=== PATIENT | male | born 1930 | race Caucasian/White ===

== ENCOUNTER 2017-09-25 20:52 | Inpatient (IN) ==
--- OUTSIDE RECORDS SUMMARY | 2017-09-25 22:04 | External Medical Summary | CCD ---
:1930 Author Name DAX EID Address [address], [place] [id number] Care Team Providers Name Role Phone SMITA MILAN Attending Physician Unavailable Vital Signs Unknown or Not Available. Allergies Allergy Code Allergy Type Reaction Status SULFA 0 Drug allergy Active (sulfonamide) MORPHINE 7052 Drug allergy Active NORCO [id number] Drug allergy Active Procedures Unknown or Not Available. History of Immunizations Immunization Code Date pneumococcal polysaccharide PPV23 33 08/12/2007 Influenza, seasonal, injectable 141 05/22/2015 Problems Unknown or Not Available. Results COMP METABOLIC - Collect Date/Time: 07/05/2016 07:45 Test Name Code Test Result Test Units Test Ref Range GLUCOSE 115 mg/dL L=70 H=110 BUN 26 mg/dL L=7 H=18 CREATININE 1.55 mg/dL L=0.60 H=1.30 AGE 86 YEARS GFR 42.7 SODIUM 141 mmol/L L=136 H=145 POTASSIUM 4.3 mmol/L L=3.5 H=5.1 CHLORIDE 103 mmol/L L=98 H=107 CO2 26 mmol/L L=21 H=32 CALCIUM 8.9 mg/dL L=8.5 H=10.1 AST 16 U/L L=15 H=37 ALT 28 U/L L=12 H=78 ALKALINE PHOS 76 U/L L=46 H=116 TOTAL PROTEIN 7.3 g/dL L=6.4 H=8.2 ALBUMIN 3.8 g/dL L=3.4 H=5.0 TOTAL BILI 0.30 mg/dL L=0.00 H=1.00 HGB A1C - Collect Date/Time: 07/05/2016 07:45 Test Name Code Test Result Test Units Test Ref Range HGB A1C 6.9 % L=4.5 H=6.2 eAG 151 mg/dL MICROALBUMIN/CREATININE RATIO - Collect Date/Time: 07/05/2016 07:50 Test Name Code Test Result Test Units Test Ref Range MICROALBUMIN 3.2 mg/dL L=0.1 H=2.0 CREAT, URINE 107.3 mg/dL MICROALB/CREAT 29.8 ug/mg L=0.0 H=29.9 CBC W/ DIFF - Collect Date/Time: 07/05/2016 07:45 Test Name Code Test Result Test Units Test Ref Range WBC 7.2 x10^3 L=4.8 H=10.8 RBC 3.43 x10^6 L=4.70 H=6.10 HEMOGLOBIN 11.4 g/dL L=14.0 H=18.0 HEMATOCRIT 32.1 % L=42.0 H=52.0 MCV 94 fL L=80 H=100 MCH 33.2 pg L=27.0 H=33.0 MCHC 35.5 g/dL L=33.0 H=37.0 RDW 12.5 % L=11.5 H=14.5 PLATELETS 521 x10^3 L=150 H=450 MPV 6.9 fL L=7.8 H=11.0 NEUTROPHILS 64.4 % L=40.0 H=80.0 LYMPHOCYTES 22.9 % L=20.0 H=45.0 MONOCYTES 9.0 % L=0.0 H=10.0 EOSINOPHILS 3.1 % L=0.0 H=5.0 BASOPHILS 0.6 % L=0.0 H=2.0 REFLEX MAN DIFF NO N/A Active Medications Medication Code Dose Units Frequency Route Modification Start Date/Time Fosinopril [id number] 40 MILLIGRAMS DAILY ORAL 07/31/2015 40MG Oral 11:25 Tablet Prescription Detail 40 MILLIGRAMS ORAL DAILY Hydrochlorothiazide [id number] 25 MILLIGRAMS DAILY ORAL 07/31/2015 25MG Oral Tablet 11:25 Prescription Detail 25 MILLIGRAMS ORAL DAILY Lovastatin 20MG [id number] 20 MILLIGRAMS DAILY ORAL 07/31/2015 Oral Tablet 11:25 Prescription Detail 20 MILLIGRAMS ORAL DAILY Mapap 325MG [id number] 650 MILLIGRAMS PRN Q4H BY MOUTH 07/31/2015 Oral Tablet 11:25 Prescription Detail TAKE 650 MILLIGRAMS BY MOUTH PRN Q4H Plavix 75MG [id number] 75 MILLIGRAMS DAILY ORAL 07/31/2015 Oral Tablet 11:25 Prescription Detail 75 MILLIGRAMS ORAL DAILY Flomax 0.4MG [id number] 0.4 MILLIGRAMS AT BEDTIME ORAL 07/31/2015 Oral Capsule 11:24 Prescription Detail 0.4 MILLIGRAMS ORAL AT BEDTIME Medications Administered During Visit Unknown or Not Available. Encounters Encounter Diagnosis Diagnosis Code Start Date Anemia, unspecified D649 07/05/2016 Social History Smoking Status Code Start Date End Date Never smoker [id number] Patient Decision Aids Unknown or Not Available. Discharge Instructions You were admitted to [facility] on 07/05/2016 07:37 with a principal diagnosis of Anemia, unspecified You had the following tests done: CBC W/ DIFF COMP METABOLIC HGB A1C MICROALBUMIN/CREATININE RATIO You were discharged from [facility] on 07/05/2016 07:38 Should you have any questions prior to discharge, please contact a member of your healthcare team. If you have left the hospital and have any questions, please contact your primary care physician. Chief Complaint and Reason For Visit Chief Complaint Date of Onset LAB Function Status Unknown or Not Available. Plan of Care Unknown or Not Available. Referral/Transition of Care Unknown or Not Available.
--- OUTSIDE RECORDS SUMMARY | 2017-09-25 22:04 | External Medical Summary | CCD ---
:1930 Author Name DAX EID Address [address] [employer] [address] [employer], [place] [id number] Care Team Providers Name Role Phone ROSEMARIE BERMEO Attending Physician Unavailable ROSEMARIE BERMEO Er Physician 1 Unavailable CHELSEY Meek Registered Nurse Unavailable Vital Signs Unknown or Not Available. Allergies Allergy Code Allergy Type Reaction Status SULFA 0 Drug allergy Active (sulfonamide) MORPHINE 7052 Drug allergy Active NORCO [id number] Drug allergy Active Procedures Unknown or Not Available. History of Immunizations Immunization Code Date pneumococcal polysaccharide PPV23 33 08/12/2007 Influenza, seasonal, injectable 141 05/22/2015 Problems Unknown or Not Available. Results CARDIAC PANEL - Collect Date/Time: 06/21/2016 12:30 Test Name Code Test Result Test Units Test Ref Range CKMB 1.1 ng/mL L=0.0 H=3.6 CPK 54 U/L L=26 H=308 CKMB% 2.0 % L=0.0 H=4.0 TROPONIN I <0.02 ng/mL L=0.00 H=0.05 COMP METABOLIC - Collect Date/Time: 06/21/2016 12:30 Test Name Code Test Result Test Units Test Ref Range GLUCOSE 138 mg/dL L=70 H=110 BUN 31 mg/dL L=7 H=18 CREATININE 1.68 mg/dL L=0.60 H=1.30 AGE 86 YEARS GFR 38.9 SODIUM 138 mmol/L L=136 H=145 POTASSIUM 4.5 mmol/L L=3.5 H=5.1 CHLORIDE 101 mmol/L L=98 H=107 CO2 27 mmol/L L=21 H=32 CALCIUM 9.3 mg/dL L=8.5 H=10.1 AST 17 U/L L=15 H=37 ALT 33 U/L L=12 H=78 ALKALINE PHOS 56 U/L L=46 H=116 TOTAL PROTEIN 7.5 g/dL L=6.4 H=8.2 ALBUMIN 4.3 g/dL L=3.4 H=5.0 TOTAL BILI 0.40 mg/dL L=0.00 H=1.00 PRO B-TYPE NATRIURETIC PEPTIDE - Collect Date/Time: 06/21/2016 12:30 Test Name Code Test Result Test Units Test Ref Range PBNP 364 pg/mL L=0 H=450 CBC W/ DIFF - Collect Date/Time: 06/21/2016 12:30 Test Name Code Test Result Test Units Test Ref Range WBC 9.7 x10^3 L=4.8 H=10.8 RBC 3.72 x10^6 L=4.70 H=6.10 HEMOGLOBIN 12.1 g/dL L=14.0 H=18.0 HEMATOCRIT 35.5 % L=42.0 H=52.0 MCV 95 fL L=80 H=100 MCH 32.5 pg L=27.0 H=33.0 MCHC 34.1 g/dL L=33.0 H=37.0 RDW 12.6 % L=11.5 H=14.5 PLATELETS 371 x10^3 L=150 H=450 MPV 6.8 fL L=7.8 H=11.0 NEUTROPHILS 65.7 % L=40.0 H=80.0 LYMPHOCYTES 21.4 % L=20.0 H=45.0 MONOCYTES 11.2 % L=0.0 H=10.0 EOSINOPHILS 1.5 % L=0.0 H=5.0 BASOPHILS 0.2 % L=0.0 H=2.0 REFLEX MAN DIFF NO N/A PT/INR - Collect Date/Time: 06/21/2016 12:30 Test Name Code Test Result Test Units Test Ref Range PT 10.2 Secs L=9.4 H=11.0 INR 1.00 L=0.00 H=4.00 Active Medications No Active Medications Medications Administered During Visit Unknown or Not Available. Encounters Encounter Diagnosis Diagnosis Code Start Date Concussion without loss of [id number] 06/21/2016 consciousness, initial encounter Social History Smoking Status Code Start Date End Date Never smoker [id number] Patient Decision Aids Unknown or Not Available. Discharge Instructions You were admitted to [facility] on 06/21/2016 12:08 with a principal diagnosis of Concussion without loss of consciousness, initial encou You had the following tests done: CARDIAC PANEL CBC W/ DIFF COMP METABOLIC PRO B-TYPE NATRIURETIC PEPTIDE PT/INR You were discharged from [facility] on 06/21/2016 14:53 Should you have any questions prior to discharge, please contact a member of your healthcare team. If you have left the hospital and have any questions, please contact your primary care physician. Chief Complaint and Reason For Visit Chief Complaint Date of Onset FALL, HIT HEAD ON BLOOD THINNERS Function Status Unknown or Not Available. Plan of Care Unknown or Not Available. Referral/Transition of Care Unknown or Not Available.
--- OUTSIDE RECORDS SUMMARY | 2017-09-25 22:04 | External Medical Summary | Referral Summary ---
:1930 Author Organization [facility] Address [address] [place] [address] Care Team Providers Name Role Phone TrivediYvonne castanedajose Recinos Primary Care Physician Encounter VC Date(s): 07/10/15 - 07/17/15 [facility] [address] [place] [address] [place] [phone] Discharge Disposition: [address] [place] [address] Attending Physician: Jason Ram MD Admitting Physician: Jason Ram MD Vital Signs Most recent to oldest [Reference Range]: 1 Temperature Oral [35.8-37.3 degC] 36.7 degC (07/17/15 12:00 PM) Temperature Skin [36-37 degC] 36.7 degC (07/11/15 4:30 PM) Temperature Temporal Artery [36.3-37.8 degC] 37.5 degC (07/11/15 11:25 AM) Peripheral Pulse Rate [60-100 bpm] 68 bpm (07/17/15 12:00 PM) Heart Rate Monitored [60-100 bpm] 81 bpm (07/15/15 4:00 PM) Respiratory Rate [14-20 br/min] 16 br/min (07/17/15 12:00 PM) Blood Pressure [90-140/60-90 mmHg] 147/69 mmHg *HI* (07/17/15 12:00 PM) Mean Arterial Pressure, Cuff 104 mmHg (07/13/15 7:30 PM) SpO2 99 % (07/17/15 12:00 PM) Problem List Condition Effective Dates Status Health Status Informant Acute pain(Confirmed) Active At risk of pressure sore(Confirmed) Active Tissue perfusion Active alteration(Confirmed)1 1Problem added automatically by system based on initiation of Tissue Perfusion Cerebral Plan of Care Allergies, Adverse Reactions, Alerts Substance Reaction Severity Status morphine Agitation Active [place] Agitation Active sulfa drugs Rash Active Medications amiodarone 200 mg oral tablet 200 mg 1 tabs, Oral, Daily, 0 Refill(s) Start Date: 07/10/15 Status: OrderedamLODIPine 5 mg oral tablet 5 mg 1 tabs, Oral, Daily, 0 Refill(s) Start Date: 07/10/15 Status: Orderedclopidogrel 75 mg oral tablet 75 mg 1 tabs, Oral, Daily, 0 Refill(s) Start Date: 07/10/15 Status: Orderedfosinopril 40 mg oral tablet 40 mg 1 tabs, Oral, Daily, 0 Refill(s) Start Date: 07/10/15 Status: Orderedglimepiride 1 mg oral tablet 1 mg 1 tabs, Oral, Daily, 0 Refill(s) Start Date: 07/10/15 Status: Orderedhydrochlorothiazide 25 mg oral tablet 25 mg 1 tabs, Oral, Daily, 0 Refill(s) Start Date: 07/10/15 Status: Orderedlovastatin 20 mg oral tablet 20 mg 1 tabs, Oral, Bedtime (once a day), 0 Refill(s) Start Date: 07/10/15 Status: OrderedmetFORMIN 850 mg oral tablet 850 mg 1 tabs, Oral, BID, 0 Refill(s) Start Date: 07/10/15 Status: OrderedoxyCODONE-acetaminophen 5 mg-325 mg oral tablet 1-2 tabs, Oral, q4hr, Pain Moderate (4-6), 0 Refill(s) Start Date: 07/17/15 Status: Orderedtamsulosin 0.4 mg oral capsule 0.4 mg 1 caps, Oral, Daily, 0 Refill(s) Start Date: 07/10/15 Status: OrderedXarelto 10 mg oral tablet 10 mg 1 tabs, Oral, Daily, 0 Refill(s) Start Date: 07/17/15 Status: Ordered Results Hematology Most recent to oldest [Reference Range]: 1 WBC [4.8-10.8 10*3/uL] 10.7 10*3/uL (07/17/15 6:08 AM) RBC [4.60-6.20] 2.27 *LOW* (07/17/15 6:08 AM) Hgb [14.0-18.0 gm/dL] 7.1 gm/dL *LOW* (07/17/15 6:08 AM) Hct [42.0-52.0 %] 21.7 % *LOW* (07/17/15 6:08 AM) MCV [82.0-99.0 fL] 95.6 fL (07/17/15 6:08 AM) MCH [27.0-32.0 pg] 31.3 pg (07/17/15 6:08 AM) MCHC [32.0-36.0 gm/dL] 32.7 gm/dL (07/17/15 6:08 AM) RDW [11.5-14.5 %] 13.1 % (07/17/15 6:08 AM) Platelet [150-400 10*3/uL] 424 10*3/uL *HI* (07/17/15 6:08 AM) MPV [9.4-12.3 fL] 8.9 fL *LOW* (07/17/15 6:08 AM) Coagulation Most recent to oldest [Reference Range]: 1 P2Y12 Reaction Units 161.0 1 (07/10/15 6:23 PM) 1Result Comment: Pre-Drug PRU reference is 194-418. PRU levels lower than 194 are associated with expected antiplatelet effect. The performance characteristics of the P2Y12 inhibition test has been established for Clopidogrel, Prasugrel, and Ticagrelor. Expected values may be used for these drugs.Chemistry Most recent to oldest [Reference Range]: 1 Sodium Lvl [136-144 mEq/L] 132 mEq/L *LOW* (07/17/15 6:08 AM) Potassium Lvl [3.6-5.1 mEq/L] 4.3 mEq/L (07/17/15 6:08 AM) Chloride [99-109 mEq/L] 101 mEq/L (07/17/15 6:08 AM) CO2 [22-32 mEq/L] 25 mEq/L (07/17/15 6:08 AM) AGAP [3-20] 6 (07/17/15 6:08 AM) BUN [4-20 mg/dL] 23 mg/dL *HI* (07/17/15 6:08 AM) Glucose Lvl [70-100 mg/dL] 123 mg/dL *HI* (07/17/15 6:08 AM) Creatinine Lvl [0.64-1.27 mg/dL] 1.19 mg/dL (07/17/15 6:08 AM) eGFR [>60] 58 1 *ABN* (07/17/15 6:08 AM) Calcium Lvl [8.6-10.0 mg/dL] 8.2 mg/dL *LOW* (07/17/15 6:08 AM) Albumin Lvl [3.5-4.8 gm/dL] 2.4 gm/dL *LOW* (07/13/15 5:02 PM) Magnesium Lvl [1.8-2.5 mg/dL] 2.0 mg/dL (07/17/15 6:08 AM) Phosphorus [2.4-4.7 mg/dL] 3.4 mg/dL 2 (07/13/15 5:02 PM) Troponin [<0.06 ng/mL] <0.05 ng/mL (07/15/15 10:00 PM) Lactic Acid Lvl [0.5-2.2 mEq/L] 1.5 mEq/L (07/10/15 6:23 PM) Blood Glucose, Capillary [70-100 mg/dL] 130 mg/dL *HI* (07/17/15 5:59 AM) TSH [0.35-5.50] 2.27 (07/16/15 6:01 AM) 1Result Comment: Multiply eGFR results by 1.21 for race.2Result Comment: High dosages of liposomal Amphotericin B (AmBisome) therapy or other drug preparations that use a liposomal envelope to facilitate drug delivery may cause falsely elevated results for phosphorus.Toxicology Most recent to oldest [Reference Range]: 1 Ethanol Lvl Not Detected (07/10/15 6:23 PM) Urinalysis Most recent to oldest [Reference Range]: 1 UA Color Lt Yellow (07/11/15 6:53 AM) UA Appear Clear (07/11/15 6:53 AM) UA pH [5.0-8.0] 7.0 (07/11/15 6:53 AM) UA Leuk Est [Negative] Negative (07/11/15 6:53 AM) UA Nitrite [Negative] Negative (07/11/15 6:53 AM) UA Protein [Negative] Negative (07/11/15 6:53 AM) UA Glucose [Negative] Pos 1+ *ABN* (07/11/15 6:53 AM) UA Ketones [Negative] Trace *ABN* (07/11/15 6:53 AM) UA Urobilinogen [<1.0] Negative (07/11/15 6:53 AM) UA Bili [Negative] Negative (07/11/15 6:53 AM) UA Blood [Negative] Negative (07/11/15 6:53 AM) UA Spec Grav [1.003-1.030] 1.012 (07/11/15 6:53 AM) Type Catheter (07/11/15 6:53 AM) Immunizations No data available for this section Procedures Procedure Date Related Diagnosis Body Site Open Reduction Internal Fixation Hip with Endo 07/11/15 Prothesis (Right)1 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
--- OUTSIDE RECORDS SUMMARY | 2017-09-25 22:04 | External Medical Summary | Continuity of Care Document ---
:1930 Author Organization [facility] [place] Allergies Active Description Code Type Severity Reaction Onset Reported/ Identified Relationship Clinical to Patient Status Yes morphine NKMA N/A [id number] 07/10/2015 [id number] Yes [place] NKMA N/A [id number] 07/10/2015 Yes sulfa drugs NKMA N/A ACSYtQDsd 07/10/2015 [id number] 79/w Yes acetaminophe aceta Drug Severe AGGRESSIV 06/21/2016 n minop Aller E, OUT OF hen gy CONTROL Yes Sulfa Sulfa Drug Severe HIVES 06/21/2016 (Sulfonamide (Sulf Aller SWELLING Antibiotics) onami gy de Antib iotic s) Yes fentanyl fenta Drug Severe DELIRIUM 02/09/2017 nyl Aller gy Yes hydrocodone hydro Drug Severe AGGRESSIV 02/09/2017 codon Aller E, OUT OF e gy CONTROL Yes morphine morph Drug Severe GREAT 02/09/2017 ine Aller CONFUSION gy Yes ibuprofen ibupr Drug Moderate KIDNEY 02/09/2017 ofen Aller PROBLEMS gy Yes oxycodone oxyco Drug Moderate CONFUSION 02/09/2017 done Aller gy Yes tramadol trama Drug Moderate DELIRIUM 02/09/2017 dol Aller gy Medications There is no data. 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 08/02/2015 Yo AVILEZ, Final I48.0 Paroxysmal atrial Jason L fibrillation 08/02/2015 Yo AVILEZ, Final N17.9 Acute kidney failure, Jason L unspecified 08/02/2015 Yo AVILEZ, Final N18.9 Chronic kidney Jason L disease, unspecified 08/02/2015 Yo AVILEZ, Final R07.89 Other chest pain Jason L 08/02/2015 Yo AVILEZ, Admitting S72.141A Displaced Jason L intertrochanteric fracture of right femur, initial encounter for 08/02/2015 Yo AVILEZ, Final W01.0XXA Fall on same level Jason Ramirez from slipping, tripping and stumbling without subsequent 08/02/2015 Yo AVILEZ, Final Y92.002 Bathroom of Jason L unspecified non-institutional (private) residence single-family 08/02/2015 Yo AVILEZ, Final Z79.4 buttermaker (current) Jason L use of insulin 08/02/2015 Yo AVILEZ, Final Z79.82 buttermaker (current) Jason L use of aspirin 08/02/2015 Yo AVILEZ, Final Z95.5 Presence of coronary Jason L angioplasty implant and graft 08/02/2015 Yo AVILEZ, Final S72.141A Displaced Jason L intertrochanteric fracture of right femur, initial encounter for 06/21/2016 Vallapu Torres F E11.9 TYPE 2 DIABETES Mario AVILEZ MELLITUS WITHOUT COMPLICATIONS 06/21/2016 Vallapu Torres F E78.5 HYPERLIPIDEMIA, Mario AVILEZ UNSPECIFIED 06/21/2016 Vallapu Torres F 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, UNSPECIFIED EAR 06/21/2016 Vallapu Torres F I12.9 HYPERTENSIVE CHRONIC Mario AVILEZ KIDNEY DISEASE W STG 1-4/UNSP 06/21/2016 Vallapu Torres F I25.10 ATHSCL HEART DISEASE Mario AVILEZ OF [place] CORONARY ARTERY W/O 06/21/2016 Vallapu Torres F I48.91 UNSPECIFIED ATRIAL Mario AVILEZ FIBRILLATION 06/21/2016 Vallapu Torres F I49.9 CARDIAC ARRHYTHMIA, Mario AVILEZ UNSPECIFIED 06/21/2016 Vallapu Torres F I65.29 OCCLUSION AND STENOSIS Mario AVILEZ OF UNSPECIFIED CAROTID KAIA 06/21/2016 Vallapu Torres F N17.9 ACUTE KIDNEY FAILURE, Mario AVILEZ UNSPECIFIED 06/21/2016 Vallapu Torres F N18.9 CHRONIC KIDNEY Mario AVILEZ DISEASE, UNSPECIFIED 06/21/2016 Vallapu Torres F N40.0 BENIGN PROSTATIC Mario AVILEZ HYPERPLASIA WITHOUT LOWER URINRY 06/21/2016 Vallapu Torres F R42 DIZZINESS AND Mario AVILEZ GIDDINESS 06/21/2016 Vallapu Brian A R55 SYNCOPE AND COLLAPSE Mario AVILEZ 06/21/2016 Valnataliyapu Torres F S00.03XA CONTUSION OF SCALP, Mario AVILEZ INITIAL ENCOUNTER 06/21/2016 Vallapu Torres F S60.049A CONTUSION OF UNSP RING Mario AVILEZ FINGER W/O DAMAGE TO NAIL, 06/21/2016 Valnataliyaprenzo Torres F Z88.2 ALLERGY STATUS TO Mario AVILEZ SULFONAMIDES STATUS 06/21/2016 Valnataliyapu Torres F Z88.8 ALLERGY STATUS TO OTH Mario AVILEZ DRUG/MEDS/BIOL SUBST STATUS 06/21/2016 Valnataliyapu Torres F Z90.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 06/21/2016 Valnataliyaisela Torres F 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 02/04/2017 Freddy FERRARA, F D64.9 ANEMIA, UNSPECIFIED Enio G 02/04/2017 Freddy FERRARA, F E11.9 TYPE 2 DIABETES Enio G MELLITUS WITHOUT COMPLICATIONS 02/04/2017 Freddy FERRARA, F E78.5 HYPERLIPIDEMIA, Enio G UNSPECIFIED 02/04/2017 Freddy FERRARA, F F19.921 OTH PSYCHOACTIVE Enio G SUBSTANCE USE, UNSP W INTOX W DEL 02/04/2017 Freddy FERRARA, F I12.9 HYPERTENSIVE CHRONIC Neio Aury KIDNEY DISEASE W STG 1-4/UNSP 02/04/2017 Freddy FERRARA, F I25.10 ATHSCL HEART DISEASE Enio Aury OF [place] CORONARY ARTERY W/O 02/04/2017 Hayes , F I48.91 UNSPECIFIED ATRIAL Enio G FIBRILLATION 02/04/2017 Freddy FERRARA, F I95.1 ORTHOSTATIC Enio G HYPOTENSION 02/04/2017 Freddy FERRARA, F J96.01 ACUTE RESPIRATORY Enio G FAILURE WITH HYPOXIA 02/04/2017 Hayes , F K59.00 CONSTIPATION, Enio G UNSPECIFIED 02/04/2017 Hayes , F M19.90 UNSPECIFIED Enio G OSTEOARTHRITIS, UNSPECIFIED SITE 02/04/2017 Freddy FERRARA, F N17.9 ACUTE KIDNEY FAILURE, Enio G UNSPECIFIED 02/04/2017 Hayes , F N18.3 CHRONIC KIDNEY Enio Jeffers DISEASE, STAGE 3 (MODERATE) 02/04/2017 Freddy FERRARA, F N40.0 BENIGN PROSTATIC Enio G HYPERPLASIA WITHOUT LOWER URINRY 02/04/2017 Hayes , F R41.0 DISORIENTATION, Enio G UNSPECIFIED 02/04/2017 Freddy FERRARA, F S22.41XA MULTIPLE FRACTURES OF Enio Jeffers RIBS, RIGHT SIDE, INIT FOR C 02/04/2017 Freddy FERRARA, F S22.49XA MULTIPLE FRACTURES OF Enio Jeffers RIBS, UNSP SIDE, INIT FOR CL 02/04/2017 Freddy FERRARA, F 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, INITIAL ENCOUNTER 02/04/2017 Freddy FERRARA, F W18.30XA FALL ON SAME LEVEL, Enio Jeffers UNSPECIFIED, INITIAL ENCOUNTER 02/04/2017 Freddy FERRARA, F Z66 DO NOT RESUSCITATE Enio G 02/04/2017 Freddy FERRARA, F Z88.2 ALLERGY STATUS TO Enio G SULFONAMIDES STATUS 02/04/2017 Freddy FERRARA, F Z88.5 ALLERGY STATUS TO Enio G NARCOTIC AGENT STATUS 02/04/2017 Freddy FERRARA, F Z95.1 PRESENCE OF Enio Jeffers AORTOCORONARY BYPASS GRAFT Procedures Code Description Performed By Performed On Replacement 07/11/2015 [id number] of Right Hip Joint, Femoral Surface with Synthetic Substitute, MONITOR OF Izzy Torres MD, 06/21/2016 [id number] CENTRAL NERVOUS ELECTR Mario K ACTIVITY, CURB MACHINE OPERATOR DRAINAGE OF 02/04/2017 [id number] R PLEURAL CAV WITH DRAIN DEV, PERC RAUL DRAINAGE OF Garrett Yevgeniy FERRARA R1 02/04/2017 [id number] L PLEURAL CAV WITH DRAIN DEV, PERC RAUL <section xmlns="urn:hl7-org:v3" xmlns:xsi="http://www.w3.org/ 2000/XMLSchema-instance"> <templateId root=" [id number]" /> <templateId root=" [id number]" /> <code codeSystemName=" LOINC" codeSystem="[id number]" code="34998-8&quot ; displayName="Results" /> <title>Results</title> &lt ;text> <table> <thead> <tr> <th& gt;Test</th> <th>Result</th> <th>Range </th> </tr> </thead> <tbody> &lt ;tr> <th colspan="10">GLUCOSE (POC) - 06/21/16 18:07 </th> </tr> <tr> <td>GLUCOSE (POC )</td> <td>136 mg/dL</td> <td>70-99&lt ;/td> </tr> <tr> <th colspan="10& quot;>MRSA SURVEILLANCE SCREEN - 06/21/16 18:11</th> </tr&gt ; <tr> <td>Microbiology</td> <td> </ td> <td /> </tr> <tr> < th colspan="10">CBC W/DIFF - 06/21/16 18:18</th> </ tr> <tr> <td>GRANULOCYTE #</td> & lt;td>13.4 k/cumm</td> <td>2.0-9.0</td> &lt ;/tr> <tr> <td>GRANULOCYTE %</td> <td>84 %</td> <td>50-75</td> </tr> <tr> <td>LYMPHOCYTE #</td> <td>1.4 k/cumm</td> <td>1.0-4.0</td> </tr> <tr> <td>LYMPHOCYTE %</td& gt; <td>9 %</td> <td>20-30</td&gt ; </tr> <tr> <td>MEAN CELL HGB</td& gt; <td>33.3 pg</td> <td>27.0-33.0</td&gt ; </tr> <tr> <td>MEAN CELL HGB CONCENTRATION</td> <td>35.4 g/dL</td> <td >32.0-37.0</td> </tr> <tr> <td&gt ;MEAN CELL VOLUME</td> <td>94.1 fl</td> < td>80.0-100.0</td> </tr> <tr> <td >MONOCYTE #</td> <td>1.1 k/cumm</td> < td>0.1-1.0</td> </tr> <tr> <td&gt ;MONOCYTE %</td> <td>7 %</td> <td>4-6</td> </tr> <tr> <td&gt ;RED BLOOD CELL</td> <td>4.05 m/cumm</td> & lt;td>4.00-6.00</td> </tr> <tr> < td>RED CELL DISTRIBUTION WIDTH</td> <td>12.8 %& lt;/td> <td>11.0-15.6</td> </tr> &lt ;tr> <td>WHITE BLOOD CELL</td> <td>16.0 k /cumm</td> <td>5.0-10.0</td> </tr> <tr> <td>HEMOGLOBIN</td> <td>13.5 gm/dL</td> <td>14.0-18.0</td> </tr> <tr> <td>HEMATOCRIT</td> <td>38.1 & amp;#37;</td> <td>40.0-54.0</td> </tr> <tr> <td>PLATELET COUNT</td> <td& gt;311 k/cumm</td> <td>150-400</td> </tr&gt ; <tr> <th colspan="10">HEMOGLOBIN A1C - 06/21/16 18:18</th> </tr> <tr> <td& gt;HEMOGLOBIN A1C</td> <td>6.7 %</td> <td>< 5.7</td> </tr> <tr> <th colspan="10">METABOLIC PANEL, COMPREHN - 06/21/16 18:18& lt;/th> </tr> <tr> <td>POTASSIUM</ td> <td>4.5 mmol/L</td> <td>3.5-5.3</ td> </tr> <tr> <td>EST GFR (MDRD)&lt ;/td> <td>41 mL/min</td> <td>> 59&lt ;/td> </tr> <tr> <td>ANION GAP</td& gt; <td>5 mmol/L</td> <td>5-15</td> & lt;/tr> <tr> <td>GLUCOSE</td> < td>132 mg/dL</td> <td>70-99</td> </tr&gt ; <tr> <td>CALCIUM</td> <td>9.0 mg /dL</td> <td>8.5-10.1</td> </tr> <tr& gt; <td>BLOOD UREA NITROGEN</td> <td>28 mg/ dL</td> <td>7-20</td> </tr> < tr> <td>CREATININE</td> <td>1.6 mg/dL< /td> <td>0.7-1.3</td> </tr> <tr& gt; <td>SODIUM</td> <td>134 mmol/L</td&gt ; <td>135-148</td> </tr> <tr> <td>CHLORIDE</td> <td>103 mmol/L</td> <td>98-110</td> </tr> <tr> & lt;td>AST/SGOT</td> <td>19 Units/L</td> & lt;td>10-37</td> </tr> <tr> <td& gt;ALT/SGPT</td> <td>30 Units/L</td> <td& gt;< 66</td> </tr> <tr> <td> CARBON DIOXIDE</td> <td>26 mmol/L</td> < td>21-32</td> </tr> <tr> <td> TOTAL PROTEIN</td> <td>7.8 gm/dL</td> <td> 6.4-8.2</td> </tr> <tr> <td> ALBUMIN</td> <td>4.3 gm/dL</td> <td> 3.4-5.0</td> </tr> <tr> <td>BILI TOTAL</td> <td>0.4 mg/dL</td> <td>0.0- 1.0</td> </tr> <tr> <td>ALKALINE PHOSPHATASE TOTAL</td> <td>58 IU/L</td> < td>45-117</td> </tr> <tr> <th colspan="10">PHOSPHORUS - 06/21/16 18:18</th> </tr& gt; <tr> <td>PHOSPHORUS</td> <td> 3.1 mg/dL</td> <td>2.5-4.9</td> </tr> <tr> <th colspan="10">MAGNESIUM - 06/21/16 18:18</th> </tr> <tr> <td> MAGNESIUM</td> <td>1.8 mg/dL</td> <td> 1.8-2.4</td> </tr> <tr> <th colspan= "10">T4 FREE - 06/21/16 18:18</th> </tr> & lt;tr> <td>T4 FREE</td> <td>1.6 ng/dL< /td> <td>0.8-1.8</td> </tr> <tr& gt; <th colspan="10">THYROID STIM HORMONE (TSH) - 06/21 18:18</th> </tr> <tr> <td> THYROID STIM HORMONE (TSH)</td> <td>1.00 uIU/mL</td> <td>0.34-4.82</td> </tr> <tr> <th colspan="10">TROPONIN I - 06/21/16 18:18</th> </tr> <tr> <td>TROPONIN I</td> < td>< 0.02 ng/mL</td> <td>< 0.07</td&gt ; </tr> <tr> <th colspan="10"&gt ;GLUCOSE (POC) - 06/21/16 22:49</th> </tr> <tr> <td>GLUCOSE (POC)</td> <td>163 mg/dL</td > <td>70-99</td> </tr> <tr> <th colspan="10">TROPONIN I - 06/22/16 01:29</th> </tr> <tr> <td>TROPONIN I</td> <td>< 0.02 ng/mL</td> <td>< 0.07</td> </tr> <tr> <th colspan=& quot;10">CBC W/DIFF - 06/22/16 01:31</th> </tr> <tr> <td>EOSINOPHIL #</td> <td>0.1 k/cumm</td> <td>0.1-0.5</td> </tr> <tr> <td>EOSINOPHIL %</td> <td >1 %</td> <td>2-4</td> </tr> <tr> <td>GRANULOCYTE #</td> <td& gt;6.3 k/cumm</td> <td>2.0-9.0</td> </tr&gt ; <tr> <td>GRANULOCYTE %</td><td&gt ;70 %</td> <td>50-75</td> </tr> <tr> <td>LYMPHOCYTE #</td> <td&gt ;1.5 k/cumm</td> <td>1.0-4.0</td> </tr> <tr> <td>LYMPHOCYTE %</td> & lt;td>16 %</td> <td>20-30</td> < /tr> <tr> <td>MEAN CELL HGB</td> & lt;td>32.6 pg</td> <td>27.0-33.0</td> </ tr> <tr> <td>MEAN CELL HGB CONCENTRATION</td& gt; <td>34.3 g/dL</td> <td>32.0-37.0</td& gt; </tr> <tr> <td>MEAN CELL VOLUME< /td> <td>95.0 fl</td> <td>80.0-100.0</ td> </tr> <tr> <td>MONOCYTE #</td > <td>1.2 k/cumm</td> <td>0.1-1.0</td& gt; </tr> <tr> <td>MONOCYTE %& lt;/td> <td>13 %</td> <td>4-6< /td> </tr> <tr> <td>RED BLOOD CELL& lt;/td> <td>3.59 m/cumm</td> <td>4.00- 6.00</td> </tr> <tr> <td>RED CELL DISTRIBUTION WIDTH</td> <td>12.8 %</td> <td>11.0-15.6</td> </tr> <tr> <td>WHITE BLOOD CELL</td> <td>9.1 k/cumm</td&gt ; <td>5.0-10.0</td> </tr> <tr> <td>HEMOGLOBIN</td> <td>11.7 gm/dL</td&gt ; <td>14.0-18.0</td> </tr> <tr> <td>HEMATOCRIT</td> <td>34.1 %</td& gt; <td>40.0-54.0</td> </tr> <tr&gt ; <td>PLATELET COUNT</td> <td>305 k/cumm< /td> <td>150-400</td> </tr> <tr& gt; <th colspan="10">RENAL FUNCTION PANEL - 06/22/16 01 :31</th> </tr> <tr> <td>POTASSIUM </td> <td>4.3 mmol/L</td> <td>3.5-5.3& lt;/td> </tr> <tr> <td>EST GFR (MDRD) </td> <td>44 mL/min</td> <td>> 59</td> </tr> <tr> <td>ANION GAP& lt;/td> <td>8 mmol/L</td> <td>5-15</td > </tr> <tr> <td>GLUCOSE</td> <td>128 mg/dL</td> <td>70-99</td> &lt ;/tr> <tr> <td>CALCIUM</td> <td& gt;8.8 mg/dL</td> <td>8.5-10.1</td> </tr&gt ; <tr> <td>BLOOD UREA NITROGEN</td> <td >26 mg/dL</td> <td>7-20</td> </tr> <tr> <td>CREATININE</td> <td> 1.5 mg/dL</td> <td>0.7-1.3</td> </tr> <tr> <td>SODIUM</td> <td>135 mmol/L</td> <td>135-148</td> </tr> <tr> <td>CHLORIDE</td> <td>100 mmol /L</td> <td>98-110</td> </tr> <tr&gt ; <td>CARBON DIOXIDE</td> <td>27 mmol/L</ td> <td>21-32</td> </tr> <tr> <td>ALBUMIN</td> <td>3.7 gm/dL</td> <td>3.4-5.0</td> </tr> <tr> <td>PHOSPHORUS</td> <td>3.4 mg/dL</td> <td>2.5-4.9</td> </tr> <tr> < th colspan="10">LIPID PANEL - 06/22/16 01:31</th> < /tr> <tr> <td>CHOLESTEROL/HDL RATIO</td> <td>2.1 </td> <td> < 5.0</td> </ tr> <tr> <td>LDL CHOLESTEROL</td> <td>47 mg/dL</td> <td>< 100</td> </tr> <tr> <td>VLDL CHOLESTEROL</td> <td>23 mg/dL</td> <td>< 30</td> </tr> <tr> <td>TRIGLYCERIDES</td&gt ; <td>116 mg/dL</td> <td>< 150</td > </tr> <tr> <td>CHOLESTEROL</td& gt; <td>133 mg/dL</td> <td>< 200</ td> </tr> <tr> <td>HDL CHOLESTEROL& lt;/td> <td>63 mg/dL</td> <td>> 39 </td> </tr> <tr> <th colspan=" 10">MAGNESIUM - 06/22/16 01:31</th> </tr> < tr> <td>MAGNESIUM</td> <td>1.7 mg/dL</ td> <td>1.8-2.4</td> </tr> <tr&gt ; <th colspan="10">URINALYSIS, ROUTINE - 06/22/16 05:30 </th> </tr> <tr> <td>UA LEUKOCYTE ESTERASE DIPSTICK</td> <td>NEGATIVE </td> <td>NEGATIVE</td> </tr> <tr> <td>UA NITRITE DIPSTICK</td> <td>NEGATIVE </ td> <td>NEGATIVE</td> </tr> <tr& gt; <td>UA PROTEIN DIPSTICK</td> <td> NEGATIVE </td> <td>NEGATIVE</td> </tr> <tr> <td>UA GLUCOSE DIPSTICK</td> &lt ;td>NEGATIVE </td> <td>NEGATIVE</td> </ tr> <tr> <td>UA KETONE DIPSTICK</td> <td>NEGATIVE </td> <td>NEGATIVE</td> </tr> <tr> <td>UA UROBILINOGEN DIPSTICK</td > <td>NORMAL </td> <td>NORMAL</td> </tr> <tr> <td>UA BILIRUBIN DIPSTICK& lt;/td> <td>NEGATIVE </td> <td>NEGATIVE& lt;/td> </tr> <tr> <td>UA BLOOD DIPSTICK</td> <td>NEGATIVE </td> <td> NEGATIVE</td> </tr><tr> <td>UA SPECIFIC GRAVITY</td> <td>1.012 </td> <td>1.015- 1.025</td> </tr> <tr> <td>UR PH& lt;/td> <td>5.0 </td> <td>5.0-7.0</td& gt; </tr> <tr> <th colspan="10"& gt;GLUCOSE (POC) - 06/22/16 05:38</th> </tr> <tr&gt ; <td>GLUCOSE (POC)</td> <td>134 mg/dL</ td> <td>70-99</td> </tr> <tr> <th colspan="10">GLUCOSE (POC) - 06/22/16 11:01</th> </tr> <tr> <td>GLUCOSE (POC)</td> <td>128 mg/dL</td> <td>70-99</td> & lt;/tr> <tr> <th colspan="10">GLUCOSE ( POC) - 06/22/16 16:17</th> </tr> <tr> & lt;td>GLUCOSE (POC)</td> <td>148 mg/dL</td> <td>70-99</td> </tr> <tr> &lt ;th colspan="10">GLUCOSE (POC) - 06/22/16 20:15</th> & lt;/tr> <tr> <td>GLUCOSE (POC)</td> <td>158 mg/dL</td> <td>70-99</td> &lt ;/tr> <tr> <th colspan="10">GLUCOSE ( POC) - 06/23/16 05:50</th> </tr> <tr> & lt;td>GLUCOSE (POC)</td> <td>119 mg/dL</td> <td>70-99</td> </tr> <tr> <th colspan="10">CBC W/DIFF - 06/23/16 06:19</th> </tr& gt; <tr> <td>EOSINOPHIL #</td> <td> 0.2 k/cumm</td> <td>0.1-0.5</td> </tr> <tr> <td>EOSINOPHIL%</td> <td& gt;3 %</td> <td>2-4</td> </tr> <tr> <td>GRANULOCYTE #</td> <td>5.2 k/cumm</td> <td>2.0-9.0</td> </tr> <tr><td>GRANULOCYTE %</td> <td>66 & amp;#37;</td> <td>50-75</td> </tr> <tr> <td>LYMPHOCYTE #</td> <td>1.5 k /cumm</td> <td>1.0-4.0</td> </tr> &lt ;tr> <td>LYMPHOCYTE %</td> <td> 18 %</td> <td>20-30</td> </tr> <tr> <td>MEAN CELL HGB</td> <td&gt ;32.5 pg</td> <td>27.0-33.0</td> </tr> <tr> <td>MEAN CELL HGB CONCENTRATION</td> & lt;td>33.9 g/dL</td> <td>32.0-37.0</td> &lt ;/tr><tr> <td>MEAN CELL VOLUME</td> < td>95.7 fl</td> <td>80.0-100.0</td> </tr> <tr> <td>MONOCYTE#</td> <td> 1.0 k/cumm</td> <td>0.1-1.0</td> </tr> <tr> <td>MONOCYTE %</td> < td>13 %</td> <td>4-6</td> </tr& gt; <tr> <td>RED BLOOD CELL</td> < td>3.51 m/cumm</td> <td>4.00-6.00</td> < /tr> <tr> <td>RED CELL DISTRIBUTION WIDTH</td& gt; <td>12.8 %</td> <td>11.0-15.6&lt ;/td></tr> <tr> <td>WHITE BLOOD CELL</td > <td>7.9 k/cumm</td> <td>5.0-10.0</td > </tr> <tr> <td>HEMOGLOBIN</td> <td>11.4 gm/dL</td> <td>14.0-18.0</td> </tr> <tr> <td>HEMATOCRIT</td> <td>33.6 %</td> <td>40.0-54.0</td&gt ; </tr><tr> <td>PLATELET COUNT</td> <td>281 k/cumm</td> <td>150-400</td> & lt;/tr> <tr> <th colspan="10">RENAL FUNCTION PANEL - 06/23/16 06:19</th> </tr> <tr> <td>POTASSIUM</td> <td>3.9 mmol/L</td> <td>3.5-5.3</td> </tr> <tr> <td>EST GFR (MDRD)</td> <td>48 mL/min</td> <td>> 59</td> </tr> <tr> & lt;td>ANION GAP</td> <td>6 mmol/L</td> <td>5 -15</td> </tr> <tr> <td>EST CrCl (CG)</td> <td>47 mL/min</td> <td>& gt; 59</td> </tr> <tr> <td> GLUCOSE</td> <td>115 mg/dL</td> <td>70 -99</td> </tr> <tr> <td>CALCIUM& lt;/td> <td>8.6 mg/dL</td> <td>8.5-10.1& lt;/td> </tr> <tr> <td>BLOOD UREA NITROGEN</td> <td>18 mg/dL</td> <td>7- 20</td> </tr> <tr> <td>CREATININE </td> <td>1.4 mg/dL</td> <td>0.7-1.3& lt;/td> </tr> <tr> <td>SODIUM</td > <td>137mmol/L</td> <td>135-148</td& gt; </tr> <tr> <td>CHLORIDE</td> <td>103 mmol/L</td> <td>98-110</td> < /tr> <tr> <td>CARBON DIOXIDE</td> <td>28 mmol/L</td> <td>21-32</td> </ tr> <tr> <td>ALBUMIN</td> <td& gt;3.4 gm/dL</td> <td>3.4-5.0</td> </tr&gt ; <tr> <td>PHOSPHORUS</td> <td>3.5 mg/ dL</td> <td>2.5-4.9</td> </tr> & lt;tr> <th colspan="10">MAGNESIUM - 06/23/16 06:19& lt;/th> </tr> <tr> <td>MAGNESIUM< /td> <td>2.0 mg/dL</td> <td>1.8-2.4</ td> </tr> <tr> <th colspan="10& quot;>GLUCOSE (POC) - 06/23/16 11:14</th> </tr> &lt ;tr> <td>GLUCOSE (POC)</td> <td>197 mg/dL</ td> <td>70-99</td> </tr> <tr> <th colspan="10">GLUCOSE (POC) - 06/23/16 16:07</th > </tr> <tr> <td>GLUCOSE (POC)</ td> <td>165 mg/dL</td> <td>70-99</td& gt; </tr> <tr> <th colspan="10"& gt;GLUCOSE (POC) - 06/23/16 20:27</th> </tr> <tr&gt ; <td>GLUCOSE (POC)</td> <td>216 mg/dL</ td> <td>70-99</td> </tr> <tr> <th colspan="10">CBC W/DIFF - 06/24/16 04:23</th&gt ; </tr> <tr> <td>EOSINOPHIL #</td&gt ; <td>0.2 k/cumm</td> <td>0.1-0.5</td&gt ; </tr> <tr> <td>EOSINOPHIL %& lt;/td> <td>2 %</td> <td>2-4</ td> </tr> <tr> <td>GRANULOCYTE #< /td> <td>5.9 k/cumm</td> <td>2.0-9.0</ td> </tr> <tr> <td>GRANULOCYTE % </td> <td>67 %</td><td>50-75</td&gt ; </tr> <tr> <td>LYMPHOCYTE #</td&gt ; <td>1.4 k/cumm</td> <td>1.0-4.0</td&gt ; </tr> <tr> <td>LYMPHOCYTE %& lt;/td> <td>16 %</td> <td>20-30& lt;/td> </tr> <tr> <td>MEAN CELL HGB </td> <td>32.5 pg</td> <td>27.0-33.0& lt;/td> </tr> <tr> <td>MEAN CELL HGB CONCENTRATION</td> <td>33.7 g/dL</td> & lt;td>32.0-37.0</td> </tr> <tr> <td >MEAN CELL VOLUME</td> <td>96.3 fl</td> & lt;td>80.0-100.0</td> </tr> <tr> &lt ;td>MONOCYTE #</td> <td>1.3 k/cumm</td> & lt;td>0.1-1.0</td> </tr> <tr> <td> MONOCYTE %</td> <td>14 %</td> <td>4-6</td> </tr> <tr> <td> RED BLOOD CELL</td> <td>3.54 m/cumm</td> &lt ;td>4.00-6.00</td> </tr> <tr> <td >RED CELL DISTRIBUTION WIDTH</td> <td>12.7 %< /td> <td>11.0-15.6</td> </tr> <tr& gt; <td>WHITE BLOOD CELL</td> <td>8.8 k/cumm </td> <td>5.0-10.0</td> </tr> &lt ;tr> <td>HEMOGLOBIN</td> <td>11.5 gm/dL</ td> <td>14.0-18.0</td> </tr> <tr& gt; <td>HEMATOCRIT</td> <td>34.1 %</td > <td>40.0-54.0</td> </tr> <tr> <td>PLATELET COUNT</td> <td>273 k/cumm</ td> <td>150-400</td> </tr> <tr&gt ; <th colspan="10">RENAL FUNCTION PANEL - 06/24/16 04: 23</th> </tr> <tr> <td>POTASSIUM& lt;/td> <td>4.0 mmol/L</td> <td>3.5-5.3& lt;/td> </tr> <tr> <td>EST GFR (MDRD )</td> <td>44 mL/min</td> <td>&gt ; 59</td> </tr> <tr> <td>ANION GAP</td> <td>6 mmol/L</td> <td>5-15</ td> </tr> <tr> <td>EST CrCl (CG)< /td> <td>44 mL/min</td> <td>> 59& lt;/td> </tr> <tr> <td>GLUCOSE</td> <td>154 mg/dL</td> <td>70-99</td> </tr> <tr> <td>CALCIUM</td> <td>8.5 mg/dL</td> <td>8.5-10.1</td> </ tr> <tr> <td>BLOOD UREA NITROGEN</td> <td>22 mg/dL</td> <td>7-20</td> &lt ;/tr> <tr> <td>CREATININE</td> <td> 1.5 mg/dL</td> <td>0.7-1.3</td> </tr> <tr> <td>SODIUM</td> <td>137 mmol/L</td> <td>135-148</td> </tr> <tr> <td>CHLORIDE</td> <td>103 mmol/L& lt;/td> <td>98-110</td> </tr> <tr > <td>CARBON DIOXIDE</td> <td>28 mmol/L</td& gt; <td>21-32</td> </tr> <tr> <td>ALBUMIN</td> <td>3.5 gm/dL</td> <td>3.4-5.0</td> </tr> <tr> <td>PHOSPHORUS</td> <td>3.1 mg/dL</td> <td>2.5-4.9</td> </tr> <tr> <th colspan="10">MAGNESIUM - 06/24/16 04:23</th> </tr& gt; <tr> <td>MAGNESIUM</td> <td&gt ;2.1 mg/dL</td> <td>1.8-2.4</td> </tr> <tr> <th colspan="10">GLUCOSE (POC) - 03/02 11:20</th> </tr> <tr> <td> GLUCOSE (POC)</td> <td>198 mg/dL</td> <td >70-99</td> </tr> <tr> <th colspan="10">GLUCOSE (POC) - 06/24/16 16:11</th> </ tr> <tr> <td>GLUCOSE (POC)</td> & lt;td>189 mg/dL</td> <td>70-99</td> </tr> <tr> <th colspan="10">GLUCOSE (POC) - 03/02 21:18</th> </tr> <tr> <td> GLUCOSE (POC)</td> <td>183 mg/dL</td> <td> 70-99</td> </tr> <tr> <th colspan=& quot;10">GLUCOSE (POC) - 06/25/16 06:29</th> </tr> <tr> <td>GLUCOSE (POC)</td> <td> 164 mg/dL</td> <td>70-99</td> </tr> <tr> <th colspan="10">LACTIC ACID - 02/04/17 19:55</th> </tr> <tr> <td>LACTIC ACID</td> <td>1.9 mmol/L</td> <td>0.5- 2.0</td> </tr> <tr> <th colspan=& quot;10">PLT FUNCTION, P2Y12 (PLAVIX) - 02/04/17 19:55</th> </tr> <tr> <td>PLATELET COUNT</td> &lt ;td>242 k/cumm</td> <td>150-450</td> </ tr> <tr> <td>PLT FUNCTION P2Y12</td> <td>270 PRU</td> <td>194-418</td> &lt ;/tr> <tr> <th colspan="10">PLATELET FUNCTION ASPIRIN - 02/04/17 19:55</th> </tr> <tr> <td>PLATELET COUNT</td> <td>242 k/cumm</td> <td>150-450</td> </tr> <tr> <td>PLATELET FUNCTION ASPIRIN</td> <td>585 ARU& lt;/td> <td>620-672</td> </tr> <tr&gt ; <th colspan="10">CBC W/MANUAL DIFF - 02/04/17 20:30& lt;/th> </tr> <tr> <td>MEAN CELL HGB</td > <td>32.6 pg</td> <td>27.0-33.0</td& gt; </tr> <tr> <td>MEAN CELL HGB CONCENTRATION</td> <td>33.7 g/dL</td> <td >32.0-37.0</td> </tr> <tr> <td&gt ;MEAN CELL VOLUME</td> <td>96.7 fl</td> < td>80.0-100.0</td> </tr> <tr> <td >RED BLOOD CELL</td> <td>2.76 m/cumm</td> <td>4.00-6.00</td> </tr> <tr> & lt;td>RED CELL DISTRIBUTION WIDTH</td> <td>14.3 &#37 ;</td> <td>11.0-15.6</td> </tr> & lt;tr> <td>WHITE BLOOD CELL</td> <td> 15.1 k/cumm</td> <td>5.0-10.0</td> </tr&gt ; <tr> <td>HEMOGLOBIN</td> <td> 9.0 gm/dL</td> <td>14.0-18.0</td> </tr> <tr> <td>HEMATOCRIT</td> <td> 26.7 %</td> <td>40.0-54.0</td> </tr > <tr> <td>PLATELET COUNT</td> &lt ;td>267 k/cumm</td> <td>150-400</td> </tr> <tr> <th colspan="10">MANUAL DIFF(O) - 20:30</th> </tr> <tr> <td> GRANULOCYTE #</td> <td>12.2 k/cumm</td> < td>2.0-9.0</td> </tr> <tr> <td&gt ;LYMPHOCYTE #</td> <td>1.5 k/cumm</td> < td>1.0-4.0</td> </tr> <tr> <td&gt ;LYMPHOCYTE %</td> <td>10 %</td> <td>20-30</td> </tr> <tr> < td>DIFFERENTIAL</td> <td>MANUAL </td> &lt ;td /> </tr> <tr> <td>MONOCYTE #< /td> <td>1.4 k/cumm</td> <td>0.1-1.0</ td> </tr> <tr> <td>MONOCYTE &#37 ;</td> <td>9 %</td> <td>4-6&lt ;/td> </tr> <tr> <td>RBC MORPH</ td> <td>NOTED </td> <td /> </tr > <tr> <td>SEGMENTED NEUTROPHIL %</td& gt; <td>81 %</td> <td>50-70</td& gt; </tr> <tr> <td>TOXIC GRANULATION</ td> <td>NOTED </td> <td /> </tr > <tr> <th colspan="10">METABOLIC PANEL , COMPREHN - 02/04/17 20:30</th> </tr> <tr> <td>POTASSIUM</td> <td>5.1 mmol/L</td> <td>3.5-5.3</td> </tr> <tr> <td>EST GFR (MDRD)</td> <td>19 mL/min</td> <td>> 59</td> </tr> <tr> <td>ANION GAP</td> <td>10 mmol/L</td&gt ; <td>5-15</td> </tr> <tr> <td>EST CrCl (CG)</td> <td>21 mL/min</td> <td>> 59</td> </tr> <tr> <td>GLUCOSE</td> <td>157 mg/dL</td> <td>70-99</td> </tr> <tr> <td>CALCIUM</td> <td>8.2 mg/dL</td> <td>8.5-10.1</td> </tr> <tr> < td>BLOOD UREA NITROGEN</td> <td>49 mg/dL</td> <td>7-20</td> </tr> <tr> < td>CREATININE</td> <td>3.2 mg/dL</td> &lt ;td>0.7-1.3</td> </tr> <tr> <td& gt;SODIUM</td> <td>137 mmol/L</td> <td&gt ;135-148</td> </tr> <tr> <td> CHLORIDE</td> <td>104 mmol/L</td> <td> 98-110</td> </tr> <tr> <td>AST/ SGOT</td> <td>93 Units/L</td> <td>10-37< /td> </tr> <tr> <td>ALT/SGPT</td& gt; <td>120 Units/L</td> <td>< 66< /td> </tr> <tr> <td>CARBON DIOXIDE& lt;/td> <td>23 mmol/L</td> <td>21-32</ td> </tr> <tr> <td>TOTAL PROTEIN< /td> <td>6.8 gm/dL</td> <td>6.4-8.2</ td> </tr> <tr> <td>ALBUMIN</td&gt ; <td>3.1 gm/dL</td> <td>3.4-5.0</td> </tr> <tr> <td>BILI TOTAL</td> <td>0.5 mg/dL</td> <td>0.0-1.0</td> </tr> <tr> <td>ALKALINE PHOSPHATASE TOTAL</ td> <td>61 IU/L</td> <td>45-117</td&gt ; </tr> <tr> <th colspan="10"&gt ;PROCALCITONIN - 02/04/ 20:30</th> </tr> <tr> <td>PROCALCITONIN</td> <td>3.09 ng/mL</ td> <td>< 0.25</td> </tr> &lt ;tr> <th colspan="10">BLOOD CULTURE - 02/05/17 00:04 </th> </tr> <tr> <td>Microbiology </td> <td> </td> <td /> </tr > <tr><th colspan="10">URINALYSIS, ROUTINE - 01:41</th> </tr> <tr> <td>UA LEUKOCYTE ESTERASE DIPSTICK</td> <td>NEGATIVE </td> <td>NEGATIVE</td> </tr> <tr> < td>UA NITRITE DIPSTICK</td> <td>NEGATIVE </td> <td>NEGATIVE</td> </tr> <tr> <td>UA PROTEIN DIPSTICK</td> <td>NEGATIVE </td > <td>NEGATIVE</td> </tr> <tr&gt ; <td>UA GLUCOSE DIPSTICK</td> <td>NEGATIVE </td> <td>NEGATIVE</td> </tr> &lt ;tr> <td>UA KETONE DIPSTICK</td> <td> NEGATIVE </td> <td>NEGATIVE</td> </tr> <tr> <td>UA UROBILINOGEN DIPSTICK</td> <td>NORMAL </td> <td>NORMAL</td> < /tr> <tr> <td>UA BILIRUBIN DIPSTICK</td> <td>NEGATIVE </td> <td>NEGATIVE</td> </tr> <tr> <td>UA BLOOD DIPSTICK</td> <td>2+ </td> <td>NEGATIVE</td> & lt;/tr> <tr> <td>UA SPECIFIC GRAVITY</td> <td>1.016 </td> <td>1.015-1.025</td> </tr> <tr> <td>UR PH</td> <td>5.0 </td> <td>5.0-7.0</td> </ tr> <tr> <th colspan="10">UA MICROSCOPIC - 02/05/17 01:41</th> </tr> <tr> <td>UA AMORPHOUS SEDIMENT</td> <td>2+ </td& gt; <td /> </tr> <tr> <td& gt;UA BACTERIA</td> <td>2+ </td> <td> NEGATIVE</td> </tr> <tr> <td>UA EPITHELIAL CELLS</td> <td>1+ epi/hpf</td> & lt;td>0 - 1+</td> </tr> <tr> <td& gt;UA MUCUS</td> <td>1+ </td> <td>NEG TO 1+ </td> </tr> <tr> <td>UA RBC</ td> <td>3-5 rbc/hpf</td> <td>0 - 3</td > </tr> <tr> <td>UA VOLUME FOR EXAM& lt;/td> <td>12.0 mL</td> <td>(12mL STD)& lt;/td> </tr> <tr> <td>UA WBC</td > <td>0 wbc/hpf</td> <td>0 - 5</td&gt ; </tr> <tr> <th colspan="10"> UR SODIUM - 02/05/17 01:41</th> </tr> <tr> <td>UR SODIUM COMMENT</td> <td>RANDOM </td> <td /> </tr> <tr> <td>UR SODIUM LEVEL</td> <td>75 mmol/L</td> <td& gt;20-40</td> </tr> <tr> <th colspan ="10">UR CREATININE - 02/05/17 01:41</th> </tr> <tr> <td>UR CREATININE COMMENT</td> <td>RANDOM </td> <td /> </tr> &lt ;tr> <td>UR CREATININE LEVEL</td> <td> 151.0 mg/dL</td> <td>44-467</td> </tr> <tr> <th colspan="10">LACTIC ACID - 04:55</th> </tr> <tr> <td> LACTIC ACID</td> <td>1.3 mmol/L</td> <td& gt;0.5-2.0</td> </tr> <tr> <th colspan="10">CBC W/DIFF - 02/05/17 04:55</th> </tr& gt; <tr> <td>EOSINOPHIL #</td> <td >0.2 k/cumm</td> <td>0.1-0.5</td> </tr> <tr> <td>EOSINOPHIL %</td> < td>2 %</td> <td>2-4</td> </tr&gt ; <tr> <td>GRANULOCYTE #</td> <td>8.2 k/cumm</td> <td>2.0-9.0</td> </tr> <tr> <td>GRANULOCYTE %</td> < td>77 %</td> <td>50-75</td> </tr > <tr> <td>LYMPHOCYTE #</td> < td>1.0 k/cumm</td> <td>1.0-4.0</td> </tr > <tr> <td>LYMPHOCYTE %</td> <td>10 %</td> <td>20-30</td> </tr> <tr> <td>MEAN CELL HGB</td> <td>32.6 pg</td> <td>27.0-33.0</td> </tr> <tr> <td>MEAN CELL HGB CONCENTRATION&lt ;/td> <td>32.9 g/dL</td> <td>32.0-37.0</td& gt; </tr> <tr> <td>MEAN CELL VOLUME< /td> <td>99.2 fl</td> <td>80.0-100.0</ td> </tr> <tr> <td>MONOCYTE #</td&gt ; <td>1.2 k/cumm</td> <td>0.1-1.0</td&gt ; </tr> <tr> <td>MONOCYTE %< /td> <td>11 %</td> <td>4-6</td > </tr> <tr> <td>RED BLOOD CELL</ td> <td>2.39 m/cumm</td> <td>4.00-6.00</td& gt; </tr> <tr> <td>RED CELL DISTRIBUTION WIDTH</td> <td>13.8 %</td> <td&gt ;11.0-15.6</td> </tr> <tr><td>WHITE BLOOD CELL</td> <td>10.7 k/cumm</td> <td>5.0 -10.0</td> </tr> <tr> <td> HEMOGLOBIN</td> <td>7.8 gm/dL</td> <td>14.0- 18.0</td> </tr><tr> <td>HEMATOCRIT</ td> <td>23.7 %</td> <td>40.0-54.0</ td> </tr> <tr> <td>PLATELETCOUNT< /td> <td>211 k/cumm</td> <td>150-400</ td> </tr> <tr> <th colspan="10"> HEMOGLOBIN A1C - 02/05/17 04:55</th> </tr> <tr> <td>HEMOGLOBIN A1C</td> <td>6.4 %</ td> <td>< 5.7</td> </tr> < tr> <th colspan="10">METABOLIC PANEL, COMPREHN - 04:55</th> </tr> <tr> <td> POTASSIUM</td><td>4.7 mmol/L</td> <td>3.5-5.3& lt;/td> </tr> <tr> <td>EST GFR (MDRD )</td> <td>21 mL/min</td> <td>&gt ; 59</td> </tr> <tr> <td>ANION GAP</td> <td>9 mmol/L</td> <td>5-15&lt ;/td> </tr> <tr> <td>EST CrCl (CG)&lt ;/td> <td>23 mL/min</td> <td>> 59& lt;/td> </tr> <tr> <td>GLUCOSE</ td> <td>112 mg/dL</td> <td>70-99</td& gt; </tr> <tr> <td>CALCIUM</td> <td>7.6 mg/dL</td> <td>8.5-10.1</td> </tr> <tr> <td>BLOOD UREA NITROGEN</ td> <td>51 mg/dL</td> <td>7-20</td&gt ; </tr> <tr> <td>CREATININE</td> <td>2.9 mg/dL</td> <td>0.7-1.3</td> </tr> <tr> <td>SODIUM</td> &lt ;td>139 mmol/L</td> <td>135-148</td> </ tr> <tr> <td>CHLORIDE</td> <td& gt;106 mmol/L</td> <td>98-110</td> </tr&gt ; <tr> <td>AST/SGOT</td> <td>55 Units/L</td> <td>10-37</td> </tr> <tr> <td>ALT/SGPT</td> <td>96 Units/ L</td> <td>< 66</td> </tr> <tr> <td>CARBON DIOXIDE</td> <td>24 mmol/L</td> <td>21-32</td> </tr> <tr&gt ; <td>TOTAL PROTEIN</td> <td>5.7 gm/dL</ td> <td>6.4-8.2</td> </tr> <tr&gt ; <td>ALBUMIN</td> <td>2.4 gm/dL</td> <td>3.4-5.0</td> </tr> <tr> <td>BILI TOTAL</td> <td>0.5 mg/dL</td> <td>0.0-1.0</td> </tr> <tr> <td>ALKALINE PHOSPHATASE TOTAL</td> <td>48 IU/L< /td> <td>45-117</td> </tr> <tr&gt ; <th colspan="10">PHOSPHORUS - 02/05/17 04:55</th> </tr> <tr> <td>PHOSPHORUS</td> & lt;td>4.2 mg/dL</td> <td>2.5-4.9</td> </tr> <tr> <th colspan="10">MAGNESIUM - 02/05/17 04:55</th> </tr> <tr> <td> MAGNESIUM</td> <td>1.7 mg/dL</td> <td> 1.8-2.4</td> </tr> <tr> <th colspan=& quot;10">B-TYPE NATRIURETIC PEPTIDE - 02/05/17 09:01</th> & lt;/tr> <tr> <td>B-TYPE NATRIURETIC PEPTIDE</ td> <td>255 pg/mL</td> <td>< 100& lt;/td> </tr> <tr> <th colspan="10 ">GLUCOSE (POC) - 02/05/17 11:47</th> </tr> & lt;tr> <td>GLUCOSE (POC)</td> <td>156 mg/ dL</td> <td>70-99</td> </tr> < tr> <th colspan="10">METABOLIC PANEL, BASIC - 14:02</th> </tr> <tr> <td> POTASSIUM</td> <td>5.0 mmol/L</td> <td&gt ;3.5-5.3</td> </tr> <tr> <td>EST GFR (MDRD)</td> <td>25 mL/min</td> <td&gt ;> 59</td> </tr> <tr> <td> ANION GAP</td> <td>8 mmol/L</td> <td>5 -15</td> </tr> <tr> <td>EST CrCl (CG)& lt;/td> <td>27 mL/min</td> <td>> 59&lt ;/td> </tr> <tr> <td>GLUCOSE</td& gt; <td>136 mg/dL</td> <td>70-99</td> </tr> <tr> <td>CALCIUM</td> <td>8.2 mg/dL</td> <td>8.5-10.1</td> </tr> <tr> <td>BLOOD UREA NITROGEN</td& gt; <td>45 mg/dL</td> <td>7-20</td> </tr> <tr> <td>CREATININE</td> <td>2.5mg/dL</td> <td>0.7-1.3</td> </tr> <tr><td>SODIUM</td> <td> 139 mmol/L</td> <td>135-148</td> </tr> <tr> <td>CHLORIDE</td> <td>106 mmol/L</td> <td>98-110</td> </tr> <tr> <td>CARBON DIOXIDE</td> <td>25 mmol/L </td> <td>21-32</td> </tr> <tr > <th colspan="10">GLUCOSE (POC) - 02/05/17 21:46&lt ;/th> </tr> <tr> <td>GLUCOSE (POC)& lt;/td> <td>198 mg/dL</td> <td>70-99</ td> </tr> <tr> <th colspan="10& quot;>CBC W/DIFF - 02/06/17 03:49</th> </tr> <tr > <td>EOSINOPHIL #</td> <td>0.1 k/cumm&lt ;/td> <td>0.1-0.5</td> </tr> <tr& gt; <td>EOSINOPHIL %</td> <td>1 &amp ;#37;</td> <td>2-4</td> </tr> <tr> <td>GRANULOCYTE #</td> <td>7.5 k/cumm</ td> <td>2.0-9.0</td> </tr> <tr&gt ; <td>GRANULOCYTE %</td> <td>77 &amp ;#37;</td> <td>50-75</td> </tr> & lt;tr> <td>LYMPHOCYTE #</td> <td>1.0 k/ cumm</td> <td>1.0-4.0</td> </tr> <tr> <td>LYMPHOCYTE %</td> <td>10 & amp;#37;</td> <td>20-30</td> </tr><tr > <td>MEAN CELL HGB</td> <td>32.1 pg</ td> <td>27.0-33.0</td> </tr> <tr> <td>MEAN CELL HGB CONCENTRATION</td> <td>32.6 g/ dL</td> <td>32.0-37.0</td> </tr> <tr> <td>MEAN CELL VOLUME</td> <td> 98.4 fl</td> <td>80.0-100.0</td> </tr> <tr> <td>MONOCYTE #</td> <td> 1.1 k/cumm</td> <td>0.1-1.0</td> </tr> <tr> <td>MONOCYTE %</td> < td>11 %</td> <td>4-6</td> </tr& gt; <tr> <td>RED BLOOD CELL</td> < td>2.43 m/cumm</td> <td>4.00-6.00</td> < /tr> <tr> <td>RED CELL DISTRIBUTION WIDTH</td& gt; <td>14.1 %</td> <td>11.0-15.6&lt ;/td> </tr> <tr> <td>WHITE BLOOD CELL</td> <td>9.8 k/cumm</td> <td>5.0- 10.0</td> </tr> <tr> <td> HEMOGLOBIN</td> <td>7.8 gm/dL</td> <td&gt ;14.0-18.0</td> </tr> <tr> <td> HEMATOCRIT</td> <td>23.9 %</td> < td>40.0-54.0</td> </tr> <tr> <td& gt;PLATELET COUNT</td> <td>241 k/cumm</td> & lt;td>150-400</td> </tr> <tr> <th colspan="10">RENAL FUNCTION PANEL - 02/06/17 03:49</th> </tr> <tr> <td>POTASSIUM</td> <td>5.1 mmol/L</td> <td>3.5-5.3</td> </tr> <tr> <td>EST GFR (MDRD)</td> <td>30 mL/min</td> <td>> 59</td> </tr> <tr> <td>ANION GAP</td> <td>7 mmol/L</td> <td>5-15</td> & lt;/tr> <tr> <td>EST CrCl (CG)</td> <td >32 mL/min</td> <td>> 59</td> </ tr> <tr> <td>GLUCOSE</td> <td>130 mg/ dL</td> <td>70-99</td> </tr> < tr> <td>CALCIUM</td> <td>8.2 mg/dL</td > <td>8.5-10.1</td> </tr> <tr&gt ; <td>BLOOD UREA NITROGEN</td> <td>38 mg/dL& lt;/td> <td>7-20</td> </tr> <tr> <td>CREATININE</td> <td>2.1 mg/dL</td&gt ; <td>0.7-1.3</td> </tr> <tr> <td>SODIUM</td> <td>139 mmol/L</td> <td>135-148</td> </tr> <tr> < td>CHLORIDE</td> <td>107 mmol/L</td> < td>98-110</td> </tr> <tr> <td> CARBONDIOXIDE</td> <td>25 mmol/L</td> <td >21-32</td> </tr> <tr> <td>ALBUMIN&lt ;/td> <td>2.3 gm/dL</td> <td>3.4-5.0</ td> </tr> <tr> <td>PHOSPHORUS</td > <td>3.4 mg/dL</td> <td>2.5-4.9</td& gt; </tr> <tr> <th colspan="10"& gt;MAGNESIUM - 06/22/17 03:49</th> </tr> <tr> <td>MAGNESIUM</td> <td>1.9 mg/dL</td> & lt;td>1.8-2.4</td> </tr> <tr> < th colspan="10">GLUCOSE (POC) - 02/06/17 11:28</th> & lt;/tr> <tr> <td>GLUCOSE (POC)</td> <td>212 mg/dL</td> <td>70-99</td> &lt ;/tr> <tr> <th colspan="10">GLUCOSE ( POC) - 02/06/17 16:49</th> </tr> <tr> & lt;td>GLUCOSE (POC)</td> <td>193 mg/dL</td> <td>70-99</td> </tr> <tr> &lt ;th colspan="10">GLUCOSE (POC) - 02/06/17 20:38</th> & lt;/tr> <tr> <td>GLUCOSE (POC)</td> <td>239 mg/dL</td> <td>70-99</td> </tr& gt; <tr> <th colspan="10">CBC - 02/07/17 04:34</th> </tr> <tr> <td>WHITE BLOOD CELL</td> <td>TEST NOT PERFORMED k/cumm</td> <td>5.0-10.0</td> </tr> <tr> <th colspan="10">RENAL FUNCTION PANEL - 02/07/17 04:34</ th> </tr> <tr> <td>EST GFR (MDRD)&lt ;/td> <td>TEST NOT PERFORMED mL/min</td> <td >> 59</td> </tr> <tr> <td& gt;EST CrCl (CG)</td> <td>TEST NOT PERFORMED mL/min</td& gt; <td>> 59</td> </tr> <tr& gt; <td>SODIUM</td> <td>TEST NOT PERFORMED mmol/L</td> <td>135-148</td> </tr> <tr > <th colspan="10">CBC - 02/07/17 06:00</th> </tr> <tr> <td>MEAN CELL HGB</td&gt ; <td>32.7 pg</td> <td>27.0-33.0</td> </tr> <tr> <td>MEAN CELL HGB CONCENTRATION</td> <td>33.5 g/dL</td> <td>32.0- 37.0</td> </tr> <tr> <td>MEAN CELL VOLUME</td> <td>97.7 fl</td> <td>80.0- 100.0</td> </tr> <tr> <td>RED BLOOD CELL</td> <td>2.57 m/cumm</td> <td& gt;4.00-6.00</td> </tr> <tr> <td>RED CELL DISTRIBUTION WIDTH</td> <td>13.8 %</td> <td>11.0-15.6</td> </tr> <tr> <td>WHITE BLOOD CELL</td> <td>10.3 k/cumm< /td> <td>5.0-10.0</td> </tr> <tr&gt ; <td>HEMOGLOBIN</td> <td>8.4 gm/dL</td& gt; <td>14.0-18.0</td></tr> <tr> <td>HEMATOCRIT</td> <td>25.1 %</td> <td>40.0-54.0</td> </tr> <tr>&lt ;td>PLATELET COUNT</td> <td>291 k/cumm</td> <td>150-400</td> </tr> <tr> & lt;th colspan="10">RENAL FUNCTION PANEL - 02/07/17 06:00</th&gt ; </tr> <tr> <td>POTASSIUM</td> <td>4.2 mmol/L</td> <td>3.5-5.3</td> </tr> <tr> <td>EST GFR (MDRD)</td> <td>36 mL/min</td> <td>> 59</td> </tr> <tr> <td>ANION GAP</td> & lt;td>10 mmol/L</td> <td>5-15</td> </tr& gt; <tr> <td>EST CrCl (CG)</td> < td>37 mL/min</td> <td>> 59</td> < /tr> <tr> <td>GLUCOSE</td> <td& gt;105 mg/dL</td> <td>70-99</td> </tr> <tr> <td>CALCIUM</td> <td>8.4 mg/dL< /td> <td>8.5-10.1</td> </tr> <tr& gt; <td>BLOOD UREA NITROGEN</td> <td>32 mg/ dL</td> <td>7-20</td> </tr> <tr&gt ; <td>CREATININE</td> <td>1.8 mg/dL</td& gt; <td>0.7-1.3</td> </tr> <tr> <td>SODIUM</td> <td>140 mmol/L</td> <td>135-148</td> </tr> <tr> <td>CHLORIDE</td> <td>103 mmol/L</td> <td>98-110</td> </tr> <tr> &lt ;td>CARBON DIOXIDE</td> <td>27 mmol/L</td> <td>21-32</td> </tr> <tr> < td>ALBUMIN</td> <td>2.4 gm/dL</td> <td >3.4-5.0</td> </tr> <tr> <td> PHOSPHORUS</td> <td>3.4 mg/dL</td> <td&gt ;2.5-4.9</td> </tr> <tr> <th colspan ="10">MAGNESIUM - 02/07/17 06:00</th> </tr> <tr> <td>MAGNESIUM</td> <td>1.6 mg /dL</td> <td>1.8-2.4</td> </tr> & lt;tr> <th colspan="10">GLUCOSE (POC) - 02/07/17 11: 40</th> </tr> <tr> <td>GLUCOSE ( POC)</td> <td>173 mg/dL</td> <td>70-99 </td> </tr> <tr> <th colspan="10& quot;>PLATELET COUNT - 02/08/1716:01</th> </tr> &lt ;tr> <td>PLATELET COUNT</td> <td>311 k/cumm& lt;/td> <td>150-400</td> </tr> <tr> <th colspan="10">PROTHROMBIN TIME WITH INR - 02/07/17 16:01</th> </tr> <tr> <td> INTERNATIONAL NORMAL RATIO</td> <td>1.2 </td> <td>0.9-1.1</td> </tr> <tr> & lt;td>PROTHROMBIN TIME</td> <td>14.1 sec</td> & lt;td>10.0-12.8</td> </tr> <tr> < th colspan="10">PARTIAL THROMBOPLASTIN TIME - 02/07/17 16:01</th > </tr> <tr> <td>PARTIAL THROMBOPLASTIN TIME</td> <td>27 sec</td> < td>25-37</td> </tr> <tr> <th colspan="10">GLUCOSE (POC) - 02/07/17 18:28</th> </ tr> <tr><td>GLUCOSE (POC)</td> <td> 169 mg/dL</td> <td>70-99</td> </tr> <tr> <th colspan="10">GLUCOSE (POC) - 20:51</th> </tr> <tr> <td> GLUCOSE (POC)</td> <td>225 mg/dL</td> <td >70-99</td> </tr> <tr> <th colspan="10">CBC - 02/08/17 05:36</th> </tr> & lt;tr> <td>MEAN CELL HGB</td> <td>32.5 pg </td> <td>27.0-33.0</td> </tr> & lt;tr> <td>MEAN CELL HGB CONCENTRATION</td> &lt ;td>33.1 g/dL</td> <td>32.0-37.0</td> </ tr> <tr> <td>MEAN CELL VOLUME</td> <td>98.2 fl</td> <td>80.0-100.0</td> & lt;/tr> <tr> <td>RED BLOOD CELL</td> <td>2.83 m/cumm</td> <td>4.00-6.00</td> </tr> <tr> <td>RED CELL DISTRIBUTION WIDTH</td> <td>13.4 %</td> <td&gt ;11.0-15.6</td> </tr> <tr> <td> WHITE BLOOD CELL</td> <td>9.5 k/cumm</td> & lt;td>5.0-10.0</td> </tr> <tr> < td>HEMOGLOBIN</td> <td>9.2 gm/dL</td> &lt ;td>14.0-18.0</td> </tr> <tr> <td >HEMATOCRIT</td> <td>27.8 %</td> <td>40.0-54.0</td> </tr> <tr> &lt ;td>PLATELET COUNT</td> <td>317 k/cumm</td> <td>150-400</td> </tr> <tr> & lt;th colspan="10">RENAL FUNCTION PANEL - 02/08/17 05:36</th&gt ; </tr> <tr> <td>POTASSIUM</td> <td>4.6 mmol/L</td> <td>3.5-5.3</td> & lt;/tr> <tr> <td>EST GFR (MDRD)</td> <td>41 mL/min</td> <td>> 59</td> </tr> <tr> <td>ANION GAP</td> <td>8 mmol/L</td> <td>5-15</td> &lt ;/tr> <tr> <td>EST CrCl (CG)</td> < td>40 mL/min</td> <td>> 59</td> < /tr> <tr> <td>GLUCOSE</td> <td> 159 mg/dL</td> <td>70-99</td> </tr> <tr> <td>CALCIUM</td> <td>8.6 mg/ dL</td> <td>8.5-10.1</td> </tr> & lt;tr> <td>BLOOD UREA NITROGEN</td> <td> 27 mg/dL</td> <td>7-20</td> </tr> <tr> <td>CREATININE</td> <td>1.6 mg/ dL</td> <td>0.7-1.3</td> </tr> &lt ;tr> <td>SODIUM</td> <td>136 mmol/L</ td> <td>135-148</td> </tr> <tr&gt ; <td>CHLORIDE</td> <td>100 mmol/L</td&gt ; <td>98-110</td> </tr> <tr> <td>CARBON DIOXIDE</td> <td>28 mmol/L</td&gt ; <td>21-32</td> </tr> <tr> <td>ALBUMIN</td> <td>2.4 gm/dL</td> <td>3.4-5.0</td> </tr> <tr> < td>PHOSPHORUS</td> <td>3.7 mg/dL</td> &lt ;td>2.5-4.9</td> </tr> <tr> <th colspan="10">MAGNESIUM - 02/08/17 05:36</th> </tr& gt; <tr> <td>MAGNESIUM</td> <td>1.7 mg/dL</td> <td>1.8-2.4</td> </tr> <tr> <th colspan="10">GLUCOSE (POC) - 02/08/17 11:56</th></tr> <tr> <td>GLUCOSE (POC)& lt;/td> <td>252 mg/dL</td> <td>70-99</ td> </tr> <tr> <th colspan="10& quot;>GLUCOSE (POC) - 02/08/17 17:18</th> </tr> &lt ;tr> <td>GLUCOSE (POC)</td> <td>214 mg/dL </td> <td>70-99</td> </tr> <tr > <th colspan="10">GLUCOSE (POC) - 02/08/17 21:05&lt ;/th> </tr> <tr> <td>GLUCOSE (POC)& lt;/td> <td>271 mg/dL</td> <td>70-99</ td> </tr> <tr> <th colspan="10" >CBC - 02/09/17 04:27</th> </tr> <tr> <td>MEAN CELL HGB</td> <td>32.5 pg</td> <td>27.0-33.0</td> </tr> <tr> <td>MEAN CELL HGB CONCENTRATION</td> <td>33.2 g/ dL</td> <td>32.0-37.0</td> </tr> & lt;tr> <td>MEANCELL VOLUME</td> <td>98.0 fl</td> <td>80.0-100.0</td> </tr> <tr> <td>RED BLOOD CELL</td> <td> 2.46 m/cumm</td> <td>4.00-6.00</td> </tr&gt ; <tr> <td>RED CELL DISTRIBUTION WIDTH</td> <td>13.3 %</td> <td>11.0-15.6</td& gt; </tr> <tr> <td>WHITE BLOOD CELL< /td> <td>9.4 k/cumm</td> <td>5.0-10.0< /td> </tr> <tr> <td>HEMOGLOBIN</ td> <td>8.0 gm/dL</td> <td>14.0-18.0</ td> </tr> <tr> <td>HEMATOCRIT</td&gt ; <td>24.1 %</td> <td>40.0-54.0</ td> </tr> <tr> <td>PLATELET COUNT&lt ;/td> <td>311 k/cumm</td> <td>150-400< /td> </tr> <tr> <th colspan="10& quot;>METABOLIC PANEL, COMPREHN - 02/09/17 04:27</th> </tr&gt ; <tr> <td>POTASSIUM</td> <td> 4.5 mmol/L</td> <td>3.5-5.3</td> </tr> <tr> <td>EST GFR (MDRD)</td> <td& gt;44 mL/min</td> <td>> 59</td> </tr > <tr> <td>ANION GAP</td> <td& gt;6 mmol/L</td> <td>5-15</td> </tr> <tr> <td>EST CrCl (CG)</td> <td>43 mL/min</td> <td>> 59</td> </tr> <tr> <td>GLUCOSE</td> <td>115 mg/ dL</td> <td>70-99</td> </tr> < tr> <td>CALCIUM</td> <td>8.3 mg/dL</td > <td>8.5-10.1</td> </tr> <tr&gt ; <td>BLOOD UREA NITROGEN</td> <td>28 mg/dL& lt;/td> <td>7-20</td> </tr> <tr& gt; <td>CREATININE</td> <td>1.5 mg/dL</td > <td>0.7-1.3</td> </tr> <tr> <td>SODIUM</td> <td>136 mmol/L</td> <td>135-148</td> </tr> <tr> < td>CHLORIDE</td> <td>101 mmol/L</td> < td>98-110</td> </tr> <tr> <td>AST/ SGOT</td> <td>26 Units/L</td> <td>10- 37</td> </tr> <tr> <td>ALT/SGPT& lt;/td> <td>55 Units/L</td> <td>< 66</td> </tr> <tr> <td>CARBON DIOXIDE</td> <td>29 mmol/L</td> <td>21 -32</td> </tr> <tr> <td>TOTAL PROTEIN</td> <td>6.0 gm/dL</td> <td> 6.4-8.2</td> </tr> <tr> <td> ALBUMIN</td> <td>2.1 gm/dL</td> <td>3.4- 5.0</td> </tr> <tr> <td>BILI TOTAL</td> <td>0.4 mg/dL</td> <td>0.0- 1.0</td> </tr> <tr> <td>ALKALINE PHOSPHATASE TOTAL</td> <td>78 IU/L</td> < td>45-117</td> </tr> <tr> <th colspan=& quot;10">PHOSPHORUS - 02/09/17 04:27</th> </tr> <tr> <td>PHOSPHORUS</td> <td>3.1 mg /dL</td> <td>2.5-4.9</td> </tr> & lt;tr> <th colspan="10">MAGNESIUM - 02/09/17 04:27& lt;/th> </tr> <tr> <td>MAGNESIUM< /td> <td>1.9 mg/dL</td> <td>1.8-2.4</ td> </tr> <tr> <th colspan="10"& gt;GLUCOSE (POC) - 02/09/1706:10</th> </tr> <tr&gt ; <td>GLUCOSE (POC)</td> <td>115 mg/dL</td&gt ; <td>70-99</td> </tr> <tr> <th colspan="10">GLUCOSE (POC) - 02/09/17 11:19</th> </tr> <tr> <td>GLUCOSE (POC)</td&gt ; <td>265 mg/dL</td> <td>70-99</td> </tr> <tr> <thcolspan="10"> GLUCOSE (POC) - 02/09/17 16:55</th> </tr> <tr> <td>GLUCOSE (POC)</td> <td>96 mg/dL</td& gt; <td>70-99</td> </tr> <tr> <th colspan="10">GLUCOSE (POC) - 02/09/17 20:56</th&gt ; </tr> <tr> <td>GLUCOSE (POC)</td& gt; <td>129 mg/dL</td> <td>70-99</td> </tr> <tr> <th colspan="10">CBC W/DIFF - 02/10/17 05:22</th> </tr> <tr> <td>EOSINOPHIL #</td> <td>0.5 k/cumm</td> & lt;td>0.1-0.5</td> </tr> <tr> <td >EOSINOPHIL %</td> <td>6 %</td> <td>2-4</td> </tr> <tr> & lt;td>GRANULOCYTE #</td> <td>4.9 k/cumm</td> <td>2.0-9.0</td> </tr> <tr> <td>GRANULOCYTE %</td> <td>63 %</ td> <td>50-75</td> </tr> <tr> <td>LYMPHOCYTE #</td> <td>1.5 k/cumm</td> <td>1.0-4.0</td> </tr> <tr> <td>LYMPHOCYTE %</td> <td>19 %& lt;/td> <td>20-30</td> </tr> <tr& gt; <td>MEAN CELL HGB</td> <td>32.0 pg</ td> <td>27.0-33.0</td> </tr> <tr&gt ; <td>MEAN CELL HGB CONCENTRATION</td> <td> 32.8 g/dL</td> <td>32.0-37.0</td> </tr> <tr> <td>MEAN CELL VOLUME</td> <td> 97.6 fl</td> <td>80.0-100.0</td> </tr> <tr> <td>MONOCYTE #</td> <td> 0.9 k/cumm</td><td>0.1-1.0</td> </tr> < tr> <td>MONOCYTE %</td> <td>11 & amp;#37;</td> <td>4-6</td> </tr> <tr> <td>RED BLOOD CELL</td> <td>2.50 m/cumm</td> <td>4.00-6.00</td> </tr> <tr> <td>RED CELL DISTRIBUTION WIDTH</td> <td>13.8 %</td><td>11.0-15.6</td> &lt ;/tr> <tr> <td>WHITE BLOOD CELL</td> <td>7.8 k/cumm</td> <td>5.0-10.0</td></ tr> <tr> <td>HEMOGLOBIN</td> < td>8.0 gm/dL</td> <td>14.0-18.0</td> </ tr> <tr> <td>HEMATOCRIT</td> < td>24.4 %</td> <td>40.0-54.0</td> & lt;/tr> <tr> <td>PLATELET COUNT</td> <td >395 k/cumm</td> <td>150-400</td> </tr& gt; <tr> <th colspan="10">RENAL FUNCTION PANEL - 02/10/17 05:22</th> </tr> <tr> < td>POTASSIUM</td> <td>4.4 mmol/L</td> &lt ;td>3.5-5.3</td> </tr> <tr> <td& gt;EST GFR (MDRD)</td> <td>48 mL/min</td> & lt;td>>59</td> </tr> <tr> &lt ;td>ANION GAP</td> <td>7 mmol/L</td> < td>5-15</td> </tr> <tr> <td> EST CrCl (CG)</td> <td>48 mL/min</td> <td >> 59</td> </tr> <tr> <td& gt;GLUCOSE</td> <td>88 mg/dL</td> <td>70 -99</td> </tr> <tr> <td>CALCIUM& lt;/td> <td>8.4 mg/dL</td> <td>8.5-10.1& lt;/td> </tr> <tr> <td>BLOOD UREA NITROGEN</td> <td>26 mg/dL</td> <td>7- 20</td> </tr> <tr> <td>CREATININE </td> <td>1.4 mg/dL</td> <td>0.7-1.3& lt;/td> </tr> <tr> <td>SODIUM</td > <td>137 mmol/L</td> <td>135-148</td& gt; </tr> <tr> <td>CHLORIDE</td> <td>101 mmol/L</td> <td>98-110</td> </tr> <tr> <td>CARBON DIOXIDE</td&gt ; <td>29 mmol/L</td> <td>21-32</td> </tr> <tr> <td>ALBUMIN</td> <td>2.1 gm/dL</td> <td>3.4-5.0</td> & lt;/tr> <tr> <td>PHOSPHORUS</td> & lt;td>2.8 mg/dL</td> <td>2.5-4.9</td> </ tr> <tr> <th colspan="10">MAGNESIUM - 02/10/17 05:22</th> </tr> <tr> <td& gt;MAGNESIUM</td> <td>2.0 mg/dL</td> <td> 1.8-2.4</td> </tr> <tr> <th colspan=" 10">GLUCOSE (POC) - 02/10/17 06:33</th> </tr> <tr > <td>GLUCOSE (POC)</td> <td>102 mg/dL&lt ;/td> <td>70-99</td> </tr> <tr&gt ; <th colspan="10">GLUCOSE (POC) - 02/10/17 11:53</ th> </tr> <tr> <td>GLUCOSE (POC)< /td> <td>171 mg/dL</td> <td>70-99</td& gt; </tr> <tr> <th colspan="10"& gt;GLUCOSE (POC) - 02/10/17 16:45</th> </tr> <tr&gt ; <td>GLUCOSE (POC)</td> <td>275 mg/dL</ td> <td>70-99</td> </tr> <tr> <th colspan="10">GLUCOSE (POC) - 02/10/17 20:27</th > </tr> <tr> <td>GLUCOSE (POC)</ td> <td>186 mg/dL</td> <td>70-99</td& gt; </tr> <tr> <th colspan="10"> GLUCOSE (POC) - 02/11/17 05:34</th> </tr> <tr> <td>GLUCOSE (POC)</td> <td>95 mg/dL</td> <td>70-99</td> </tr> <tr> <th colspan="10">CBC W/DIFF - 02/11/17 07:00</th> </tr> <tr> <td>EOSINOPHIL #</td> <td>0.4 k/cumm</td> <td>0.1-0.5</td> </tr> <tr> <td>EOSINOPHIL %</td& gt; <td>5 %</td> <td>2-4</td> </tr> <tr> <td>GRANULOCYTE #</td&gt ; <td>5.9 k/cumm</td> <td>2.0-9.0</td&gt ; </tr> <tr> <td>GRANULOCYTE %& lt;/td> <td>66 %</td> <td>50-75& lt;/td> </tr> <tr> <td>LYMPHOCYTE #& lt;/td><td>1.6 k/cumm</td> <td>1.0-4.0</td> </tr> <tr> <td>LYMPHOCYTE %&lt ;/td> <td>18 %</td> <td>20-30</ td> </tr> <tr> <td>MEAN CELLHGB</ td> <td>31.6 pg</td> <td>27.0-33.0</td > </tr> <tr> <td>MEAN CELL HGB CONCENTRATION</td> <td>32.5 g/dL</td> <td >32.0-37.0</td> </tr> <tr> <td&gt ;MEAN CELL VOLUME</td> <td>97.3 fl</td> < td>80.0-100.0</td> </tr> <tr> <td >MONOCYTE #</td> <td>0.9 k/cumm</td> < td>0.1-1.0</td> </tr> <tr> <td&gt ;MONOCYTE %</td> <td>11 %</td> <td>4-6</td> </tr> <tr> < td>RED BLOOD CELL</td> <td>2.56 m/cumm</td> <td>4.00-6.00</td> </tr> <tr> <td>RED CELL DISTRIBUTION WIDTH</td> <td>13.9 &# 37;</td> <td>11.0-15.6</td> </tr> <tr> <td>WHITE BLOOD CELL</td> <td> 8.9 k/cumm</td> <td>5.0-10.0</td> </tr> <tr> <td>HEMOGLOBIN</td> <td> 8.1 gm/dL</td> <td>14.0-18.0</td> </tr> <tr> <td>HEMATOCRIT</td> <td> 24.9 %</td> <td>40.0-54.0</td> </tr > <tr> <td>PLATELET COUNT</td> &lt ;td>445 k/cumm</td> <td>150-400</td> </ tr> <tr> <th colspan="10">RENAL FUNCTION PANEL - 02/11/17 07:00</th> </tr> <tr> <td>POTASSIUM</td> <td>4.6 mmol/L</td&gt ; <td>3.5-5.3</td> </tr> <tr> <td>EST GFR (MDRD)</td> <td>48 mL/min</td& gt; <td>> 59</td> </tr> <tr& gt; <td>ANION GAP</td> <td>6 mmol/L</td& gt; <td>5-15</td> </tr> <tr> <td>EST CrCl (CG)</td> <td>47 mL/min</td> <td>> 59</td> </tr> <tr> <td>GLUCOSE</td> <td>90 mg/dL</td><td> 70-99</td> </tr> <tr> <td>CALCIUM </td> <td>8.4 mg/dL</td> <td>8.5-10.1& lt;/td> </tr> <tr> <td>BLOOD UREA NITROGEN</td> <td>24 mg/dL</td> <td>7- 20</td> </tr> <tr> <td>CREATININE </td> <td>1.4 mg/dL</td> <td>0.7-1.3& lt;/td></tr> <tr> <td>SODIUM</td> <td>137 mmol/L</td> <td>135-148</td> </tr> <tr> <td>CHLORIDE</td> <td>101 mmol/L</td> <td>98-110</td> < /tr> <tr> <td>CARBON DIOXIDE</td> <td>30mmol/L</td> <td>21-32</td> </tr > <tr> <td>ALBUMIN</td> <td> 2.3 gm/dL</td> <td>3.4-5.0</td> </tr> <tr> <td>PHOSPHORUS</td> <td> 2.7 mg/dL</td> <td>2.5-4.9</td> </tr> <tr> <th colspan="10">MAGNESIUM - 02/11/17 07:00 </th> </tr> <tr> <td>MAGNESIUM</td&gt ; <td>2.0 mg/dL</td><td>1.8-2.4</td> &lt ;/tr> <tr> <th colspan="10">GLUCOSE ( POC) - 02/11/17 11:29</th> </tr> <tr> & lt;td>GLUCOSE (POC)</td> <td>228 mg/dL</td> <td>70-99</td> </tr> </tbody> </ table> </text> <entry> <organizer moodCode="EVN&quot ; classCode="BATTERY"> <templateId root=" 2.16.840.1.406736.10.20.22.4.1" /> <id nullFlavor="NA&quot ; /> <code codeSystem="local" code="GLUMON" displayName="GLUCOSE (POC)" /> <statusCode code=" completed" /> <component> <observation moodCode=& quot;EVN" classCode="OBS"> <templateId root=" 2.16.840.1.649961.10.20.22.4.2" /> <id nullFlavor="NA& quot; /> <code codeSystem="local" code="GLUMON& quot; displayName="GLUCOSE (POC)" /> <statusCode code=& quot;completed" /> <effectiveTime value="211215763328& quot; /> <value unit="mg/dL" xsi:type="PQ" value="136" /> <interpretationCode codeSystem="local& quot; code="*" /> <referenceRange> < observationRange> <text>70-99</text> </ observationRange> </referenceRange> </observation&gt ; </component> </organizer> </entry> <entry> <organizer moodCode="EVN" classCode="BATTERY"> <templateId root="2.16.840.1.334205.10.20.22.4.1" /> < id nullFlavor="NA" /> <code codeSystem="local" code="MRSAS" displayName="MRSA SURVEILLANCE SCREEN" /> <statusCode code="completed" /> <component> <observation moodCode="EVN"classCode="OBS"> <templateId root="2.16.840.1.906134.10.20.22.4.2" /> <id nullFlavor="NA" /> <code codeSystem=" local" code="MB" displayName="Microbiology" /> <statusCode code="completed" /> <effectiveTime value="874815530069" /> <value xsi:type="ST" value="<pre><b>MRSA SURVEILLANCE SCREEN</b> See BelowMRSA SURVEILLANCE SCREEN(F) Dagoberto Date/Time: 06/21/2016 18:11 Tree Date/Time: 06/23/2016 06:53SOURCE: ANTERIOR NARESSPEC DESC: NNO METHICILLIN RESISTANT ST[facility] [place] [address]</pre>" /> < referenceRange> <observationRange> <text /& gt; </observationRange> </referenceRange> </observation> </component> </organizer> </entry& gt; <entry> <organizer moodCode="EVN" classCode=" BATTERY"> <templateId root="2.16.840.1.399745.10.20.22.4.1& quot; /> <id nullFlavor="NA" /> <code codeSystem ="local" code="CBCD" displayName="CBC W/DIFF" /&gt ; <statusCode code="completed" /> <component> <observation moodCode="EVN" classCode="OBS"> <templateId root="2.16.840.1.551341.10.20.22.4.2" /> <id nullFlavor="NA" /> <code codeSystem=" local" code="GR#" displayName="GRANULOCYTE #" /> <statusCode code="completed" /> <effectiveTime value ="042923650597" /> <value unit="k/cumm"xsi: type="PQ" value="13.4" /> < interpretationCode codeSystem="local" code="*" /> <referenceRange> <observationRange> < text>2.0-9.0</text> </observationRange> </ referenceRange> </observation> </component> < component> <observation moodCode="EVN" classCode="OBS" > <templateId root="2.16.840.1.751730.10.20.22.4.2" /& gt; <id nullFlavor="NA" /> <code codeSystem=& quot;local" code="GR%" displayName="GRANULOCYTE &amp ;#37;" /> <statusCode code="completed" /> <effectiveTime value="972193030618" /> <value unit="%" xsi:type="PQ" value="84" /> <interpretationCode codeSystem="local" code="*" / > <referenceRange> <observationRange> < text>50-75</text> </observationRange> </ referenceRange> </observation> </component> < component> <observation moodCode="EVN" classCode=" OBS"> <templateId root="2.16.840.1.846882.10.20.22.4.2& quot; /> <id nullFlavor="NA" /> <code codeSystem="local" code="LY#" displayName="LYMPHOCYTE # " /> <statusCode code="completed" /> & lt;effectiveTime value="959671805527" /> <value unit=& quot;k/cumm" xsi:type="PQ" value="1.4" /> & lt;referenceRange> <observationRange> <text& gt;1.0-4.0</text> </observationRange> </ referenceRange> </observation> </component> < component> <observation moodCode="EVN" classCode=" OBS"> <templateId root="2.16.840.1.117945.10.20.22.4.2& quot; /> <id nullFlavor="NA" /> <code codeSystem="local" code="LY%" displayName=" LYMPHOCYTE %" /> <statusCode code="completed& quot; /> <effectiveTime value="455675548623" /> <value unit="%" xsi:type="PQ" value="9 " /> <interpretationCode codeSystem="local" code=& quot;*" /> <referenceRange> < observationRange> <text>20-30</text> </ observationRange> </referenceRange> </observation&gt ; </component> <component> <observation moodCode=& quot;EVN" classCode="OBS"> <templateId root=" 2.16.840.1.616318.10.20.22.4.2" /> <id nullFlavor="NA&quot ; /> <code codeSystem="local" code="MCH" displayName="MEAN CELL HGB" /> <statusCode code=" completed" /> <effectiveTime value="474738739742" /> <value unit="pg" xsi:type="PQ" value=&quot ;33.3" /> <interpretationCode codeSystem="local" code="*" /> <referenceRange> < observationRange> <text>27.0-33.0</text> </observationRange> </referenceRange> </ observation> </component> <component> < observation moodCode="EVN" classCode="OBS"> < templateId root="2.16.840.1.384762.10.20.22.4.2" /> < id nullFlavor="NA" /> <code codeSystem="local&quot ; code="MCHC" displayName="MEAN CELL HGB CONCENTRATION" /&gt ; <statusCode code="completed" /> <effectiveTime value="623200601992" /> <value unit="g/dL" xsi:type="PQ" value="35.4" /> <referenceRange > <observationRange> <text>32.0-37.0</ text> </observationRange> </referenceRange> </observation> </component> <component> <observation moodCode="EVN" classCode="OBS"> <templateId root="2.16.840.1.084380.10.20.22.4.2" /> <id nullFlavor="NA" /> <code codeSystem=" local" code="MCV" displayName="MEAN CELL VOLUME" /> <statusCode code="completed" /> < effectiveTime value="822743474188" /> <value unit=&quot ;fl" xsi:type="PQ" value="94.1" /> < referenceRange> <observationRange> <text> 80.0-100.0</text> </observationRange> </ referenceRange> </observation> </component> < component> <observation moodCode="EVN" classCode="OBS&quot ;> <templateId root="2.16.840.1.069006.10.20.22.4.2" /& gt; <id nullFlavor="NA" /> <code codeSystem=& quot;local" code="MO#" displayName="MONOCYTE #" /> <statusCode code="completed" /> < effectiveTime value="070631636043" /> <value unit=&quot ;k/cumm" xsi:type="PQ" value="1.1" /> < interpretationCode codeSystem="local" code="*" /> <referenceRange> <observationRange> < text>0.1-1.0</text> </observationRange> </ referenceRange> </observation> </component> < component> <observation moodCode="EVN" classCode=" OBS"> <templateId root="2.16.840.1.818488.10.20.22.4.2& quot; /> <id nullFlavor="NA" /> <code codeSystem="local" code="MO%" displayName=" MONOCYTE %" /> <statusCode code="completed&quot ; /> <effectiveTime value="493460433061"/> <value unit="%" xsi:type="PQ" value="7&quot ; /> <interpretationCode codeSystem="local" code=" *" /> <referenceRange> <observationRange&gt ; <text>4-6</text> </observationRange> </referenceRange> </observation> </component&gt ; <component> <observation moodCode="EVN" classCode="OBS"> <templateId root=" 2.16.840.1.191215.10.20.22.4.2" /> <id nullFlavor="NA" /& gt; <code codeSystem="local" code="RBC" displayName="RED BLOOD CELL" /> <statusCode code=" completed" /> <effectiveTime value="252507618485" /> <value unit="m/cumm" xsi:type="PQ" value=& quot;4.05" /> <referenceRange> < observationRange> <text>4.00-6.00</text> </observationRange> </referenceRange> </ observation> </component> <component> < observation moodCode="EVN" classCode="OBS"> < templateId root="2.16.840.1.265990.10.20.22.4.2" /> < id nullFlavor="NA" /> <code codeSystem="local&quot ; code="RDW" displayName="RED CELL DISTRIBUTION WIDTH" /&gt ; <statusCode code="completed" /> < effectiveTime value="182141538663" /> <value unit=&quot ;%" xsi:type="PQ" value="12.8" /> & lt;referenceRange> <observationRange> <text& gt;11.0-15.6</text> </observationRange> </ referenceRange> </observation> </component> < component> <observation moodCode="EVN" classCode=" OBS"> <templateId root="2.16.840.1.949762.10.20.22.4.2& quot; /> <id nullFlavor="NA" /> <code codeSystem="local" code="WBC" displayName="WHITE BLOOD CELL" /> <statusCode code="completed" /> <effectiveTime value="339301051335" /> <value unit="k/cumm" xsi:type="PQ" value="16.0" /> <interpretationCode codeSystem="local" code="*" /& gt; <referenceRange> <observationRange> <text>5.0-10.0</text> </observationRange> </referenceRange> </observation> </component> <component> <observation moodCode="EVN" classCode=& quot;OBS"> <templateId root=" 2.16.840.1.082618.10.20.22.4.2" /> <id nullFlavor="NA& quot; /> <code codeSystem="local" code="HGBT&quot ; displayName="HEMOGLOBIN" /> <statusCode code=" completed" /> <effectiveTime value="253932849731" /> <value unit="gm/dL" xsi:type="PQ" value=& quot;13.5" /> <interpretationCode codeSystem="local& quot; code="*" /> <referenceRange> < observationRange> <text>14.0-18.0</text> </observationRange> </referenceRange> </observation&gt ; </component> <component> <observation moodCode ="EVN" classCode="OBS"> <templateId root=& quot;2.16.840.1.777811.10.20.22.4.2" /> <id nullFlavor=&quot ;NA" /> <code codeSystem="local" code="HCTT& quot; displayName="HEMATOCRIT" /> <statusCode code=& quot;completed" /> <effectiveTime value="354745650134& quot; /> <value unit="%" xsi:type="PQ&quot ; value="38.1" /> <interpretationCode codeSystem=" local" code="*" /> <referenceRange> <observationRange> <text>40.0-54.0</text> </observationRange> </referenceRange> </ observation> </component> <component> < observation moodCode="EVN" classCode="OBS"> < templateId root="2.16.840.1.415734.10.20.22.4.2" /> <id nullFlavor="NA" /> <code codeSystem="local" code="PLT" displayName="PLATELET COUNT" /> < statusCode code="completed" /> <effectiveTime value=& quot;841451207162" /> <value unit="k/cumm" xsi: type="PQ" value="311" /> <referenceRange> <observationRange> <text>150-400</text& gt; </observationRange> </referenceRange> </observation> </component> </organizer> </entry > <entry> <organizer moodCode="EVN" classCode=" BATTERY"> <templateId root="2.16.840.1.009125.10.20.22.4.1& quot; /> <id nullFlavor="NA" /> <code codeSystem ="local" code="HBA1C" displayName="HEMOGLOBIN A1C&quot ; /> <statusCode code="completed" /> <component& gt; <observation moodCode="EVN" classCode="OBS"&gt ; <templateId root="2.16.840.1.629123.10.20.22.4.2" /> <id nullFlavor="NA" /> <code codeSystem=& quot;local" code="HBA1C" displayName="HEMOGLOBIN A1C" / > <statusCode code="completed"/> < effectiveTime value="418657889818" /> <value unit=&quot ;%" xsi:type="PQ" value="6.7" /> & lt;interpretationCode codeSystem="local" code="*" /> <referenceRange> <observationRange> & lt;text>< 5.7</text> </observationRange> </referenceRange> </observation> </component> </organizer> </entry> <entry> <organizer moodCode= "EVN" classCode="BATTERY"> <templateId root=&quot ;2.16.840.1.589639.10.20.22.4.1" /> <id nullFlavor="NA&quot ; /> <code codeSystem="local" code="METABC" displayName="METABOLIC PANEL, COMPREHN" /> <statusCode code ="completed" /> <component> <observation moodCode="EVN" classCode="OBS"> <templateId root="2.16.840.1.204576.10.20.22.4.2" /> <id nullFlavor ="NA" /> <code codeSystem="local" code=" K" displayName="POTASSIUM" /> <statusCode code=& quot;completed" /> <effectiveTime value="418582602405" / > <value unit="mmol/L" xsi:type="PQ" value=& quot;4.5" /> <referenceRange> < observationRange> <text>3.5-5.3</text> & lt;/observationRange> </referenceRange> </ observation> </component> <component> < observation moodCode="EVN" classCode="OBS"> < templateId root="2.16.840.1.543669.10.20.22.4.2" /> < id nullFlavor="NA" /> <code codeSystem="local&quot ; code="eGFR" displayName="EST GFR (MDRD)" /> & lt;statusCode code="completed" /> <effectiveTime value= "439071068123" /> <value unit="mL/min" xsi: type="PQ" value="41" /> <interpretationCode codeSystem="local" code="*" /> < referenceRange> <observationRange> <text>> 59& lt;/text> </observationRange> </referenceRange& gt; </observation> </component> <component> <observation moodCode="EVN" classCode="OBS"> <templateId root="2.16.840.1.810155.10.20.22.4.2" /> <id nullFlavor="NA" /> <code codeSystem=&quot ;local" code="GAP" displayName="ANION GAP" />< statusCode code="completed" /> <effectiveTime value=& quot;571717967742" /> <value unit="mmol/L" xsi: type="PQ" value="5" /> <referenceRange> <observationRange> <text>5-15</text> </observationRange> </referenceRange> < /observation> </component> <component> < observation moodCode="EVN" classCode="OBS"> < templateId root="2.16.840.1.445309.10.20.22.4.2" /> < id nullFlavor="NA" /> <code codeSystem="local&quot ; code="GLU" displayName="GLUCOSE" /> < statusCode code="completed" /> <effectiveTime value=& quot;400927423352" /> <value unit="mg/dL" xsi:type ="PQ" value="132" /> <interpretationCode codeSystem="local" code="*" /> < referenceRange> <observationRange> <text>70-99&lt ;/text> </observationRange> </referenceRange&gt ; </observation> </component> <component> <observation moodCode="EVN" classCode="OBS"> &lt ;templateId root="2.16.840.1.408815.10.20.22.4.2" /> < id nullFlavor="NA" /> <code codeSystem="local&quot ; code="CA" displayName="CALCIUM" /> < statusCode code="completed" /> <effectiveTime value=& quot;399406233904" /> <value unit="mg/dL" xsi:type ="PQ" value="9.0" /> <referenceRange> <observationRange> <text>8.5-10.1</text> </observationRange> </referenceRange> & lt;/observation> </component> <component> < observation moodCode="EVN" classCode="OBS"> < templateId root="2.16.840.1.968998.10.20.22.4.2" /> < id nullFlavor="NA" /> <code codeSystem="local" code= "BUN" displayName="BLOOD UREA NITROGEN" /> < statusCode code="completed" /> <effectiveTime value=& quot;727019442702" /> <value unit="mg/dL" xsi:type ="PQ" value="28" /> <interpretationCode codeSystem="local" code="*" /> < referenceRange> <observationRange> <text> 7-20</text> </observationRange> </ referenceRange> </observation> </component> < component> <observation moodCode="EVN" classCode=" OBS"> <templateId root="2.16.840.1.169973.10.20.22.4.2& quot; /> <id nullFlavor="NA" /> <code codeSystem="local" code="CREAT" displayName="CREATININE " /> <statusCode code="completed" /> & lt;effectiveTime value="085499143122" /> <value unit="mg/ dL" xsi:type="PQ" value="1.6" /> < interpretationCode codeSystem="local" code="*" /> <referenceRange> <observationRange> < text>0.7-1.3</text> </observationRange> </ referenceRange> </observation> </component> < component> <observation moodCode="EVN" classCode=" OBS"> <templateId root="2.16.840.1.485465.10.20.22.4.2& quot; /> <id nullFlavor="NA" /> <code codeSystem="local" code="NA" displayName="SODIUM" /> <statusCode code="completed" /> < effectiveTime value="091144135146" /> <value unit=&quot ;mmol/L" xsi:type="PQ" value="134" /> < interpretationCode codeSystem="local" code="*" /> <referenceRange> <observationRange> < text>135-148</text> </observationRange> </ referenceRange> </observation> </component> < component> <observation moodCode="EVN" classCode=" OBS"> <templateId root="2.16.840.1.802251.10.20.22.4.2& quot; /> <id nullFlavor="NA" /> <code codeSystem="local" code="CL" displayName="CHLORIDE&quot ; /> <statusCode code="completed" /> < effectiveTime value="022882086086" /> <value unit=&quot ;mmol/L" xsi:type="PQ" value="103" /> < referenceRange> <observationRange> <text> 98-110</text> </observationRange> </ referenceRange> </observation> </component> < component> <observation moodCode="EVN" classCode=" OBS"> <templateId root="2.16.840.1.107025.10.20.22.4.2& quot; /> <id nullFlavor="NA" /> <code codeSystem="local" code="AST" displayName="AST/SGOT& quot; /> <statusCode code="completed" /> & lt;effectiveTime value="907184926267" /> <value unit="Units /L" xsi:type="PQ" value="19" /> < referenceRange> <observationRange> <text> 10-37</text> </observationRange> </referenceRange > </observation> </component> <component> <observation moodCode="EVN" classCode="OBS"> <templateId root="2.16.840.1.032983.10.20.22.4.2" /> <id nullFlavor="NA" /> <code codeSystem=" local" code="ALT" displayName="ALT/SGPT" /> <statusCode code="completed" /> <effectiveTime value="086970171098" /> <value unit="Units/L&quot ; xsi:type="PQ" value="30" /> <referenceRange > <observationRange> <text>< 66</text& gt; </observationRange> </referenceRange> </observation> </component> <component> < observation moodCode="EVN" classCode="OBS"> < templateId root="2.16.840.1.913916.10.20.22.4.2" /> < id nullFlavor="NA" /> <code codeSystem="local&quot ; code="CO2" displayName="CARBON DIOXIDE" /> &lt ;statusCode code="completed" /> <effectiveTime value=" 583806403910" /> <value unit="mmol/L" xsi:type=& quot;PQ" value="26" /> <referenceRange> <observationRange> <text>21-32</text> </observationRange> </referenceRange> </ observation> </component> <component> < observation moodCode="EVN" classCode="OBS"> < templateId root="2.16.840.1.046024.10.20.22.4.2" /> < id nullFlavor="NA"/> <code codeSystem="local&quot ; code="TP" displayName="TOTAL PROTEIN" /> < statusCode code="completed" /> <effectiveTime value=& quot;067091898049" /> <value unit="gm/dL" xsi:type ="PQ" value="7.8" /> <referenceRange> <observationRange> <text>6.4-8.2</text> </observationRange> </referenceRange> </ observation> </component> <component> < observation moodCode="EVN" classCode="OBS"> < templateId root="2.16.840.1.103962.10.20.22.4.2" /> < id nullFlavor="NA" /> <code codeSystem="local&quot ; code="ALB" displayName="ALBUMIN" /> <statusCode code ="completed" /> <effectiveTime value="995532967777 " /> <value unit="gm/dL" xsi:type="PQ" value="4.3" /> <referenceRange> < observationRange> <text>3.4-5.0</text> & lt;/observationRange> </referenceRange> </ observation> </component> <component> < observation moodCode="EVN" classCode="OBS"> < templateId root="2.16.840.1.793376.10.20.22.4.2" /> < id nullFlavor="NA" /> <code codeSystem="local&quot ; code="BILTOT" displayName="BILI TOTAL" /> < statusCode code="completed" /> <effectiveTime value=& quot;547010766863" /> <value unit="mg/dL" xsi:type=" PQ" value="0.4" /> <referenceRange> <observationRange> <text>0.0-1.0</text> </observationRange> </referenceRange> </ observation> </component> <component> < observation moodCode="EVN" classCode="OBS"> < templateId root="2.16.840.1.175188.10.20.22.4.2" /> <id nullFlavor="NA" /> <code codeSystem="local" code="ALKP" displayName="ALKALINE PHOSPHATASE TOTAL" /> <statusCode code="completed" /> < effectiveTime value="738041065531" /> <value unit=&quot ;IU/L" xsi:type="PQ" value="58" /> < referenceRange> <observationRange> <text> 45-117</text> </observationRange> </referenceRange&gt ; </observation> </component> </organizer> &lt ;/entry> <entry> <organizer moodCode="EVN" classCode=& quot;BATTERY"> <templateId root=" 2.16.840.1.788343.10.20.22.4.1" /> <id nullFlavor="NA&quot ; /> <code codeSystem="local" code="PHOS" displayName="PHOSPHORUS" /> <statusCode code=" completed" /> <component> <observation moodCode=& quot;EVN" classCode="OBS"> <templateId root=" 2.16.840.1.802722.10.20.22.4.2" /> <id nullFlavor="NA" /& gt; <code codeSystem="local" code="PHOS" displayName="PHOSPHORUS" /> <statusCode code=" completed"/> <effectiveTime value="818243606275" / > <value unit="mg/dL" xsi:type="PQ" value=& quot;3.1" /> <referenceRange> <observationRange&gt ; <text>2.5-4.9</text> </observationRange > </referenceRange> </observation> </ component> </organizer> </entry> <entry> < organizer moodCode="EVN" classCode="BATTERY"> < templateId root="2.16.840.1.263624.10.20.22.4.1" /> <id nullFlavor="NA" /> <code codeSystem="local" code= "MAG" displayName="MAGNESIUM" /> <statusCode code ="completed" /> <component> <observation moodCode=& quot;EVN" classCode="OBS"> <templateId root=" 2.16.840.1.721206.10.20.22.4.2" /> <id nullFlavor="NA& quot; /> <code codeSystem="local" code="MAG" displayName="MAGNESIUM" /> <statusCode code=" completed" /> <effectiveTime value="556388435377" /> <value unit="mg/dL" xsi:type="PQ" value=& quot;1.8" /> <referenceRange> < observationRange> <text>1.8-2.4</text> & lt;/observationRange> </referenceRange> </ observation> </component> </organizer> </entry> & lt;entry> <organizer moodCode="EVN" classCode="BATTERY& quot;> <templateId root="2.16.840.1.039215.10.20.22.4.1" /& gt; <id nullFlavor="NA" /> <code codeSystem=" local" code="T4F" displayName="T4 FREE" /> < statusCode code="completed" /> <component> < observation moodCode="EVN" classCode="OBS"> < templateId root="2.16.840.1.053036.10.20.22.4.2" /> < id nullFlavor="NA" /> <code codeSystem="local" code="T4F" displayName="T4 FREE" /> < statusCode code="completed" /> <effectiveTime value=& quot;772861659353" /> <value unit="ng/dL" xsi:type ="PQ" value="1.6" /> <referenceRange> <observationRange> <text>0.8-1.8</text> </observationRange> </referenceRange> </ observation> </component> </organizer> </entry> & lt;entry> <organizer moodCode="EVN" classCode="BATTERY& quot;> <templateId root="2.16.840.1.909139.10.20.22.4.1" /& gt; <id nullFlavor="NA" /> <code codeSystem=" local" code="TSH" displayName="THYROID STIM HORMONE (TSH)& quot; /> <statusCode code="completed" /> < component> <observation moodCode="EVN" classCode=" OBS"> <templateId root="2.16.840.1.667438.10.20.22.4.2& quot; /> <id nullFlavor="NA" /> <code codeSystem="local" code="TSH" displayName="THYROID STIM HORMONE (TSH)" /> <statusCode code="completed&quot ; /> <effectiveTime value="071157696957" /> <value unit="uIU/mL" xsi:type="PQ"value="1.00&quot ; /> <referenceRange> <observationRange> <text>0.34-4.82</text> </observationRange> </referenceRange> </observation> </component& gt; </organizer> </entry> <entry> <organizer moodCode="EVN" classCode="BATTERY"> <templateId root="2.16.840.1.769866.10.20.22.4.1" /> <id nullFlavor=& quot;NA" /> <code codeSystem="local" code="TROPI& quot; displayName="TROPONIN I" /> <statusCode code=" completed" /> <component> <observation moodCode=& quot;EVN" classCode="OBS"> <templateId root=" 2.16.840.1.623255.10.20.22.4.2" /> <id nullFlavor="NA& quot; /> <code codeSystem="local" code="TROPI" displayName="TROPONIN I" /> <statusCode code=" completed" /> <effectiveTime value="655103673032" /> <value unit="ng/mL" xsi:type="PQ" value=& quot;< 0.02" /> <referenceRange> < observationRange> <text>< 0.07</text> </ observationRange> </referenceRange> </observation&gt ; </component> </organizer> </entry> <entry> <organizer moodCode="EVN" classCode="BATTERY"> <templateId root="2.16.840.1.569020.10.20.22.4.1" /> < id nullFlavor="NA" /> <code codeSystem="local" code="GLUMON" displayName="GLUCOSE (POC)" /> < statusCode code="completed" /> <component> < observation moodCode="EVN" classCode="OBS"> < templateId root="2.16.840.1.093435.10.20.22.4.2" /> < id nullFlavor="NA" /> <code codeSystem="local" code="GLUMON" displayName="GLUCOSE (POC)" /> &lt ;statusCode code="completed" /> <effectiveTime value=& quot;960959362734" /> <value unit="mg/dL" xsi:type ="PQ" value="163" /> <interpretationCode codeSystem="local" code="*" /> < referenceRange> <observationRange> <text> 70-99</text> </observationRange> </ referenceRange> </observation> </component> </ organizer> </entry> <entry> <organizer moodCode="EVN " classCode="BATTERY"> <templateId root=" 2.16.840.1.595544.10.20.22.4.1" /> <id nullFlavor="NA&quot ; /> <code codeSystem="local" code="TROPI" displayName="TROPONIN I" /> <statusCode code=" completed" /> <component> <observation moodCode=& quot;EVN" classCode="OBS"> <templateId root=" 2.16.840.1.653906.10.20.22.4.2" /> <id nullFlavor="NA& quot; /> <code codeSystem="local" code="TROPI&quot ; displayName="TROPONIN I" /> <statusCode code=" completed" /> <effectiveTime value="100779457586" /> <value unit="ng/mL" xsi:type="PQ" value=" < 0.02" /> <referenceRange> < observationRange> <text>< 0.07</text> </observationRange> </referenceRange> </ observation> </component> </organizer> </entry> & lt;entry> <organizer moodCode="EVN" classCode="BATTERY& quot;> <templateId root="[id number]" /& gt; <id nullFlavor="NA" /> <code codeSystem=" local" code="CBCD" displayName="CBC W/DIFF" /> <statusCode code="completed" /> <component> & lt;observation moodCode="EVN" classCode="OBS"> & lt;templateId root="[id number]" /> &lt ;id nullFlavor="NA" /> <code codeSystem="local& quot; code="EO#" displayName="EOSINOPHIL #" /> & lt;statusCodecode="completed" /> <effectiveTime value=& quot;[id number]" /> <value unit="k/cumm" xsi:type=& quot;PQ" value="0.1" /> <referenceRange> <observationRange> <text>0.1-0.5</text> </observationRange> </referenceRange> </ observation> </component> <component> < observation moodCode="EVN" classCode="OBS"> < templateId root="2.16.840.1.644935.10.20.22.4.2" /> < id nullFlavor="NA" /> <code codeSystem="local&quot ; code="EO%" displayName="EOSINOPHIL %" /&gt ; <statusCode code="completed" /> < effectiveTime value="403211769083" /> <value unit="&# 37;" xsi:type="PQ" value="1" /> < interpretationCode codeSystem="local" code="*" /> <referenceRange> <observationRange> < text>2-4</text> </observationRange> </ referenceRange> </observation> </component> < component> <observation moodCode="EVN" classCode=" OBS"> <templateId root="2.16.840.1.378230.10..22.4.2& quot; /> <id nullFlavor="NA" /> <code codeSystem="local" code="GR#" displayName="GRANULOCYTE #" /> <statusCode code="completed" /> < effectiveTime value="382382195471" /> <value unit=&quot ;k/cumm" xsi:type="PQ" value="6.3" /> < referenceRange> <observationRange> <text> 2.0-9.0</text> </observationRange> </ referenceRange> </observation> </component> < component> <observation moodCode="EVN" classCode=" OBS"> <templateId root="2.16.840.1.493068.10.20.22.4.2& quot; /> <id nullFlavor="NA" /> <code codeSystem="local" code="GR%" displayName=" GRANULOCYTE %" /> <statusCode code="completed& quot; /> <effectiveTime value="957411740601" /> & lt;value unit="%" xsi:type="PQ" value="70&quot ; /> <referenceRange> <observationRange> <text>50-75</text> </observationRange> </referenceRange> </observation> </component& gt; <component> <observation moodCode="EVN" classCode="OBS"> <templateId root=" 2.16.840.1.631514.10.20.22.4.2" /> <id nullFlavor="NA& quot; /> <code codeSystem="local" code="LY#" displayName="LYMPHOCYTE #" /> <statusCode code=" completed" /> <effectiveTime value="147001284402" /> <value unit="k/cumm" xsi:type="PQ" value=& quot;1.5" /> <referenceRange> < observationRange> <text>1.0-4.0</text> & lt;/observationRange> </referenceRange> </ observation> </component> <component> < observation moodCode="EVN" classCode="OBS"> < templateId root="2.16.840.1.427771.10..22.4.2" /> < id nullFlavor="NA" /> <code codeSystem="local" code=& quot;LY%" displayName="LYMPHOCYTE %" /> <statusCode code="completed" /> <effectiveTime value="392151627131" /> <value unit="%& quot; xsi:type="PQ" value="16" /> < interpretationCode codeSystem="local" code="*" /> <referenceRange> <observationRange><text>20-30& lt;/text> </observationRange> </referenceRange& gt; </observation> </component> <component> <observation moodCode="EVN" classCode="OBS"> <templateId root="2.16.840.1.994412.10..22.4.2" /> <id nullFlavor="NA" /> <code codeSystem=" local" code="MCH" displayName="MEAN CELL HGB" /> <statusCode code="completed" /> < effectiveTime value="982930079906" /> <value unit=&quot ;pg" xsi:type="PQ" value="32.6" /> < referenceRange> <observationRange> <text> 27.0-33.0</text> </observationRange> </ referenceRange> </observation> </component> < component> <observation moodCode="EVN" classCode=" OBS"> <templateId root="2.16.840.1.382014.10.20.22.4.2& quot; /> <id nullFlavor="NA" /> <code codeSystem="local" code="MCHC" displayName="MEAN CELL HGB CONCENTRATION" /> <statusCode code="completed&quot ; /> <effectiveTime value="979034926224" /> <value unit="g/dL" xsi:type="PQ" value="34.3&quot ; /> <referenceRange> <observationRange> <text>32.0-37.0</text> </observationRange> </referenceRange> </observation> </component& gt; <component> <observation moodCode="EVN" classCode="OBS"> <templateId root=" 2.16.840.1.032856.10..22.4.2" /> <id nullFlavor="NA& quot; /> <code codeSystem="local" code="MCV" displayName="MEAN CELL VOLUME" /> <statusCode code=& quot;completed" /> <effectiveTime value="357458105285& quot; /><value unit="fl" xsi:type="PQ" value=" 95.0" /> <referenceRange> <observationRange > <text>80.0-100.0</text> </ observationRange> </referenceRange> </observation&gt ;</component> <component> <observation moodCode=&quot ;EVN" classCode="OBS"> <templateId root=" 2.16.840.1.301581.10..22.4.2" /> <id nullFlavor="NA" /> <code codeSystem="local" code="MO#" displayName="MONOCYTE #" /> <statusCode code=" completed" /> <effectiveTime value="252940112559" /> <value unit="k/cumm" xsi:type="PQ" value=& quot;1.2" /> <interpretationCode codeSystem="local&quot ; code="*" /> <referenceRange> < observationRange> <text>0.1-1.0</text> & lt;/observationRange> </referenceRange> </observation > </component> <component> <observation moodCode="EVN" classCode="OBS"> <templateId root="2.16.840.1.695521.10.20.22.4.2" /> <id nullFlavor ="NA" /> <code codeSystem="local" code=" MO%" displayName="MONOCYTE %" /> < statusCode code="completed" /> <effectiveTime value=& quot;128026988052" /> <value unit="%" xsi: type="PQ" value="13" /> <interpretationCode codeSystem="local" code="*" /> < referenceRange> <observationRange> <text> 4-6</text> </observationRange> </ referenceRange> </observation> </component> < component> <observation moodCode="EVN" classCode=" OBS"> <templateId root="2.16.840.1.853706.10.20.22.4.2& quot; /> <id nullFlavor="NA" /> <code codeSystem="local" code="RBC" displayName="RED BLOOD CELL" /> <statusCode code="completed" /> <effectiveTime value="473678066480" /> <value unit="m/cumm" xsi:type="PQ" value="3.59" /> <interpretationCode codeSystem="local" code="*" /& gt; <referenceRange> <observationRange> <text>4.00-6.00</text> </observationRange> </referenceRange> </observation> </component& gt; <component> <observation moodCode="EVN" classCode="OBS"> <templateId root=" 2.16.840.1.138893.10.20.22.4.2" /> <id nullFlavor="NA& quot; /> <code codeSystem="local" code="RDW" displayName="RED CELL DISTRIBUTION WIDTH" /> < statusCode code="completed" /> <effectiveTime value=& quot;876329513058" /> <value unit="%" xsi: type="PQ" value="12.8" /> <referenceRange&gt ; <observationRange> <text>11.0-15.6</ text> </observationRange> </referenceRange> </observation> </component> <component> <observation moodCode="EVN" classCode="OBS"> <templateId root="2.16.840.1.853936.10.20.22.4.2" /> <id nullFlavor="NA" /> <code codeSystem=" local" code="WBC" displayName="WHITE BLOOD CELL" /> <statusCode code="completed" /> < effectiveTime value="291887884035" /> <value unit="k/ cumm" xsi:type="PQ" value="9.1" /><referenceRange > <observationRange> <text>5.0-10.0</ text> </observationRange> </referenceRange> </observation> </component> <component> <observation moodCode="EVN" classCode="OBS"> <templateId root="2.16.840.1.556712.10.20.22.4.2" /> <id nullFlavor="NA" /> <code codeSystem=" local" code="HGBT" displayName="HEMOGLOBIN" /> <statusCode code="completed" /> <effectiveTime value="860005260163" /> <value unit="gm/dL" xsi:type="PQ" value="11.7" /> < interpretationCode codeSystem="local" code="*" /> <referenceRange> <observationRange> <text>14.0 -18.0</text> </observationRange> </ referenceRange> </observation> </component> < component> <observation moodCode="EVN" classCode=" OBS"> <templateId root="2.16.840.1.419941.10.20.22.4.2" / > <id nullFlavor="NA" /> <code codeSystem="local" code="HCTT" displayName="HEMATOCRIT& quot; /> <statusCode code="completed" /> & lt;effectiveTime value="880152168418" /> <value unit=& quot;%" xsi:type="PQ" value="34.1" /> <interpretationCode codeSystem="local" code="*" /&gt ; <referenceRange> <observationRange> <text>40.0-54.0</text> </observationRange> </referenceRange> </observation> </component> <component> <observation moodCode="EVN" classCode= "OBS"> <templateId root=" 2.16.840.1.748751.10.20.22.4.2" /> <id nullFlavor="NA& quot; /><code codeSystem="local" code="PLT" displayName="PLATELET COUNT" /> <statusCode code=" completed" /> <effectiveTime value="910642997223" /> <value unit="k/cumm" xsi:type="PQ" value=& quot;305" /> <referenceRange> < observationRange> <text>150-400</text> & lt;/observationRange> </referenceRange> </observation& gt; </component> </organizer> </entry> <entry&gt ; <organizer moodCode="EVN" classCode="BATTERY"> <templateId root="2.16.840.1.966068.10.20.22.4.1" /> & lt;id nullFlavor="NA" /><code codeSystem="local" code= "RENAL" displayName="RENAL FUNCTION PANEL" /> < statusCode code="completed" /> <component> < observation moodCode="EVN" classCode="OBS"> < templateId root="2.16.840.1.055302.10.20.22.4.2" /> < id nullFlavor="NA" /> <code codeSystem="local&quot ; code="K" displayName="POTASSIUM" /> <statusCode code="completed" /> <effectiveTime value=" 750704729479" /> <value unit="mmol/L" xsi:type=& quot;PQ" value="4.3" /> <referenceRange> <observationRange> <text>3.5-5.3</text> </observationRange> </referenceRange> </ observation> </component> <component> < observation moodCode="EVN" classCode="OBS"> < templateId root="2.16.840.1.956160.10..22.4.2" /> < id nullFlavor="NA" /> <code codeSystem="local&quot ; code="eGFR" displayName="EST GFR (MDRD)" /> & lt;statusCode code="completed" /> <effectiveTime value= "722837166889" /> <value unit="mL/min" xsi:type= "PQ" value="44" /><interpretationCode codeSystem=&quot ;local" code="*" /> <referenceRange> <observationRange> <text>> 59</text> </observationRange> </referenceRange> </ observation> </component> <component> < observation moodCode="EVN" classCode="OBS"> < templateId root="2.16.840.1.907489.10.20.22.4.2" /><id nullFlavor="NA" /> <code codeSystem="local" code="GAP" displayName="ANION GAP" /> < statusCode code="completed" /> <effectiveTime value=& quot;674445058584" /> <value unit="mmol/L" xsi: type="PQ" value="8" /> <referenceRange>&lt ;observationRange> <text>5-15</text> < /observationRange> </referenceRange> </observation& gt; </component> <component> <observation moodCode="EVN" classCode="OBS"> <templateId root="2.16.840.1.814394.10.20.22.4.2" /> <id nullFlavor ="NA" /> <code codeSystem="local" code=" GLU" displayName="GLUCOSE" /> <statusCode code=& quot;completed" /> <effectiveTime value="293156667723& quot; /> <value unit="mg/dL" xsi:type="PQ" value="128" /> <interpretationCode codeSystem=" local" code="*" /> <referenceRange> <observationRange> <text>70-99</text> </observationRange> </referenceRange> </observation&gt ; </component> <component> <observation moodCode ="EVN" classCode="OBS"> <templateId root=& quot;2.16.840.1.013044.10.20.22.4.2" /> <id nullFlavor=&quot ;NA" /> <code codeSystem="local" code="CA& quot; displayName="CALCIUM" /> <statusCodecode=" completed" /> <effectiveTime value="455831737327" /> <value unit="mg/dL" xsi:type="PQ" value=" 8.8" /> <referenceRange> <observationRange& gt; <text>8.5-10.1</text> </ observationRange> </referenceRange> </observation&gt ; </component> <component> <observation moodCode= "EVN" classCode="OBS"> <templateId root=&quot ;2.16.840.1.484752.10.20.22.4.2" /> <id nullFlavor="NA& quot; /> <code codeSystem="local" code="BUN" displayName="BLOOD UREA NITROGEN" /> <statusCode code=& quot;completed" /> <effectiveTime value="829296498733& quot; /> <value unit="mg/dL" xsi:type="PQ" value="26" /> <interpretationCode codeSystem=" local" code="*" /> <referenceRange> < observationRange> <text>7-20</text> </ observationRange> </referenceRange> </observation&gt ; </component> <component> <observation moodCode ="EVN" classCode="OBS"> <templateId root=" 2.16.840.1.481008.10.20.22.4.2" /> <id nullFlavor="NA& quot; /> <code codeSystem="local" code="CREAT&quot ; displayName="CREATININE" /> <statusCode code=" completed" /> <effectiveTime value="039375363189" /> <value unit="mg/dL" xsi:type="PQ" value=& quot;1.5" /> <interpretationCode codeSystem="local&quot ; code="*" /> <referenceRange> < observationRange> <text>0.7-1.3</text> </ observationRange> </referenceRange> </observation&gt ; </component> <component> <observation moodCode ="EVN" classCode="OBS"> <templateId root=& quot;2.16.840.1.579363.10..22.4.2" /> <id nullFlavor=&quot ;NA" /> <code codeSystem="local" code="NA& quot; displayName="SODIUM" /> <statusCode code=" completed" /> <effectiveTime value="136322712793" /> <value unit="mmol/L" xsi:type="PQ" value=& quot;135" /> <referenceRange> < observationRange> <text>135-148</text> & lt;/observationRange> </referenceRange> </ observation> </component> <component> < observation moodCode="EVN" classCode="OBS"> < templateId root="2.16.840.1.360102.10.20.22.4.2" /> < id nullFlavor="NA" /> <code codeSystem="local&quot ; code="CL" displayName="CHLORIDE" /> < statusCode code="completed" /> <effectiveTime value=& quot;752986701393" /> <value unit="mmol/L" xsi: type="PQ" value="100" /> <referenceRange> <observationRange> <text>98-110</text&gt ; </observationRange> </referenceRange> </ observation> </component> <component> < observation moodCode="EVN" classCode="OBS"> < templateId root="2.16.840.1.921227.10.20.22.4.2" /> < id nullFlavor="NA" /> <code codeSystem="local&quot ; code="CO2" displayName="CARBON DIOXIDE" /> &lt ;statusCode code="completed" /> <effectiveTime value=& quot;884747745635" /> <value unit="mmol/L" xsi: type="PQ" value="27" /> <referenceRange> <observationRange> <text>21-32</text> </observationRange> </referenceRange> </ observation> </component> <component> < observation moodCode="EVN" classCode="OBS"> < templateId root="2.16.840.1.657858.10.20.22.4.2" /> < id nullFlavor="NA" /> <code codeSystem="local&quot ; code="ALB" displayName="ALBUMIN" /> < statusCode code="completed" /> <effectiveTime value=& quot;827656673388" /> <value unit="gm/dL" xsi:type ="PQ" value="3.7" /> <referenceRange> <observationRange> <text>3.4-5.0</text> </observationRange> </referenceRange> &lt ;/observation> </component> <component> < observation moodCode="EVN" classCode="OBS"> < templateId root="2.16.840.1.535411.10.20.22.4.2" /> < id nullFlavor="NA" /> <code codeSystem="local" code=& quot;PHOS" displayName="PHOSPHORUS" /> < statusCode code="completed" /> <effectiveTime value=& quot;172234262784" /> <value unit="mg/dL" xsi:type ="PQ" value="3.4" /> <referenceRange> <observationRange> <text>2.5-4.9</text> </observationRange> </referenceRange> </ observation> </component> </organizer> </entry> & lt;entry> <organizer moodCode="EVN" classCode="BATTERY& quot;> <templateId root="2.16.840.1.062534.10.20.22.4.1" /& gt; <id nullFlavor="NA" /> <code codeSystem=" local" code="HDLPRO" displayName="LIPID PANEL" /> <statusCode code="completed" /> <component> <observation moodCode="EVN" classCode="OBS"> <templateId root="2.16.840.1.117086.10.20.22.4.2" /> <id nullFlavor="NA" /> <code codeSystem=" local" code="CHOL/HDL" displayName="CHOLESTEROL/HDL RATIO& quot; /> <statusCode code="completed" /> & lt;effectiveTime value="961951335422" /> <value unit=& quot;" xsi:type="PQ" value="2.1" /> < referenceRange> <observationRange> <text&gt ; < 5.0</text> </observationRange> </ referenceRange> </observation> </component> < component> <observation moodCode="EVN" classCode=" OBS"> <templateId root="2.16.840.1.866353.10.20.22.4.2& quot; /> <id nullFlavor="NA" /> <code codeSystem="local" code="LDLX" displayName="LDL CHOLESTEROL" /> <statusCode code="completed" /&gt ; <effectiveTime value="484276634491" /> < value unit="mg/dL" xsi:type="PQ" value="47" /> <referenceRange> <observationRange> <text>< 100</text> </observationRange> </referenceRange> </observation> </component& gt; <component> <observation moodCode="EVN" classCode="OBS"> <templateId root=" 2.16.840.1.020238.10..22.4.2" /> <id nullFlavor="NA& quot; /> <code codeSystem="local" code="VLDL&quot ; displayName="VLDL CHOLESTEROL" /> <statusCode code=& quot;completed" /> <effectiveTime value="021415630975& quot; /> <value unit="mg/dL" xsi:type="PQ" value ="23" /> <referenceRange> < observationRange> <text>< 30</text> </observationRange> </referenceRange> </ observation> </component> <component> < observation moodCode="EVN" classCode="OBS"> < templateId root="2.16.840.1.536340.10.20.22.4.2" /> < id nullFlavor="NA" /> <code codeSystem="local&quot ; code="TRIG" displayName="TRIGLYCERIDES" /> &lt ;statusCode code="completed" /> <effectiveTime value=& quot;179667547264" /> <value unit="mg/dL" xsi:type ="PQ" value="116" /> <referenceRange> <observationRange> <text>< 150</text& gt; </observationRange> </referenceRange> </ observation> </component> <component> < observation moodCode="EVN" classCode="OBS"> < templateId root="2.16.840.1.233658.10..22.4.2" /> <id nullFlavor="NA" /> <code codeSystem="local" code="CHOL" displayName="CHOLESTEROL" /> < statusCode code="completed" /> <effectiveTime value=& quot;425674215343" /> <value unit="mg/dL" xsi:type ="PQ" value="133" /> <referenceRange> <observationRange> <text>< 200</text> </observationRange> </referenceRange> < /observation> </component> <component> < observation moodCode="EVN" classCode="OBS"> < templateId root="2.16.840.1.416882.10.20.22.4.2" /> < id nullFlavor="NA" /> <code codeSystem="local&quot ; code="HDL" displayName="HDL CHOLESTEROL" /> & lt;statusCode code="completed" /> <effectiveTime value=&quot ;896991410757" /> <value unit="mg/dL" xsi:type=& quot;PQ" value="63" /> <referenceRange> <observationRange> <text>> 39</text> </observationRange> </referenceRange> & lt;/observation> </component> </organizer> </entry&gt ; <entry> <organizer moodCode="EVN" classCode=" BATTERY"> <templateId root="2.16.840.1.053295.10.20.22.4.1& quot; /> <id nullFlavor="NA" /> <code codeSystem ="local" code="MAG" displayName="MAGNESIUM" /> <statusCode code="completed" /> <component> <observation moodCode="EVN" classCode="OBS"> <templateId root="2.16.840.1.969840.10.20.22.4.2" /> <id nullFlavor="NA" /> <code codeSystem=" local" code="MAG" displayName="MAGNESIUM" /> <statusCode code="completed" /> <effectiveTime value="906936408220" /> <value unit="mg/dL" xsi:type="PQ" value="1.7" /> < interpretationCode codeSystem="local" code="*" /> <referenceRange> <observationRange> < text>1.8-2.4</text> </observationRange> </ referenceRange> </observation> </component> </ organizer> </entry> <entry> <organizer moodCode="EVN " classCode="BATTERY"> <templateIdroot=" 2.16.840.1.309085.10.20.22.4.1" /> <id nullFlavor="NA&quot ; /> <code codeSystem="local" code="UA" displayName=& quot;URINALYSIS, ROUTINE" /> <statusCode code="completed& quot; /> <component> <observation moodCode="EVN& quot; classCode="OBS"> <templateId root=" 2.16.840.1.609380.10.20.22.4.2" /> <id nullFlavor="NA& quot; /> <code codeSystem="local" code="LEUESU& quot; displayName="UA LEUKOCYTE ESTERASE DIPSTICK" /> < statusCode code="completed" /> <effectiveTimevalue=& quot;113895708338" /> <value unit="" xsi:type=& quot;PQ" value="NEGATIVE" /> <referenceRange> <observationRange> <text>NEGATIVE</text> </observationRange> </referenceRange> &lt ;/observation> </component> <component> < observation moodCode="EVN" classCode="OBS"> < templateId root="2.16.840.1.946270.10.20.22.4.2" /> < id nullFlavor="NA" /> <code codeSystem="local&quot ; code="NITRIU" displayName="UA NITRITE DIPSTICK" /> <statusCode code="completed" /> < effectiveTime value="230650526525" /> <value unit=&quot ;" xsi:type="PQ" value="NEGATIVE" /> < referenceRange> <observationRange> <text>NEGATIVE< /text> </observationRange> </referenceRange> </observation> </component> <component> <observation moodCode="EVN" classCode="OBS"> <templateId root="2.16.840.1.697738.10.20.22.4.2" /> <id nullFlavor="NA" /> <code codeSystem=" local" code="PROTEIU" displayName="UA PROTEIN DIPSTICK&quot ; /> <statusCode code="completed" /> < effectiveTime value="940455021539" /> <value unit=&quot ;" xsi:type="PQ" value="NEGATIVE" /> < referenceRange> <observationRange> <text> NEGATIVE</text> </observationRange> </ referenceRange> </observation> </component> < component> <observation moodCode="EVN" classCode=" OBS"> <templateId root="2.16.840.1.185548.10.20.22.4.2& quot; /> <id nullFlavor="NA" /> <code codeSystem="local" code="DGLUU" displayName="UA GLUCOSE DIPSTICK" /> <statusCode code="completed" /> <effectiveTime value="711659231266" /> < value unit="" xsi:type="PQ" value="NEGATIVE"/> <referenceRange> <observationRange> <text>NEGATIVE</text> </observationRange> </referenceRange> </observation> </component> <component> <observation moodCode="EVN" classCode="OBS"> <templateId root=" 2.16.840.1.746211.10.20.22.4.2" /> <id nullFlavor="NA& quot; /> <code codeSystem="local" code="KETONU& quot; displayName="UA KETONE DIPSTICK" /> <statusCode code="completed" /> <effectiveTime value=" 538281866486" /> <value unit="" xsi:type="PQ& quot; value="NEGATIVE" /> <referenceRange> & lt;observationRange> <text>NEGATIVE</text> </observationRange> </referenceRange> </ observation> </component> <component> < observation moodCode="EVN" classCode="OBS"> < templateId root="2.16.840.1.626197.10.20.22.4.2" /> < id nullFlavor="NA" /> <code codeSystem="local&quot ; code="UROBILU" displayName="UA UROBILINOGEN DIPSTICK" /&gt ; <statusCode code="completed" /> < effectiveTime value="143820864324" /> <value unit=&quot ;" xsi:type="PQ" value="NORMAL" /> < referenceRange> <observationRange> <text> NORMAL</text> </observationRange> </ referenceRange> </observation> </component> < component> <observation moodCode="EVN" classCode=" OBS"> <templateId root="2.16.840.1.863809.10.20.22.4.2& quot; /> <id nullFlavor="NA" /> <code codeSystem="local" code="BILU" displayName="UA BILIRUBIN DIPSTICK" /> <statusCode code="completed&quot ; /> <effectiveTime value="511514293780" /> <value unit="" xsi:type="PQ" value="NEGATIVE&quot ; /> <referenceRange> <observationRange> <text>NEGATIVE</text> </observationRange> </referenceRange> </observation> </component& gt; <component> <observation moodCode="EVN" classCode="OBS"> <templateId root=" 2.16.840.1.997235.10.20.22.4.2" /> <id nullFlavor="NA" / > <code codeSystem="local" code="THOMAS" displayName="UA BLOOD DIPSTICK" /> <statusCode code=& quot;completed" /> <effectiveTime value="516841996419& quot; /> <value unit="" xsi:type="PQ" value=& quot;NEGATIVE" /> <referenceRange> < observationRange> <text>NEGATIVE</text> & lt;/observationRange> </referenceRange> </ observation> </component> <component> < observation moodCode="EVN" classCode="OBS"> < templateId root="2.16.840.1.564491.10.20.22.4.2" /> < id nullFlavor="NA" /> <code codeSystem="local&quot ; code="SPGRU" displayName="UA SPECIFIC GRAVITY" /> <statusCode code="completed" /> <effectiveTime value="662848266248" /> <value unit="" xsi: type="PQ" value="1.012" /> < interpretationCode codeSystem="local" code="*" /> <referenceRange> <observationRange> < text>1.015-1.025</text> </observationRange> </ referenceRange> </observation> </component> < component> <observation moodCode="EVN" classCode=" OBS"> <templateId root="2.16.840.1.002302.10.20.22.4.2& quot; /> <id nullFlavor="NA"/> <code codeSystem="local" code="JAYJAY" displayName="UR PH" /> <statusCode code="completed" /> < effectiveTime value="134102844570" /> <value unit=&quot ;" xsi:type="PQ" value="5.0" /> < referenceRange> <observationRange> <text> 5.0-7.0</text> </observationRange> </ referenceRange> </observation> </component> </ organizer> </entry> <entry> <organizer moodCode="EVN " classCode="BATTERY"> <templateId root=" 2.16.840.1.069984.10.20.22.4.1" /> <id nullFlavor="NA&quot ; /><code codeSystem="local" code="GLUMON" displayName ="GLUCOSE (POC)" /> <statusCode code="completed" /> <component> <observation moodCode="EVN" classCode="OBS"> <templateId root=" 2.16.840.1.367687.10.20.22.4.2" /> <id nullFlavor="NA& quot; /> <codecodeSystem="local" code="GLUMON&quot ; displayName="GLUCOSE (POC)" /> <statusCode code=" completed" /> <effectiveTime value="586099419985" /> <value unit="mg/dL" xsi:type="PQ" value=& quot;134" /> <interpretationCode codeSystem="local&quot ; code="*" /> <referenceRange> < observationRange> <text>70-99</text> < /observationRange> </referenceRange> </observation& gt; </component> </organizer> </entry> <entry&gt ; <organizer moodCode="EVN" classCode="BATTERY"> <templateId root="2.16.840.1.626119.10.20.22.4.1" /> & lt;id nullFlavor="NA" /> <code codeSystem="local&quot ; code="GLUMON" displayName="GLUCOSE (POC)" /> < statusCodecode="completed" /> <component> < observation moodCode="EVN" classCode="OBS"> < templateId root="[id number]" /> < id nullFlavor="NA" /> <code codeSystem="local&quot ; code="GLUMON" displayName="GLUCOSE (POC)" /> & lt;statusCode code="completed" /> <effectiveTime value= "[id number]" /><value unit="mg/dL" xsi:type="PQ " value="128" /> <interpretationCode codeSystem=& quot;local" code="*" /> <referenceRange> <observationRange> <text>70-99</text> </observationRange> </referenceRange> </ observation> </component> </organizer> </entry> & lt;entry> <organizer moodCode="EVN" classCode="BATTERY& quot;> <templateId root="2.16.840.1.269846.10.20.22.4.1" /& gt; <id nullFlavor="NA" /> <code codeSystem=" local" code="GLUMON" displayName="GLUCOSE (POC)" /> <statusCode code="completed" /> <component> <observation moodCode="EVN" classCode="OBS"> <templateId root="2.16.840.1.220255.10.20.22.4.2" /> <id nullFlavor="NA" /> <code codeSystem=" local" code="GLUMON" displayName="GLUCOSE (POC)" /> <statusCode code="completed" /> < effectiveTime value="628558782324" /> <value unit=&quot ;mg/dL" xsi:type="PQ" value="148" /> < interpretationCode codeSystem="local" code="*" /> <referenceRange> <observationRange> < text>70-99</text> </observationRange> </ referenceRange> </observation> </component> </ organizer> </entry> <entry> <organizer moodCode="EVN " classCode="BATTERY"> <templateId root=" 2.16.840.1.718505.10.20.22.4.1" /> <id nullFlavor="NA&quot ; /> <code codeSystem="local" code="GLUMON" displayName="GLUCOSE (POC)" /> <statusCode code=" completed" /> <component> <observation moodCode=& quot;EVN" classCode="OBS"> <templateId root=" 2.16.840.1.367305.10.20.22.4.2" /> <id nullFlavor="NA& quot; /> <code codeSystem="local" code="GLUMON& quot; displayName="GLUCOSE (POC)" /> <statusCode code=& quot;completed" /> <effectiveTime value="679976533909& quot; /> <value unit="mg/dL" xsi:type="PQ" value="158" /> <interpretationCode codeSystem=" local" code="*" /> <referenceRange> <observationRange><text>70-99</text> </ observationRange> </referenceRange> </observation&gt ; </component> </organizer> </entry> <entry> <organizer moodCode="EVN" classCode="BATTERY"> <templateId root="2.16.840.1.933494.10.20.22.4.1" /> < id nullFlavor="NA" /> <code codeSystem="local" code=& quot;GLUMON" displayName="GLUCOSE (POC)"/> < statusCode code="completed" /> <component> < observation moodCode="EVN" classCode="OBS"> < templateId root="2.16.840.1.959862.10.20.22.4.2" /> < id nullFlavor="NA" /> <code codeSystem="local&quot ; code="GLUMON" displayName="GLUCOSE (POC)" /> < statusCode code="completed" /> <effectiveTime value=& quot;758586869528" /> <value unit="mg/dL" xsi:type ="PQ" value="119" /> <interpretationCode codeSystem="local" code="*" /> <referenceRange> <observationRange> <text>70-99</text&gt ; </observationRange> </referenceRange> & lt;/observation> </component> </organizer> </entry&gt ; <entry> <organizer moodCode="EVN" classCode=" BATTERY"> <templateId root="2.16.840.1.971892.10.20.22.4.1& quot; /> <id nullFlavor="NA" /> <code codeSystem ="local" code="CBCD" displayName="CBC W/DIFF" /&gt ; <statusCode code="completed" /> <component> <observation moodCode="EVN" classCode="OBS"> <templateId root="2.16.840.1.778036...22.4.2"/> <id nullFlavor="NA" /> <code codeSystem=" local"code="EO#" displayName="EOSINOPHIL #" /> <statusCode code="completed" /> <effectiveTime value="677546723487" /> <value unit="k/cumm" xsi:type="PQ" value="0.2" /> <referenceRange& gt; <observationRange> <text>0.1-0.5</ text> </observationRange> </referenceRange> </ observation> </component> <component> < observation moodCode="EVN" classCode="OBS"> < templateId root="2.16.840.1.008007.10.20.22.4.2" /> < id nullFlavor="NA" /> <code codeSystem="local&quot ; code="EO%" displayName="EOSINOPHIL %" /&gt ; <statusCode code="completed" /> < effectiveTime value="534617779822" /> <valueunit=" %" xsi:type="PQ" value="3" /> < referenceRange> <observationRange> <text> 2-4</text> </observationRange> </ referenceRange> </observation> </component> < component> <observation moodCode="EVN" classCode=" OBS"> <templateId root="2.16.840.1.974541.10.20.22.4.2& quot; /> <id nullFlavor="NA" /> <code codeSystem="local" code="GR#" displayName="GRANULOCYTE #" /> <statusCode code="completed" /> &lt ;effectiveTime value="668675651199" /> <value unit=& quot;k/cumm" xsi:type="PQ" value="5.2" /> & lt;referenceRange> <observationRange> <text& gt;2.0-9.0</text> </observationRange> </ referenceRange> </observation> </component> < component> <observation moodCode="EVN" classCode=" OBS"> <templateId root="2.16.840.1.755848.10.20.22.4.2& quot; /> <id nullFlavor="NA" /> <code codeSystem="local" code="GR%" displayName=" GRANULOCYTE %" /> <statusCode code="completed& quot; /> <effectiveTime value="671456348493" /> <value unit="%" xsi:type="PQ" value="66& quot; /> <referenceRange> <observationRange> <text>50-75</text> </observationRange&gt ; </referenceRange> </observation> </ component> <component> <observation moodCode="EVN& quot; classCode="OBS"> <templateId root=" 2.16.840.1.577111.10.20.22.4.2" /> <id nullFlavor="NA& quot; /> <code codeSystem="local" code="LY#" displayName="LYMPHOCYTE #" /> <statusCode code=" completed" /> <effectiveTime value="475493646840" /> <value unit="k/cumm" xsi:type="PQ" value=& quot;1.5" /> <referenceRange> < observationRange> <text>1.0-4.0</text> & lt;/observationRange> </referenceRange> </ observation> </component> <component><observation moodCode="EVN" classCode="OBS"> <templateId root="2.16.840.1.014980.10.20.22.4.2" /> <id nullFlavor ="NA" /> <code codeSystem="local" code="LY&amp ;#37;" displayName="LYMPHOCYTE %" /> < statusCode code="completed" /> <effectiveTime value=& quot;607552508513" /> <value unit="%" xsi: type="PQ" value="18" /> <interpretationCode codeSystem="local" code="*" /> < referenceRange> <observationRange> <text>20-30</ text> </observationRange> </referenceRange> </observation> </component> <component> <observation moodCode="EVN" classCode="OBS"> <templateId root="2.16.840.1.680036.10.20.22.4.2" /> <id nullFlavor="NA" /> <code codeSystem=" local" code="MCH" displayName="MEAN CELL HGB" /> <statusCode code="completed" /> < effectiveTime value="047660351910" /> <value unit=&quot ;pg" xsi:type="PQ" value="32.5" /> < referenceRange> <observationRange> <text> 27.0-33.0</text> </observationRange> </ referenceRange> </observation> </component> < component> <observation moodCode="EVN" classCode=" OBS"> <templateId root="2.16.840.1.265991.10.20.22.4.2& quot; /> <id nullFlavor="NA" /> <code codeSystem="local" code="MCHC" displayName="MEAN CELL HGB CONCENTRATION" /> <statusCode code="completed&quot ; /> <effectiveTime value="229614675285"/> <value unit="g/dL" xsi:type="PQ" value="33.9" / > <referenceRange> <observationRange> <text>32.0-37.0</text> </observationRange> </referenceRange> </observation> </component& gt; <component> <observation moodCode="EVN" classCode="OBS"> <templateId root=" 2.16.840.1.063871.10.20.22.4.2" /> <id nullFlavor="NA& quot; /> <code codeSystem="local" code="MCV" displayName="MEAN CELL VOLUME" /> <statusCode code=& quot;completed" /> <effectiveTime value="305552207307& quot; /> <value unit="fl" xsi:type="PQ" value=" 95.7" /> <referenceRange> <observationRange > <text>80.0-100.0</text> </ observationRange> </referenceRange> </observation&gt ; </component> <component> <observation moodCode=& quot;EVN" classCode="OBS"> <templateId root=" 2.16.840.1.818481.10.20.22.4.2" /> <id nullFlavor="NA&quot ; /> <code codeSystem="local" code="MO#" displayName="MONOCYTE #" /> <statusCode code=" completed" /> <effectiveTime value="481109738849" /> <value unit="k/cumm" xsi:type="PQ" value=& quot;1.0" /> <referenceRange> < observationRange> <text>0.1-1.0</text> & lt;/observationRange> </referenceRange> </ observation> </component> <component> < observation moodCode="EVN" classCode="OBS"> < templateId root="2.16.840.1.463484.10.20.22.4.2" /> < id nullFlavor="NA" /> <code codeSystem="local&quot ; code="MO%" displayName="MONOCYTE %" /> <statusCode code="completed"/> < effectiveTime value="011542042019" /> <value unit=&quot ;%" xsi:type="PQ" value="13" /> &lt ;interpretationCode codeSystem="local" code="*" /> <referenceRange> <observationRange> < text>4-6</text> </observationRange> </ referenceRange> </observation> </component> < component> <observation moodCode="EVN" classCode=" OBS"> <templateId root="2.16.840.1.822950.10..22.4.2& quot; /> <id nullFlavor="NA" /> <code codeSystem="local" code="RBC" displayName="RED BLOODCELL" /> <statusCode code="completed" /> <effectiveTimevalue="548427847806" /> < value unit="m/cumm" xsi:type="PQ" value="3.51" /& gt; <interpretationCode codeSystem="local" code="*& quot; /> <referenceRange> <observationRange> <text>4.00-6.00</text> </ observationRange> </referenceRange> </observation&gt ; </component> <component> <observation moodCode ="EVN" classCode="OBS"> <templateId root=& quot;2.16.840.1.208618.10.20.22.4.2" /> <id nullFlavor=&quot ;NA" /> <code codeSystem="local" code="RDW& quot; displayName="RED CELL DISTRIBUTION WIDTH" /> < statusCode code="completed" /> <effectiveTime value=& quot;356505139415" /> <value unit="%" xsi: type="PQ" value="12.8" /> <referenceRange&gt ; <observationRange><text>11.0-15.6</text> </observationRange> </referenceRange> </ observation> </component> <component> < observation moodCode="EVN" classCode="OBS"> < templateId root="2.16.840.1.979672.10.20.22.4.2" /> < id nullFlavor="NA" /> <code codeSystem="local&quot ; code="WBC" displayName="WHITE BLOOD CELL" /> < statusCode code="completed" /> <effectiveTime value=& quot;022196791110" /> <value unit="k/cumm" xsi: type="PQ" value="7.9" /> <referenceRange> <observationRange> <text>5.0-10.0</text& gt; </observationRange> </referenceRange> </observation> </component> <component> &lt ;observation moodCode="EVN" classCode="OBS"> &lt ;templateId root="2.16.840.1.685676.10.20.22.4.2" /> < id nullFlavor="NA" /> <code codeSystem="local&quot ; code="HGBT" displayName="HEMOGLOBIN" /> < statusCodecode="completed" /> <effectiveTime value=& quot;370302072985" /> <value unit="gm/dL" xsi:type=& quot;PQ" value="11.4" /> <interpretationCode codeSystem="local" code="*" /> < referenceRange> <observationRange> <text> 14.0-18.0</text> </observationRange> </referenceRange&gt ; </observation> </component> <component> <observation moodCode="EVN" classCode="OBS"> <templateId root="2.16.840.1.507579.10.20.22.4.2" /> <id nullFlavor="NA" /> <code codeSystem=" local" code="HCTT" displayName="HEMATOCRIT" /> <statusCode code="completed" /> <effectiveTime value="659930879105" /> <value unit="%& quot; xsi:type="PQ" value="33.6" /> < interpretationCode codeSystem="local" code="*" /> <referenceRange> <observationRange> < text>40.0-54.0</text> </observationRange> </ referenceRange> </observation> </component> < component> <observation moodCode="EVN" classCode=" OBS"> <templateId root="2.16.840.1.429154.10.20.22.4.2& quot; /> <id nullFlavor="NA" /> <code codeSystem="local" code="PLT" displayName="PLATELET COUNT" /> <statusCode code="completed" /> <effectiveTime value="230897748212" /> <value unit="k/cumm" xsi:type="PQ" value="281" /> <referenceRange> <observationRange> & lt;text>150-400</text> </observationRange> & lt;/referenceRange> </observation> </component> & lt;/organizer> </entry> <entry> <organizer moodCode=&quot ;EVN" classCode="BATTERY"><templateId root=" 2.16.840.1.919429.10.20.22.4.1" /> <id nullFlavor="NA&quot ; /> <code codeSystem="local" code="RENAL" displayName="RENAL FUNCTION PANEL" /> <statusCode code=& quot;completed" /> <component> <observation moodCode="EVN" classCode="OBS"> <templateId root="2.16.840.1.686863.10.20.22.4.2" /> <id nullFlavor ="NA" /> <code codeSystem="local" code=" K" displayName="POTASSIUM" /> <statusCode code=& quot;completed" /> <effectiveTime value="139363760942& quot; /> <value unit="mmol/L" xsi:type="PQ" value="3.9" /> <referenceRange> < observationRange> <text>3.5-5.3</text> </ observationRange> </referenceRange> </observation&gt ; </component> <component> <observation moodCode ="EVN" classCode="OBS"> <templateId root=& quot;2.16.840.1.815615.10..22.4.2" /> <id nullFlavor=&quot ;NA" /> <codecodeSystem="local" code="eGFR& quot; displayName="EST GFR (MDRD)" /> <statusCode code=" completed" /> <effectiveTime value="491376013132" /> <value unit="mL/min" xsi:type="PQ" value=& quot;48" /> <interpretationCode codeSystem="local&quot ; code="*" /> <referenceRange> < observationRange> <text>> 59</text> </observationRange> </referenceRange> </ observation> </component> <component> < observation moodCode="EVN" classCode="OBS"> < templateId root="2.16.840.1.098442.10.20.22.4.2" /> < id nullFlavor="NA" /> <code codeSystem="local&quot ; code="GAP" displayName="ANION GAP" /> < statusCode code="completed" /> <effectiveTime value=& quot;462021940241" /> <value unit="mmol/L" xsi: type="PQ" value="6" /> <referenceRange> <observationRange> <text>5-15</text> </observationRange> </referenceRange> < /observation> </component> <component> < observation moodCode="EVN" classCode="OBS"> < templateId root="2.16.840.1.734239.10.20.22.4.2" /> < id nullFlavor="NA" /> <code codeSystem="local&quot ; code="eCrCl" displayName="EST CrCl (CG)" /> & lt;statusCode code="completed" /> <effectiveTime value=& quot;333269398885" /> <value unit="mL/min" xsi: type="PQ" value="47" /> <interpretationCode codeSystem="local" code="*" /> < referenceRange> <observationRange> <text> > 59</text> </observationRange> </ referenceRange> </observation> </component> < component> <observation moodCode="EVN" classCode=" OBS"> <templateId root="2.16.840.1.504915.10..22.4.2& quot; /> <id nullFlavor="NA" /> <code codeSystem="local" code="GLU" displayName="GLUCOSE&quot ; /> <statusCode code="completed" /> < effectiveTime value="300503188768" /> <value unit=&quot ;mg/dL" xsi:type="PQ" value="115" /> < interpretationCode codeSystem="local" code="*"/> <referenceRange> <observationRange> < text>70-99</text> </observationRange> </ referenceRange> </observation> </component> < component> <observation moodCode="EVN" classCode=" OBS"> <templateId root="2.16.840.1.248132.10.20.22.4.2& quot; /> <id nullFlavor="NA" /> <code codeSystem="local" code="CA" displayName="CALCIUM&quot ; /> <statusCode code="completed" /> < effectiveTime value="205633996002" /> <value unit=&quot ;mg/dL" xsi:type="PQ" value="8.6" /> < referenceRange> <observationRange> <text> 8.5-10.1</text> </observationRange> </referenceRange& gt; </observation> </component> <component> <observation moodCode="EVN" classCode="OBS"> <templateId root="2.16.840.1.023309.10.20.22.4.2" />< id nullFlavor="NA" /> <code codeSystem="local&quot ; code="BUN" displayName="BLOOD UREA NITROGEN" /> <statusCode code="completed" /> <effectiveTime value="301284573057" /> <value unit="mg/dL" xsi:type="PQ" value="18" /> <referenceRange& gt; <observationRange> <text>7-20</text&gt ; </observationRange> </referenceRange> & lt;/observation> </component> <component> < observation moodCode="EVN" classCode="OBS"> < templateId root="2.16.840.1.331391.10.20.22.4.2" /> < id nullFlavor="NA" /> <code codeSystem="local&quot ; code="CREAT" displayName="CREATININE" /> < statusCode code="completed" /> <effectiveTime value=& quot;436204260347" /> <value unit="mg/dL" xsi:type ="PQ" value="1.4" /> <interpretationCode codeSystem="local" code="*" /> < referenceRange> <observationRange> <text>0.7 -1.3</text> </observationRange> </ referenceRange> </observation> </component> < component> <observation moodCode="EVN" classCode=" OBS"> <templateId root="2.16.840.1.097540.10.20.22.4.2& quot; /> <id nullFlavor="NA" /> <code codeSystem="local" code="NA" displayName="SODIUM" /> <statusCode code="completed" /> < effectiveTime value="214136527432" /> <value unit=&quot ;mmol/L" xsi:type="PQ" value="137"/> < referenceRange> <observationRange> <text> 135-148</text> </observationRange> </ referenceRange> </observation> </component> < component> <observation moodCode="EVN" classCode=" OBS"> <templateId root="2.16.840.1.935322.10.20.22.4.2& quot; /> <id nullFlavor="NA" /> <code codeSystem="local" code="CL" displayName="CHLORIDE&quot ; /> <statusCode code="completed" /> < effectiveTime value="349298132687" /> <value unit=&quot ;mmol/L" xsi:type="PQ" value="103" /> < referenceRange> <observationRange> <text> 98-110</text> </observationRange> </referenceRange& gt; </observation> </component> <component> <observation moodCode="EVN" classCode="OBS"> <templateId root="2.16.840.1.533361.10..22.4.2" /> & lt;id nullFlavor="NA" /> <code codeSystem="local& quot; code="CO2" displayName="CARBON DIOXIDE" /> <statusCode code="completed" /> <effectiveTime value="769954593809" /> <value unit="mmol/L" xsi:type="PQ" value="28" /> <referenceRange& gt; <observationRange> <text>21-32</text> </observationRange> </referenceRange> & lt;/observation> </component> <component> < observation moodCode="EVN" classCode="OBS"> < templateId root="2.16.840.1.843995.10..22.4.2" /> < id nullFlavor="NA" /> <code codeSystem="local&quot ; code="ALB" displayName="ALBUMIN" /> < statusCode code="completed" /> <effectiveTime value=& quot;766947611933" /> <value unit="gm/dL" xsi:type ="PQ" value="3.4" /> <referenceRange> <observationRange> <text>3.4-5.0</text> </observationRange> </referenceRange> &lt ;/observation> </component> <component> < observation moodCode="EVN" classCode="OBS"> < templateId root="2.16.840.1.099697.10.20.22.4.2" /> < id nullFlavor="NA" /> <code codeSystem="local" code="PHOS" displayName="PHOSPHORUS" /> < statusCode code="completed" /> <effectiveTime value=& quot;940990875941" /> <value unit="mg/dL" xsi:type ="PQ" value="3.5" /> <referenceRange> <observationRange><text>2.5-4.9</text> < /observationRange> </referenceRange> </observation& gt; </component> </organizer> </entry> <entry&gt ; <organizer moodCode="EVN" classCode="BATTERY"> <templateId root="2.16.840.1.978234.10.20.22.4.1" /> & lt;id nullFlavor="NA" /> <code codeSystem="local" code="MAG" displayName="MAGNESIUM" /> < statusCode code="completed" /> <component> < observation moodCode="EVN" classCode="OBS"> < templateId root="2.16.840.1.012384.10.20.22.4.2" /> < id nullFlavor="NA" /> <code codeSystem="local&quot ; code="MAG" displayName="MAGNESIUM" /> < statusCode code="completed" /> <effectiveTime value=& quot;224566717881" /> <value unit="mg/dL" xsi:type ="PQ" value="2.0" /> <referenceRange> <observationRange> <text>1.8-2.4</text> </observationRange> </referenceRange> </ observation> </component> </organizer> </entry> & lt;entry> <organizer moodCode="EVN" classCode="BATTERY& quot;> <templateId root="2.16.840.1.425449.10.20.22.4.1" /& gt; <id nullFlavor="NA" /> <code codeSystem=" local" code="GLUMON" displayName="GLUCOSE (POC)" /> <statusCode code="completed" /> <component> <observation moodCode="EVN" classCode="OBS"> <templateId root="2.16.840.1.067832.10.20.22.4.2" /> <id nullFlavor="NA" /> <code codeSystem=" local" code="GLUMON" displayName="GLUCOSE (POC)" /> <statusCode code="completed" /> < effectiveTime value="976381929389" /> <value unit="mg/ dL" xsi:type="PQ" value="197" /> < interpretationCode codeSystem="local" code="*" /> <referenceRange> <observationRange> < text>70-99</text> </observationRange> </ referenceRange> </observation> </component> </ organizer> </entry> <entry> <organizer moodCode="EVN " classCode="BATTERY"> <templateId root=" 2.16.840.1.764981.10.20.22.4.1" /> <id nullFlavor="NA&quot ; /> <code codeSystem="local" code="GLUMON" displayName="GLUCOSE (POC)" /> <statusCode code=" completed" /> <component> <observation moodCode=& quot;EVN" classCode="OBS"> <templateId root=" 2.16.840.1.660931.10.20.22.4.2" /><id nullFlavor="NA" /&gt ; <code codeSystem="local" code="GLUMON" displayName="GLUCOSE (POC)" /> <statusCode code=" completed" /> <effectiveTime value="144434595929" /> <value unit="mg/dL" xsi:type="PQ" value=& quot;165" /> <interpretationCode codeSystem="local&quot ; code="*" /> <referenceRange> < observationRange> <text>70-99</text> < /observationRange> </referenceRange> </observation> </component> </organizer> </entry> <entry> <organizer moodCode="EVN" classCode="BATTERY"> <templateId root="2.16.840.1.302752.10.20.22.4.1" /> < id nullFlavor="NA" /> <code codeSystem="local" code="GLUMON" displayName="GLUCOSE (POC)" /> < statusCode code="completed" /> <component> < observation moodCode="EVN" classCode="OBS"> < templateId root="2.16.840.1.415576.10.20.22.4.2" /> < id nullFlavor="NA" /> <code codeSystem="local&quot ; code="GLUMON" displayName="GLUCOSE (POC)" /> & lt;statusCode code="completed" /> <effectiveTime value= "605249736943" /> <value unit="mg/dL" xsi: type="PQ" value="216" /> <interpretationCode codeSystem="local" code="*" /> < referenceRange> <observationRange> <text>70-99&lt ;/text> </observationRange> </referenceRange&gt ; </observation> </component> </organizer> &lt ;/entry> <entry> <organizer moodCode="EVN" classCode=& quot;BATTERY"> <templateId root=" 2.16.840.1.079554.10.20.22.4.1" /> <id nullFlavor="NA&quot ; /> <code codeSystem="local" code="CBCD" displayName="CBC W/DIFF" /> <statusCode code=" completed" /> <component> <observation moodCode=& quot;EVN" classCode="OBS"> <templateId root=" 2.16.840.1.256086.10.20.22.4.2" /> <id nullFlavor="NA& quot; /> <code codeSystem="local" code="EO#" displayName="EOSINOPHIL #" /> <statusCode code="completed " /> <effectiveTime value="023919526352" /> <value unit="k/cumm" xsi:type="PQ" value="0.2 " /> <referenceRange> <observationRange&gt ; <text>0.1-0.5</text> </observationRange > </referenceRange> </observation> </ component> <component> <observation moodCode="EVN& quot; classCode="OBS"> <templateId root=" 2.16.840.1.433432.10..22.4.2" /> <id nullFlavor="NA& quot; /> <code codeSystem="local" code="EO&#37 ;" displayName="EOSINOPHIL %" /> <statusCode code=& quot;completed" /> <effectiveTime value="415151862114& quot; /> <value unit="%" xsi:type="PQ&quot ; value="2" /> <referenceRange> < observationRange> <text>2-4</text> </ observationRange> </referenceRange> </observation&gt ; </component> <component> <observation moodCode ="EVN" classCode="OBS"> <templateId root=& quot;2.16.840.1.765766.10.20.22.4.2" /> <id nullFlavor=&quot ;NA" /> <code codeSystem="local" code="GR#& quot; displayName="GRANULOCYTE #" /> <statusCode code=& quot;completed" /> <effectiveTime value="553779361105& quot; /> <value unit="k/cumm" xsi:type="PQ" value=& quot;5.9" /> <referenceRange> < observationRange> <text>2.0-9.0</text> < /observationRange> </referenceRange> </observation& gt; </component> <component> <observation moodCode=& quot;EVN" classCode="OBS"> <templateId root=" 2.16.840.1.942018.10.20.22.4.2" /> <id nullFlavor="NA&quot ; /> <code codeSystem="local" code="GR%& quot; displayName="GRANULOCYTE %" /> < statusCode code="completed" /> <effectiveTime value=& quot;171461309303" /><value unit="%" xsi:type=&quot ;PQ" value="67" /> <referenceRange> <observationRange> <text>50-75</text> &lt ;/observationRange> </referenceRange> </observation& gt;</component> <component> <observation moodCode=& quot;EVN" classCode="OBS"> <templateId root=" 2.16.840.1.110446.10.20.22.4.2" /> <id nullFlavor="NA" /> <code codeSystem="local" code="LY#" displayName="LYMPHOCYTE #" /> <statusCode code=" completed" /> <effectiveTime value="563596027614" /> <value unit="k/cumm" xsi:type="PQ" value=& quot;1.4" /> <referenceRange> < observationRange> <text>1.0-4.0</text> & lt;/observationRange> </referenceRange> </ observation> </component> <component> < observation moodCode="EVN" classCode="OBS"> < templateId root="2.16.840.1.639203.10.20.22.4.2" /> < id nullFlavor="NA" /> <code codeSystem="local&quot ; code="LY%" displayName="LYMPHOCYTE %" /&gt ; <statusCode code="completed" /> < effectiveTime value="[id number]" /> <value unit=&quot ;%" xsi:type="PQ" value="16" /> &lt ;interpretationCode codeSystem="local" code="*" /> <referenceRange> <observationRange> < text>20-30</text> </observationRange> </ referenceRange> </observation> </component> < component> <observation moodCode="EVN" classCode=" OBS"> <templateId root="[id number]& quot; /> <id nullFlavor="NA" /> <code codeSystem="local" code="MCH" displayName="MEAN CELL HGB" /> <statusCode code="completed" /> <effectiveTime value="[id number]" /> <value unit="pg" xsi:type="PQ" value="32.5" /> <referenceRange> <observationRange> <text >27.0-33.0</text> </observationRange> </ referenceRange> </observation> </component> < component> <observation moodCode="EVN" classCode=" OBS"> <templateId root="2.16.840.1.809277.10.20.22.4.2& quot; /> <id nullFlavor="NA" /><code codeSystem=& quot;local" code="[facility]" displayName="MEAN CELL HGB CONCENTRATION" /> <statusCode code="completed" /& gt; <effectiveTimevalue="368917246508" /> < value unit="g/dL" xsi:type="PQ" value="33.7" /&gt ; <referenceRange> <observationRange> & lt;text>32.0-37.0</text> </observationRange> </referenceRange> </observation> </component> <component> <observation moodCode="EVN" classCode=& quot;OBS"> <templateId root=" 2.16.840.1.254602.10.20.22.4.2" /> <id nullFlavor="NA& quot; /> <code codeSystem="local" code="MCV" displayName="MEAN CELL VOLUME" /> <statusCode code=& quot;completed" /> <effectiveTime value="761763112540& quot; /> <value unit="fl" xsi:type="PQ" value ="96.3" /> <referenceRange> < observationRange> <text>80.0-100.0</text> </observationRange> </referenceRange> </ observation> </component> <component> < observation moodCode="EVN" classCode="OBS"> < templateId root="2.16.840.1.271583.10.20.22.4.2" /> < id nullFlavor="NA" /> <code codeSystem="local&quot ; code="MO#" displayName="MONOCYTE #" /> < statusCode code="completed" /> <effectiveTime value=& quot;631139867778" /> <value unit="k/cumm" xsi: type="PQ" value="1.3" /> <interpretationCode codeSystem="local" code="*" /> < referenceRange> <observationRange> <text> 0.1-1.0</text> </observationRange> </ referenceRange> </observation> </component> < component> <observation moodCode="EVN" classCode=" OBS"> <templateId root="2.16.840.1.652814.10.20.22.4.2& quot; /> <id nullFlavor="NA" /> <code codeSystem="local" code="MO%" displayName=" MONOCYTE %" /> <statusCode code="completed&quot ; /> <effectiveTime value="514462941463" /> <value unit="%" xsi:type="PQ" value="14& quot; /> <interpretationCode codeSystem="local" code=& quot;*" /> <referenceRange> <observationRange& gt; <text>4-6</text> </observationRange& gt; </referenceRange> </observation> </ component> <component> <observation moodCode="EVN" classCode="OBS"> <templateId root=" 2.16.840.1.573068.10.20.22.4.2" /> <id nullFlavor="NA& quot; /> <code codeSystem="local" code="RBC" displayName="RED BLOOD CELL" /> <statusCode code=" completed" /> <effectiveTime value="410976244561" /> <value unit="m/cumm" xsi:type="PQ" value=& quot;3.54" /> <interpretationCode codeSystem="local& quot; code="*" /> <referenceRange> < observationRange> <text>4.00-6.00</text> & lt;/observationRange> </referenceRange> </ observation> </component> <component> < observation moodCode="EVN" classCode="OBS"> < templateId root="2.16.840.1.757937.10.20.22.4.2" /> < id nullFlavor="NA" /> <code codeSystem="local" code=& quot;RDW" displayName="RED CELL DISTRIBUTIONWIDTH" /> <statusCode code="completed" /> <effectiveTime value="481026371271" /> <value unit="%& quot; xsi:type="PQ" value="12.7" /> < referenceRange> <observationRange> <text> 11.0-15.6</text> </observationRange> </ referenceRange> </observation> </component> < component> <observation moodCode="EVN" classCode="OBS" > <templateId root="2.16.840.1.059299.10.20.22.4.2" /& gt; <id nullFlavor="NA" /> <code codeSystem=& quot;local" code="WBC" displayName="WHITE BLOOD CELL" / > <statusCode code="completed" /> < effectiveTime value="206789914089" /> <value unit=&quot ;k/cumm" xsi:type="PQ" value="8.8" /> < referenceRange> <observationRange> <text>5.0-10.0& lt;/text> </observationRange> </referenceRange& gt; </observation> </component> <component> <observation moodCode="EVN" classCode="OBS"> <templateId root="2.16.840.1.585568.10.20.22.4.2" /> <id nullFlavor="NA" /> <code codeSystem=&quot ;local" code="HGBT" displayName="HEMOGLOBIN" /> < statusCode code="completed" /> <effectiveTime value=& quot;734798201614" /> <value unit="gm/dL" xsi:type ="PQ" value="11.5"/> <interpretationCode codeSystem="local" code="*" /><referenceRange> <observationRange> <text>14.0-18.0</text&gt ; </observationRange> </referenceRange> & lt;/observation> </component> <component> < observation moodCode="EVN" classCode="OBS"> < templateId root="2.16.840.1.583668.10.20.22.4.2" /> < id nullFlavor="NA" /> <code codeSystem="local&quot ; code="HCTT" displayName="HEMATOCRIT" /> < statusCode code="completed" /> <effectiveTime value=& quot;091315193746" /> <value unit="%" xsi: type="PQ" value="34.1" /> < interpretationCode codeSystem="local" code="*" /> <referenceRange> <observationRange> <text&gt ;40.0-54.0</text> </observationRange> </ referenceRange> </observation> </component> < component> <observation moodCode="EVN" classCode=" OBS"> <templateId root="2.16.840.1.897710.10..22.4.2& quot; /> <id nullFlavor="NA" /> <code codeSystem="local" code="PLT" displayName="PLATELET COUNT" /> <statusCode code="completed" /> < effectiveTime value="565096709636" /> <value unit=&quot ;k/cumm" xsi:type="PQ" value="273" /> < referenceRange> <observationRange> <text> 150-400</text> </observationRange> </ referenceRange> </observation> </component> </ organizer> </entry> <entry> <organizer moodCode="EVN " classCode="BATTERY"> <templateId root=" 2.16.840.1.843151.10.20.22.4.1" /> <id nullFlavor="NA&quot ; /> <code codeSystem="local" code="RENAL" displayName="RENAL FUNCTION PANEL" /> <statusCode code=& quot;completed" /> <component> <observation moodCode=& quot;EVN" classCode="OBS"> <templateId root=" 2.16.840.1.418296.10..22.4.2" /> <id nullFlavor="NA& quot; /> <code codeSystem="local" code="K" displayName="POTASSIUM" /> <statusCode code=" completed" /> <effectiveTime value="540655904210" /> <value unit="mmol/L" xsi:type="PQ" value=& quot;4.0" /> <referenceRange> < observationRange> <text>3.5-5.3</text> & lt;/observationRange> </referenceRange> </ observation> </component> <component> < observation moodCode="EVN" classCode="OBS"> < templateId root="2.16.840.1.856959.10.20.22.4.2" /> < id nullFlavor="NA" /> <code codeSystem="local" code="eGFR" displayName="EST GFR (MDRD)" /> < statusCode code="completed" /> <effectiveTime value=& quot;647634108765" /> <value unit="mL/min" xsi: type="PQ" value="44" /> <interpretationCode codeSystem="local" code="*" /> < referenceRange> <observationRange> <text> > 59</text> </observationRange> </ referenceRange> </observation> </component> < component> <observation moodCode="EVN" classCode=" OBS"> <templateId root="2.16.840.1.442617.10.20.22.4.2& quot; /> <id nullFlavor="NA" /> <code codeSystem="local" code="GAP" displayName="ANION GAP& quot; /> <statusCode code="completed" /> & lt;effectiveTime value="977762658496" /> <value unit=&quot ;mmol/L" xsi:type="PQ" value="6" /> < referenceRange> <observationRange> <text> 5-15</text> </observationRange> </ referenceRange> </observation> </component> < component> <observation moodCode="EVN" classCode=" OBS"> <templateId root="2.16.840.1.384221.10..22.4.2& quot; /> <id nullFlavor="NA" /> <code codeSystem="local" code="eCrCl" displayName="EST CrCl ( CG)" /> <statusCode code="completed" /> <effectiveTime value="072571499970" /> <value unit="mL/min" xsi:type="PQ" value="44" /> <interpretationCode codeSystem="local" code="*" /&gt ; <referenceRange> <observationRange> <text>> 59</text> </observationRange> </referenceRange> </observation> </component& gt; <component> <observation moodCode="EVN" classCode="OBS"> <templateId root=" 2.16.840.1.345266.10.20.22.4.2" /> <id nullFlavor="NA& quot; /> <code codeSystem="local" code="GLU" displayName="GLUCOSE" /> <statusCode code=" completed" /> <effectiveTime value="630539503886" /> <value unit="mg/dL" xsi:type="PQ" value=& quot;154" /> <interpretationCode codeSystem="local&quot ; code="*" /> <referenceRange> < observationRange> <text>70-99</text> </ observationRange> </referenceRange> </observation&gt ; </component> <component> <observation moodCode ="EVN" classCode="OBS"> <templateId root=& quot;2.16.840.1.230426.10.20.22.4.2" /> <id nullFlavor=&quot ;NA" /> <code codeSystem="local" code="CA& quot; displayName="CALCIUM" /> <statusCode code=" completed" /> <effectiveTime value="899839454248" /> <value unit="mg/dL" xsi:type="PQ" value=& quot;8.5" /> <referenceRange> <observationRange& gt; <text>8.5-10.1</text> </ observationRange> </referenceRange> </observation&gt ; </component> <component> <observation moodCode ="EVN"classCode="OBS"> <templateId root=&quot ;2.16.840.1.245431.10.20.22.4.2" /> <id nullFlavor="NA& quot; /> <code codeSystem="local" code="BUN" displayName="BLOOD UREA NITROGEN" /> <statusCode code=& quot;completed" /> <effectiveTime value="299718203923& quot; /><value unit="mg/dL" xsi:type="PQ" value=" 22" /> <interpretationCode codeSystem="local" code ="*" /> <referenceRange> < observationRange> <text>7-20</text> </ observationRange> </referenceRange> </observation&gt ; </component> <component> <observation moodCode=& quot;EVN" classCode="OBS"> <templateId root=" 2.16.840.1.188721.10.20.22.4.2" /> <id nullFlavor="NA& quot; /> <code codeSystem="local" code="CREAT&quot ; displayName="CREATININE" /> <statusCode code=" completed" /> <effectiveTime value="951160482201" /> <value unit="mg/dL" xsi:type="PQ" value=& quot;1.5" /> <interpretationCode codeSystem="local&quot ; code="*" /> <referenceRange> < observationRange> <text>0.7-1.3</text> < /observationRange> </referenceRange> </observation& gt; </component> <component> <observation moodCode="EVN" classCode="OBS"> <templateId root="2.16.840.1.980380.10.20.22.4.2" /> <id nullFlavor ="NA" /> <code codeSystem="local" code=" NA" displayName="SODIUM" /> <statusCode code=" completed" /> <effectiveTime value="803069580528" /> <value unit="mmol/L" xsi:type="PQ" value=& quot;137" /> <referenceRange> < observationRange> <text>135-148</text> & lt;/observationRange> </referenceRange> </ observation> </component> <component> < observation moodCode="EVN" classCode="OBS"> < templateId root="2.16.840.1.181147.10.20.22.4.2" /> < id nullFlavor="NA" /> <code codeSystem="local&quot ; code="CL" displayName="CHLORIDE" /> < statusCode code="completed" /> <effectiveTime value=& quot;001687145424" /> <value unit="mmol/L" xsi: type="PQ" value="103" /> <referenceRange> <observationRange> <text>98-110</text&gt ; </observationRange> </referenceRange> </ observation> </component> <component> < observation moodCode="EVN" classCode="OBS"> < templateId root="2.16.840.1.040241.10.20.22.4.2" /> <id nullFlavor="NA" /> <code codeSystem="local" code="CO2" displayName="CARBON DIOXIDE" /> < statusCode code="completed" /> <effectiveTime value=& quot;669245115932" /> <value unit="mmol/L" xsi: type="PQ" value="28" /> <referenceRange> <observationRange> <text>21-32</text> </observationRange> </referenceRange> </ observation> </component> <component> < observation moodCode="EVN" classCode="OBS"> < templateId root="2.16.840.1.658455.10.20.22.4.2" /> < id nullFlavor="NA" /> <code codeSystem="local&quot ; code="ALB" displayName="ALBUMIN" /> < statusCode code="completed" /> <effectiveTime value=& quot;279598708077" /> <value unit="gm/dL" xsi:type ="PQ" value="3.5" /> <referenceRange> <observationRange> <text>3.4-5.0</text> </observationRange> </referenceRange> &lt ;/observation> </component> <component> < observation moodCode="EVN" classCode="OBS"> < templateId root="2.16.840.1.284035.10.20.22.4.2" /> < id nullFlavor="NA" /> <code codeSystem="local" code="PHOS" displayName="PHOSPHORUS" /> < statusCode code="completed" /> <effectiveTime value=& quot;992654272843" /> <value unit="mg/dL" xsi:type ="PQ" value="3.1" /> <referenceRange> <observationRange> <text>2.5-4.9</text> &lt ;/observationRange> </referenceRange> </observation& gt; </component> </organizer> </entry> <entry&gt ; <organizer moodCode="EVN" classCode="BATTERY"> <templateId root="2.16.840.1.138798.10.20.22.4.1" /> & lt;id nullFlavor="NA" /> <code codeSystem="local" code="MAG" displayName="MAGNESIUM" /> < statusCode code="completed" /> <component> < observationmoodCode="EVN" classCode="OBS"> < templateId root="2.16.840.1.386220.10.20.22.4.2" /> < id nullFlavor="NA" /> <code codeSystem="local&quot ; code="MAG" displayName="MAGNESIUM" /> < statusCode code="completed" /> <effectiveTime value=& quot;117006525514"/> <value unit="mg/dL" xsi:type= "PQ" value="2.1" /> <referenceRange> <observationRange> <text>1.8-2.4</text> </observationRange> </referenceRange> </ observation> </component> </organizer> </entry> & lt;entry> <organizer moodCode="EVN" classCode="BATTERY& quot;> <templateId root="2.16.840.1.391971.10.20.22.4.1" /& gt; <id nullFlavor="NA" /> <code codeSystem=" local" code="GLUMON" displayName="GLUCOSE (POC)" /> <statusCode code="completed" /> <component> <observation moodCode="EVN" classCode="OBS"> <templateId root="2.16.840.1.737625.10.20.22.4.2" /> <id nullFlavor="NA" /> <code codeSystem=" local" code="GLUMON" displayName="GLUCOSE (POC)" /> <statusCode code="completed" /> < effectiveTime value="473926092221" /> <value unit="mg /dL" xsi:type="PQ" value="198" />< interpretationCode codeSystem="local" code="*" /> <referenceRange> <observationRange> < text>70-99</text> </observationRange> </ referenceRange> </observation> </component> </ organizer> </entry> <entry> <organizer moodCode="EVN " classCode="BATTERY"> <templateId root=" 2.16.840.1.967886.10.20.22.4.1" /> <id nullFlavor="NA&quot ; /> <code codeSystem="local" code="GLUMON" displayName="GLUCOSE (POC)" /> <statusCode code=" completed" /> <component> <observation moodCode=& quot;EVN" classCode="OBS"> <templateId root=" 2.16.840.1.038095.10.20.22.4.2" /> <id nullFlavor="NA" /&gt ; <code codeSystem="local" code="GLUMON" displayName="GLUCOSE (POC)" /> <statusCode code=" completed" /> <effectiveTime value="853401097617" /> <value unit="mg/dL" xsi:type="PQ" value=& quot;189" /> <interpretationCode codeSystem="local&quot ; code="*" /> <referenceRange> < observationRange> <text>70-99</text> < /observationRange> </referenceRange> </observation&gt ; </component> </organizer> </entry> <entry> <organizer moodCode="EVN" classCode="BATTERY"> <templateId root="2.16.840.1.722491.10.20.22.4.1" /> < id nullFlavor="NA" /> <code codeSystem="local" code="GLUMON" displayName="GLUCOSE (POC)" /> < statusCode code="completed" /> <component> < observation moodCode="EVN" classCode="OBS"> < templateId root="2.16.840.1.556091.10.20.22.4.2" /> < id nullFlavor="NA" /> <code codeSystem="local&quot ; code="GLUMON" displayName="GLUCOSE (POC)" /> & lt;statusCode code="completed" /> <effectiveTime value= "733029566085" /> <value unit="mg/dL" xsi: type="PQ" value="183" /> <interpretationCode codeSystem="local" code="*" /> < referenceRange> <observationRange> <text>70-99& lt;/text> </observationRange> </referenceRange& gt; </observation> </component> </organizer> & lt;/entry> <entry> <organizer moodCode="EVN" classCode ="BATTERY"> <templateId root=" 2.16.840.1.487907.10.20.22.4.1" /> <id nullFlavor="NA&quot ; /> <code codeSystem="local" code="GLUMON" displayName="GLUCOSE (POC)" /> <statusCode code=" completed" /> <component> <observation moodCode=& quot;EVN" classCode="OBS"> <templateId root=" 2.16.840.1.342956.10.20.22.4.2" /> <id nullFlavor="NA& quot; /> <code codeSystem="local" code="GLUMON& quot; displayName="GLUCOSE (POC)" /> <statusCode code=& quot;completed" /> <effectiveTime value="283059780087& quot; /> <value unit="mg/dL" xsi:type="PQ" value="164" /> <interpretationCode codeSystem=" local" code="*" /> <referenceRange> <observationRange> <text>70-99</text> </observationRange> </referenceRange> </ observation> </component> </organizer> </entry> & lt;entry> <organizer moodCode="EVN" classCode="BATTERY& quot;> <templateId root="2.16.840.1.208523.10.20.22.4.1" /& gt; <id nullFlavor="NA" /> <code codeSystem=" local" code="LACT" displayName="LACTIC ACID" /> <statusCode code="completed" /> <component> <observation moodCode="EVN" classCode="OBS"> <templateId root="2.16.840.1.131381.10.20.22.4.2" /> & lt;id nullFlavor="NA" /> <code codeSystem="local& quot; code="LACT" displayName="LACTIC ACID" /> & lt;statusCode code="completed" /> <effectiveTime value= "025924241399" /><value unit="mmol/L" xsi:type=" PQ" value="1.9" /> <referenceRange> <observationRange> <text>0.5-2.0</text> & lt;/observationRange> </referenceRange> </ observation></component> </organizer> </entry> < entry> <organizer moodCode="EVN" classCode="BATTERY&quot ;> <templateId root="2.16.840.1.995330.10..22.4.1" /> <id nullFlavor="NA" /> <code codeSystem=" local" code="PLAVIX" displayName="PLT FUNCTION, P2Y12 ( PLAVIX)" /> <statusCode code="completed" /> & lt;component> <observation moodCode="EVN" classCode=&quot ;OBS"> <templateId root="2.16.840.1.803647.10..22.4.2 " /> <id nullFlavor="NA" /> <code codeSystem="local" code="PLAVPLT" displayName=" PLATELET COUNT" /> <statusCode code="completed" /& gt; <effectiveTime value="668775693406" /> &lt ;value unit="k/cumm" xsi:type="PQ" value="242" /& gt; <referenceRange> <observationRange> & lt;text>150-450</text> </observationRange> & lt;/referenceRange> </observation> </component> <component> <observation moodCode="EVN" classCode=& quot;OBS"> <templateId root=" 2.16.840.1.002119...22.4.2"/> <id nullFlavor="NA& quot; /> <code codeSystem="local"code="PLTFUN&quot ; displayName="PLT FUNCTION P2Y12" /> <statusCode code= "completed" /> <effectiveTime value="898969611913& quot; /> <value unit="PRU" xsi:type="PQ" value=" 270" /> <referenceRange> <observationRange& gt; <text>194-418</text> </observationRange&gt ; </referenceRange> </observation> </ component> </organizer> </entry> <entry> < organizer moodCode="EVN" classCode="BATTERY"> < templateId root="2.16.840.1.593856.10.20.22.4.1" /> <id nullFlavor="NA" /> <code codeSystem="local" code= "PLTASA" displayName="PLATELET FUNCTION ASPIRIN" /> <statusCode code="completed" /> <component> & lt;observation moodCode="EVN" classCode="OBS"> & lt;templateId root="2.16.840.1.547467.10.20.22.4.2" /> &lt ;id nullFlavor="NA" /> <code codeSystem="local& quot; code="PLTASACNT" displayName="PLATELET COUNT" /> <statusCode code="completed" /> < effectiveTime value="854226151720" /> <value unit="k/ cumm" xsi:type="PQ" value="242" /> < referenceRange> <observationRange> <text> 150-450</text> </observationRange> </ referenceRange> </observation> </component> < component> <observation moodCode="EVN" classCode=" OBS"> <templateId root="2.16.840.1.378033.10.20.22.4.2& quot; /> <id nullFlavor="NA" /> <code codeSystem="local" code="PLTASAT" displayName=" PLATELET FUNCTION ASPIRIN" /> <statusCode code=" completed" /> <effectiveTime value="445057645417" /> <value unit="ARU" xsi:type="PQ" value=" 585" /> <interpretationCode codeSystem="local" code="*" /> <referenceRange> < observationRange> <text>620-992</text> & lt;/observationRange> </referenceRange> </ observation> </component> </organizer> </entry> & lt;entry> <organizer moodCode="EVN" classCode="BATTERY& quot;> <templateId root="2.16.840.1.005083.10.20.22.4.1" /& gt; <id nullFlavor="NA" /> <code codeSystem=" local" code="CBCM" displayName="CBC W/MANUAL DIFF" /&gt ; <statusCode code="completed" /> <component> <observation moodCode="EVN" classCode="OBS"> <templateId root="2.16.840.1.873277.10.20.22.4.2" /> &lt ;id nullFlavor="NA" /> <code codeSystem="local& quot; code="MCH" displayName="MEAN CELL HGB" /> <statusCode code="completed" /> <effectiveTime value ="811169930613" /> <value unit="pg" xsi:type= "PQ" value="32.6" /> <referenceRange> <observationRange> <text>27.0-33.0</text> </observationRange> </referenceRange> </ observation> </component> <component> < observation moodCode="EVN" classCode="OBS"> < templateId root="2.16.840.1.640938.10.20.22.4.2" /> < id nullFlavor="NA" /> <code codeSystem="local&quot ; code="MCHC" displayName="MEAN CELL HGB CONCENTRATION" /&gt ; <statusCode code="completed" /> < effectiveTime value="034154497259" /> <value unit=&quot ;g/dL" xsi:type="PQ" value="33.7" /> < referenceRange> <observationRange> <text>32.0- 37.0</text> </observationRange> </ referenceRange> </observation> </component> < component> <observation moodCode="EVN" classCode=" OBS"> <templateId root="2.16.840.1.855667...22.4.2&quot ; /> <id nullFlavor="NA" /> <code codeSystem="local" code="MCV" displayName="MEAN CELL VOLUME" /> <statusCode code="completed" /> < effectiveTime value="979406269930" /> <value unit=&quot ;fl" xsi:type="PQ" value="96.7" /> < referenceRange> <observationRange> <text> 80.0-100.0</text> </observationRange> </ referenceRange> </observation> </component> < component> <observation moodCode="EVN" classCode=" OBS"> <templateId root="2.16.840.1.259519.10.20.22.4.2& quot; /> <id nullFlavor="NA" /> <code codeSystem="local" code="RBC" displayName="RED BLOOD CELL" /> <statusCode code="completed" /> <effectiveTime value="032800068577" /> <value unit="m/cumm" xsi:type="PQ" value="2.76" /> <interpretationCode codeSystem="local" code="*" /& gt; <referenceRange> <observationRange><text& gt;4.00-6.00</text> </observationRange> </ referenceRange> </observation> </component> < component> <observation moodCode="EVN" classCode=" OBS"> <templateId root="2.16.840.1.253061.10.20.22.4.2& quot; /> <id nullFlavor="NA" /> <code codeSystem="local" code="RDW" displayName="RED CELL DISTRIBUTION WIDTH" /> <statusCode code="completed&quot ; /> <effectiveTime value="663222846701" /> <value unit="%" xsi:type="PQ" value="14.3& quot; /> <referenceRange> <observationRange> <text>11.0-15.6</text> </observationRange> </referenceRange> </observation> </component&gt ; <component> <observation moodCode="EVN" classCode="OBS"> <templateId root=" 2.16.840.1.167440.10.20.22.4.2" /> <id nullFlavor="NA& quot; /> <code codeSystem="local" code="WBC" displayName="WHITE BLOOD CELL" /> <statusCode code=" completed" /> <effectiveTime value="917594668475" /> <value unit="k/cumm" xsi:type="PQ" value=& quot;15.1" /> <interpretationCode codeSystem="local& quot; code="*" /> <referenceRange> < observationRange> <text>5.0-10.0</text> & lt;/observationRange> </referenceRange> </ observation> </component> <component> < observation moodCode="EVN" classCode="OBS"> < templateId root="2.16.840.1.913930.10.20.22.4.2" /> < id nullFlavor="NA" /> <code codeSystem="local&quot ; code="HGBT" displayName="HEMOGLOBIN" /> < statusCode code="completed" /> <effectiveTime value=& quot;609360879577" /> <value unit="gm/dL" xsi:type ="PQ" value="9.0" /> <interpretationCode codeSystem="local" code="*" /> < referenceRange> <observationRange> <text>14.0- 18.0</text> </observationRange> </ referenceRange> </observation> </component> < component> <observation moodCode="EVN" classCode=" OBS"> <templateId root="2.16.840.1.024968.10.20.22.4.2& quot; /> <id nullFlavor="NA" /> <code codeSystem="local" code="HCTT" displayName="HEMATOCRIT& quot; /> <statusCode code="completed" /> & lt;effectiveTime value="147251543416" /> <value unit=& quot;%" xsi:type="PQ" value="26.7" /> <interpretationCode codeSystem="local" code="*" /&gt ; <referenceRange> <observationRange> <text>40.0-54.0</text> </observationRange> </referenceRange> </observation> </component&gt ; <component> <observation moodCode="EVN" classCode=& quot;OBS"> <templateId root=" 2.16.840.1.975055.10..22.4.2" /> <id nullFlavor="NA& quot; /> <code codeSystem="local" code="PLT" displayName="PLATELET COUNT" /> <statusCode code=" completed" /> <effectiveTime value="659342894224" /> <value unit="k/cumm" xsi:type="PQ" value=& quot;267" /> <referenceRange> < observationRange> <text>150-400</text> </ observationRange> </referenceRange> </observation&gt ; </component> </organizer> </entry> <entry> <organizer moodCode="EVN" classCode="BATTERY"> <templateId root="[id number]" /> < id nullFlavor="NA" /> <code codeSystem="local" code="DIFFMORD" displayName="MANUAL DIFF(O)" /> < statusCode code="completed" /> <component> < observation moodCode="EVN" classCode="OBS"> < templateId root="[id number]" /> < id nullFlavor="NA" /> <code codeSystem="local&quot ; code="GR#" displayName="GRANULOCYTE #" /> < statusCode code="completed" /> <effectiveTime value=& quot;[id number]" /> <value unit="k/cumm" xsi: type="PQ" value="12.2" /> < interpretationCode codeSystem="local" code="*" /> <referenceRange> <observationRange> < text>2.0-9.0</text> </observationRange> </ referenceRange> </observation> </component> < component> <observation moodCode="EVN" classCode=" OBS"> <templateId root="2.16.840.1.131367.10.20.22.4.2& quot; /> <id nullFlavor="NA" /> <code codeSystem="local" code="LY#" displayName="LYMPHOCYTE # " /> <statusCode code="completed" /> & lt;effectiveTime value="182259035582" /> <value unit=& quot;k/cumm" xsi:type="PQ" value="1.5" /> & lt;referenceRange> <observationRange> <text& gt;1.0-4.0</text> </observationRange> </ referenceRange> </observation> </component> < component> <observation moodCode="EVN" classCode=" OBS"> <templateId root="2.16.840.1.564528.10.20.22.4.2& quot; /> <id nullFlavor="NA" /> <code codeSystem="local" code="LY%" displayName=" LYMPHOCYTE %" /> <statusCode code="completed& quot; /> <effectiveTime value="991734904426" /> <value unit="%" xsi:type="PQ" value=" 10" /> <interpretationCode codeSystem="local" code ="*" /> <referenceRange> < observationRange> <text>20-30</text> < /observationRange> </referenceRange> </observation& gt; </component> <component> <observation moodCode="EVN" classCode="OBS"> <templateId root="2.16.840.1.080356.10..22.4.2" /> <id nullFlavor ="NA" /> <code codeSystem="local" code=" MANDIFF" displayName="DIFFERENTIAL" /> < statusCode code="completed" /> <effectiveTime value=" 141900793026" /> <value unit="" xsi:type="PQ& quot; value="MANUAL" /> <referenceRange> <observationRange> <text /> </ observationRange> </referenceRange> </observation&gt ; </component> <component> <observation moodCode ="EVN" classCode="OBS"> <templateId root=& quot;2.16.840.1.230850.10..22.4.2" /> <id nullFlavor=&quot ;NA" /> <code codeSystem="local" code="MO#& quot; displayName="MONOCYTE #" /> <statusCode code=" completed" /> <effectiveTime value="146306837741" /> <value unit="k/cumm" xsi:type="PQ" value=& quot;1.4" /> <interpretationCode codeSystem="local&quot ; code="*" /> <referenceRange> < observationRange> <text>0.1-1.0</text> & lt;/observationRange> </referenceRange> </ observation> </component> <component> < observation moodCode="EVN" classCode="OBS"> < templateId root="2.16.840.1.387078.10.20.22.4.2" /> < id nullFlavor="NA" /> <code codeSystem="local&quot ; code="MO%" displayName="MONOCYTE %" /> <statusCode code="completed" /> < effectiveTime value="258565311200" /> <value unit="& amp;#37;" xsi:type="PQ" value="9" /> < interpretationCode codeSystem="local" code="*" /> <referenceRange> <observationRange> < text>4-6</text> </observationRange> </ referenceRange> </observation> </component> < component> <observation moodCode="EVN" classCode=" OBS"> <templateId root="2.16.840.1.595756.10..22.4.2& quot; /> <id nullFlavor="NA" /> <code codeSystem="local" code="RMORPH" displayName="RBC MORPH " /> <statusCode code="completed" /> & lt;effectiveTime value="734172198752" /> <value unit=& quot;"xsi:type="PQ" value="NOTED" /> < referenceRange> <observationRange> <text /& gt; </observationRange> </referenceRange> </observation> </component> <component> &lt ;observation moodCode="EVN" classCode="OBS"> &lt ;templateId root="2.16.840.1.245294.10.20.22.4.2" /> < id nullFlavor="NA" /> <code codeSystem="local" code= "SEG%" displayName="SEGMENTED NEUTROPHIL %" /> <statusCode code="completed" /> < effectiveTime value="099215896384" /> <value unit=&quot ;%" xsi:type="PQ" value="81" /> &lt ;interpretationCode codeSystem="local" code="*" /> <referenceRange> <observationRange> < text>50-70</text> </observationRange> </ referenceRange> </observation> </component> < component> <observation moodCode="EVN" classCode=" OBS"> <templateId root="2.16.840.1.363818.10.20.22.4.2& quot; /> <id nullFlavor="NA" /> <code codeSystem="local" code="TOX" displayName="TOXIC GRANULATION" /> <statusCode code="completed" /&gt ; <effectiveTime value="301310416843" /> < value unit="" xsi:type="PQ" value="NOTED" /> <referenceRange> <observationRange> <text /> </observationRange> </referenceRange > </observation> </component> </organizer> </entry> <entry> <organizer moodCode="EVN" classCode="BATTERY"> <templateId root=" 2.16.840.1.172016.10.20.22.4.1" /> <id nullFlavor="NA&quot ; /> <code codeSystem="local" code="METABC" displayName="METABOLIC PANEL, COMPREHN" /><statusCode code=&quot ;completed" /> <component> <observation moodCode=& quot;EVN" classCode="OBS"> <templateId root=" 2.16.840.1.844828.10.20.22.4.2" /> <id nullFlavor="NA& quot; /> <code codeSystem="local" code="K" displayName="POTASSIUM" /> <statusCode code=" completed" /> <effectiveTime value="085292841394" /> <value unit="mmol/L" xsi:type="PQ" value=&quot ;5.1" /><referenceRange> <observationRange> <text>3.5-5.3</text> </observationRange> </referenceRange> </observation> </component > <component> <observation moodCode="EVN" classCode="OBS"> <templateId root=" 2.16.840.1.850052.10.20.22.4.2" /> <id nullFlavor="NA& quot; /> <code codeSystem="local" code="eGFR&quot ; displayName="EST GFR (MDRD)" /> <statusCode code=& quot;completed" /> <effectiveTime value="436616875489& quot; /> <value unit="mL/min" xsi:type="PQ" value="19" /> <interpretationCode codeSystem=" local" code="*" /> <referenceRange> < observationRange> <text>> 59</text> </observationRange> </referenceRange> </ observation> </component> <component> < observation moodCode="EVN" classCode="OBS"> < templateId root="2.16.840.1.006193.10.20.22.4.2" /> < id nullFlavor="NA" /> <code codeSystem="local&quot ; code="GAP" displayName="ANION GAP" /> < statusCode code="completed" /> <effectiveTime value=& quot;036581188306" /> <value unit="mmol/L" xsi: type="PQ" value="10" /> <referenceRange> <observationRange> <text>5-15</text> </observationRange> </referenceRange> &lt ;/observation> </component> <component> < observation moodCode="EVN" classCode="OBS"> < templateId root="2.16.840.1.678185.10.20.22.4.2" /> < id nullFlavor="NA" /> <code codeSystem="local" code="eCrCl" displayName="EST CrCl (CG)" /> < statusCode code="completed" /> <effectiveTime value=& quot;013177533805" /> <value unit="mL/min" xsi: type="PQ" value="21" /> <interpretationCode codeSystem="local" code="*" /> < referenceRange> <observationRange> <text> > 59</text> </observationRange> </ referenceRange> </observation> </component> < component> <observation moodCode="EVN" classCode=" OBS"> <templateId root="2.16.840.1.089176.10.20.22.4.2& quot; /> <id nullFlavor="NA" /> <code codeSystem="local" code="GLU" displayName="GLUCOSE&quot ; /> <statusCodecode="completed" /> < effectiveTime value="663867412680" /> <value unit="mg/ dL" xsi:type="PQ" value="157" /> < interpretationCode codeSystem="local" code="*" /> <referenceRange> <observationRange> < text>70-99</text> </observationRange> </ referenceRange> </observation> </component> < component> <observation moodCode="EVN" classCode=" OBS"> <templateId root="2.16.840.1.355649.10.20.22.4.2& quot; /> <id nullFlavor="NA" /> <code codeSystem="local" code="CA" displayName="CALCIUM&quot ; /> <statusCode code="completed" />< effectiveTime value="283861896333" /> <value unit=&quot ;mg/dL" xsi:type="PQ" value="8.2" /> < interpretationCode codeSystem="local" code="*" /> <referenceRange> <observationRange> < text>8.5-10.1</text> </observationRange> < /referenceRange> </observation> </component> &lt ;component> <observation moodCode="EVN" classCode=" OBS"> <templateId root="2.16.840.1.214285.10.20.22.4.2& quot; /> <id nullFlavor="NA" /> <code codeSystem= "local" code="BUN" displayName="BLOOD UREA NITROGEN& quot; /> <statusCode code="completed" /> & lt;effectiveTime value="721378269626" /> <value unit=& quot;mg/dL" xsi:type="PQ" value="49" /> &lt ;interpretationCode codeSystem="local" code="*"/> <referenceRange> <observationRange> < text>7-20</text> </observationRange> </ referenceRange> </observation> </component> < component> <observation moodCode="EVN" classCode=" OBS"> <templateId root="2.16.840.1.834959.10.20.22.4.2& quot; /> <id nullFlavor="NA" /> <code codeSystem="local" code="CREAT" displayName="CREATININE " /> <statusCode code="completed" /> & lt;effectiveTime value="517502452186" /><value unit="mg/dL& quot; xsi:type="PQ" value="3.2" /> < interpretationCode codeSystem="local" code="*" /> <referenceRange> <observationRange> < text>0.7-1.3</text> </observationRange> </ referenceRange> </observation> </component> < component> <observation moodCode="EVN" classCode=" OBS"> <templateId root="2.16.840.1.198173.10.20.22.4.2& quot; /> <id nullFlavor="NA" /> <code codeSystem="local" code="NA" displayName="SODIUM" /> <statusCode code="completed" /> < effectiveTime value="304731152715" /> <value unit=&quot ;mmol/L" xsi:type="PQ" value="137" /> < referenceRange> <observationRange> <text> 135-148</text> </observationRange> </referenceRange& gt; </observation> </component> <component> <observation moodCode="EVN" classCode="OBS"> <templateId root="2.16.840.1.814741.10.20.22.4.2" /> <id nullFlavor="NA" /> <code codeSystem=&quot ;local" code="CL" displayName="CHLORIDE" /> <statusCode code="completed" /> <effectiveTime value="740170254114" /> <value unit="mmol/L" xsi:type="PQ" value="104" /> <referenceRange& gt; <observationRange> <text>98-110</text> </observationRange> </referenceRange> </ observation> </component> <component> < observationmoodCode="EVN" classCode="OBS"> < templateId root="2.16.840.1.089959.10.20.22.4.2" /> < id nullFlavor="NA" /> <code codeSystem="local&quot ; code="AST" displayName="AST/SGOT" /> < statusCode code="completed" /> <effectiveTime value=& quot;521186093720" /> <value unit="Units/L" xsi: type="PQ" value="93" /> <interpretationCode codeSystem="local" code="*" /> < referenceRange> <observationRange> <text> 10-37</text> </observationRange> </referenceRange& gt; </observation> </component> <component> <observation moodCode="EVN" classCode="OBS"> <templateId root="2.16.840.1.608427.10.20.22.4.2" /> & lt;id nullFlavor="NA" /> <code codeSystem="local& quot; code="ALT" displayName="ALT/SGPT" /> < statusCode code="completed" /> <effectiveTime value=& quot;169674921352" /> <value unit="Units/L" xsi: type="PQ" value="120" /> <interpretationCode codeSystem="local" code="*" /> < referenceRange> <observationRange> <text> < 66</text> </observationRange> </ referenceRange> </observation> </component> < component> <observation moodCode="EVN" classCode=" OBS"> <templateId root="2.16.840.1.702244.10.20.22.4.2& quot; /> <id nullFlavor="NA" /> <code codeSystem="local" code="CO2" displayName="CARBON DIOXIDE" /> <statusCode code="completed" /> <effectiveTime value="432367836120" /> < value unit="mmol/L" xsi:type="PQ" value="23" /&gt ; <referenceRange> <observationRange> <text>21-32</text> </observationRange> </referenceRange> </observation> </component> <component> <observation moodCode="EVN" classCode= "OBS"> <templateId root=" 2.16.840.1.579670.10.20.22.4.2" /> <id nullFlavor="NA& quot; /> <code codeSystem="local" code="TP" displayName="TOTAL PROTEIN" /> <statusCode code=" completed" /> <effectiveTime value="485651660161" /> <value unit="gm/dL" xsi:type="PQ" value=& quot;6.8" /> <referenceRange> < observationRange> <text>6.4-8.2</text> & lt;/observationRange> </referenceRange> </observation> </component> <component> <observation moodCode= "EVN" classCode="OBS"> <templateId root=&quot ;2.16.840.1.169112.10.20.22.4.2" /> <id nullFlavor="NA& quot; /> <code codeSystem="local" code="ALB" displayName="ALBUMIN" /> <statusCodecode=" completed" /> <effectiveTime value="975538023542" /> <value unit="gm/dL" xsi:type="PQ" value=" 3.1" /> <interpretationCode codeSystem="local" code="*" /> <referenceRange> < observationRange> <text>3.4-5.0</text> & lt;/observationRange> </referenceRange> </ observation> </component> <component> < observation moodCode="EVN" classCode="OBS"> < templateId root="2.16.840.1.145789.10.20.22.4.2" /> < id nullFlavor="NA" /> <code codeSystem="local&quot ; code="BILTOT" displayName="BILI TOTAL" /> < statusCode code="completed" /> <effectiveTime value=& quot;682824239805" /> <value unit="mg/dL" xsi:type ="PQ" value="0.5" /> <referenceRange> <observationRange> <text>0.0-1.0</text> </observationRange> </referenceRange> &lt ;/observation> </component> <component> < observation moodCode="EVN" classCode="OBS"> < templateId root="2.16.840.1.534820.10..22.4.2" /> < id nullFlavor="NA" /> <code codeSystem="local&quot ; code="ALKP" displayName="ALKALINE PHOSPHATASE TOTAL" /&gt ; <statusCode code="completed" /> < effectiveTime value="285332109430" /> <value unit=&quot ;IU/L"xsi:type="PQ" value="61" /> < referenceRange> <observationRange> <text> 45-117</text> </observationRange> </ referenceRange> </observation> </component> </ organizer> </entry> <entry> <organizer moodCode="EVN " classCode="BATTERY"> <templateId root=" 2.16.840.1.587158.10.20.22.4.1" /> <id nullFlavor="NA&quot ; /> <code codeSystem="local" code="PROCAL" displayName="PROCALCITONIN" /> <statusCode code=" completed" /> <component> <observation moodCode=& quot;EVN" classCode="OBS"> <templateId root=" 2.16.840.1.382430.10.20.22.4.2" /> <id nullFlavor="NA& quot; /> <code codeSystem="local" code="PROCAL& quot; displayName="PROCALCITONIN" /> <statusCode code=& quot;completed" /> <effectiveTime value="350943879712& quot; /> <value unit="ng/mL" xsi:type="PQ" value="3.09" /> <interpretationCode codeSystem=" local" code="*" /> <referenceRange> <observationRange> <text>< 0.25</text> </observationRange> </referenceRange> </ observation> </component> </organizer> </entry> & lt;entry> <organizer moodCode="EVN" classCode="BATTERY& quot;><templateId root="2.16.840.1.766172.10.20.22.4.1" /> <id nullFlavor="NA" /> <code codeSystem="local& quot; code="BC" displayName="BLOOD CULTURE" /> < statusCode code="completed" /> <component>< observation moodCode="EVN" classCode="OBS"> < templateId root="2.16.840.1.905755.10.20.22.4.2" /> < id nullFlavor="NA" /> <code codeSystem="local" code ="MB" displayName="Microbiology" /> < statusCode code="completed" /> <effectiveTime value=& quot;648653125343" /> <value xsi:type="ST" value=& quot;<pre><b>BLOOD CULTURE</b> See BelowIs this a Possible Sepsis/Sepsis patient? YesBLOOD CULTURE(F) Dagoberto Date/Time: 02/05/2017 00: 04 Tree Date/Time: 02/10/2017 10:19SOURCE: BLOODSPEC DESC: [id number] [facility] [place] [address]</pre>" /> <referenceRange&gt ; <observationRange> <text /> &lt ;/observationRange> </referenceRange> </observation& gt; </component> </organizer> </entry> <entry&gt ; <organizer moodCode="EVN" classCode="BATTERY"> <templateId root="2.16.840.1.849089.10.20.22.4.1" /> & lt;id nullFlavor="NA" /> <code codeSystem="local" code="UA" displayName="URINALYSIS, ROUTINE" /> < statusCode code="completed" /> <component> < observation moodCode="EVN" classCode="OBS"> < templateId root="2.16.840.1.960972.10..22.4.2" /> < id nullFlavor="NA" /> <code codeSystem="local&quot ; code="LEUESU" displayName="UA LEUKOCYTE ESTERASE DIPSTICK&quot ; /> <statusCode code="completed" /> < effectiveTime value="732281648860" /> <value unit=&quot ;" xsi:type="PQ" value="NEGATIVE" /> < referenceRange> <observationRange> <text> NEGATIVE</text> </observationRange> </ referenceRange> </observation> </component> < component> <observation moodCode="EVN" classCode=" OBS"> <templateId root="2.16.840.1.598952.10.20.22.4.2& quot; /> <id nullFlavor="NA" /> <code codeSystem="local" code="NITRIU" displayName="UA NITRITE DIPSTICK" /> <statusCode code="completed" /> <effectiveTime value="901947946776" /> & lt;value unit="" xsi:type="PQ" value="NEGATIVE" /& gt; <referenceRange> <observationRange> < text>NEGATIVE</text> </observationRange> < /referenceRange> </observation> </component> &lt ;component> <observation moodCode="EVN" classCode=" OBS"> <templateId root="2.16.840.1.096853.10.20.22.4.2& quot; /> <id nullFlavor="NA" /> < codecodeSystem="local" code="PROTEIU" displayName="UA PROTEIN DIPSTICK" /> <statusCode code="completed" /> <effectiveTime value="790376528086" /> & lt;value unit="" xsi:type="PQ" value="NEGATIVE" /& gt; <referenceRange> <observationRange> <text>NEGATIVE</text> </observationRange> </referenceRange> </observation> </component&gt ; <component> <observation moodCode="EVN" classCode="OBS"> <templateId root=" 2.16.840.1.178846.10..22.4.2" /> <id nullFlavor="NA& quot; /> <code codeSystem="local" code="DGLUU&quot ; displayName="UA GLUCOSE DIPSTICK" /> <statusCode code=" completed" /> <effectiveTime value="875754671656" /> <value unit="" xsi:type="PQ" value=" NEGATIVE" /> <referenceRange> < observationRange> <text>NEGATIVE</text> & lt;/observationRange> </referenceRange> </ observation> </component> <component> < observation moodCode="EVN" classCode="OBS"> < templateId root="2.16.840.1.877949.10.20.22.4.2" /> < id nullFlavor="NA" /> <code codeSystem="local&quot ; code="KETONU" displayName="UA KETONE DIPSTICK" /> <statusCode code="completed" /> <effectiveTime value="780483275576" /> <value unit="" xsi: type="PQ" value="NEGATIVE" /> <referenceRange&gt ; <observationRange> <text>NEGATIVE</text > </observationRange> </referenceRange> </observation> </component> <component> & lt;observation moodCode="EVN" classCode="OBS"> & lt;templateId root="2.16.840.1.583864.10.20.22.4.2" /> &lt ;id nullFlavor="NA" /> <code codeSystem="local& quot; code="UROBILU" displayName="UA UROBILINOGEN DIPSTICK" /> <statusCode code="completed" /> < effectiveTime value="816333140882" /> <value unit=&quot ;" xsi:type="PQ" value="NORMAL" /> < referenceRange> <observationRange> <text> NORMAL</text> </observationRange> </ referenceRange> </observation> </component> < component> <observation moodCode="EVN" classCode=" OBS"> <templateId root="2.16.840.1.574753.10..22.4.2& quot; /> <id nullFlavor="NA" /> <code codeSystem="local" code="BILU" displayName="UA BILIRUBIN DIPSTICK" /> <statusCode code="completed&quot ; /> <effectiveTime value="014603323668" />< value unit="" xsi:type="PQ" value="NEGATIVE" /&gt ; <referenceRange> <observationRange> <text>NEGATIVE</text> </observationRange> </referenceRange> </observation></component> &lt ;component> <observation moodCode="EVN" classCode=" OBS"> <templateId root="2.16.840.1.071347.10..22.4.2& quot; /> <id nullFlavor="NA" /> <code codeSystem="local" code="THOMAS" displayName="UA BLOOD DIPSTICK" /> <statusCode code="completed" /> <effectiveTime value="588318596905" /> < value unit="" xsi:type="PQ" value="2+" /> <referenceRange> <observationRange> < text>NEGATIVE</text> </observationRange> < /referenceRange> </observation> </component> < component> <observation moodCode="EVN" classCode=" OBS"> <templateId root="2.16.840.1.270242.10..22.4.2& quot; /> <id nullFlavor="NA" /> <code codeSystem="local" code="SPGRU" displayName="UA SPECIFIC GRAVITY" /> <statusCode code="completed" /> <effectiveTime value="796724083666" /> & lt;value unit=""xsi:type="PQ" value="1.016" /> <referenceRange> <observationRange> <text>1.015-1.025</text> </observationRange> </referenceRange> </observation> </component& gt; <component> <observation moodCode="EVN" classCode="OBS"><templateId root=" 2.16.840.1.164765.10..22.4.2" /> <id nullFlavor="NA& quot; /> <code codeSystem="local" code="JAYJAY" displayName="UR PH" /> <statusCode code="completed " /> <effectiveTime value="741923146265" /> <value unit="" xsi:type="PQ" value="5.0&quot ; /> <referenceRange> <observationRange> <text>5.0-7.0</text> </observationRange> </referenceRange> </observation> </component> </organizer> </entry> <entry> <organizer moodCode=& quot;EVN" classCode="BATTERY"> <templateId root=" 2.16.840.1.069201.10.20.22.4.1" /> <id nullFlavor="NA&quot ; /> <code codeSystem="local" code="UAMICRO" displayName="UA MICROSCOPIC" /> <statusCode code=" completed" /> <component> <observation moodCode=& quot;EVN" classCode="OBS"> <templateId root=" 2.16.840.1.608114.10.20.22.4.2" /> <id nullFlavor="NA& quot; /> <code codeSystem="local" code="AMORPU" displayName="UA AMORPHOUS SEDIMENT" /> <statusCode code ="completed" /> <effectiveTime value="980272472641 " /> <value unit="" xsi:type="PQ" value= "2+" /> <referenceRange> < observationRange> <text /> </observationRange> </referenceRange> </observation> </component&gt ; <component> <observation moodCode="EVN" classCode="OBS"> <templateId root=" 2.16.840.1.779355.10.20.22.4.2" /> <id nullFlavor="NA& quot; /> <code codeSystem="local" code="BACU&quot ; displayName="UA BACTERIA" /> <statusCode code=" completed" /> <effectiveTime value="162277195320" /> <value unit="" xsi:type="PQ" value="2+" /> <referenceRange> <observationRange> <text>NEGATIVE</text> </observationRange> </referenceRange> </observation> </component> <component> <observation moodCode="EVN" classCode= "OBS"> <templateId root=" 2.16.840.1.915347.10..22.4.2" /> <id nullFlavor="NA" /&gt ; <code codeSystem="local" code="EPIU" displayName="UA EPITHELIAL CELLS" /> <statusCode code=& quot;completed" /> <effectiveTime value="791266225317& quot; /> <value unit="epi/hpf" xsi:type="PQ" value="1+" /> <referenceRange> < observationRange> <text>0 - 1+</text> &lt ;/observationRange> </referenceRange> </observation& gt; </component> <component> <observation moodCode="EVN" classCode="OBS"> <templateId root="2.16.840.1.114218.10.20.22.4.2" /> <id nullFlavor ="NA" /> <code codeSystem="local" code=" MUCUSU" displayName="UA MUCUS" /> <statusCode code ="completed" /> <effectiveTime value="327733807855" /> <value unit="" xsi:type="PQ" value="1 +" /> <referenceRange> <observationRange&gt ; <text>NEG TO 1+</text> </ observationRange> </referenceRange> </observation> </component> <component> <observation moodCode=& quot;EVN" classCode="OBS"> <templateId root=" 2.16.840.1.890220.10.20.22.4.2" /> <id nullFlavor="NA& quot; /> <code codeSystem="local" code="RBCU&quot ; displayName="UA RBC" /> <statusCode code=" completed" /> <effectiveTime value="535732689921" /> <value unit="rbc/hpf" xsi:type="PQ" value= "3-5" /> <referenceRange> < observationRange> <text>0 - 3</text> </ observationRange> </referenceRange> </observation&gt ; </component> <component> <observation moodCode ="EVN" classCode="OBS"> <templateId root=& quot;2.16.840.1.336824.10..22.4.2" /> <id nullFlavor=&quot ;NA" /> <code codeSystem="local" code="UAVOL& quot; displayName="UA VOLUME FOR EXAM" /> <statusCode code="completed" /> <effectiveTime value=" 821361035871" /> <value unit="mL" xsi:type=" PQ" value="12.0" /> <referenceRange> <observationRange> <text>(12mL STD)</text> </observationRange> </referenceRange> </ observation> </component> <component> < observation moodCode="EVN" classCode="OBS"> < templateId root="2.16.840.1.185323.10..22.4.2" /> < id nullFlavor="NA" /> <code codeSystem="local&quot ; code="WBCU" displayName="UA WBC" /> < statusCodecode="completed" /> <effectiveTime value=& quot;995806711497" /> <value unit="wbc/hpf" xsi:type=& quot;PQ" value="0" /> <referenceRange> <observationRange> <text>0 - 5</text> </observationRange> </referenceRange> </ observation> </component> </organizer> </entry> < entry> <organizer moodCode="EVN" classCode="BATTERY&quot ;> <templateId root="2.16.840.1.867953.10.20.22.4.1" /> <id nullFlavor="NA" /> <code codeSystem=" local" code="JUD" displayName="UR SODIUM" /> & lt;statusCode code="completed" /> <component> &lt ;observation moodCode="EVN" classCode="OBS"> &lt ;templateId root="2.16.840.1.086112.10.20.22.4.2" /> <id nullFlavor="NA" /> <code codeSystem="local" code="NAUCOM" displayName="UR SODIUM COMMENT" /> <statusCode code="completed" /> <effectiveTime value="493078251529" /> <value unit="" xsi: type="PQ" value="RANDOM" /> <referenceRange& gt; <observationRange> <text /> & lt;/observationRange> </referenceRange> </ observation> </component> <component> < observation moodCode="EVN" classCode="OBS"> < templateId root="2.16.840.1.044015.10.20.22.4.2" /> < id nullFlavor="NA" /> <code codeSystem="local&quot ; code="NAULEV" displayName="UR SODIUM LEVEL" /> <statusCode code="completed" /> <effectiveTime value="774228923127" /> <value unit="mmol/L" xsi:type="PQ" value="75" /> < interpretationCode codeSystem="local" code="*" /> <referenceRange> <observationRange> <text& gt;20-40</text> </observationRange> </ referenceRange> </observation> </component> </ organizer> </entry> <entry> <organizer moodCode="EVN " classCode="BATTERY"> <templateId root=" 10.03.840.1.928792.10.20.22.4.1" /> <id nullFlavor="NA&quot ; /> <code codeSystem="local" code="CREATU" displayName="UR CREATININE" /> <statusCode code=" completed" /> <component> <observation moodCode=& quot;EVN" classCode="OBS"> <templateId root=" 2.840.1.298920.10.20.22.4.2" /> <id nullFlavor="NA& quot; /> <code codeSystem="local" code="CREATUCOM" displayName="UR CREATININE COMMENT" /> <statusCode code ="completed" /> <effectiveTimevalue="807855341200& quot; /> <value unit="" xsi:type="PQ" value=& quot;RANDOM" /> <referenceRange> < observationRange> <text /> </observationRange> </referenceRange> </observation> </ component> <component> <observation moodCode="EVN& quot; classCode="OBS"> <templateId root=" 2.840.1.485618.10.20.22.4.2" /> <id nullFlavor="NA& quot; /> <code codeSystem="local" code="CREATULEV& quot; displayName="UR CREATININE LEVEL" /><statusCode code=&quot ;completed" /> <effectiveTime value="692671425583&quot ; /> <value unit="mg/dL" xsi:type="PQ" value= "151.0"/> <referenceRange> < observationRange> <text>44-467</text> &lt ;/observationRange> </referenceRange> </observation& gt; </component> </organizer> </entry> <entry&gt ; <organizer moodCode="EVN" classCode="BATTERY"> <templateId root="2.16.840.1.598889.10.20.22.4.1" /> & lt;id nullFlavor="NA" /> <code codeSystem="local&quot ; code="LACT" displayName="LACTIC ACID" /> < statusCode code="completed" /> <component> < observation moodCode="EVN" classCode="OBS"> < templateId root="2.16.840.1.544817.10.20.22.4.2" /> < id nullFlavor="NA" /> <code codeSystem="local&quot ; code="LACT" displayName="LACTIC ACID" /> < statusCodecode="completed" /> <effectiveTime value=& quot;276997898683" /> <value unit="mmol/L" xsi:type=& quot;PQ" value="1.3" /> <referenceRange> <observationRange> <text>0.5-2.0</text> </observationRange> </referenceRange> </ observation> </component> </organizer> </entry> & lt;entry> <organizer moodCode="EVN" classCode="BATTERY& quot;> <templateId root="2.16.840.1.827962.10.20.22.4.1" /& gt; <id nullFlavor="NA" /> <code codeSystem=" local" code="CBCD" displayName="CBC W/DIFF" /> <statusCode code="completed" /> <component> & lt;observation moodCode="EVN" classCode="OBS"> & lt;templateId root="2.16.840.1.341460.10.20.22.4.2" /> &lt ;id nullFlavor="NA" /> <code codeSystem="local& quot; code="EO#" displayName="EOSINOPHIL #" /> & lt;statusCode code="completed" /> <effectiveTime value= "941974596694" /> <value unit="k/cumm" xsi: type="PQ" value="0.2" /> <referenceRange> <observationRange> <text>0.1-0.5</text& gt; </observationRange> </referenceRange> </observation> </component> <component> &lt ;observation moodCode="EVN" classCode="OBS"> &lt ;templateId root="2.16.840.1.191299.10.20.22.4.2" /> < id nullFlavor="NA" /> <code codeSystem="local&quot ; code="EO%" displayName="EOSINOPHIL %" /&gt ; <statusCode code="completed" /> < effectiveTime value="232837928027" /> <value unit=&quot ;%" xsi:type="PQ" value="2" /> < referenceRange> <observationRange> <text> 2-4</text> </observationRange> </ referenceRange> </observation> </component> < component> <observation moodCode="EVN" classCode=" OBS"> <templateId root="2.16.840.1.400767.10.20.22.4.2& quot; /> <id nullFlavor="NA" /> <code codeSystem="local" code="GR#" displayName="GRANULOCYTE #" /> <statusCode code="completed" /> < effectiveTime value="142438868445" /> <value unit=&quot ;k/cumm" xsi:type="PQ" value="8.2" /> < referenceRange> <observationRange> <text> 2.0-9.0</text> </observationRange> </ referenceRange> </observation> </component> < component> <observation moodCode="EVN" classCode=" OBS"> <templateId root="2.16.840.1.631482.10.20.22.4.2& quot; /> <id nullFlavor="NA" /> <code codeSystem="local" code="GR%" displayName=" GRANULOCYTE %" /> <statusCode code="completed& quot; /> <effectiveTime value="018325525763" /> & lt;value unit="%" xsi:type="PQ" value="77&quot ; /> <interpretationCode codeSystem="local" code=" *" /> <referenceRange> <observationRange&gt ; <text>50-75</text> </observationRange& gt; </referenceRange> </observation> </ component> <component><observation moodCode="EVN" classCode="OBS"> <templateId root=" 2.16.840.1.168218.10.20.22.4.2" /> <id nullFlavor="NA& quot; /> <code codeSystem="local" code="LY#" displayName="LYMPHOCYTE #" /> <statusCode code=" completed" /> <effectiveTime value="475005912847" /> <value unit="k/cumm" xsi:type="PQ" value=& quot;1.0" /> <referenceRange> < observationRange> <text>1.0-4.0</text> & lt;/observationRange> </referenceRange> </ observation> </component> <component> < observation moodCode="EVN" classCode="OBS"> < templateId root="2.16.840.1.637487.10.20.22.4.2" /> < id nullFlavor="NA" /> <code codeSystem="local&quot ; code="LY%" displayName="LYMPHOCYTE %" /&gt ; <statusCode code="completed" /> < effectiveTime value="674541354217" /> <value unit=&quot ;%" xsi:type="PQ" value="10" /> &lt ;interpretationCode codeSystem="local" code="*" /> <referenceRange> <observationRange> < text>20-30</text> </observationRange> </ referenceRange> </observation> </component> < component> <observation moodCode="EVN" classCode=" OBS"> <templateId root="2.16.840.1.108060.10.20.22.4.2& quot; /> <id nullFlavor="NA" /> <code codeSystem="local" code="MCH" displayName="MEAN CELL HGB" /> <statusCode code="completed" /> <effectiveTime value="555931504753" /><value unit="pg " xsi:type="PQ" value="32.6" /> < referenceRange> <observationRange> <text> 27.0-33.0</text> </observationRange> </ referenceRange> </observation> </component> < component> <observation moodCode="EVN" classCode=" OBS"> <templateId root="2.16.840.1.299225.10.20.22.4.2& quot; /> <id nullFlavor="NA" /> <code codeSystem="local" code="MCHC" displayName="MEAN CELL HGB CONCENTRATION" /> <statusCode code="completed&quot ; /> <effectiveTime value="807014421514" /> <value unit="g/dL" xsi:type="PQ" value="32.9&quot ; /> <referenceRange> <observationRange> <text>32.0-37.0</text> </observationRange> </referenceRange> </observation> </component& gt; <component> <observation moodCode="EVN" classCode="OBS"> <templateId root=" 2.16.840.1.410708.10.20.22.4.2" /> <id nullFlavor="NA" /& gt; <code codeSystem="local" code="MCV" displayName="MEAN CELL VOLUME" /> <statusCode code=& quot;completed" /> <effectiveTime value="799008872156& quot; /> <value unit="fl" xsi:type="PQ" value ="99.2" /> <referenceRange> < observationRange> <text>80.0-100.0</text> </observationRange> </referenceRange> </ observation> </component> <component> < observation moodCode="EVN" classCode="OBS"> < templateId root="2.16.840.1.398830.10.20.22.4.2" /> < id nullFlavor="NA" /> <code codeSystem="local&quot ; code="MO#" displayName="MONOCYTE #" /> < statusCode code="completed" /> <effectiveTime value=" 626532241750" /> <value unit="k/cumm" xsi:type=& quot;PQ" value="1.2" /> <interpretationCode codeSystem="local" code="*" /> < referenceRange> <observationRange> <text> 0.1-1.0</text> </observationRange> </ referenceRange> </observation> </component> < component> <observation moodCode="EVN" classCode=" OBS"> <templateId root="2.16.840.1.357846.10.20.22.4.2& quot; /> <id nullFlavor="NA" /> <code codeSystem ="local" code="MO%" displayName="MONOCYTE & #37;" /> <statusCode code="completed" /> <effectiveTimevalue="261236363045" /> <value unit="%" xsi:type="PQ" value="11" /> <interpretationCode codeSystem="local" code="*" / > <referenceRange> <observationRange> <text>4-6</text> </observationRange> </referenceRange> </observation> </component> & lt;component> <observation moodCode="EVN" classCode=&quot ;OBS"> <templateId root="2.16.840.1.032432.10.20.22.4.2 " /> <id nullFlavor="NA" /> <code codeSystem="local" code="RBC" displayName="RED BLOOD CELL" /> <statusCode code="completed" /> <effectiveTime value="002286958595" /> <value unit="m/cumm" xsi:type="PQ" value="2.39" /> <interpretationCode codeSystem="local" code="*" /&gt ; <referenceRange> <observationRange> <text>4.00-6.00</text> </observationRange> </referenceRange> </observation> </component> <component> <observation moodCode="EVN" classCode=& quot;OBS"> <templateId root=" 2.16.840.1.460593.10..22.4.2" /> <id nullFlavor="NA&quot ; /> <code codeSystem="local" code="RDW" displayName="RED CELL DISTRIBUTION WIDTH" /> < statusCode code="completed" /> <effectiveTime value=& quot;537212480893" /> <value unit="%" xsi: type="PQ" value="13.8" /> <referenceRange&gt ; <observationRange> <text>11.0-15.6</ text> </observationRange> </referenceRange> </observation> </component> <component> <observation moodCode="EVN" classCode="OBS"> <templateId root="2.16.840.1.062306.10.20.22.4.2" /> &lt ;id nullFlavor="NA" /> <code codeSystem="local& quot; code="WBC" displayName="WHITE BLOOD CELL" /> <statusCode code="completed" /> <effectiveTime value="529277968603" /> <valueunit="k/cumm" xsi:type="PQ" value="10.7" /> < interpretationCode codeSystem="local" code="*" /> <referenceRange> <observationRange> <text> 5.0-10.0</text> </observationRange> </ referenceRange> </observation> </component> < component> <observation moodCode="EVN" classCode=" OBS"> <templateId root="2.16.840.1.558671.10.20.22.4.2&quot ; /> <id nullFlavor="NA" /> <code codeSystem="local" code="HGBT" displayName="HEMOGLOBIN& quot; /> <statusCode code="completed" /> & lt;effectiveTime value="131029373149" /> <value unit=& quot;gm/dL" xsi:type="PQ" value="7.8" /> & lt;interpretationCode codeSystem="local" code="*" /> <referenceRange> <observationRange> <text >14.0-18.0</text> </observationRange> </ referenceRange> </observation> </component> < component> <observation moodCode="EVN" classCode=" OBS"> <templateId root="2.16.840.1.015122.10.20.22.4.2& quot; /> <id nullFlavor="NA" /> <code codeSystem="local" code="HCTT" displayName="HEMATOCRIT& quot; /> <statusCode code="completed" /> < effectiveTime value="856318803700" /> <value unit=&quot ;%" xsi:type="PQ" value="23.7" /> & lt;interpretationCode codeSystem="local" code="*" /> <referenceRange> <observationRange> &lt ;text>40.0-54.0</text> </observationRange> & lt;/referenceRange> </observation> </component> <component> <observation moodCode="EVN" classCode=& quot;OBS"> <templateId root=" 2.16.840.1.574733.10.20.22.4.2" /> <id nullFlavor="NA& quot; /> <code codeSystem="local" code="PLT" displayName="PLATELET COUNT" /> <statusCode code=" completed" /> <effectiveTime value="302467692823" /> <value unit="k/cumm" xsi:type="PQ" value="211& quot; /> <referenceRange> <observationRange> <text>150-400</text> </observationRange&gt ; </referenceRange> </observation> </component&gt ; </organizer> </entry> <entry> <organizer moodCode ="EVN" classCode="BATTERY"> <templateId root=& quot;2.16.840.1.687242.10.20.22.4.1" /> <id nullFlavor="NA& quot; /> <code codeSystem="local" code="HBA1C" displayName="HEMOGLOBIN A1C" /> <statusCode code=" completed" /> <component> <observation moodCode=& quot;EVN" classCode="OBS"> <templateId root=" 2.16.840.1.901697.10.20.22.4.2" /> <id nullFlavor="NA& quot; /> <code codeSystem="local" code="HBA1C&quot ; displayName="HEMOGLOBIN A1C" /> <statusCode code=& quot;completed" /> <effectiveTime value="919450360763& quot; /> <value unit="%" xsi:type="PQ&quot ; value="6.4" /> <interpretationCode codeSystem=" local" code="*" /> <referenceRange> & lt;observationRange> <text>< 5.7</text> </observationRange> </referenceRange> </ observation> </component> </organizer> </entry> & lt;entry> <organizer moodCode="EVN"classCode="BATTERY& quot;> <templateId root="2.16.840.1.970432.10.20.22.4.1" /& gt; <id nullFlavor="NA" /> <code codeSystem=" local" code="METABC" displayName="METABOLIC PANEL, COMPREHN& quot; /> <statusCode code="completed" /> < component> <observation moodCode="EVN" classCode=" OBS"> <templateId root="2.16.840.1.802253.10.20.22.4.2& quot; /> <id nullFlavor="NA" /> <code codeSystem="local" code="K" displayName="POTASSIUM&quot ; /> <statusCode code="completed" /> < effectiveTime value="301523771909" /> <value unit=&quot ;mmol/L" xsi:type="PQ" value="4.7" /> < referenceRange> <observationRange> <text> 3.5-5.3</text> </observationRange> </ referenceRange> </observation> </component> < component> <observation moodCode="EVN" classCode=" OBS"> <templateId root="2.16.840.1.983659.10.20.22.4.2& quot; /> <id nullFlavor="NA" /> <code codeSystem="local" code="eGFR" displayName="EST GFR ( MDRD)" /> <statusCode code="completed" /> & lt;effectiveTime value="964884234344" /> <value unit=& quot;mL/min" xsi:type="PQ" value="21" /> & lt;interpretationCode codeSystem="local" code="*" /> <referenceRange> <observationRange> & lt;text>> 59</text> </observationRange></ referenceRange> </observation> </component> < component> <observation moodCode="EVN" classCode="OBS& quot;> <templateId root="2.16.840.1.645451.10..22.4.2&quot ; /> <id nullFlavor="NA" /> <code codeSystem="local" code="GAP" displayName="ANION GAP& quot; /> <statusCode code="completed" /> & lt;effectiveTime value="697826666679" /> <value unit=& quot;mmol/L" xsi:type="PQ" value="9" /> &lt ;referenceRange> <observationRange> <text&gt ;5-15</text> </observationRange> </ referenceRange> </observation> </component> < component> <observation moodCode="EVN" classCode=" OBS"> <templateId root="2.16.840.1.210085.10.20.22.4.2& quot; /> <id nullFlavor="NA" /> <code codeSystem="local" code="eCrCl" displayName="EST CrCl ( CG)" /> <statusCode code="completed" /> <effectiveTime value="544263821296" /> <value unit="mL/min" xsi:type="PQ" value="23" /> <interpretationCode codeSystem="local" code="*" /&gt ; <referenceRange> <observationRange> <text>> 59</text> </observationRange> </referenceRange> </observation> </component&gt ; <component> <observation moodCode="EVN" classCode="OBS"> <templateId root=" 2.16.840.1.699228.10.20.22.4.2" /> <id nullFlavor="NA& quot; /> <code codeSystem="local" code="GLU" displayName="GLUCOSE" /> <statusCode code=" completed" /> <effectiveTime value="366595384622" /> <value unit="mg/dL" xsi:type="PQ" value=& quot;112" /> <interpretationCode codeSystem="local&quot ; code="*" /> <referenceRange> < observationRange> <text>70-99</text> < /observationRange> </referenceRange> </observation> </component> <component> <observation moodCode= "EVN" classCode="OBS"> <templateId root=&quot ;2.16.840.1.602018.10.20.22.4.2" /> <id nullFlavor="NA& quot; /> <code codeSystem="local" code="CA" displayName="CALCIUM" /> <statusCode code=" completed" /> <effectiveTime value="169240784512" /> <value unit="mg/dL" xsi:type="PQ" value=& quot;7.6" /> <interpretationCode codeSystem="local&quot ; code="*" /> <referenceRange> < observationRange> <text>8.5-10.1</text> & lt;/observationRange> </referenceRange> </ observation> </component> <component> < observation moodCode="EVN" classCode="OBS"> < templateId root="2.16.840.1.014464.10.20.22.4.2" /> < id nullFlavor="NA" /> <code codeSystem="local&quot ; code="BUN" displayName="BLOOD UREA NITROGEN" /> <statusCode code="completed" /> <effectiveTime value="803074434397" /> <value unit="mg/dL" xsi:type="PQ" value="51" /> <interpretationCode codeSystem="local" code="*" /> < referenceRange> <observationRange> <text> 7-20</text> </observationRange> </referenceRange> </observation> </component> <component> <observation moodCode="EVN" classCode="OBS"> <templateId root="2.16.840.1.793560.10.20.22.4.2" /> <id nullFlavor="NA" /> <code codeSystem=" local" code="CREAT" displayName="CREATININE" /> <statusCode code="completed" /> < effectiveTime value="664594139208" /> <value unit=&quot ;mg/dL" xsi:type="PQ" value="2.9" /> < interpretationCode codeSystem="local" code="*" /> <referenceRange> <observationRange> < text>0.7-1.3</text> </observationRange> </ referenceRange> </observation> </component> < component> <observation moodCode="EVN" classCode=" OBS"> <templateId root="2.16.840.1.773817.10.20.22.4.2& quot; /> <id nullFlavor="NA" /> <code codeSystem="local" code="NA" displayName="SODIUM" /> <statusCode code="completed" /> < effectiveTime value="256015849265" /> <value unit=&quot ;mmol/L" xsi:type="PQ" value="139" /> < referenceRange> <observationRange> <text>135-148</ text> </observationRange> </referenceRange> </observation> </component> <component> <observationmoodCode="EVN" classCode="OBS"> <templateId root="2.16.840.1.459181.10.20.22.4.2" /> <id nullFlavor="NA" /> <code codeSystem=" local" code="CL" displayName="CHLORIDE" /> <statusCode code="completed" /> <effectiveTime value ="605872795451" /> <value unit="mmol/L" xsi: type="PQ" value="106" /> <referenceRange> <observationRange> <text>98-110</text> </observationRange> </referenceRange> &lt ;/observation> </component> <component> < observation moodCode="EVN" classCode="OBS"> < templateId root="2.16.840.1.011090.10.20.22.4.2" /> < id nullFlavor="NA" /> <code codeSystem="local&quot ; code="AST" displayName="AST/SGOT" /> < statusCode code="completed" /> <effectiveTime value=& quot;351538987921" /> <valueunit="Units/L" xsi: type="PQ" value="55" /> <interpretationCode codeSystem="local" code="*" /> < referenceRange> <observationRange> <text>10-37< /text> </observationRange> </referenceRange> </observation> </component> <component> <observation moodCode="EVN" classCode="OBS"> < templateId root="2.16.840.1.863038.10.20.22.4.2" /> < id nullFlavor="NA" /> <code codeSystem="local&quot ; code="ALT" displayName="ALT/SGPT" /> < statusCode code="completed" /> <effectiveTime value=& quot;654716600159" /> <value unit="Units/L" xsi: type="PQ" value="96" /> <interpretationCode codeSystem="local" code="*" /> < referenceRange> <observationRange> <text>< 66& lt;/text> </observationRange> </referenceRange& gt; </observation> </component> <component> <observation moodCode="EVN" classCode="OBS"> <templateId root="2.16.840.1.794084...22.4.2" /> <id nullFlavor="NA" /> <code codeSystem=&quot ;local" code="CO2" displayName="CARBON DIOXIDE" /> <statusCode code="completed" /> <effectiveTime value="732458638311" /> <value unit="mmol/L" xsi:type="PQ" value="24" /> <referenceRange& gt; <observationRange> <text>21-32</text& gt; </observationRange> </referenceRange> </observation> </component> <component> &lt ;observation moodCode="EVN" classCode="OBS"> &lt ;templateId root="2.16.840.1.735896.10.20.22.4.2" /> < id nullFlavor="NA" /> <code codeSystem="local&quot ; code="TP" displayName="TOTAL PROTEIN" /> < statusCode code="completed" /> <effectiveTime value=& quot;531957826365" /> <value unit="gm/dL" xsi:type=&quot ;PQ" value="5.7" /> <interpretationCode codeSystem ="local" code="*" /> <referenceRange> <observationRange> <text>6.4-8.2</text> </observationRange> </referenceRange> &lt ;/observation> </component> <component> < observation moodCode="EVN" classCode="OBS"> < templateId root="2.16.840.1.779483.10.20.22.4.2" /> < idnullFlavor="NA" /> <code codeSystem="local&quot ; code="ALB" displayName="ALBUMIN" /> < statusCode code="completed" /> <effectiveTime value=" 959197946599" /> <value unit="gm/dL" xsi:type=& quot;PQ" value="2.4" /> <interpretationCode codeSystem="local" code="*" /> < referenceRange> <observationRange> <text> 3.4-5.0</text> </observationRange> </ referenceRange> </observation> </component> < component> <observation moodCode="EVN" classCode=" OBS"> <templateId root="2.16.840.1.759392.10.20.22.4.2& quot; /> <id nullFlavor="NA" /> <code codeSystem ="local" code="BILTOT" displayName="BILI TOTAL" /& gt; <statusCode code="completed" /> < effectiveTime value="278354901410" /> <value unit=&quot ;mg/dL" xsi:type="PQ" value="0.5" /> < referenceRange> <observationRange> <text> 0.0-1.0</text> </observationRange> </ referenceRange> </observation> </component> < component> <observation moodCode="EVN" classCode=" OBS"> <templateId root="2.16.840.1.950386.10.20.22.4.2& quot; /> <id nullFlavor="NA" /> <code codeSystem="local" code="ALKP" displayName="ALKALINE PHOSPHATASE TOTAL" /> <statusCode code="completed" /> <effectiveTime value="613006935924" /> & lt;value unit="IU/L" xsi:type="PQ" value="48" /&gt ; <referenceRange> <observationRange> <text>45-117</text> </observationRange> </referenceRange> </observation> </component> </organizer> </entry> <entry> <organizer moodCode=& quot;EVN" classCode="BATTERY"> <templateId root=" 2.16.840.1.107734.10.20.22.4.1" /> <id nullFlavor="NA&quot ; /> <code codeSystem="local" code="PHOS" displayName="PHOSPHORUS" /> <statusCode code=" completed" /> <component> <observation moodCode=& quot;EVN" classCode="OBS"> <templateId root=" 2.16.840.1.637547.10.20.22.4.2" /> <id nullFlavor="NA& quot; /> <code codeSystem="local" code="PHOS&quot ; displayName="PHOSPHORUS" /> <statusCode code=" completed" /> <effectiveTime value="730089211839" /> <value unit="mg/dL" xsi:type="PQ" value=& quot;4.2" /> <referenceRange> <observationRange> <text>2.5-4.9</text> </observationRange& gt; </referenceRange> </observation> </ component> </organizer> </entry> <entry> < organizer moodCode="EVN" classCode="BATTERY"> < templateId root="2.16.840.1.280367.10.20.22.4.1" /> <id nullFlavor="NA" /> <code codeSystem="local" code= "MAG" displayName="MAGNESIUM" /> <statusCode code ="completed" /> <component> <observation moodCode="EVN" classCode="OBS"> <templateId root="2.16.840.1.340481.10.20.22.4.2" /> <id nullFlavor ="NA" /> <code codeSystem="local" code=" MAG" displayName="MAGNESIUM" /> <statusCode code=& quot;completed" /> <effectiveTime value="575785873159& quot; /> <value unit="mg/dL" xsi:type="PQ" value="1.7" /> <interpretationCode codeSystem=" local" code="*" /> <referenceRange> <observationRange> <text>1.8-2.4</text> </observationRange> </referenceRange> </ observation> </component> </organizer> </entry> & lt;entry> <organizer moodCode="EVN" classCode="BATTERY& quot;> <templateId root="2.16.840.1.928146.10.20.22.4.1" /& gt; <id nullFlavor="NA" /> <code codeSystem=" local" code="BNP" displayName="B-TYPE NATRIURETIC PEPTIDE& quot; /> <statusCode code="completed"/> < component> <observation moodCode="EVN" classCode=" OBS"> <templateId root="2.16.840.1.715548.10.20.22.4.2& quot; /> <id nullFlavor="NA" /> <code codeSystem="local" code="BNP" displayName="B-TYPE NATRIURETIC PEPTIDE" /> <statusCode code="completed& quot; /> <effectiveTime value="321317228285" /> <value unit="pg/mL" xsi:type="PQ" value="255& quot; /> <interpretationCode codeSystem="local" code=& quot;*" /> <referenceRange> < observationRange> <text>< 100</text> </observationRange> </referenceRange> </ observation> </component> </organizer> </entry> & lt;entry> <organizer moodCode="EVN" classCode="BATTERY& quot;> <templateId root="2.16.840.1.184528.10.20.22.4.1" /& gt; <id nullFlavor="NA" /> <code codeSystem=" local" code="GLUMON" displayName="GLUCOSE (POC)" /> <statusCode code="completed" /> <component> <observation moodCode="EVN" classCode="OBS"> & lt;templateId root="2.16.840.1.996290.10.20.22.4.2" /> &lt ;id nullFlavor="NA" /> <code codeSystem="local& quot; code="GLUMON" displayName="GLUCOSE (POC)" /> <statusCode code="completed" /> <effectiveTime value=& quot;191675017598" /> <value unit="mg/dL" xsi:type ="PQ" value="156" /> <interpretationCode codeSystem="local" code="*" /> < referenceRange> <observationRange> <text> 70-99</text> </observationRange> </ referenceRange> </observation> </component> </ organizer> </entry> <entry> <organizer moodCode="EVN " classCode="BATTERY"> <templateId root=" 2.16.840.1.269233.10.20.22.4.1" /> <id nullFlavor="NA&quot ; /> <code codeSystem="local" code="METAB" displayName="METABOLIC PANEL, BASIC" /> <statusCode code=& quot;completed" /> <component> <observation moodCode="EVN" classCode="OBS"> <templateId root="[id number]" /> <id nullFlavor ="NA"/> <code codeSystem="local" code="K " displayName="POTASSIUM" /> <statusCode code=& quot;completed" /> <effectiveTime value="[id number]& quot; /> <value unit="mmol/L" xsi:type="PQ" value="5.0" /> <referenceRange> < observationRange> <text>3.5-5.3</text> </ observationRange> </referenceRange> </observation&gt ; </component> <component> <observation moodCode ="EVN" classCode="OBS"> <templateId root=& quot;[id number]" /> <id nullFlavor=&quot ;NA" /> <code codeSystem="local" code="eGFR& quot; displayName="EST GFR (MDRD)" /> <statusCode code=&quot ;completed" /> <effectiveTime value="942790196201&quot ; /> <value unit="mL/min" xsi:type="PQ" value ="25" /> <interpretationCode codeSystem="local& quot; code="*" /> <referenceRange> < observationRange> <text>> 59</text> </observationRange> </referenceRange> </ observation> </component> <component> < observation moodCode="EVN" classCode="OBS"> < templateId root="2.16.840.1.191591.10..22.4.2" /> < id nullFlavor="NA" /> <code codeSystem="local&quot ; code="GAP" displayName="ANION GAP" /> < statusCode code="completed" /> <effectiveTime value=& quot;684621803005" /> <value unit="mmol/L" xsi: type="PQ" value="8" /> <referenceRange> <observationRange> <text>5-15</text> </observationRange> </referenceRange> < /observation> </component> <component> < observation moodCode="EVN" classCode="OBS"> < templateId root="2.16.840.1.575112.10.20.22.4.2" /> < id nullFlavor="NA" /> <code codeSystem="local&quot ; code="eCrCl"displayName="EST CrCl (CG)" /> &lt ;statusCode code="completed" /> <effectiveTime value=& quot;886055946015" /> <value unit="mL/min" xsi: type="PQ" value="27" /> <interpretationCode codeSystem="local" code="*" /> < referenceRange> <observationRange> <text> > 59</text> </observationRange> </ referenceRange> </observation> </component> < component> <observation moodCode="EVN" classCode=" OBS"> <templateId root="2.16.840.1.453133.10.20.22.4.2& quot; /> <id nullFlavor="NA" /> <code codeSystem="local" code="GLU" displayName="GLUCOSE&quot ; /> <statusCode code="completed" /> < effectiveTime value="209516468731" /> <value unit=&quot ;mg/dL" xsi:type="PQ" value="136" /> < interpretationCode codeSystem="local" code="*" /> <referenceRange> <observationRange> < text>70-99</text> </observationRange> </ referenceRange> </observation> </component> < component> <observation moodCode="EVN" classCode=" OBS"> <templateId root="2.16.840.1.859804.10.20.22.4.2& quot; /> <id nullFlavor="NA" /> <code codeSystem="local" code="CA" displayName="CALCIUM&quot ; /> <statusCode code="completed" /> < effectiveTime value="652170778194" /> <value unit=&quot ;mg/dL" xsi:type="PQ" value="8.2" /> < interpretationCode codeSystem="local" code="*" /> <referenceRange> <observationRange> <text& gt;8.5-10.1</text> </observationRange> </ referenceRange> </observation> </component> < component> <observation moodCode="EVN" classCode=" OBS"> <templateId root="2.16.840.1.311124.10.20.22.4.2& quot; /> <id nullFlavor="NA" /> <code codeSystem="local" code="BUN" displayName="BLOOD UREA NITROGEN" /> <statusCode code="completed" /> <effectiveTime value="757772824775" /> <value unit="mg/dL" xsi:type="PQ" value="45" /> <interpretationCode codeSystem="local" code="*" /&gt ; <referenceRange> <observationRange> <text>7-20</text> </observationRange> </referenceRange> </observation> </component> <component> <observation moodCode="EVN" classCode=& quot;OBS"> <templateId root=" 2.16.840.1.584394.10.20.22.4.2" /> <id nullFlavor="NA& quot; /> <code codeSystem="local" code="CREAT" displayName="CREATININE" /> <statusCode code=" completed" /> <effectiveTime value="583754688315" /> <value unit="mg/dL" xsi:type="PQ" value=& quot;2.5" /> <interpretationCode codeSystem="local&quot ; code="*" /> <referenceRange> < observationRange> <text>0.7-1.3</text> & lt;/observationRange> </referenceRange> </ observation> </component> <component> < observation moodCode="EVN" classCode="OBS"> < templateId root="2.16.840.1.938974.10.20.22.4.2" /> < id nullFlavor="NA" /> <code codeSystem="local&quot ; code="NA" displayName="SODIUM" /> < statusCode code="completed" /> <effectiveTime value=& quot;952624344575" /> <value unit="mmol/L" xsi: type="PQ" value="139" /> <referenceRange> <observationRange> <text>135-148</text& gt; </observationRange> </referenceRange> </ observation> </component> <component> < observation moodCode="EVN" classCode="OBS"> < templateId root="2.16.840.1.633300.10.20.22.4.2" /> < id nullFlavor="NA" /> <code codeSystem="local&quot ; code="CL" displayName="CHLORIDE" /> < statusCode code="completed" /> <effectiveTime value=" 470671903218" /> <value unit="mmol/L" xsi:type=& quot;PQ" value="106" /> <referenceRange> <observationRange> <text>98-110</text> </observationRange> </referenceRange> </ observation> </component> <component> < observation moodCode="EVN" classCode="OBS"> < templateId root="2.16.840.1.227518.10.20.22.4.2" /> < id nullFlavor="NA" /> <code codeSystem="local&quot ; code="CO2" displayName="CARBON DIOXIDE" /> &lt ;statusCode code="completed" /> <effectiveTime value=& quot;766209889528" /> <value unit="mmol/L" xsi: type="PQ" value="25" /> <referenceRange> <observationRange> <text>21-32</text> </observationRange> </referenceRange> & lt;/observation> </component> </organizer> </entry&gt ; <entry> <organizer moodCode="EVN" classCode=" BATTERY"> <templateId root="2.16.840.1.618832.10.20.22.4.1&quot ; /> <id nullFlavor="NA" /> <code codeSystem=& quot;local" code="GLUMON" displayName="GLUCOSE (POC)" / > <statusCode code="completed" /> <component&gt ; <observation moodCode="EVN" classCode="OBS"> <templateId root="2.16.840.1.027639.10.20.22.4.2" /> <id nullFlavor="NA" /> <code codeSystem=" local" code="GLUMON" displayName="GLUCOSE (POC)" /> <statusCode code="completed" /> < effectiveTime value="404030082599" /> <value unit=&quot ;mg/dL" xsi:type="PQ" value="198" /> < interpretationCode codeSystem="local" code="*" /> <referenceRange> <observationRange> < text>70-99</text> </observationRange> </ referenceRange> </observation> </component> </ organizer> </entry> <entry> <organizer moodCode="EVN " classCode="BATTERY"> <templateId root=" 2.16.840.1.170611.10.20.22.4.1" /> <id nullFlavor="NA&quot ; /> <code codeSystem="local" code="CBCD" displayName="CBC W/DIFF" /> <statusCode code=" completed" /> <component> <observation moodCode=& quot;EVN" classCode="OBS"> <templateId root=" 2.16.840.1.564050.10.20.22.4.2" /> <id nullFlavor="NA& quot; /> <code codeSystem="local" code="EO#" displayName="EOSINOPHIL #" /> <statusCode code=" completed" /> <effectiveTime value="702795716895" /> <value unit="k/cumm" xsi:type="PQ" value=& quot;0.1" /> <referenceRange> <observationRange&gt ; <text>0.1-0.5</text> </observationRange > </referenceRange> </observation> </ component> <component> <observation moodCode="EVN& quot; classCode="OBS"> <templateId root=" 2.16.840.1.346104.10..22.4.2" /> <id nullFlavor="NA& quot; /> <code codeSystem="local" code="EO&#37 ;" displayName="EOSINOPHIL %" /> < statusCode code="completed" /> <effectiveTime value=& quot;482659865745" /> <value unit="%" xsi: type="PQ" value="1" /> <interpretationCode codeSystem ="local" code="*" /> <referenceRange> <observationRange> <text>2-4</text> </observationRange> </referenceRange> </ observation> </component> <component> < observation moodCode="EVN" classCode="OBS"> < templateId root="2.16.840.1.302851.10.20.22.4.2" /> < id nullFlavor="NA" /> <code codeSystem="local&quot ; code="GR#"displayName="GRANULOCYTE #" /> < statusCode code="completed" /> <effectiveTime value=& quot;810010243944" /> <value unit="k/cumm" xsi: type="PQ" value="7.5" /> <referenceRange>& lt;observationRange> <text>2.0-9.0</text> </observationRange> </referenceRange> </ observation> </component> <component> < observation moodCode="EVN" classCode="OBS">< templateId root="2.16.840.1.201888.10.20.22.4.2" /> < id nullFlavor="NA" /> <code codeSystem="local&quot ; code="GR%" displayName="GRANULOCYTE %" /& gt; <statusCode code="completed" /> < effectiveTime value="663939369628" /> <value unit=&quot ;%" xsi:type="PQ" value="77" /> &lt ;interpretationCode codeSystem="local" code="*" /> <referenceRange> <observationRange> < text>50-75</text> </observationRange></ referenceRange> </observation> </component> < component> <observation moodCode="EVN" classCode="OBS& quot;> <templateId root="2.16.840.1.293696.10.20.22.4.2&quot ; /> <id nullFlavor="NA" /> <code codeSystem="local" code="LY#" displayName="LYMPHOCYTE # " /> <statusCode code="completed" /> & lt;effectiveTime value="510404443861" /> <value unit=& quot;k/cumm" xsi:type="PQ" value="1.0" /> & lt;referenceRange> <observationRange> <text>1.0-4.0 </text> </observationRange> </referenceRange& gt; </observation> </component> <component> <observation moodCode="EVN" classCode="OBS"> <templateId root="2.16.840.1.748046.10.20.22.4.2" /> <id nullFlavor="NA" /> <codecodeSystem=" local" code="LY%" displayName="LYMPHOCYTE %& quot; /> <statusCode code="completed" /> & lt;effectiveTime value="665016080906" /> <value unit=& quot;%" xsi:type="PQ" value="10" /> <interpretationCode codeSystem="local" code="*" /> <referenceRange> <observationRange> <text>20-30</text> </observationRange> & lt;/referenceRange> </observation> </component> <component> <observation moodCode="EVN" classCode=& quot;OBS"> <templateId root=" 2.16.840.1.910804.10.20.22.4.2" /> <id nullFlavor="NA& quot; /> <code codeSystem="local" code="MCH" displayName="MEAN CELL HGB" /> <statusCodecode=" completed" /> <effectiveTime value="749041536440" /> <value unit="pg" xsi:type="PQ" value="32.1 " /> <referenceRange> <observationRange&gt ; <text>27.0-33.0</text> </ observationRange> </referenceRange> </observation&gt ; </component> <component> <observation moodCode=& quot;EVN" classCode="OBS"> <templateId root=" 2.16.840.1.964285.10.20.22.4.2" /> <id nullFlavor="NA& quot; /> <code codeSystem="local" code="MCHC&quot ; displayName="MEAN CELL HGB CONCENTRATION" /> < statusCode code="completed" /> <effectiveTime value=& quot;216716125789" /> <value unit="g/dL" xsi:type="PQ " value="32.6" /> <referenceRange> & lt;observationRange> <text>32.0-37.0</text> </observationRange> </referenceRange> </ observation> </component> <component> < observation moodCode="EVN" classCode="OBS"> < templateId root="2.16.840.1.436008.10.20.22.4.2" /> <id nullFlavor="NA" /> <code codeSystem="local" code="MCV" displayName="MEAN CELL VOLUME" /> &lt ;statusCode code="completed" /> <effectiveTime value=& quot;616272885102" /> <value unit="fl" xsi:type=& quot;PQ" value="98.4" /> <referenceRange> <observationRange> <text>80.0-100.0</text&gt ; </observationRange> </referenceRange> & lt;/observation> </component> <component> < observation moodCode="EVN" classCode="OBS"> < templateId root="2.16.840.1.505662.10.20.22.4.2" /> < id nullFlavor="NA" /> <code codeSystem="local&quot ; code="MO#"displayName="MONOCYTE #" /> < statusCode code="completed" /> <effectiveTime value=" 514943132101" /> <value unit="k/cumm" xsi:type=& quot;PQ" value="1.1" /> <interpretationCode codeSystem="local" code="*" /> < referenceRange> <observationRange> <text> 0.1-1.0</text> </observationRange> </ referenceRange> </observation> </component> < component> <observation moodCode="EVN" classCode="OBS& quot;> <templateId root="2.16.840.1.147803.10.20.22.4.2&quot ; /> <id nullFlavor="NA" /> <code codeSystem="local" code="MO%" displayName=" MONOCYTE%" /> <statusCode code="completed&quot ; /> <effectiveTime value="369946048157" /> <value unit="%" xsi:type="PQ" value="11& quot; /> <interpretationCode codeSystem="local" code=& quot;*" /> <referenceRange> < observationRange> <text>4-6</text> </ observationRange> </referenceRange> </observation&gt ; </component> <component> <observation moodCode ="EVN" classCode="OBS"> <templateId root=& quot;2.16.840.1.347923.10.20.22.4.2" /> <id nullFlavor=&quot ;NA" /> <code codeSystem="local" code="RBC& quot; displayName="RED BLOOD CELL" /> <statusCode code= "completed" /> <effectiveTime value="466967824767& quot; /> <value unit="m/cumm" xsi:type="PQ" value="2.43" /> <interpretationCode codeSystem=" local" code="*" /> <referenceRange> <observationRange> <text>4.00-6.00</text> </observationRange> </referenceRange> </ observation> </component> <component> < observation moodCode="EVN" classCode="OBS"> < templateId root="2.16.840.1.828267.10.20.22.4.2" /> < id nullFlavor="NA" /> <code codeSystem="local&quot ; code="RDW" displayName="RED CELL DISTRIBUTION WIDTH" /&gt ; <statusCode code="completed" /> < effectiveTime value="382663147156" /> <value unit="&# 37;" xsi:type="PQ" value="14.1" /> < referenceRange> <observationRange> <text> 11.0-15.6</text> </observationRange> </ referenceRange> </observation> </component> < component> <observation moodCode="EVN" classCode=" OBS"> <templateId root="2.16.840.1.884443.10.20.22.4.2& quot; /> <id nullFlavor="NA" /> <code codeSystem="local" code="WBC" displayName="WHITE BLOOD CELL" /> <statusCode code="completed" /> <effectiveTime value="213915904518" /> <value unit="k/cumm" xsi:type="PQ" value="9.8" /> <referenceRange> <observationRange> & lt;text>5.0-10.0</text> </observationRange> </ referenceRange> </observation> </component> < component> <observation moodCode="EVN" classCode=" OBS"> <templateId root="2.16.840.1.178052.10.20.22.4.2& quot; /> <id nullFlavor="NA" /> <code codeSystem= "local" code="HGBT" displayName="HEMOGLOBIN" /&gt ; <statusCode code="completed" /> < effectiveTime value="680215294500" /> <value unit=&quot ;gm/dL" xsi:type="PQ" value="7.8" /> < interpretationCode codeSystem="local" code="*" /> <referenceRange> <observationRange> < text>14.0-18.0</text> </observationRange> </ referenceRange> </observation> </component> < component> <observation moodCode="EVN" classCode=" OBS"> <templateId root="2.16.840.1.783346.10.20.22.4.2& quot; /> <id nullFlavor="NA" /> <code codeSystem="local" code="HCTT" displayName="HEMATOCRIT& quot; /> <statusCode code="completed" /> & lt;effectiveTime value="565346324690" /> <value unit=& quot;%" xsi:type="PQ" value="23.9" /> <interpretationCode codeSystem="local" code="*" /&gt ; <referenceRange> <observationRange> <text>40.0-54.0</text> </observationRange> </referenceRange> </observation> </component&gt ; <component> <observationmoodCode="EVN" classCode="OBS"> <templateId root=" 2.16.840.1.698228.10.20.22.4.2" /> <id nullFlavor="NA& quot; /> <code codeSystem="local" code="PLT" displayName="PLATELET COUNT" /><statusCode code="completed& quot; /> <effectiveTime value="876802586461" /> <value unit="k/cumm" xsi:type="PQ" value="241& quot; /> <referenceRange> <observationRange> <text>150-400</text> </observationRange& gt; </referenceRange> </observation> </ component> </organizer> </entry> <entry> < organizer moodCode="EVN" classCode="BATTERY"> < templateId root="2.16.840.1.457210.10.20.22.4.1" /> <id nullFlavor="NA" /> <code codeSystem="local" code= "RENAL" displayName="RENAL FUNCTION PANEL" /> < statusCode code="completed" /> <component> < observation moodCode="EVN" classCode="OBS"> < templateId root="2.16.840.1.793454.10.20.22.4.2" /> < id nullFlavor="NA" /> <code codeSystem="local&quot ; code="K" displayName="POTASSIUM" /> < statusCode code="completed" /> <effectiveTime value=& quot;199946295660" /> <value unit="mmol/L" xsi: type="PQ" value="5.1" /> <referenceRange> <observationRange> <text>3.5-5.3</text> </observationRange> </referenceRange> </ observation> </component> <component> < observation moodCode="EVN" classCode="OBS"> < templateId root="2.16.840.1.657916.10.20.22.4.2"/> <id nullFlavor="NA" /> <code codeSystem="local" code="eGFR" displayName="EST GFR (MDRD)" /> < statusCode code="completed" /> <effectiveTime value=& quot;650022779919" /> <value unit="mL/min" xsi: type="PQ" value="30" /> <interpretationCode codeSystem="local" code="*" /> < referenceRange> <observationRange> <text>& gt; 59</text> </observationRange> </ referenceRange> </observation> </component> < component> <observation moodCode="EVN" classCode=" OBS"> <templateId root="2.16.840.1.117170.10.20.22.4.2& quot; /> <id nullFlavor="NA" /> <code codeSystem="local" code="GAP" displayName="ANION GAP& quot; /> <statusCode code="completed" /> & lt;effectiveTime value="130583252923" /> <value unit=& quot;mmol/L" xsi:type="PQ" value="7" /> &lt ;referenceRange> <observationRange> <text&gt ;5-15</text> </observationRange> </referenceRange> </observation> </component> <component> <observation moodCode="EVN" classCode="OBS"> <templateIdroot="2.16.840.1.551134.10.20.22.4.2" /> <id nullFlavor="NA" /> <code codeSystem="local& quot; code="eCrCl" displayName="EST CrCl (CG)" /> <statusCode code="completed" /> <effectiveTime value="181386198963" /> <value unit="mL/min" xsi:type="PQ"value="32" /> < interpretationCode codeSystem="local" code="*" /> <referenceRange> <observationRange> < text>> 59</text> </observationRange> & lt;/referenceRange> </observation> </component> &lt ;component> <observation moodCode="EVN" classCode=" OBS"> <templateId root="2.16.840.1.308865.10.20.22.4.2& quot; /> <id nullFlavor="NA" /> <code codeSystem="local" code="GLU" displayName="GLUCOSE&quot ; /> <statusCode code="completed" /> < effectiveTime value="428091386606" /> <value unit=" mg/dL" xsi:type="PQ" value="130" /> < interpretationCode codeSystem="local" code="*" /> <referenceRange> <observationRange> < text>70-99</text> </observationRange> </ referenceRange> </observation> </component> < component> <observation moodCode="EVN" classCode=" OBS"> <templateId root="2.16.840.1.034376.10.20.22.4.2& quot; /> <id nullFlavor="NA" /> <code codeSystem="local" code="CA"displayName="CALCIUM" /> <statusCode code="completed" /> < effectiveTime value="202703272623" /> <value unit=&quot ;mg/dL" xsi:type="PQ" value="8.2" /> < interpretationCode codeSystem="local" code="*" /> <referenceRange> <observationRange> < text>8.5-10.1</text> </observationRange> < /referenceRange> </observation> </component> &lt ;component><observation moodCode="EVN" classCode="OBS" > <templateId root="2.16.840.1.432071.10.20.22.4.2" /& gt; <id nullFlavor="NA" /> <code codeSystem=&quot ;local" code="BUN" displayName="BLOOD UREA NITROGEN" /& gt; <statusCode code="completed" /> < effectiveTime value="780878596742" /> <value unit=&quot ;mg/dL" xsi:type="PQ" value="38" /> < interpretationCode codeSystem="local" code="*" /> <referenceRange> <observationRange> < text>7-20</text> </observationRange> </ referenceRange> </observation> </component> < component> <observation moodCode="EVN" classCode=" OBS"> <templateId root="2.16.840.1.992041.10.20.22.4.2& quot; /> <id nullFlavor="NA" /> <code codeSystem="local" code="CREAT" displayName="CREATININE " /> <statusCode code="completed" /> & lt;effectiveTime value="399495473033" /> <value unit="mg/ dL" xsi:type="PQ" value="2.1" /> < interpretationCode codeSystem="local" code="*" /> <referenceRange> <observationRange> < text>0.7-1.3</text> </observationRange> </ referenceRange> </observation> </component> < component> <observation moodCode="EVN" classCode=" OBS"> <templateId root="2.16.840.1.111769.10.20.22.4.2& quot; /> <id nullFlavor="NA" /> <code codeSystem="local" code="NA" displayName="SODIUM" /> <statusCode code="completed" /> < effectiveTime value="340660966978" /> <value unit=&quot ;mmol/L" xsi:type="PQ" value="139" /> < referenceRange> <observationRange> <text> 135-148</text> </observationRange> </ referenceRange> </observation> </component> < component> <observation moodCode="EVN" classCode=" OBS"> <templateId root="2.16.840.1.427772.10.20.22.4.2& quot; /> <id nullFlavor="NA"/> <code codeSystem="local" code="CL" displayName="CHLORIDE&quot ; /> <statusCode code="completed" /> < effectiveTime value="153273654396" /> <value unit=&quot ;mmol/L" xsi:type="PQ" value="107" /> < referenceRange> <observationRange> <text>98-110&lt ;/text> </observationRange> </referenceRange&gt ; </observation> </component> <component> <observation moodCode="EVN" classCode="OBS"> <templateId root="2.16.840.1.291018.10..22.4.2" /> <id nullFlavor="NA" /> <codecodeSystem=" local" code="CO2" displayName="CARBON DIOXIDE" /> <statusCode code="completed" /> <effectiveTime value ="276569494257" /> <value unit="mmol/L" xsi: type="PQ" value="25" /> <referenceRange> <observationRange> <text>21-32</text> </observationRange> </referenceRange> & lt;/observation> </component> <component> < observation moodCode="EVN" classCode="OBS"> < templateId root="2.16.840.1.092967.10..22.4.2" /> < id nullFlavor="NA" /> <code codeSystem="local&quot ; code="ALB" displayName="ALBUMIN" /> < statusCode code="completed" /> <effectiveTime value=& quot;853852071471" /> <value unit="gm/dL" xsi:type ="PQ" value="2.3" /> <interpretationCode codeSystem="local" code="*" /> < referenceRange> <observationRange> <text>3.4 -5.0</text> </observationRange> </ referenceRange> </observation> </component> < component> <observation moodCode="EVN" classCode=" OBS"> <templateId root="2.16.840.1.788057.10.20.22.4.2& quot; /> <id nullFlavor="NA" /> <code codeSystem="local" code="PHOS" displayName="PHOSPHORUS& quot; /> <statusCode code="completed" /> & lt;effectiveTime value="725497043535" /> <value unit=& quot;mg/dL" xsi:type="PQ" value="3.4" /> & lt;referenceRange> <observationRange> <text& gt;2.5-4.9</text> </observationRange> </ referenceRange> </observation> </component> </ organizer> </entry> <entry> <organizer moodCode="EVN " classCode="BATTERY"> <templateId root=" 2.16.840.1.461849.10.20.22.4.1" /> <id nullFlavor="NA&quot ; /> <code codeSystem="local" code="MAG" displayName="MAGNESIUM" /> <statusCode code="completed " /> <component> <observation moodCode="EVN& quot; classCode="OBS"> <templateId root=" 2.16.840.1.802265.10.20.22.4.2" /> <id nullFlavor="NA& quot; /> <code codeSystem="local" code="MAG" displayName="MAGNESIUM" /> <statusCode code=" completed" /> <effectiveTime value="131169381776" /> <value unit="mg/dL" xsi:type="PQ" value=& quot;1.9" /> <referenceRange> < observationRange> <text>1.8-2.4</text> </ observationRange> </referenceRange> </observation&gt ; </component> </organizer> </entry> <entry> <organizer moodCode="EVN" classCode="BATTERY"> <templateId root="2.16.840.1.646909.10.20.22.4.1" /> < id nullFlavor="NA" /> <code codeSystem="local" code="GLUMON" displayName="GLUCOSE (POC)" /> < statusCode code="completed" /> <component> < observation moodCode="EVN" classCode="OBS"> < templateId root="2.16.840.1.027216.10.20.22.4.2" /> < id nullFlavor="NA" /> <code codeSystem="local&quot ; code="GLUMON" displayName="GLUCOSE (POC)" /> & lt;statusCode code="completed" /> <effectiveTime value= "787802063226" /> <value unit="mg/dL" xsi: type="PQ" value="212" /> <interpretationCode codeSystem="local" code="*" /> < referenceRange> <observationRange> <text> 70-99</text> </observationRange> </ referenceRange> </observation> </component> </ organizer> </entry> <entry> <organizer moodCode="EVN " classCode="BATTERY"> <templateId root=" 2.16.840.1.731371.10.20.22.4.1" /> <id nullFlavor="NA&quot ; /> <code codeSystem="local" code="GLUMON" displayName="GLUCOSE (POC)" /> <statusCode code=" completed" /> <component> <observation moodCode=& quot;EVN" classCode="OBS"> <templateId root=" 2.16.840.1.337167.10.20.22.4.2" /> <id nullFlavor="NA& quot; /> <code codeSystem="local" code="GLUMON& quot; displayName="GLUCOSE (POC)" /> <statusCode code=& quot;completed" /> <effectiveTime value="713913261348& quot; /> <value unit="mg/dL" xsi:type="PQ" value="193" /> <interpretationCode codeSystem="local" code="*" /> <referenceRange> < observationRange> <text>70-99</text> < /observationRange> </referenceRange> </observation& gt; </component> </organizer> </entry> <entry&gt ; <organizer moodCode="EVN" classCode="BATTERY"> <templateId root="2.16.840.1.221406.10.20.22.4.1" /> & lt;id nullFlavor="NA" /> <code codeSystem="local&quot ; code="GLUMON" displayName="GLUCOSE (POC)" /> < statusCode code="completed" /> <component> < observation moodCode="EVN" classCode="OBS"> < templateId root="2.16.840.1.347839.10.20.22.4.2" /> <id nullFlavor="NA" /> <code codeSystem="local" code="GLUMON" displayName="GLUCOSE (POC)" /> &lt ;statusCode code="completed" /> <effectiveTime value=& quot;[id number]" /> <value unit="mg/dL" xsi:type ="PQ" value="239" /> <interpretationCode codeSystem="local" code="*" /> < referenceRange> <observationRange> <text> 70-99</text> </observationRange> </ referenceRange> </observation> </component> </ organizer> </entry> <entry> <organizer moodCode="EVN " classCode="BATTERY"> <templateId root=" [id number]" /> <id nullFlavor="NA&quot ; /> <code codeSystem="local" code="CBC" displayName="CBC" /> <statusCode code="completed&quot ; /> <component> <observation moodCode="EVN" classCode="OBS"> <templateId root=" 2.16.840.1.676478.10.20.22.4.2" /> <id nullFlavor="NA& quot; /> <code codeSystem="local" code="WBC" displayName="WHITE BLOODCELL" /> <statusCode code=&quot ;completed" /> <effectiveTimevalue="463436981969" /> <value unit="k/cumm" xsi:type="PQ" value=& quot;TEST NOT PERFORMED" /> <referenceRange> & lt;observationRange> <text>5.0-10.0</text> </observationRange> </referenceRange> </observation > </component> </organizer> </entry> <entry&gt ; <organizer moodCode="EVN" classCode="BATTERY"> <templateId root="2.16.840.1.301977.10.20.22.4.1" /> & lt;id nullFlavor="NA" /> <code codeSystem="local&quot ; code="RENAL" displayName="RENAL FUNCTION PANEL" /> <statusCode code="completed" /> <component> <observation moodCode="EVN" classCode="OBS"> < templateId root="2.16.840.1.702447.10.20.22.4.2" /> < id nullFlavor="NA" /> <code codeSystem="local&quot ; code="eGFR" displayName="EST GFR (MDRD)" /> & lt;statusCode code="completed" /> <effectiveTime value= "993360656358" /> <value unit="mL/min" xsi: type="PQ" value="TEST NOT PERFORMED" /> < referenceRange> <observationRange> <text>> 59</text> </observationRange> </ referenceRange> </observation> </component> < component> <observation moodCode="EVN" classCode=" OBS"> <templateId root="2.16.840.1.881641.10.20.22.4.2&quot ; /> <id nullFlavor="NA" /> <code codeSystem="local" code="eCrCl" displayName="EST CrCl ( CG)" /> <statusCode code="completed" />< effectiveTime value="750791450510" /> <value unit=&quot ;mL/min" xsi:type="PQ" value="TEST NOT PERFORMED" /&gt ; <referenceRange> <observationRange> &lt ;text>> 59</text> </observationRange> </referenceRange> </observation> </component> <component> <observation moodCode="EVN" classCode=& quot;OBS"> <templateId root=" 2.16.840.1.456820.10.20.22.4.2" /> <id nullFlavor="NA& quot; /> <code codeSystem="local" code="NA" displayName="SODIUM" /> <statusCode code=" completed" /> <effectiveTime value="837542845542" /> <value unit="mmol/L" xsi:type="PQ" value=& quot;TEST NOT PERFORMED" /> <referenceRange>< observationRange> <text>135-148</text> & lt;/observationRange> </referenceRange> </ observation> </component> </organizer> </entry> & lt;entry> <organizer moodCode="EVN" classCode="BATTERY& quot;> <templateId root="2.16.840.1.896082.10.20.22.4.1" /& gt; <id nullFlavor="NA" /> <code codeSystem=" local" code="CBC" displayName="CBC" /> < statusCode code="completed" /> <component> < observation moodCode="EVN" classCode="OBS"> < templateId root="2.16.840.1.620076.10.20.22.4.2" /> < id nullFlavor="NA" /> <code codeSystem="local&quot ; code="MCH" displayName="MEANCELL HGB" /> < statusCode code="completed" /> <effectiveTime value=& quot;721713131668" /> <value unit="pg" xsi:type=& quot;PQ" value="32.7" /> <referenceRange> <observationRange> <text>27.0-33.0</text> </observationRange> </referenceRange> < /observation> </component> <component> < observation moodCode="EVN" classCode="OBS"> < templateId root="2.16.840.1.388092.10.20.22.4.2" /> < id nullFlavor="NA" /> <code codeSystem="local" code=& quot;MCHC" displayName="MEAN CELL HGB CONCENTRATION" /> <statusCode code="completed" /> <effectiveTime value="447103438893" /> <value unit="g/dL" xsi:type="PQ" value="33.5" /> <referenceRange > <observationRange> <text>32.0-37.0</ text> </observationRange> </referenceRange> </observation> </component> <component> <observation moodCode="EVN" classCode="OBS"> <templateId root="2.16.840.1.692262.10.20.22.4.2" /> <id nullFlavor="NA" /><code codeSystem="local" code="MCV" displayName="MEAN CELL VOLUME" /> &lt ;statusCode code="completed" /> <effectiveTime value=& quot;207851768866" /> <value unit="fl" xsi:type=& quot;PQ" value="97.7" /> <referenceRange> <observationRange> <text>80.0-100.0</text&gt ; </observationRange> </referenceRange> & lt;/observation> </component> <component> < observation moodCode="EVN" classCode="OBS"> < templateId root="2.16.840.1.088530.10.20.22.4.2" /> < id nullFlavor="NA" /> <code codeSystem="local&quot ; code="RBC" displayName="RED BLOOD CELL" /> &lt ;statusCode code="completed" /> <effectiveTime value=& quot;191479511867" /> <value unit="m/cumm" xsi: type="PQ" value="2.57" /> < interpretationCode codeSystem="local" code="*" /> <referenceRange> <observationRange> < text>4.00-6.00</text> </observationRange> &lt ;/referenceRange> </observation> </component> & lt;component> <observation moodCode="EVN" classCode=&quot ;OBS"> <templateId root="2.16.840.1.534995.10.20.22.4.2 " /> <id nullFlavor="NA" /> <code codeSystem="local" code="RDW" displayName="RED CELL DISTRIBUTION WIDTH" /> <statusCode code="completed&quot ; /> <effectiveTime value="097777200391" /> < value unit="%" xsi:type="PQ" value="13.8" /> <referenceRange> <observationRange> & lt;text>11.0-15.6</text> </observationRange> </referenceRange> </observation> </component> <component> <observation moodCode="EVN" classCode=& quot;OBS"> <templateId root=" 2.16.840.1.215935.10.20.22.4.2" /> <id nullFlavor="NA& quot; /> <code codeSystem="local" code="WBC" displayName="WHITE BLOOD CELL" /> <statusCode code=& quot;completed" /> <effectiveTime value="406733307065& quot; /> <value unit="k/cumm" xsi:type="PQ" value="10.3" /> <interpretationCode codeSystem=" local" code="*" /> <referenceRange> &lt ;observationRange> <text>5.0-10.0</text> </observationRange> </referenceRange> </ observation> </component> <component> < observation moodCode="EVN" classCode="OBS"> < templateId root="2.16.840.1.721045.10.20.22.4.2" /> < id nullFlavor="NA" /> <code codeSystem="local&quot ; code="HGBT" displayName="HEMOGLOBIN" /> < statusCode code="completed" /><effectiveTime value=" 486145831696" /> <value unit="gm/dL" xsi:type=& quot;PQ" value="8.4" /> <interpretationCode codeSystem="local" code="*" /> < referenceRange> <observationRange> <text> 14.0-18.0</text> </observationRange> </ referenceRange> </observation> </component> < component> <observation moodCode="EVN" classCode=" OBS"> <templateId root="2.16.840.1.367214.10.20.22.4.2& quot; /> <id nullFlavor="NA" /> <code codeSystem ="local" code="HCTT" displayName="HEMATOCRIT" /&gt ; <statusCode code="completed" /> < effectiveTime value="724376777721" /> <value unit=&quot ;%" xsi:type="PQ" value="25.1" /> & lt;interpretationCode codeSystem="local" code="*" /> <referenceRange> <observationRange> & lt;text>40.0-54.0</text> </observationRange> </referenceRange> </observation> </component> <component> <observation moodCode="EVN" classCode=& quot;OBS"> <templateId root=" 2.16.840.1.904663.10.20.22.4.2" /> <id nullFlavor="NA& quot; /> <code codeSystem="local" code="PLT" displayName="PLATELET COUNT" /> <statusCode code=" completed" /> <effectiveTime value="379401269425" /> <value unit="k/cumm" xsi:type="PQ" value=&quot ;291" /><referenceRange> <observationRange> <text>150-400</text> </observationRange> </referenceRange> </observation> </component > </organizer> </entry> <entry> <organizer moodCode="EVN" classCode="BATTERY"> <templateId root="2.16.840.1.060422.10.20.22.4.1" /> <id nullFlavor=& quot;NA" /> <code codeSystem="local" code="RENAL& quot; displayName="RENAL FUNCTION PANEL" /> <statusCode code="completed" /> <component> <observation moodCode="EVN" classCode="OBS"> <templateId root="2.16.840.1.853569.10.20.22.4.2" /> <id nullFlavor ="NA" /> <code codeSystem="local" code=" K" displayName="POTASSIUM" /> <statusCode code=& quot;completed" /> <effectiveTime value="614068525600& quot; /> <value unit="mmol/L" xsi:type="PQ" value="4.2" /> <referenceRange> < observationRange> <text>3.5-5.3</text> </ observationRange> </referenceRange> </observation&gt ; </component> <component> <observation moodCode ="EVN" classCode="OBS"> <templateId root=& quot;2.16.840.1.576819.10.20.22.4.2" /> <id nullFlavor="NA&quot ; /> <code codeSystem="local" code="eGFR" displayName="EST GFR (MDRD)" /> <statusCode code=" completed" /> <effectiveTime value="630522325967" /> <value unit="mL/min" xsi:type="PQ" value=& quot;36" /> <interpretationCode codeSystem="local&quot ; code="*" /> <referenceRange> < observationRange> <text>> 59</text> </observationRange> </referenceRange> </ observation> </component> <component> < observation moodCode="EVN" classCode="OBS"> < templateId root="2.16.840.1.592033.10.20.22.4.2" /> < id nullFlavor="NA" /> <code codeSystem="local&quot ; code="GAP" displayName="ANION GAP" /> < statusCode code="completed" /> <effectiveTime value=& quot;683187146965" /> <value unit="mmol/L" xsi: type="PQ" value="10" /> <referenceRange> <observationRange> <text>5-15</text> </observationRange> </referenceRange> < /observation> </component> <component> < observation moodCode="EVN" classCode="OBS"> < templateId root="2.16.840.1.552050.10..22.4.2" /> < id nullFlavor="NA" /> <code codeSystem="local&quot ; code="eCrCl" displayName="EST CrCl (CG)" /> & lt;statusCode code="completed" /> <effectiveTime value= "537737797756" /> <value unit="mL/min" xsi: type="PQ" value="37" /> <interpretationCode codeSystem="local" code="*" /> <referenceRange& gt; <observationRange> <text>>59</ text> </observationRange> </referenceRange> </observation> </component> <component> <observation moodCode="EVN" classCode="OBS"> <templateId root="2.16.840.1.134249.10.20.22.4.2" /> <id nullFlavor="NA" /> <code codeSystem=" local" code="GLU" displayName="GLUCOSE" /> <statusCode code="completed" /> <effectiveTime value ="066924932959" /> <value unit="mg/dL" xsi: type="PQ" value="105" /> <interpretationCode codeSystem="local" code="*" /> < referenceRange> <observationRange> <text>70-99 </text> </observationRange> </referenceRange& gt; </observation> </component> <component> <observation moodCode="EVN" classCode="OBS"> &lt ;templateId root="2.16.840.1.330584.10.20.22.4.2" /> < id nullFlavor="NA" /> <code codeSystem="local&quot ; code="CA" displayName="CALCIUM" /> < statusCode code="completed" /> <effectiveTime value=& quot;993519559409" /> <value unit="mg/dL" xsi:type ="PQ" value="8.4" /> <interpretationCode codeSystem="local" code="*" /> < referenceRange> <observationRange> <text>8.5-10.1&lt ;/text> </observationRange> </referenceRange&gt ; </observation> </component> <component> <observation moodCode="EVN" classCode="OBS"> <templateId root="2.16.840.1.443197.10.20.22.4.2" /> <id nullFlavor="NA" /> <codecodeSystem=" local" code="BUN" displayName="BLOOD UREA NITROGEN" /& gt; <statusCode code="completed" /> < effectiveTime value="932269612152" /> <value unit=&quot ;mg/dL" xsi:type="PQ" value="32" /> < interpretationCode codeSystem="local" code="*" /> &lt ;referenceRange> <observationRange> <text&gt ;7-20</text> </observationRange> </ referenceRange> </observation> </component> < component> <observation moodCode="EVN" classCode=" OBS"> <templateId root="216.840.1.773550.10.20.22.4.2& quot; /> <id nullFlavor="NA" /> <code codeSystem="local" code="CREAT" displayName="CREATININE " /> <statusCode code="completed" /> & lt;effectiveTime value="481898929155" /> <valueunit=& quot;mg/dL" xsi:type="PQ" value="1.8" /> & lt;interpretationCode codeSystem="local" code="*" /> <referenceRange> <observationRange> <text> 0.7-1.3</text> </observationRange> </ referenceRange> </observation> </component> < component> <observation moodCode="EVN" classCode=" OBS"> <templateId root="2.16.840.1.848836.10.20.22.4.2" /& gt; <id nullFlavor="NA" /> <code codeSystem ="local" code="NA" displayName="SODIUM" /> <statusCode code="completed" /> < effectiveTime value="440946940440" /> <value unit=&quot ;mmol/L" xsi:type="PQ" value="140" /> < referenceRange> <observationRange> <text> 135-148</text> </observationRange> </ referenceRange> </observation> </component> < component> <observation moodCode="EVN" classCode=" OBS"> <templateId root="2.16.840.1.609489.10.20.22.4.2& quot; /> <id nullFlavor="NA" /> <code codeSystem ="local" code="CL" displayName="CHLORIDE" /> <statusCode code="completed" /> <effectiveTime value="932222043348" /> <value unit="mmol/L" xsi:type="PQ" value="103" /> <referenceRange& gt; <observationRange> <text>98-110</text > </observationRange> </referenceRange></ observation> </component> <component> < observation moodCode="EVN" classCode="OBS"> < templateId root="2.16.840.1.800160.10.20.22.4.2" /> < id nullFlavor="NA" /> <code codeSystem="local&quot ; code="CO2" displayName="CARBON DIOXIDE" /> &lt ;statusCode code="completed" /> <effectiveTime value=& quot;609996152304" /> <value unit="mmol/L" xsi: type="PQ" value="27" /> <referenceRange> <observationRange> <text>21-32</text> </observationRange> </referenceRange> </ observation> </component> <component> < observation moodCode="EVN" classCode="OBS"> < templateId root="2.16.840.1.003247.10.20.22.4.2" /> < id nullFlavor="NA" /> <code codeSystem="local&quot ; code="ALB" displayName="ALBUMIN" /> < statusCode code="completed" /> <effectiveTime value=& quot;345540767893" /> <value unit="gm/dL" xsi:type ="PQ" value="2.4" /> < interpretationCodecodeSystem="local" code="*" /> <referenceRange> <observationRange> < text>3.4-5.0</text> </observationRange> </ referenceRange> </observation> </component> < component> <observation moodCode="EVN" classCode=" OBS"> <templateId root="2.16.840.1.533410.10.20.22.4.2& quot; /> <id nullFlavor="NA" /> <code codeSystem="local" code="PHOS" displayName="PHOSPHORUS& quot; /> <statusCode code="completed" /> & lt;effectiveTime value="340232969112" /> <value unit=& quot;mg/dL" xsi:type="PQ" value="3.4" /> & lt;referenceRange> <observationRange> <text& gt;2.5-4.9</text> </observationRange> </ referenceRange> </observation> </component> </ organizer> </entry> <entry> <organizer moodCode="EVN " classCode="BATTERY"><templateId root=" 2.16.840.1.608193.10.20.22.4.1" /> <id nullFlavor="NA&quot ; /> <code codeSystem="local" code="MAG" displayName="MAGNESIUM" /> <statusCode code="completed " /> <component> <observation moodCode="EVN& quot; classCode="OBS"> <templateId root=" 2.16.840.1.122743.10.20.22.4.2" /> <id nullFlavor="NA& quot; /> <code codeSystem="local" code="MAG" displayName="MAGNESIUM" /> <statusCode code=" completed" /> <effectiveTime value="016301548884" /> <value unit="mg/dL" xsi:type="PQ" value=& quot;1.6" /> <interpretationCode codeSystem="local&quot ; code="*" /> <referenceRange> < observationRange> <text>1.8-2.4</text> & lt;/observationRange> </referenceRange> </ observation> </component> </organizer> </entry> & lt;entry> <organizermoodCode="EVN" classCode="BATTERY& quot;> <templateId root="2.16.840.1.810565.10.20.22.4.1" /& gt; <id nullFlavor="NA" /> <code codeSystem=" local" code="GLUMON" displayName="GLUCOSE (POC)" /> <statusCode code="completed" /> <component> <observation moodCode="EVN" classCode="OBS"> <templateId root="2.16.840.1.926631.10.20.22.4.2" /> <id nullFlavor="NA" /> <code codeSystem=" local" code="GLUMON" displayName="GLUCOSE (POC)" /> <statusCodecode="completed" /> < effectiveTime value="226871585846" /> <value unit="mg/ dL" xsi:type="PQ" value="173" /> < interpretationCode codeSystem="local" code="*" /> <referenceRange> <observationRange> < text>70-99</text> </observationRange> </ referenceRange> </observation> </component> </ organizer> </entry> <entry> <organizer moodCode="EVN "classCode="BATTERY"> <templateId root=" 2.16.840.1.017668.10.20.22.4.1" /> <id nullFlavor="NA&quot ; /> <code codeSystem="local" code="PLT" displayName="PLATELET COUNT" /> <statusCode code=" completed" /> <component> <observation moodCode=& quot;EVN" classCode="OBS"> <templateId root=" 2.16.840.1.910242.10.20.22.4.2" /> <id nullFlavor="NA& quot; /> <code codeSystem="local" code="PLT" displayName="PLATELET COUNT" /> <statusCode code=" completed" /> <effectiveTime value="613044369341" /> <value unit="k/cumm" xsi:type="PQ" value=& quot;311" /> <referenceRange> <observationRange&gt ; <text>150-400</text> </observationRange > </referenceRange> </observation> </ component> </organizer> </entry> <entry> < organizer moodCode="EVN" classCode="BATTERY"> < templateId root="2.16.840.1.571161.10.20.22.4.1" /> <id nullFlavor="NA" /> <code codeSystem="local" code= "PT" displayName="PROTHROMBIN TIME WITH INR" /> < statusCode code="completed" /> <component> < observation moodCode="EVN" classCode="OBS"> < templateId root="2.16.840.1.742422.10.20.22.4.2" /> < id nullFlavor="NA" /> <code codeSystem="local&quot ; code="INRX" displayName="INTERNATIONAL NORMAL RATIO" /&gt ; <statusCode code="completed" /> < effectiveTime value="092963545508" /> <value unit=&quot ;" xsi:type="PQ" value="1.2" /> < interpretationCode codeSystem="local" code="*" /> <referenceRange> <observationRange> < text>0.9-1.1</text> </observationRange> </ referenceRange> </observation> </component> < component> <observation moodCode="EVN" classCode=" OBS"> <templateId root="2.16.840.1.366103.10..22.4.2& quot; /> <id nullFlavor="NA" /> <code codeSystem="local" code="PTPAT" displayName=" PROTHROMBIN TIME" /> <statusCode code="completed" /> <effectiveTime value="167491249495" /> & lt;value unit="sec" xsi:type="PQ" value="14.1" /& gt; <interpretationCode codeSystem="local" code="*& quot; /> <referenceRange> <observationRange> <text>10.0-12.8</text> </observationRange> </referenceRange> </observation> </component&gt ; </organizer> </entry> <entry> <organizer moodCode ="EVN" classCode="BATTERY"> <templateId root=& quot;2.16.840.1.235282.10.20.22.4.1" /> <id nullFlavor="NA& quot; /> <code codeSystem="local" code="PTT" displayName="PARTIAL THROMBOPLASTIN TIME" /> <statusCode code="completed" /> <component> <observation moodCode="EVN" classCode="OBS"> <templateId root="2.16.840.1.516621.10..22.4.2" /> <id nullFlavor ="NA" /> <code codeSystem="local" code=" PTT" displayName="PARTIAL THROMBOPLASTIN TIME" /> &lt ;statusCode code="completed" /> <effectiveTime value=& quot;701363968955" /> <value unit="sec" xsi:type=& quot;PQ" value="27" /> <referenceRange> <observationRange> <text>25-37</text> </observationRange> </referenceRange> </ observation> </component> </organizer> </entry> & lt;entry> <organizer moodCode="EVN" classCode="BATTERY& quot;> <templateId root="2.16.840.1.067199.10.20.22.4.1" /> <id nullFlavor="NA" /> <code codeSystem="local " code="GLUMON" displayName="GLUCOSE (POC)" /> <statusCode code="completed" /> <component> < observation moodCode="EVN" classCode="OBS"> < templateId root="2.16.840.1.170384.10.20.22.4.2" /> < id nullFlavor="NA" /> <code codeSystem="local&quot ; code="GLUMON" displayName="GLUCOSE (POC)" /> & lt;statusCode code="completed" /> <effectiveTime value= "651040801811" /> <value unit="mg/dL" xsi: type="PQ" value="169" /> <interpretationCode codeSystem="local" code="*" /> < referenceRange> <observationRange> <text> 70-99</text> </observationRange> </ referenceRange> </observation> </component> </ organizer> </entry> <entry> <organizer moodCode="EVN " classCode="BATTERY"> <templateId root=" 2.16.840.1.621726.10.20.22.4.1" /> <id nullFlavor="NA&quot ; /> <code codeSystem="local" code="GLUMON" displayName="GLUCOSE (POC)" /> <statusCode code=" completed" /> <component> <observation moodCode=& quot;EVN" classCode="OBS"> <templateId root=" 2.16.840.1.071184.10.20.22.4.2" /> <id nullFlavor="NA& quot; /> <code codeSystem="local" code="GLUMON& quot; displayName="GLUCOSE (POC)" /> <statusCode code=& quot;completed" /> <effectiveTime value="572897682615& quot; /> <value unit="mg/dL" xsi:type="PQ" value="225" /> <interpretationCode codeSystem=" local" code="*" /> <referenceRange> <observationRange> <text>70-99</text> &lt ;/observationRange> </referenceRange> </observation& gt;</component> </organizer> </entry> <entry> & lt;organizer moodCode="EVN" classCode="BATTERY"> &lt ;templateId root="2.16.840.1.362390.10.20.22.4.1" /> <id nullFlavor="NA" /> <code codeSystem="local" code= "CBC" displayName="CBC" /> <statusCode code=&quot ;completed" /> <component> <observation moodCode=& quot;EVN" classCode="OBS"> <templateId root=" 2.16.840.1.991438.10..22.4.2" /> <id nullFlavor="NA& quot; /> <code codeSystem="local" code="MCH" displayName="MEAN CELL HGB" /> <statusCode code=" completed" /> <effectiveTime value="526070067395" /> <value unit="pg" xsi:type="PQ" value=&quot ;32.5" /> <referenceRange> <observationRange> <text>27.0-33.0</text> </observationRange&gt ; </referenceRange> </observation> </ component><component> <observation moodCode="EVN" classCode="OBS"> <templateId root=" 2.16.840.1.027126.10.20.22.4.2" /> <id nullFlavor="NA& quot; /> <code codeSystem="local" code="[facility]C&quot ; displayName="MEAN CELL HGB CONCENTRATION" /> < statusCode code="completed" /> <effectiveTime value=& quot;222715428808" /> <value unit="g/dL" xsi:type= "PQ" value="33.1" /> <referenceRange> < observationRange> <text>32.0-37.0</text> </observationRange> </referenceRange> </ observation> </component> <component> < observation moodCode="EVN" classCode="OBS"> < templateId root="2.16.840.1.641812.10.20.22.4.2" /> < id nullFlavor="NA" /> <code codeSystem="local&quot ; code="MCV" displayName="MEAN CELL VOLUME" /> & lt;statusCode code="completed" /> <effectiveTime value= "252773044098" /> <value unit="fl" xsi:type=& quot;PQ" value="98.2" /> <referenceRange> <observationRange> <text>80.0-100.0</text&gt ; </observationRange> </referenceRange> </ observation> </component> <component> < observation moodCode="EVN" classCode="OBS"> < templateId root="2.16.840.1.726685.10.20.22.4.2" /> < id nullFlavor="NA" /> <code codeSystem="local&quot ; code="RBC" displayName="RED BLOODCELL" /> < statusCode code="completed" /> <effectiveTimevalue=& quot;553498453029" /> <value unit="m/cumm" xsi: type="PQ" value="2.83" /> < interpretationCode codeSystem="local" code="*" /> <referenceRange> <observationRange> < text>4.00-6.00</text> </observationRange> &lt ;/referenceRange> </observation> </component> & lt;component> <observation moodCode="EVN" classCode=&quot ;OBS"> <templateId root="2.16.840.1.737074.10.20.22.4.2 " /> <id nullFlavor="NA" /> <code codeSystem="local" code="RDW" displayName="RED CELL DISTRIBUTION WIDTH" /> <statusCode code="completed&quot ; /> <effectiveTime value="780539117140" /> <value unit="%" xsi:type="PQ" value="13.4& quot; /> <referenceRange> <observationRange>& lt;text>11.0-15.6</text> </observationRange> </referenceRange> </observation> </component> <component> <observation moodCode="EVN" classCode=& quot;OBS"> <templateId root=" 2.16.840.1.136586.10.20.22.4.2" /> <id nullFlavor="NA& quot; /> <code codeSystem="local" code="WBC" displayName="WHITE BLOOD CELL" /> <statusCode code=" completed" /> <effectiveTime value="339881531789" /> <value unit="k/cumm" xsi:type="PQ" value=& quot;9.5" /> <referenceRange> < observationRange> <text>5.0-10.0</text> & lt;/observationRange> </referenceRange> </ observation> </component> <component> < observation moodCode="EVN" classCode="OBS"> < templateId root="2.16.840.1.794180.10.20.22.4.2" /> < id nullFlavor="NA" /> <code codeSystem="local&quot ; code="HGBT" displayName="HEMOGLOBIN" /> < statusCodecode="completed" /> <effectiveTime value=& quot;422638092295" /> <value unit="gm/dL" xsi:type=& quot;PQ" value="9.2" /> <interpretationCode codeSystem="local" code="*" /> < referenceRange> <observationRange> <text> 14.0-18.0</text></observationRange> </referenceRange&gt ; </observation> </component> <component> <observation moodCode="EVN" classCode="OBS"> <templateId root="2.16.840.1.661573.10.20.22.4.2" /> <id nullFlavor="NA" /> <code codeSystem=" local" code="HCTT" displayName="HEMATOCRIT" /> <statusCode code="completed" /> <effectiveTime value="[id number]" /> <value unit="%& quot; xsi:type="PQ" value="27.8" /> < interpretationCode codeSystem="local" code="*" /> <referenceRange> <observationRange> < text>40.0-54.0</text> </observationRange> </ referenceRange> </observation> </component> < component> <observation moodCode="EVN" classCode=" OBS"> <templateId root="[id number]& quot; /> <id nullFlavor="NA" /> <code codeSystem="local" code="PLT" displayName="PLATELET COUNT" /> <statusCode code="completed" /> <effectiveTime value="[id number]" /> <value unit="k/cumm" xsi:type="PQ" value="317" /> <referenceRange> <observationRange> &lt ;text>150-400</text> </observationRange> < /referenceRange> </observation> </component> </ organizer> </entry> <entry> <organizer moodCode="EVN " classCode="BATTERY"> <templateId root=" 2.16.840.1.851191.10.20.22.4.1" /> <id nullFlavor="NA&quot ; /> <code codeSystem="local" code="RENAL" displayName="RENALFUNCTION PANEL" /> <statusCode code=&quot ;completed" /> <component> <observation moodCode=& quot;EVN" classCode="OBS"> <templateId root=" 2.16.840.1.159936.10.20.22.4.2" /> <id nullFlavor="NA& quot; /> <code codeSystem="local" code="K" displayName="POTASSIUM" /> <statusCode code=" completed" /> <effectiveTime value="282195670457" /> <value unit="mmol/L" xsi:type="PQ" value=& quot;4.6" /> <referenceRange> < observationRange> <text>3.5-5.3</text> </ observationRange> </referenceRange> </observation&gt ; </component> <component> <observation moodCode ="EVN" classCode="OBS"> <templateId root=& quot;2..840.1.071503.10.20.22.4.2" /> <id nullFlavor=&quot ;NA" /> <code codeSystem="local" code="eGFR& quot; displayName="EST GFR (MDRD)" /> <statusCode code=" completed" /> <effectiveTime value="748753325274" /> <value unit="mL/min" xsi:type="PQ" value=& quot;41" /> <interpretationCode codeSystem="local&quot ; code="*" /> <referenceRange> < observationRange> <text>> 59</text> </observationRange> </referenceRange> </ observation> </component> <component> < observation moodCode="EVN"classCode="OBS"> < templateId root="2.16.840.1.356231...22.4.2" /> < id nullFlavor="NA" /> <code codeSystem="local&quot ; code="GAP" displayName="ANION GAP" /> < statusCode code="completed" /> <effectiveTime value=& quot;448371895628" /> <valueunit="mmol/L" xsi:type ="PQ" value="8" /> <referenceRange> <observationRange> <text>5-15</text> </observationRange> </referenceRange> </ observation> </component> <component> < observation moodCode="EVN" classCode="OBS"> < templateId root="2.16.840.1.321684.10.20.22.4.2" /> < id nullFlavor="NA" /> <code codeSystem="local&quot ; code="eCrCl" displayName="EST CrCl (CG)" /> & lt;statusCode code="completed" /> <effectiveTime value=& quot;937440652368" /> <value unit="mL/min" xsi: type="PQ" value="40" /> <interpretationCode codeSystem="local" code="*" /> < referenceRange> <observationRange> <text> > 59</text> </observationRange> </ referenceRange> </observation> </component> < component> <observation moodCode="EVN" classCode="OBS "> <templateId root="2.16.840.1.536827.10.20.22.4.2& quot; /> <id nullFlavor="NA" /> <code codeSystem="local" code="GLU" displayName="GLUCOSE&quot ; /> <statusCode code="completed" /> < effectiveTime value="292811832173" /> <value unit=&quot ;mg/dL" xsi:type="PQ" value="159" /> < interpretationCode codeSystem="local" code="*" /> <referenceRange> <observationRange> < text>70-99</text> </observationRange> </ referenceRange> </observation> </component> < component> <observation moodCode="EVN" classCode=" OBS"> <templateId root="2.16.840.1.607212.10.20.22.4.2& quot; /> <id nullFlavor="NA" /> <code codeSystem="local" code="CA" displayName="CALCIUM&quot ; /> <statusCode code="completed" /> < effectiveTime value="566485651136" /> <value unit=&quot ;mg/dL" xsi:type="PQ" value="8.6" /> < referenceRange> <observationRange> <text> 8.5-10.1</text> </observationRange> </referenceRange& gt; </observation> </component> <component> <observation moodCode="EVN" classCode="OBS"> <templateId root="2.16.840.1.955128.10.20.22.4.2" /> <id nullFlavor="NA" /> <code codeSystem=&quot ;local" code="BUN" displayName="BLOOD UREA NITROGEN" /& gt; <statusCode code="completed" /> < effectiveTime value="267766228172" /> <value unit=&quot ;mg/dL" xsi:type="PQ" value="27" /> < interpretationCode codeSystem="local" code="*" /> <referenceRange> <observationRange> < text>7-20</text> </observationRange> </ referenceRange> </observation> </component> < component> <observation moodCode="EVN" classCode=" OBS"> <templateId root="2.16.840.1.871675.10.20.22.4.2& quot; /> <id nullFlavor="NA" /> <code codeSystem="local" code="CREAT" displayName="CREATININE " /> <statusCode code="completed" /> & lt;effectiveTimevalue="866864300384" /> <value unit=& quot;mg/dL" xsi:type="PQ" value="1.6" /> & lt;interpretationCode codeSystem="local" code="*" /> <referenceRange> <observationRange> & lt;text>0.7-1.3</text> </observationRange> & lt;/referenceRange> </observation> </component> < component> <observation moodCode="EVN" classCode=" OBS"> <templateId root="2.16.840.1.417524.10.20.22.4.2& quot; /> <id nullFlavor="NA" /> <code codeSystem="local" code="NA" displayName="SODIUM" /> <statusCodecode="completed" /> < effectiveTime value="785569306229" /> <value unit="mmol /L" xsi:type="PQ" value="136" /> < referenceRange> <observationRange> <text> 135-148</text> </observationRange> </ referenceRange> </observation> </component> < component> <observation moodCode="EVN" classCode=" OBS"> <templateId root="2.16.840.1.271614.10.20.22.4.2& quot; /> <id nullFlavor="NA" /> <code codeSystem="local" code="CL" displayName="CHLORIDE&quot ; /> <statusCode code="completed" /> < effectiveTime value="371212807793" /> <value unit=&quot ;mmol/L" xsi:type="PQ" value="100" /> < referenceRange> <observationRange> <text>98 -110</text> </observationRange> </ referenceRange> </observation> </component> < component> <observation moodCode="EVN" classCode=" OBS"> <templateId root="2.16.840.1.999413.10..22.4.2& quot; /> <id nullFlavor="NA" /> <code codeSystem="local" code="CO2" displayName="CARBON DIOXIDE" /> <statusCode code="completed" /> & lt;effectiveTime value="508779660471" /> <value unit=& quot;mmol/L" xsi:type="PQ" value="28" /> & lt;referenceRange> <observationRange> <text& gt;21-32</text> </observationRange> </ referenceRange> </observation> </component> < component> <observation moodCode="EVN" classCode=" OBS"> <templateId root="2.16.840.1.786300.10.20.22.4.2& quot; /> <id nullFlavor="NA"/> <code codeSystem="local" code="ALB" displayName="ALBUMIN&quot ; /> <statusCode code="completed" /> < effectiveTime value="603228359196" /> <value unit=&quot ;gm/dL" xsi:type="PQ" value="2.4" /> < interpretationCode codeSystem="local" code="*" /> <referenceRange> <observationRange> < text>3.4-5.0</text> </observationRange> </ referenceRange> </observation> </component> < component> <observation moodCode="EVN" classCode=" OBS"> <templateId root="2.16.840.1.355647.10.20.22.4.2& quot; /> <id nullFlavor="NA" /> <code codeSystem="local" code="PHOS" displayName="PHOSPHORUS& quot; /> <statusCodecode="completed" /> &lt ;effectiveTime value="767153887422" /> <value unit="mg/ dL" xsi:type="PQ" value="3.7" /> < referenceRange> <observationRange> <text> 2.5-4.9</text> </observationRange> </ referenceRange> </observation> </component> </ organizer> </entry> <entry> <organizer moodCode="EVN " classCode="BATTERY"> <templateId root=" 2.16.840.1.027728.10.20.22.4.1" /> <id nullFlavor="NA&quot ; /> <code codeSystem="local" code="MAG" displayName="MAGNESIUM" /> <statusCode code="completed " /> <component> <observation moodCode="EVN& quot; classCode="OBS"> <templateId root=" 2.16.840.1.255668.10.20.22.4.2" /> <id nullFlavor="NA& quot; /> <code codeSystem="local" code="MAG" displayName="MAGNESIUM" /> <statusCode code=" completed" /> <effectiveTime value="624769907748" /> <value unit="mg/dL" xsi:type="PQ" value=& quot;1.7" /> <interpretationCode codeSystem="local&quot ; code="*" /> <referenceRange> < observationRange> <text>1.8-2.4</text> & lt;/observationRange> </referenceRange> </ observation> </component> </organizer> </entry> & lt;entry> <organizer moodCode="EVN" classCode="BATTERY& quot;> <templateId root="2.16.840.1.582181.10.20.22.4.1" /& gt; <id nullFlavor="NA" /> <code codeSystem=" local" code="GLUMON" displayName="GLUCOSE (POC)" /> <statusCode code="completed" /> <component> <observation moodCode="EVN" classCode="OBS"> &lt ;templateId root="2.16.840.1.229550.10.20.22.4.2" /> < id nullFlavor="NA" /> <code codeSystem="local&quot ; code="GLUMON" displayName="GLUCOSE (POC)" /> & lt;statusCode code="completed" /> <effectiveTime value= "876626031978" /> <value unit="mg/dL" xsi: type="PQ" value="252" /> <interpretationCode codeSystem="local" code="*" /> < referenceRange> <observationRange> <text>70- 99</text> </observationRange> </ referenceRange> </observation> </component> </ organizer> </entry><entry> <organizer moodCode="EVN& quot; classCode="BATTERY"> <templateId root=" 2.16.840.1.734044.10.20.22.4.1" /> <id nullFlavor="NA" /> <code codeSystem="local" code="GLUMON" displayName="GLUCOSE (POC)" /> <statusCode code=" completed" /> <component> <observation moodCode=& quot;EVN" classCode="OBS"> <templateId root=" 2.16.840.1.983630.10.20.22.4.2" /> <id nullFlavor="NA& quot; /> <code codeSystem="local" code="GLUMON" displayName="GLUCOSE (POC)" /> <statusCode code=" completed" /> <effectiveTime value="954880823554" /> <value unit="mg/dL" xsi:type="PQ" value=& quot;214" /> <interpretationCode codeSystem="local&quot ; code="*" /> <referenceRange> < observationRange> <text>70-99</text> < /observationRange> </referenceRange> </observation& gt; </component> </organizer> </entry> <entry&gt ; <organizer moodCode="EVN" classCode="BATTERY"> <templateId root="2.16.840.1.107510.10.20.22.4.1" /> & lt;id nullFlavor="NA" /> <code codeSystem="local&quot ; code="GLUMON" displayName="GLUCOSE (POC)" /> < statusCode code="completed" /> <component> < observation moodCode="EVN" classCode="OBS"> < templateId root="2.16.840.1.549135.10.20.22.4.2" /> < id nullFlavor="NA" /> <code codeSystem="local&quot ; code="GLUMON" displayName="GLUCOSE (POC)" /> & lt;statusCode code="completed" /> <effectiveTime value= "267000905128" /> <value unit="mg/dL" xsi: type="PQ" value="271" /> <interpretationCode codeSystem="local" code="*" /> < referenceRange> <observationRange> <text> 70-99</text> </observationRange> </referenceRange> </observation> </component> </organizer> </ entry> <entry> <organizer moodCode="EVN" classCode=& quot;BATTERY"> <templateId root=" 2.16.840.1.923306.10.20.22.4.1" /> <id nullFlavor="NA&quot ; /> <code codeSystem="local" code="CBC" displayName="CBC" /> <statusCode code="completed" /> <component> <observation moodCode="EVN" classCode="OBS"> <templateId root=" 2.16.840.1.615369.10.20.22.4.2" /> <id nullFlavor="NA& quot; /> <code codeSystem="local" code="MCH" displayName="MEAN CELL HGB" /> <statusCode code=" completed" /> <effectiveTime value="950350098237" /& gt; <value unit="pg"xsi:type="PQ" value=" 32.5" /> <referenceRange> <observationRange > <text>27.0-33.0</text> </ observationRange> </referenceRange> </observation&gt ; </component> <component> <observation moodCode ="EVN" classCode="OBS"> <templateId root=& quot;2.16.840.1.075538.10.20.22.4.2" /> <id nullFlavor=&quot ;NA" /> <code codeSystem="local" code="MCHC& quot; displayName="MEAN CELL HGB CONCENTRATION" /> < statusCode code="completed" /> <effectiveTime value=" 079684130742" /> <value unit="g/dL" xsi:type=&quot ;PQ" value="33.2" /> <referenceRange> <observationRange> <text>32.0-37.0</text> </observationRange> </referenceRange> </ observation> </component> <component> < observation moodCode="EVN" classCode="OBS"> < templateId root="2.16.840.1.067459.10.20.22.4.2" /> < id nullFlavor="NA" /> <code codeSystem="local&quot ; code="MCV" displayName="MEAN CELL VOLUME" /> & lt;statusCode code="completed" /> <effectiveTime value= "458864180106" /> <value unit="fl" xsi:type=& quot;PQ" value="98.0" /> <referenceRange> <observationRange> <text>80.0-100.0</text&gt ; </observationRange> </referenceRange> & lt;/observation> </component> <component> < observation moodCode="EVN" classCode="OBS"> < templateId root="2.16.840.1.837022.10.20.22.4.2" /> < id nullFlavor="NA" /> <code codeSystem="local" code="RBC" displayName="RED BLOOD CELL" /> < statusCode code="completed" /> <effectiveTime value=& quot;512894648492" /> <value unit="m/cumm" xsi: type="PQ" value="2.46" /> < interpretationCode codeSystem="local" code="*" /> <referenceRange> <observationRange> < text>4.00-6.00</text> </observationRange> &lt ;/referenceRange> </observation> </component> < component> <observation moodCode="EVN" classCode=" OBS"> <templateId root="2.16.840.1.044492.10.20.22.4.2& quot; /> <id nullFlavor="NA" /> <code codeSystem="local" code="RDW" displayName="RED CELL DISTRIBUTION WIDTH" /> <statusCode code="completed" /&gt ; <effectiveTime value="934966961450" /> < value unit="%" xsi:type="PQ" value="13.3" /> <referenceRange> <observationRange> <text>11.0-15.6</text> </observationRange> </referenceRange> </observation> </component&gt ; <component> <observation moodCode="EVN" classCode="OBS"> <templateId root=" 2.16.840.1.371668.10.20.22.4.2" /> <id nullFlavor="NA& quot; /> <code codeSystem="local" code="WBC" displayName="WHITE BLOOD CELL" /> <statusCode code=& quot;completed" /> <effectiveTime value="572299907873& quot; /> <value unit="k/cumm" xsi:type="PQ" value="9.4" /> <referenceRange> < observationRange> <text>5.0-10.0</text> & lt;/observationRange> </referenceRange> </ observation> </component> <component> < observation moodCode="EVN" classCode="OBS"> < templateId root="2.16.840.1.040494.10.20.22.4.2" /> < id nullFlavor="NA" /> <code codeSystem="local&quot ; code="HGBT" displayName="HEMOGLOBIN" /> < statusCode code="completed" /> <effectiveTime value=& quot;845652489094" /> <value unit="gm/dL" xsi:type ="PQ" value="8.0" /> <interpretationCode codeSystem="local" code="*" /> < referenceRange> <observationRange> <text> 14.0-18.0</text> </observationRange> </ referenceRange> </observation> </component> < component> <observation moodCode="EVN" classCode=" OBS"> <templateId root="2.16.840.1.008753.10.20.22.4.2& quot; /> <id nullFlavor="NA" /> <code codeSystem="local" code="HCTT" displayName="HEMATOCRIT& quot; /> <statusCode code="completed" /> < effectiveTime value="002329413145" /> <value unit=&quot ;%" xsi:type="PQ" value="24.1" /> & lt;interpretationCode codeSystem="local" code="*" /> <referenceRange> <observationRange> & lt;text>40.0-54.0</text> </observationRange></ referenceRange> </observation> </component> < component> <observation moodCode="EVN" classCode="OBS& quot;> <templateId root="2.16.840.1.043403.10.20.22.4.2&quot ; /> <id nullFlavor="NA" /> <code codeSystem="local" code="PLT" displayName="PLATELET COUNT" /> <statusCode code="completed" /> <effectiveTime value="451077685949" /> <value unit="k/cumm" xsi:type="PQ" value="311" /> <referenceRange> <observationRange> <text& gt;150-400</text> </observationRange> </ referenceRange> </observation> </component> </ organizer> </entry> <entry> <organizer moodCode="EVN " classCode="BATTERY"> <templateId root=" 2.16.840.1.999788.10.20.22.4.1" /> <id nullFlavor="NA&quot ; /> <code codeSystem="local" code="METABC" displayName="METABOLIC PANEL, COMPREHN" /> <statusCode code ="completed" /> <component> <observation moodCode="EVN" classCode="OBS"> <templateId root="2.16.840.1.952107.10.20.22.4.2" /> <id nullFlavor ="NA" /> <code codeSystem="local" code=" K" displayName="POTASSIUM" /> <statusCode code=& quot;completed" /> <effectiveTime value="156398911493& quot; /> <value unit="mmol/L" xsi:type="PQ" value="4.5" /> <referenceRange> < observationRange> <text>3.5-5.3</text> </ observationRange> </referenceRange> </observation&gt ; </component> <component> <observation moodCode ="EVN" classCode="OBS"> <templateId root=& quot;2.16.840.1.776002.10.20.22.4.2" /> <id nullFlavor=&quot ;NA" /> <code codeSystem="local" code="eGFR& quot; displayName="EST GFR (MDRD)" /> <statusCode code=" completed" /> <effectiveTime value="129194469424" /> <value unit="mL/min" xsi:type="PQ" value=& quot;44"/> <interpretationCode codeSystem="local" code="*" /><referenceRange> <observationRange& gt; <text>> 59</text> </ observationRange> </referenceRange> </observation&gt ; </component> <component> <observation moodCode ="EVN" classCode="OBS"> <templateId root=& quot;2.16.840.1.512721.10.20.22.4.2"/> <id nullFlavor=" NA" /> <code codeSystem="local"code="GAP&quot ; displayName="ANION GAP" /> <statusCode code=" completed" /> <effectiveTime value="226444049975" /> <value unit="mmol/L" xsi:type="PQ" value=& quot;6" /> <referenceRange> < observationRange> <text>5-15</text> </ observationRange> </referenceRange> </observation&gt ; </component> <component> <observation moodCode ="EVN" classCode="OBS"> <templateId root=& quot;2.16.840.1.686098.10..22.4.2" /> <id nullFlavor=&quot ;NA" /> <code codeSystem="local" code="eCrCl& quot; displayName="EST CrCl (CG)" /> <statusCode code=& quot;completed" /> <effectiveTime value="726370937230&quot ; /> <value unit="mL/min" xsi:type="PQ" value ="43" /> <interpretationCode codeSystem="local& quot; code="*" /> <referenceRange> < observationRange> <text>> 59</text> </observationRange> </referenceRange> </observation&gt ; </component> <component> <observation moodCode=& quot;EVN" classCode="OBS"> <templateIdroot=" 2.16.840.1.141218.10.20.22.4.2" /> <id nullFlavor="NA& quot; /> <code codeSystem="local" code="GLU" displayName="GLUCOSE"/> <statusCode code=" completed" /> <effectiveTime value="864030080051" /> <value unit="mg/dL" xsi:type="PQ" value=& quot;115" /> <interpretationCode codeSystem="local&quot ; code="*" /> <referenceRange> < observationRange> <text>70-99</text> < /observationRange> </referenceRange> </observation& gt; </component> <component> <observation moodCode="EVN" classCode="OBS"> <templateId root="2.16.840.1.948730.10.20.22.4.2" /> <id nullFlavor ="NA" /> <code codeSystem="local" code=" CA" displayName="CALCIUM" /> <statusCode code=& quot;completed" /> <effectiveTime value="526173609796& quot; /> <value unit="mg/dL" xsi:type="PQ" value="8.3" /> <interpretationCode codeSystem=" local" code="*" /> <referenceRange> < observationRange> <text>8.5-10.1</text> & lt;/observationRange> </referenceRange> </ observation> </component> <component> < observation moodCode="EVN" classCode="OBS"> < templateId root="2.16.840.1.597689.10.20.22.4.2" /> < id nullFlavor="NA" /> <code codeSystem="local&quot ; code="BUN" displayName="BLOOD UREA NITROGEN" /> <statusCode code="completed" /> <effectiveTime value=& quot;016492323853" /> <value unit="mg/dL"xsi:type= "PQ" value="28" /> <interpretationCode codeSystem="local" code="*" /> < referenceRange> <observationRange> <text> 7-20</text> </observationRange> </ referenceRange> </observation> </component> < component> <observation moodCode="EVN" classCode=" OBS"> <templateId root="2.16.840.1.591108.10.20.22.4.2& quot; /> <id nullFlavor="NA" /><code codeSystem=& quot;local" code="CREAT" displayName="CREATININE" /&gt ; <statusCode code="completed" /> < effectiveTime value="810937286908" /> <value unit=&quot ;mg/dL" xsi:type="PQ" value="1.5" /> < interpretationCode codeSystem="local" code="*" /> <referenceRange> <observationRange> <text >0.7-1.3</text> </observationRange> </ referenceRange> </observation> </component> < component> <observation moodCode="EVN" classCode=" OBS"> <templateId root="2.16.840.1.362264.10.20.22.4.2& quot; /> <id nullFlavor="NA" /> <code codeSystem="local" code="NA" displayName="SODIUM" /> <statusCode code="completed" /> < effectiveTime value="575344598897" /> <value unit=&quot ;mmol/L" xsi:type="PQ" value="136" /> < referenceRange> <observationRange> <text> 135-148</text> </observationRange> </ referenceRange> </observation> </component> < component> <observation moodCode="EVN" classCode=" OBS"> <templateId root="2.16.840.1.906666.10..22.4.2& quot; /> <id nullFlavor="NA" /> <code codeSystem="local" code="CL" displayName="CHLORIDE&quot ; /> <statusCode code="completed" /> < effectiveTime value="264362134677" /> <value unit=&quot ;mmol/L"xsi:type="PQ" value="101" /> < referenceRange> <observationRange> <text> 98-110</text> </observationRange> </ referenceRange> </observation> </component> < component> <observation moodCode="EVN" classCode=" OBS"> <templateId root="2.16.840.1.903102.10.20.22.4.2& quot; /> <id nullFlavor="NA" /> <code codeSystem="local" code="AST" displayName="AST/SGOT& quot; /> <statusCode code="completed" /> & lt;effectiveTime value="457326164592" /> <value unit=& quot;Units/L" xsi:type="PQ" value="26" /> & lt;referenceRange> <observationRange> <text>10 -37</text> </observationRange> </ referenceRange> </observation> </component> < component> <observation moodCode="EVN" classCode=" OBS"> <templateId root="2.16.840.1.623840.10.20.22.4.2& quot; /> <id nullFlavor="NA" /> <code codeSystem="local" code="ALT" displayName="ALT/SGPT& quot; /><statusCode code="completed" /> < effectiveTime value="511082741378" /> <value unit=&quot ;Units/L" xsi:type="PQ" value="55" /> < referenceRange> <observationRange> <text> < 66</text> </observationRange> </ referenceRange> </observation> </component> < component> <observation moodCode="EVN" classCode=" OBS"> <templateId root="2.16.840.1.215060.10...4.2& quot; /> <id nullFlavor="NA" /> <code codeSystem="local" code="CO2" displayName="CARBON DIOXIDE" /> <statusCode code="completed" /> <effectiveTime value="995628772893" /> <value unit="mmol/L" xsi:type="PQ" value="29" /> < referenceRange> <observationRange> <text> 21-32</text> </observationRange> </ referenceRange> </observation> </component> < component> <observation moodCode="EVN" classCode=" OBS"> <templateId root="2.16.840.1.951008.10..22.4.2& quot; /> <id nullFlavor="NA" /> <code codeSystem="local" code="TP" displayName="TOTAL PROTEIN " /> <statusCode code="completed" /> & lt;effectiveTime value="710758081074" /> <value unit=& quot;gm/dL" xsi:type="PQ" value="6.0" /> & lt;interpretationCode codeSystem="local" code="*" /> <referenceRange> <observationRange> & lt;text>6.4-8.2</text> </observationRange> & lt;/referenceRange> </observation> </component> <component> <observation moodCode="EVN" classCode=& quot;OBS"> <templateId root=" 2.16.840.1.004874.10.20.22.4.2" /> <id nullFlavor="NA& quot; /> <code codeSystem="local" code="ALB" displayName="ALBUMIN" /> <statusCode code=" completed" /> <effectiveTime value="054409479397" /> <value unit="gm/dL" xsi:type="PQ" value=& quot;2.1" /> <interpretationCode codeSystem="local&quot ; code="*" /> <referenceRange> < observationRange> <text>3.4-5.0</text> & lt;/observationRange> </referenceRange> </observation > </component> <component> <observation moodCode="EVN" classCode="OBS"> <templateId root="2.16.840.1.461614.10.20.22.4.2" /> <id nullFlavor ="NA" /> <code codeSystem="local" code=" BILTOT" displayName="BILI TOTAL" /> <statusCode code="completed" /> <effectiveTime value=" 859584957498" /> <value unit="mg/dL" xsi:type=& quot;PQ" value="0.4" /> <referenceRange> <observationRange> <text>0.0-1.0</text> </observationRange> </referenceRange> </ observation> </component> <component> < observation moodCode="EVN" classCode="OBS"> < templateId root="2.16.840.1.126463.10.20.22.4.2" /> < id nullFlavor="NA" /> <code codeSystem="local&quot ; code="ALKP" displayName="ALKALINE PHOSPHATASE TOTAL" /&gt ; <statusCode code="completed" /> < effectiveTime value="222322422679" /> <value unit=&quot ;IU/L" xsi:type="PQ" value="78" /> < referenceRange> <observationRange> <text> 45-117</text> </observationRange> </ referenceRange> </observation> </component> </ organizer> </entry> <entry> <organizer moodCode="EVN " classCode="BATTERY"> <templateId root=" 2.16.840.1.859904.10.20.22.4.1" /> <id nullFlavor="NA&quot ; /> <code codeSystem="local" code="PHOS" displayName="PHOSPHORUS" /> <statusCode code=" completed" /> <component> <observation moodCode=& quot;EVN" classCode="OBS"> <templateId root=" 2.16.840.1.355910.10.20.22.4.2"/> <id nullFlavor="NA& quot; /> <code codeSystem="local"code="PHOS" displayName="PHOSPHORUS" /> <statusCode code=" completed" /> <effectiveTime value="[id number]" /> <value unit="mg/dL" xsi:type="PQ" value=& quot;3.1" /> <referenceRange> < observationRange> <text>2.5-4.9</text> & lt;/observationRange> </referenceRange> </ observation> </component> </organizer> </entry> & lt;entry> <organizer moodCode="EVN" classCode="BATTERY& quot;> <templateId root="[id number]" /& gt; <id nullFlavor="NA" /> <code codeSystem=" local" code="MAG" displayName="MAGNESIUM" /> & lt;statusCode code="completed" /> <component> &lt ;observation moodCode="EVN" classCode="OBS"> &lt ;templateId root="2.16.840.1.758888.10.20.22.4.2" /> < id nullFlavor="NA" /> <code codeSystem="local&quot ; code="MAG" displayName="MAGNESIUM" /> < statusCode code="completed" /> <effectiveTime value=" 923377684823" /> <value unit="mg/dL" xsi:type=& quot;PQ" value="1.9" /> <referenceRange> <observationRange> <text>1.8-2.4</text> </observationRange> </referenceRange> </ observation> </component> </organizer> </entry> & lt;entry> <organizer moodCode="EVN" classCode="BATTERY& quot;> <templateId root="2.16.840.1.753025.10.20.22.4.1" /& gt; <idnullFlavor="NA" /> <code codeSystem=" local" code="GLUMON" displayName="GLUCOSE (POC)" /> <statusCode code="completed" /> <component> <observation moodCode="EVN" classCode="OBS"> & lt;templateId root="2.16.840.1.184712.10.20.22.4.2" /> &lt ;id nullFlavor="NA" /> <code codeSystem="local& quot; code="GLUMON" displayName="GLUCOSE (POC)" /> <statusCode code="completed" /> <effectiveTime value="532218539715" /> <value unit="mg/dL" xsi:type="PQ" value="115" /> < interpretationCode codeSystem="local" code="*" /> <referenceRange> <observationRange> <text >70-99</text> </observationRange> </ referenceRange> </observation> </component> </ organizer> </entry> <entry> <organizer moodCode="EVN& quot; classCode="BATTERY"> <templateId root=" 2.16.840.1.121257.10.20.22.4.1" /> <id nullFlavor="NA&quot ; /> <code codeSystem="local" code="GLUMON" displayName="GLUCOSE (POC)" /> <statusCode code=" completed" /> <component> <observation moodCode=& quot;EVN" classCode="OBS"> <templateId root=" 2.16.840.1.164970.10.20.22.4.2" /> <id nullFlavor="NA& quot; /> <code codeSystem="local" code="GLUMON" displayName="GLUCOSE (POC)" /> <statusCode code=" completed" /> <effectiveTime value="274482416738" /> <value unit="mg/dL" xsi:type="PQ" value=& quot;265" /> <interpretationCode codeSystem="local&quot ; code="*"/> <referenceRange> < observationRange> <text>70-99</text> < /observationRange> </referenceRange> </observation& gt; </component> </organizer> </entry> <entry&gt ; <organizer moodCode="EVN" classCode="BATTERY"> <templateId root="2.16.840.1.334929.10.20.22.4.1" /> & lt;id nullFlavor="NA" /> <code codeSystem="local&quot ; code="GLUMON" displayName="GLUCOSE (POC)" /> < statusCode code="completed" /> <component> < observation moodCode="EVN" classCode="OBS"> < templateId root="2.16.840.1.079471.10.20.22.4.2" /> < id nullFlavor="NA" /> <code codeSystem="local&quot ; code="GLUMON" displayName="GLUCOSE (POC)" /> & lt;statusCode code="completed" /> <effectiveTime value= "612570313956" /> <value unit="mg/dL" xsi: type="PQ" value="96" /> <referenceRange> <observationRange> <text>70-99</text> </observationRange> </referenceRange> </ observation> </component> </organizer> </entry> & lt;entry> <organizer moodCode="EVN" classCode="BATTERY& quot;> <templateId root="2.16.840.1.458528.10.20.22.4.1" /& gt; <id nullFlavor="NA" /> <code codeSystem=" local" code="GLUMON" displayName="GLUCOSE (POC)" /> <statusCode code="completed" /> <component> <observation moodCode="EVN" classCode="OBS"> <templateId root="2.16.840.1.604763.10.20.22.4.2" /> <id nullFlavor="NA" /> <code codeSystem=" local" code="GLUMON" displayName="GLUCOSE (POC)" /> <statusCode code="completed" /> < effectiveTime value="990076288412" /> <value unit="mg/dL& quot; xsi:type="PQ" value="129" /> < interpretationCode codeSystem="local" code="*" /> <referenceRange> <observationRange> < text>70-99</text> </observationRange> </ referenceRange> </observation> </component> </ organizer> </entry> <entry> <organizer moodCode="EVN " classCode="BATTERY"> <templateId root=" 2.16.840.1.687587.10.20.22.4.1" /> <id nullFlavor="NA&quot ; /> <code codeSystem="local" code="CBCD" displayName="CBC W/DIFF" /> <statusCode code=" completed" /> <component> <observation moodCode=& quot;EVN" classCode="OBS"> <templateId root=" 2.16.840.1.665168.10.20.22.4.2" /> <id nullFlavor="NA& quot; /> <code codeSystem="local" code="EO#" displayName="EOSINOPHIL #" /> <statusCode code=" completed" /> <effectiveTime value="035288418753" /> <value unit="k/cumm" xsi:type="PQ" value=" 0.5" /> <referenceRange> <observationRange& gt; <text>0.1-0.5</text> </ observationRange> </referenceRange> </observation&gt ; </component> <component> <observation moodCode ="EVN" classCode="OBS"> <templateId root=& quot;2.16.840.1.694562.10.20.22.4.2" /> <id nullFlavor=&quot ;NA" /> <code codeSystem="local" code="EO&amp ;#37;" displayName="EOSINOPHIL %" /> < statusCode code="completed" /> <effectiveTime value=" 943015540505" /> <value unit="%" xsi:type= "PQ" value="6" /> <interpretationCode codeSystem="local" code="*" /> < referenceRange> <observationRange> <text> 2-4</text> </observationRange> </ referenceRange> </observation> </component> < component> <observation moodCode="EVN" classCode=" OBS"> <templateId root="10.03.840.1.110876.10.20.22.4.2& quot; /> <id nullFlavor="NA" /><code codeSystem=& quot;local" code="GR#" displayName="GRANULOCYTE #" /&gt ; <statusCode code="completed" /> < effectiveTime value="301884080896" /> <value unit=&quot ;k/cumm" xsi:type="PQ" value="4.9" /> < referenceRange> <observationRange> <text> 2.0-9.0</text> </observationRange> </ referenceRange> </observation> </component> < component> <observation moodCode="EVN" classCode=" OBS"> <templateId root="2840.1.304576.10.20.22.4.2& quot; /> <id nullFlavor="NA" /> <code codeSystem="local" code="GR%" displayName=" GRANULOCYTE %" /> <statusCode code="completed& quot; /> <effectiveTime value="792880357695" /> <value unit="%" xsi:type="PQ" value=" 63" /> <referenceRange> <observationRange& gt; <text>50-75</text> </observationRange > </referenceRange> </observation> </ component> <component> <observation moodCode="EVN& quot; classCode="OBS"> <templateId root=" 2.16.840.1.662994.10.20.22.4.2" /> <id nullFlavor="NA& quot; /> <code codeSystem="local" code="LY#" displayName="LYMPHOCYTE #" /> <statusCode code=" completed" /> <effectiveTime value="466343118244" /> <value unit="k/cumm" xsi:type="PQ" value=& quot;1.5" /> <referenceRange> <observationRange > <text>1.0-4.0</text> </ observationRange> </referenceRange> </observation&gt ; </component> <component> <observation moodCode ="EVN" classCode="OBS"> <templateId root=& quot;2.16.840.1.775055.10.20.22.4.2" /> <id nullFlavor=&quot ;NA" /> <code codeSystem="local" code="LY&amp ;#37;" displayName="LYMPHOCYTE %" /> < statusCode code="completed" /> <effectiveTime value=& quot;706151924853" /> <value unit="%" xsi: type="PQ" value="19" /> <interpretationCode codeSystem="local" code="*" /> < referenceRange> <observationRange> <text> 20-30</text> </observationRange> </referenceRange&gt ; </observation> </component> <component> <observation moodCode="EVN" classCode="OBS"> <templateId root="2.16.840.1.119340.10.20.22.4.2" />< id nullFlavor="NA" /> <code codeSystem="local&quot ; code="MCH" displayName="MEAN CELL HGB" /> < statusCode code="completed"/> <effectiveTime value=& quot;623936954106" /> <value unit="pg" xsi:type=& quot;PQ" value="32.0" /> <referenceRange> &lt ;observationRange> <text>27.0-33.0</text> </observationRange> </referenceRange> </ observation> </component> <component> < observation moodCode="EVN" classCode="OBS"> < templateId root="2.16.840.1.707157.10.20.22.4.2" /> < id nullFlavor="NA" /> <code codeSystem="local&quot ; code="MCHC" displayName="MEAN CELL HGB CONCENTRATION" /&gt ; <statusCode code="completed" /> < effectiveTime value="280424439329" /> <value unit=&quot ;g/dL" xsi:type="PQ" value="32.8" /> < referenceRange> <observationRange> <text>32.0-37.0& lt;/text> </observationRange> </referenceRange& gt; </observation> </component><component> <observation moodCode="EVN" classCode="OBS"> < templateId root="2.16.840.1.452052.10.20.22.4.2" /> < id nullFlavor="NA" /> <code codeSystem="local&quot ; code="MCV" displayName="MEAN CELL VOLUME" /> & lt;statusCode code="completed" /> <effectiveTime value= "035762679287" /> <value unit="fl" xsi:type=& quot;PQ" value="97.6" /> <referenceRange> <observationRange> <text>80.0-100.0</text&gt ; </observationRange> </referenceRange> </ observation> </component> <component> < observation moodCode="EVN" classCode="OBS"> < templateId root="2.16.840.1.669721.10.20.22.4.2" /> < id nullFlavor="NA"/> <code codeSystem="local&quot ; code="MO#" displayName="MONOCYTE#" /> < statusCode code="completed" /> <effectiveTime value=& quot;658863205282" /> <value unit="k/cumm" xsi: type="PQ"value="0.9" /> <referenceRange> <observationRange> <text>0.1-1.0</text> </observationRange> </referenceRange> </ observation> </component> <component> < observation moodCode="EVN" classCode="OBS"> < templateId root="2.16.840.1.066834.10.20.22.4.2" /> < id nullFlavor="NA" /> <code codeSystem="local&quot ; code="MO%" displayName="MONOCYTE %" /> <statusCode code="completed" /> < effectiveTime value="769797547344" /> <value unit=&quot ;%" xsi:type="PQ" value="11" /> &lt ;interpretationCode codeSystem="local" code="*" /> <referenceRange> <observationRange> < text>4-6</text> </observationRange> </ referenceRange> </observation> </component> < component> <observation moodCode="EVN" classCode=" OBS"> <templateId root="2.16.840.1.907496.10.20.22.4.2& quot; /> <id nullFlavor="NA" /> <code codeSystem="local" code="RBC" displayName="RED BLOOD CELL" /> <statusCode code="completed" /> <effectiveTime value="061313165702" /> <value unit=& quot;m/cumm" xsi:type="PQ" value="2.50" /> < interpretationCode codeSystem="local" code="*" /> <referenceRange> <observationRange> < text>4.00-6.00</text> </observationRange> </ referenceRange> </observation> </component> < component> <observation moodCode="EVN" classCode=" OBS"> <templateId root="2.16.840.1.676854.10.20.22.4.2& quot; /> <id nullFlavor="NA" /> <code codeSystem="local" code="RDW" displayName="RED CELL DISTRIBUTION WIDTH" /> <statusCode code="completed&quot ; /> <effectiveTime value="670385349018" /> <value unit="%" xsi:type="PQ" value="13.8& quot; /> <referenceRange> <observationRange> <text>11.0-15.6</text> </observationRange> </referenceRange> </observation> </ component> <component> <observation moodCode="EVN& quot; classCode="OBS"> <templateId root=" 2.16.840.1.259944.10.20.22.4.2" /> <id nullFlavor="NA" /& gt; <code codeSystem="local" code="WBC" displayName="WHITE BLOOD CELL" /> <statusCode code=& quot;completed" /> <effectiveTime value="921931010088& quot; /> <value unit="k/cumm" xsi:type="PQ" value="7.8" /> <referenceRange> < observationRange> <text>5.0-10.0</text> & lt;/observationRange> </referenceRange> </ observation> </component> <component> < observation moodCode="EVN" classCode="OBS"> < templateId root="2.16.840.1.252212.10.20.22.4.2" /> < id nullFlavor="NA" /> <code codeSystem="local&quot ; code="HGBT" displayName="HEMOGLOBIN" /> < statusCode code="completed" /> <effectiveTime value=" 119838133705" /> <value unit="gm/dL" xsi:type=& quot;PQ" value="8.0" /> <interpretationCode codeSystem="local" code="*" /> < referenceRange> <observationRange> <text> 14.0-18.0</text> </observationRange> </ referenceRange> </observation> </component> < component><observation moodCode="EVN" classCode="OBS"& gt; <templateId root="2.16.840.1.014097.10.20.22.4.2" /&gt ; <id nullFlavor="NA" /> <code codeSystem=" local" code="HCTT" displayName="HEMATOCRIT" /> <statusCode code="completed" /> <effectiveTime value="413643809120" /> <value unit="%& quot; xsi:type="PQ" value="24.4" /> < interpretationCode codeSystem="local" code="*" /> <referenceRange> <observationRange> < text>40.0-54.0</text> </observationRange> &lt ;/referenceRange> </observation> </component> & lt;component> <observation moodCode="EVN" classCode=&quot ;OBS"> <templateId root="2.16.840.1.379243.10.20.22.4.2 " /> <id nullFlavor="NA" /> <code codeSystem="local" code="PLT" displayName="PLATELET COUNT" /> <statusCode code="completed" /> <effectiveTime value="640235660909" /> <value unit="k/cumm" xsi:type="PQ" value="395" /> &lt ;referenceRange> <observationRange> <text&gt ;150-400</text> </observationRange> </ referenceRange> </observation> </component> </ organizer> </entry> <entry> <organizer moodCode="EVN " classCode="BATTERY"> <templateId root=" 2.16.840.1.847852.10.20.22.4.1" /> <id nullFlavor="NA&quot ; /> <code codeSystem="local" code="RENAL" displayName="RENAL FUNCTION PANEL" /> <statusCode code=& quot;completed" /> <component> <observation moodCode="EVN" classCode="OBS"> <templateId root="2.16.840.1.671459.10.20.22.4.2" /> <id nullFlavor ="NA" /> <code codeSystem="local" code=" K" displayName="POTASSIUM" /> <statusCode code=& quot;completed" /> <effectiveTime value="768171607416& quot; /> <value unit="mmol/L" xsi:type="PQ" value="4.4" /> <referenceRange> < observationRange> <text>3.5-5.3</text> </ observationRange> </referenceRange> </observation&gt ; </component> <component> <observation moodCode ="EVN" classCode="OBS"> <templateId root=& quot;2.16.840.1.157396.10.20.22.4.2" /> <id nullFlavor="NA& quot; /> <code codeSystem="local" code="eGFR&quot ; displayName="EST GFR (MDRD)" /> <statusCode code=& quot;completed" /> <effectiveTime value="256148551946& quot; /> <value unit="mL/min" xsi:type="PQ" value="48" /> <interpretationCode codeSystem=" local" code="*" /> <referenceRange> <observationRange> <text>> 59</text> </observationRange> </referenceRange> </ observation> </component> <component> < observation moodCode="EVN" classCode="OBS"> < templateId root="2.16.840.1.803759.10.20.22.4.2" /> < id nullFlavor="NA" /> <code codeSystem="local&quot ; code="GAP" displayName="ANION GAP" /> < statusCode code="completed" /> <effectiveTime value=& quot;732789711999" /> <value unit="mmol/L" xsi: type="PQ" value="7" /> <referenceRange> <observationRange> <text>5-15</text> </observationRange> </referenceRange> < /observation> </component> <component> < observation moodCode="EVN" classCode="OBS"> < templateId root="2.16.840.1.128192.10.20.22.4.2" /> < id nullFlavor="NA" /> <code codeSystem="local&quot ; code="eCrCl" displayName="EST CrCl (CG)" /> & lt;statusCode code="completed" /> <effectiveTime value= "152323386871" /> <value unit="mL/min" xsi: type="PQ" value="48" /> <interpretationCode codeSystem="local" code="*" /> <referenceRange > <observationRange> <text>> 59&lt ;/text> </observationRange> </referenceRange&gt ; </observation> </component> <component> <observation moodCode="EVN" classCode="OBS"> <templateId root="2.16.840.1.679338.10.20.22.4.2" /> <id nullFlavor="NA" /> <code codeSystem=" local" code="GLU" displayName="GLUCOSE" /> <statusCode code="completed" /> <effectiveTime value ="719342171853" /> <value unit="mg/dL" xsi: type="PQ" value="88" /> <referenceRange> <observationRange> <text>70-99</text> </observationRange> </referenceRange> </ observation> </component> <component> < observation moodCode="EVN" classCode="OBS"> < templateId root="2.16.840.1.807676.10.20.22.4.2" /> < id nullFlavor="NA" /> <code codeSystem="local&quot ; code="CA" displayName="CALCIUM" /> < statusCode code="completed" /> <effectiveTime value=" 119656944749" /> <value unit="mg/dL" xsi:type=& quot;PQ" value="8.4" /> <interpretationCode codeSystem="local" code="*" /> < referenceRange> <observationRange> <text> 8.5-10.1</text> </observationRange> </ referenceRange> </observation> </component> < component> <observation moodCode="EVN" classCode="OBS&quot ;> <templateId root="2.16.840.1.833930.10.20.22.4.2" /& gt; <id nullFlavor="NA" /> <code codeSystem=& quot;local" code="BUN" displayName="BLOOD UREA NITROGEN&quot ; /> <statusCode code="completed" /> < effectiveTime value="458567757824" /> <value unit=&quot ;mg/dL" xsi:type="PQ" value="26" /> < interpretationCode codeSystem="local" code="*" /> <referenceRange> <observationRange> < text>7-20</text> </observationRange> </ referenceRange> </observation> </component> < component> <observation moodCode="EVN" classCode=" OBS"> <templateId root="2.16.840.1.806485.10.20.22.4.2& quot; /> <id nullFlavor="NA" /> <code codeSystem="local" code="CREAT" displayName="CREATININE " /> <statusCodecode="completed" /> & lt;effectiveTime value="054973304701" /> <value unit=" mg/dL" xsi:type="PQ" value="1.4" /> < interpretationCode codeSystem="local" code="*" /> <referenceRange> <observationRange> < text>0.7-1.3</text> </observationRange> </ referenceRange> </observation> </component> < component> <observation moodCode="EVN" classCode=" OBS"> <templateId root="2.16.840.1.399613.10.20.22.4.2& quot; /> <id nullFlavor="NA" /> <code codeSystem="local" code="NA" displayName="SODIUM" /> <statusCode code="completed" /> < effectiveTime value="881884724617" /> <value unit=&quot ;mmol/L" xsi:type="PQ" value="137" /> < referenceRange> <observationRange> <text> 135-148</text> </observationRange> </ referenceRange> </observation> </component> < component> <observation moodCode="EVN" classCode=" OBS"> <templateId root="2.16.840.1.531556.10.20.22.4.2& quot; /> <id nullFlavor="NA" /> <code codeSystem="local" code="CL" displayName="CHLORIDE&quot ; /> <statusCode code="completed" /> < effectiveTime value="753043840353" /> <value unit=&quot ;mmol/L" xsi:type="PQ" value="101" /> < referenceRange> <observationRange> <text>98-110& lt;/text> </observationRange> </referenceRange& gt; </observation> </component> <component> <observation moodCode="EVN" classCode="OBS"> <templateId root="2.16.840.1.426310.10..22.4.2" /> <id nullFlavor="NA" /> <code codeSystem=&quot ;local" code="CO2" displayName="CARBON DIOXIDE" /> <statusCode code="completed" /> <effectiveTime value="529010902906" /> <value unit="mmol/L" xsi:type="PQ" value="29" /> <referenceRange& gt; <observationRange> <text>21-32</text& gt; </observationRange> </referenceRange> </observation> </component> <component> &lt ;observation moodCode="EVN" classCode="OBS"> &lt ;templateId root="2.16.840.1.514061.10.20.22.4.2" /> < id nullFlavor="NA" /> <code codeSystem="local&quot ; code="ALB" displayName="ALBUMIN" /> < statusCode code="completed" /> <effectiveTime value=& quot;341424835635" /> <value unit="gm/dL" xsi:type ="PQ" value="2.1" /> <interpretationCode codeSystem="local" code="*" /> < referenceRange> <observationRange> <text> 3.4-5.0</text> </observationRange> </ referenceRange> </observation> </component> < component> <observation moodCode="EVN" classCode=" OBS"> <templateId root="2.16.840.1.307060.10.20.22.4.2& quot; /> <id nullFlavor="NA" /> <code codeSystem="local" code="PHOS" displayName="PHOSPHORUS& quot; /> <statusCode code="completed" /> < effectiveTime value="951837844200" /> <value unit=&quot ;mg/dL" xsi:type="PQ" value="2.8" /> < referenceRange> <observationRange> <text> 2.5-4.9</text> </observationRange> </ referenceRange> </observation> </component> </ organizer> </entry> <entry> <organizer moodCode="EVN " classCode="BATTERY"> <templateId root=" 2.16.840.1.277593.10.20.22.4.1" /> <id nullFlavor="NA&quot ; /> <code codeSystem="local" code="MAG" displayName="MAGNESIUM" /> <statusCode code="completed " /> <component> <observation moodCode="EVN& quot; classCode="OBS"> <templateId root=" 2.16.840.1.452844.10.20.22.4.2" /> <id nullFlavor="NA& quot; /> <code codeSystem="local" code="MAG" displayName="MAGNESIUM" /> <statusCode code=" completed" /> <effectiveTime value="954910139423" /> <value unit="mg/dL" xsi:type="PQ" value=& quot;2.0" /> <referenceRange> < observationRange> <text>1.8-2.4</text> </ observationRange> </referenceRange> </observation&gt ; </component> </organizer> </entry> <entry> <organizer moodCode="EVN" classCode="BATTERY"> <templateId root="2.16.840.1.712684.10.20.22.4.1" /> < id nullFlavor="NA" /> <code codeSystem="local" code="GLUMON" displayName="GLUCOSE (POC)" /> < statusCode code="completed" /> <component> < observation moodCode="EVN" classCode="OBS"> < templateId root="2.16.840.1.219599.10.20.22.4.2" /> < id nullFlavor="NA" /> <code codeSystem="local" code=& quot;GLUMON" displayName="GLUCOSE (POC)"/> < statusCode code="completed" /> <effectiveTime value=& quot;159209273708" /> <value unit="mg/dL" xsi:type ="PQ" value="102" /> <interpretationCode codeSystem="local" code="*" /> < referenceRange> <observationRange> <text> 70-99</text> </observationRange> </ referenceRange> </observation> </component> </ organizer> </entry> <entry> <organizer moodCode="EVN " classCode="BATTERY"> <templateId root=" 2.16.840.1.389963.10.20.22.4.1" /> <id nullFlavor="NA&quot ; /> <code codeSystem="local" code="GLUMON" displayName="GLUCOSE (POC)" /> <statusCode code=" completed" /> <component> <observation moodCode=& quot;EVN" classCode="OBS"> <templateId root=" 2.16.840.1.873116.10.20.22.4.2" /> <id nullFlavor="NA& quot; /> <code codeSystem="local" code="GLUMON& quot; displayName="GLUCOSE (POC)" /> <statusCode code=& quot;completed" /> <effectiveTime value="738108526612& quot; /> <value unit="mg/dL" xsi:type="PQ" value="171" /> <interpretationCode codeSystem="local&quot ; code="*" /> <referenceRange> < observationRange> <text>70-99</text> </ observationRange> </referenceRange> </observation&gt ; </component> </organizer> </entry> <entry> <organizer moodCode="EVN" classCode="BATTERY"> <templateId root="2.16.840.1.764415.10.20.22.4.1" /> < id nullFlavor="NA" /> <code codeSystem="local" code="GLUMON" displayName="GLUCOSE (POC)" /> < statusCode code="completed" /> <component> < observation moodCode="EVN" classCode="OBS"> < templateId root="2.16.840.1.853767.10.20.22.4.2" /> <id nullFlavor="NA" /> <code codeSystem="local" code="GLUMON" displayName="GLUCOSE (POC)" /> &lt ;statusCode code="completed" /> <effectiveTime value=& quot;411485458622" /> <value unit="mg/dL" xsi:type ="PQ" value="275" /> <interpretationCode codeSystem="local" code="*" /> < referenceRange> <observationRange> <text> 70-99</text> </observationRange> </ referenceRange> </observation> </component> </ organizer> </entry> <entry> <organizer moodCode="EVN " classCode="BATTERY"> <templateId root=" 2.16.840.1.677548.10.20.22.4.1" /> <id nullFlavor="NA&quot ; /> <code codeSystem="local" code="GLUMON" displayName="GLUCOSE (POC)" /> <statusCode code=" completed" /> <component> <observation moodCode=& quot;EVN" classCode="OBS"> <templateId root=" 2.16.840.1.101806.10.20.22.4.2" /> <id nullFlavor="NA& quot; /> <code codeSystem="local" code="GLUMON& quot; displayName="GLUCOSE (POC)" /> <statusCode code=& quot;completed" /> <effectiveTime value="354227473286& quot; /> <value unit="mg/dL" xsi:type="PQ" value="186" /> <interpretationCode codeSystem=" local" code="*" /> <referenceRange> <observationRange> <text>70-99</text> < /observationRange> </referenceRange> </observation& gt; </component> </organizer> </entry><entry> <organizer moodCode="EVN" classCode="BATTERY"> <templateId root="2.16.840.1.901598.10.20.22.4.1" /> < id nullFlavor="NA"/> <code codeSystem="local" code="GLUMON" displayName="GLUCOSE (POC)" /> < statusCode code="completed" /> <component> < observation moodCode="EVN" classCode="OBS"> < templateId root="2.16.840.1.767096.10.20.22.4.2" /> < id nullFlavor="NA" /> <code codeSystem="local" code=& quot;GLUMON" displayName="GLUCOSE (POC)" /> < statusCode code="completed" /> <effectiveTime value=& quot;666577793374" /> <value unit="mg/dL" xsi:type ="PQ" value="95" /> <referenceRange> <observationRange> <text>70-99</text> </observationRange> </referenceRange> </ observation> </component> </organizer> </entry> & lt;entry> <organizer moodCode="EVN" classCode="BATTERY& quot;> <templateId root="[id number]" /& gt; <id nullFlavor="NA" /><code codeSystem="local& quot; code="CBCD" displayName="CBC W/DIFF" /> < statusCode code="completed" /> <component> < observation moodCode="EVN" classCode="OBS"> < templateId root="[id number]" /> < id nullFlavor="NA" /> <code codeSystem="local&quot ; code="EO#" displayName="EOSINOPHIL #" /> < statusCode code="completed" /> <effectiveTime value=& quot;[id number]" /> <value unit="k/cumm" xsi: type="PQ" value="0.4" /> <referenceRange> <observationRange> <text>0.1-0.5</text& gt; </observationRange> </referenceRange> </observation> </component> <component> &lt ;observation moodCode="EVN" classCode="OBS"> &lt ;templateId root="2.16.840.1.844695.10.20.22.4.2" /> < id nullFlavor="NA" /> <code codeSystem="local&quot ; code="EO%" displayName="EOSINOPHIL %" /&gt ; <statusCode code="completed" /> < effectiveTime value="463526940678" /> <value unit=&quot ;%" xsi:type="PQ" value="5" /> < interpretationCode codeSystem="local" code="*" /> <referenceRange> <observationRange> < text>2-4</text> </observationRange> </ referenceRange> </observation> </component> < component> <observation moodCode="EVN" classCode=" OBS"> <templateId root="2.16.840.1.106784.10.20.22.4.2& quot; /> <id nullFlavor="NA" /> <code codeSystem= "local" code="GR#" displayName="GRANULOCYTE #" /& gt; <statusCode code="completed" /> < effectiveTime value="086558093806" /> <value unit=&quot ;k/cumm" xsi:type="PQ" value="5.9" /> < referenceRange> <observationRange> <text>2.0- 9.0</text> </observationRange> </ referenceRange> </observation> </component> < component> <observation moodCode="EVN" classCode=" OBS"> <templateId root="2.16.840.1.440433.10.20.22.4.2& quot; /> <id nullFlavor="NA" /> <code codeSystem="local" code="GR%" displayName=" GRANULOCYTE %" /> <statusCode code="completed& quot;/> <effectiveTime value="439134917956" /> <value unit="%" xsi:type="PQ" value="66 " /> <referenceRange> <observationRange> <text>50-75</text> </observationRange> </referenceRange> </observation> </component > <component> <observation moodCode="EVN" classCode="OBS"> <templateId root=" 2.16.840.1.954695.10.20.22.4.2" /> <id nullFlavor="NA& quot; /> <code codeSystem="local" code="LY#" displayName="LYMPHOCYTE #" /> <statusCode code=" completed" /> <effectiveTime value="387484747121" /> <value unit="k/cumm" xsi:type="PQ" value=& quot;1.6" /> <referenceRange> < observationRange> <text>1.0-4.0</text> & lt;/observationRange> </referenceRange> </observation> </component> <component> <observation moodCode= "EVN" classCode="OBS"> <templateId root=&quot ;2.16.840.1.142976.10.20.22.4.2" /> <id nullFlavor="NA& quot; /> <code codeSystem="local" code="LY&#37 ;" displayName="LYMPHOCYTE %" /> < statusCode code="completed" /> <effectiveTime value=& quot;205377817370" /> <value unit="%" xsi: type="PQ" value="18" /> <interpretationCode codeSystem="local" code="*" /> < referenceRange> <observationRange> <text>20- 30</text> </observationRange> </ referenceRange> </observation> </component> < component> <observation moodCode="EVN" classCode=" OBS"> <templateId root="2.16.840.1.975048.10.20.22.4.2& quot; /> <id nullFlavor="NA" /> <code codeSystem="local" code="MCH" displayName="MEAN CELL HGB" /> <statusCode code="completed" /> & lt;effectiveTime value="919859059304" /> <value unit=& quot;pg" xsi:type="PQ" value="31.6" /> < referenceRange> <observationRange> <text> 27.0-33.0</text> </observationRange> </ referenceRange></observation> </component> < component> <observation moodCode="EVN" classCode=" OBS"> <templateId root="2.16.840.1.181305.10.20.22.4.2& quot; /> <id nullFlavor="NA" /> <code codeSystem="local" code="MCHC" displayName="MEAN CELL HGB CONCENTRATION" /> <statusCode code="completed" /&gt ; <effectiveTime value="525582903497" /> < value unit="g/dL" xsi:type="PQ" value="32.5" /&gt ; <referenceRange> <observationRange> <text>32.0-37.0</text> </observationRange> </referenceRange> </observation> </component&gt ; <component> <observation moodCode="EVN" classCode="OBS"> <templateId root=" 2.16.840.1.123933.10.20.22.4.2" /> <id nullFlavor="NA& quot; /> <code codeSystem="local" code="MCV" displayName="MEAN CELL VOLUME" /> <statusCode code=& quot;completed" /> <effectiveTime value="535718707519& quot; /> <value unit="fl" xsi:type="PQ" value ="97.3" /> <referenceRange> <observationRange& gt; <text>80.0-100.0</text> </ observationRange> </referenceRange> </observation&gt ; </component> <component> <observation moodCode ="EVN"classCode="OBS"> <templateId root=&quot ;2.16.840.1.590262.10.20.22.4.2" /> <id nullFlavor="NA& quot; /> <code codeSystem="local" code="MO#" displayName="MONOCYTE #" /> <statusCode code=" completed" /> <effectiveTime value="555408599387" /> <value unit="k/cumm" xsi:type="PQ" value=& quot;0.9" /> <referenceRange> < observationRange> <text>0.1-1.0</text></ observationRange> </referenceRange> </observation&gt ; </component> <component> <observation moodCode ="EVN" classCode="OBS"> <templateId root=& quot;2.16.840.1.485254.10.20.22.4.2" /> <id nullFlavor=&quot ;NA" /> <code codeSystem="local" code="MO&amp ;#37;" displayName="MONOCYTE %" /> < statusCode code="completed" /> <effectiveTime value=& quot;301351207200" /> <value unit="%" xsi: type="PQ" value="11" /> <interpretationCode codeSystem="local" code="*" /> < referenceRange> <observationRange> <text>4-6</ text> </observationRange> </referenceRange> </observation> </component> <component> <observation moodCode="EVN" classCode="OBS"> <templateId root="2.16.840.1.378712.10.20.22.4.2" /> <id nullFlavor="NA" /> <code codeSystem=" local" code="RBC" displayName="RED BLOOD CELL" /> <statusCode code="completed" /> < effectiveTime value="829280326019" /> <value unit=&quot ;m/cumm" xsi:type="PQ" value="2.56" /> < interpretationCode codeSystem="local" code="*" /> <referenceRange> <observationRange> <text> 4.00-6.00</text> </observationRange> </ referenceRange> </observation> </component> < component> <observation moodCode="EVN" classCode=" OBS"> <templateId root="2.16.840.1.254894.10.20.22.4.2& quot; /> <id nullFlavor="NA" /> <code codeSystem="local" code="RDW" displayName="RED CELL DISTRIBUTION WIDTH" /> <statusCode code="completed&quot ; /> <effectiveTime value="312213718301" /> <value unit="%" xsi:type="PQ"value="13.9& quot; /> <referenceRange> <observationRange> <text>11.0-15.6</text> </observationRange&gt ; </referenceRange> </observation> </ component> <component> <observation moodCode="EVN& quot; classCode="OBS"> <templateId root=" 2.16.840.1.080865.10.20.22.4.2" /> <id nullFlavor="NA& quot; /> <code codeSystem="local" code="WBC" displayName="WHITE BLOOD CELL" /> <statusCode code=& quot;completed" /> <effectiveTime value="287207608203& quot; /> <value unit="k/cumm" xsi:type="PQ" value="8.9" /> <referenceRange> < observationRange> <text>5.0-10.0</text> & lt;/observationRange> </referenceRange> </observation > </component> <component> <observation moodCode="EVN" classCode="OBS"> <templateId root="2.16.840.1.497320.10.20.22.4.2" /> <id nullFlavor ="NA" /> <code codeSystem="local" code=" HGBT" displayName="HEMOGLOBIN" /> <statusCode code ="completed" /> <effectiveTime value="574023951670 " /> <value unit="gm/dL" xsi:type="PQ" value="8.1" /> <interpretationCode codeSystem="local& quot; code="*" /> <referenceRange> < observationRange> <text>14.0-18.0</text> &lt ;/observationRange> </referenceRange> </observation& gt;</component> <component> <observation moodCode=& quot;EVN" classCode="OBS"> <templateId root=" 2.16.840.1.523518.10.20.22.4.2" /> <id nullFlavor="NA" /> <code codeSystem="local" code="HCTT" displayName="HEMATOCRIT" /> <statusCode code=" completed" /> <effectiveTime value="660329277742" /> <value unit="%" xsi:type="PQ" value="24.9" /> <interpretationCode codeSystem=" local" code="*" /> <referenceRange> <observationRange> <text>40.0-54.0</text> </observationRange> </referenceRange> </ observation> </component> <component> < observation moodCode="EVN" classCode="OBS">< templateId root="2.16.840.1.290032.10.20.22.4.2" /> < id nullFlavor="NA" /> <code codeSystem="local&quot ; code="PLT" displayName="PLATELET COUNT" /> &lt ;statusCode code="completed" /> <effectiveTime value=& quot;715030300833" /> <value unit="k/cumm" xsi: type="PQ" value="445" /> <interpretationCode codeSystem="local" code="*" /> < referenceRange> <observationRange> <text>150-400 </text> </observationRange> </referenceRange& gt; </observation> </component> </organizer> & lt;/entry> <entry> <organizer moodCode="EVN" classCode ="BATTERY"> <templateId root=" 2.16.840.1.025491.10.20.22.4.1" /> <id nullFlavor="NA&quot ; /> <code codeSystem="local" code="RENAL" displayName="RENAL FUNCTION PANEL" /> <statusCode code=& quot;completed" /> <component> <observation moodCode=& quot;EVN" classCode="OBS"> <templateId root=" 2.16.840.1.512983.10.20.22.4.2" /> <id nullFlavor="NA& quot; /> <code codeSystem="local" code="K" displayName="POTASSIUM" /> <statusCode code=" completed" /> <effectiveTime value="437010476918" /> <value unit="mmol/L" xsi:type="PQ" value=& quot;4.6" /> <referenceRange> < observationRange> <text>3.5-5.3</text> & lt;/observationRange> </referenceRange> </observation& gt; </component> <component> <observation moodCode="EVN" classCode="OBS"> <templateId root="2.840.1.101525.10..22.4.2" /> <id nullFlavor ="NA" /> <code codeSystem="local" code=" eGFR" displayName="EST GFR (MDRD)" /> <statusCode code="completed" /> <effectiveTime value=" 211073071349" /> <value unit="mL/min" xsi:type=& quot;PQ" value="48" /> <interpretationCode codeSystem="local" code="*" /> < referenceRange> <observationRange> <text> > 59</text> </observationRange> </ referenceRange> </observation> </component> < component> <observation moodCode="EVN" classCode=" OBS"> <templateId root="2.16.840.1.983796.10.20.22.4.2& quot; /> <id nullFlavor="NA" /> <code codeSystem="local" code="GAP" displayName="ANION GAP& quot; /> <statusCode code="completed" /> & lt;effectiveTime value="432196660798" /> <value unit=& quot;mmol/L" xsi:type="PQ" value="6" /> &lt ;referenceRange> <observationRange> <text>5 -15</text> </observationRange> </ referenceRange> </observation> </component> < component> <observation moodCode="EVN" classCode=" OBS"> <templateId root="2.16.840.1.130992.10.20.22.4.2& quot; /> <id nullFlavor="NA" /> <code codeSystem="local" code="eCrCl" displayName="EST CrCl ( CG)" /> <statusCode code="completed" /> < effectiveTime value="410082601158" /> <value unit=&quot ;mL/min" xsi:type="PQ" value="47" /> < interpretationCode codeSystem="local" code="*" /> <referenceRange> <observationRange> < text>> 59</text> </observationRange> & lt;/referenceRange> </observation> </component> <component> <observation moodCode="EVN" classCode="OBS& quot;> <templateId root="2.16.840.1.906522.10..22.4.2&quot ; /> <id nullFlavor="NA" /> <code codeSystem= "local" code="GLU" displayName="GLUCOSE" /> <statusCode code="completed" /> < effectiveTime value="687604693333" /> <value unit=&quot ;mg/dL" xsi:type="PQ" value="90" /> < referenceRange> <observationRange> <text> 70-99</text> </observationRange> </ referenceRange></observation> </component> < component> <observation moodCode="EVN" classCode=" OBS"> <templateId root="2.16.840.1.025652.10.20.22.4.2& quot; /> <id nullFlavor="NA" /> <code codeSystem="local" code="CA" displayName="CALCIUM&quot ; /> <statusCode code="completed" /> < effectiveTime value="970665412613" /> <value unit="mg/dL& quot; xsi:type="PQ" value="8.4" /> < interpretationCode codeSystem="local" code="*" /> <referenceRange> <observationRange> < text>8.5-10.1</text> </observationRange> < /referenceRange> </observation> </component> &lt ;component> <observation moodCode="EVN" classCode=" OBS"> <templateId root="2.16.840.1.419103.10.20.22.4.2& quot; /> <id nullFlavor="NA" /> <code codeSystem="local" code="BUN" displayName="BLOOD UREA NITROGEN" /> <statusCode code="completed" /> <effectiveTime value="435413110205" /> < value unit="mg/dL" xsi:type="PQ" value="24" /> <interpretationCode codeSystem="local" code="*&quot ; /> <referenceRange> <observationRange> <text>7-20</text> </observationRange>< /referenceRange> </observation> </component> &lt ;component> <observation moodCode="EVN" classCode="OBS& quot;> <templateId root="2.16.840.1.138747.10.20.22.4.2&quot ; /> <id nullFlavor="NA" /> <code codeSystem="local" code="CREAT" displayName="CREATININE " /> <statusCode code="completed" /> & lt;effectiveTime value="769625263797" /> <value unit=& quot;mg/dL" xsi:type="PQ" value="1.4" /> & lt;interpretationCode codeSystem="local" code="*" /> <referenceRange> <observationRange> & lt;text>0.7-1.3</text> </observationRange> & lt;/referenceRange> </observation> </component> <component> <observation moodCode="EVN" classCode=& quot;OBS"> <templateId root=" 2.16.840.1.810317.10.20.22.4.2" /> <id nullFlavor="NA& quot; /> <code codeSystem="local" code="NA" displayName="SODIUM" /> <statusCode code=" completed" /> <effectiveTime value="519932585944" /> <value unit="mmol/L" xsi:type="PQ" value=& quot;137" /> <referenceRange> < observationRange> <text>135-148</text> </ observationRange> </referenceRange> </observation&gt ; </component> <component> <observation moodCode ="EVN" classCode="OBS"> <templateId root=& quot;2.16.840.1.616617.10.20.22.4.2" /> <id nullFlavor="NA& quot; /> <code codeSystem="local" code="CL" displayName="CHLORIDE" /> <statusCode code=" completed" /> <effectiveTime value="673674519340" /> <value unit="mmol/L" xsi:type="PQ" value=& quot;101" /> <referenceRange> <observationRange> <text>98-110</text> </observationRange& gt; </referenceRange> </observation> </ component> <component> <observation moodCode="EVN& quot; classCode="OBS"> <templateId root=" 2.16.840.1.112605.10.20.22.4.2" /> <id nullFlavor="NA& quot; /> <code codeSystem="local" code="CO2" displayName="CARBON DIOXIDE" /> <statusCode code=" completed" /> <effectiveTime value="182084713463" /> <value unit="mmol/L" xsi:type="PQ" value=& quot;30" /> <referenceRange> < observationRange> <text>21-32</text> < /observationRange> </referenceRange> </observation& gt; </component> <component> <observation moodCode=& quot;EVN" classCode="OBS"> <templateId root=" 2.16.840.1.870230.10.20.22.4.2" /> <id nullFlavor="NA& quot; /> <code codeSystem="local" code="ALB" displayName="ALBUMIN" /> <statusCode code=" completed" /> <effectiveTime value="151086642340" /> <value unit="gm/dL" xsi:type="PQ" value=& quot;2.3" /> <interpretationCode codeSystem="local&quot ; code="*" /> <referenceRange> < observationRange> <text>3.4-5.0</text> & lt;/observationRange> </referenceRange> </ observation> </component> <component> < observation moodCode="EVN" classCode="OBS"> < templateId root="2.16.840.1.535217.10.20.22.4.2" /> < id nullFlavor="NA" /> <code codeSystem="local&quot ; code="PHOS" displayName="PHOSPHORUS" /> < statusCode code="completed" /> <effectiveTime value=& quot;540492805032" /> <value unit="mg/dL" xsi:type ="PQ" value="2.7" /> <referenceRange> <observationRange> <text>2.5-4.9</text> </observationRange> </referenceRange> </ observation> </component> </organizer> </entry> & lt;entry> <organizer moodCode="EVN" classCode="BATTERY& quot;> <templateId root="2.16.840.1.792776.10.20.22.4.1" /& gt; <id nullFlavor="NA" /> <code codeSystem=" local" code="MAG" displayName="MAGNESIUM" /> & lt;statusCode code="completed" /> <component> &lt ;observation moodCode="EVN" classCode="OBS"> &lt ;templateId root="2.16.840.1.839253.10.20.22.4.2" /> <id nullFlavor="NA" /> <code codeSystem="local" code="MAG" displayName="MAGNESIUM" /> < statusCode code="completed" /> <effectiveTime value=& quot;162512132230" /> <value unit="mg/dL" xsi:type ="PQ" value="2.0" /> <referenceRange> & lt;observationRange> <text>1.8-2.4</text> </observationRange> </referenceRange> </ observation> </component> </organizer> </entry> & lt;entry> <organizer moodCode="EVN" classCode="BATTERY& quot;> <templateId root="2.16.840.1.340629.10.20.22.4.1" /& gt;<id nullFlavor="NA" /> <code codeSystem="local& quot; code="GLUMON" displayName="GLUCOSE (POC)" /> & lt;statusCode code="completed" /> <component> &lt ;observation moodCode="EVN" classCode="OBS"> &lt ;templateId root="2.16.840.1.087700.10.20.22.4.2" /> < id nullFlavor="NA" /> <code codeSystem="local&quot ; code="GLUMON" displayName="GLUCOSE (POC)" /> & lt;statusCode code="completed" /> <effectiveTime value=&quot ;875521819159" /> <value unit="mg/dL" xsi:type=& quot;PQ" value="228" /> <interpretationCode codeSystem="local" code="*" /> < referenceRange> <observationRange> <text> 70-99</text> </observationRange> </ referenceRange> </observation> </component> </ organizer> </entry></section> Encounters ACCT No. Visit Discharge Status Pt. Type Provider Facility Loc./Unit Complaint Date/Time [id number] 07/10/2015 07/17/2015 DIS Inpatient Yo AVILEZ, [facility] F6SE Level II 41 18:11:00 14:19:00 [facility] fall, on St. right Can femur fx [id number] 10/11/2016 ACT Unknown [id number] 07:43:00 [id number] 08/16/2016 ACT Unknown [id number] 12:38:00 [id number] 07/30/2016 ACT Unknown [id number] 08:54:00 [id number] 09/08/2015 ACT Unknown [id number] 12:39:00 [id number] 09/13/2014 ACT Unknown [id number] 08:24:00 [id number] 07/01/2014 ACT Unknown [id number] 10:00:00 [id number] 02/24/2014 ACT Unknown [id number] 08:54:00 [id number] 07/30/2013 ACT Unknown [id number] 11:18:00 [id number] 06/23/2013 ACT Unknown [id number] 08:55:00 [id number] 02/04/2017 2017 DIS Inpatient Freddy Borrero7TN 11 17:07:00 13:51:00 , [facility] Enio [facility] [id number] 06/21/2016 06/25/2016 DIS Inpatient Izzy [id number] 55 15:07:00 14:19:00 Brian AIVLEZ, [facility]
--- OUTSIDE RECORDS SUMMARY | 2017-09-25 22:04 | External Medical Summary | CCD ---
:1930 Author Name DAX EID Address [address], [place] [phone] Care Team Providers Name Role Phone SMITA MILAN Attending Physician Unavailable Vital Signs Unknown or Not Available. Allergies Allergy Code Allergy Type Reaction Status SULFA 0 Drug allergy Active (sulfonamide) MORPHINE 7052 Drug allergy Active NORCO 274023 Drug allergy Active Procedures Unknown or Not Available. History of Immunizations Immunization Code Date pneumococcal polysaccharide PPV23 33 08/12/2007 Influenza, seasonal, injectable 141 05/22/2015 Problems Unknown or Not Available. Results BASIC METABOLIC - Collect Date/Time: 10/03/2016 08:45 Test Name Code Test Result Test Units Test Ref Range GLUCOSE 130 mg/dL L=70 H=110 BUN 24 mg/dL L=7 H=18 CREATININE 1.48 mg/dL L=0.60 H=1.30 AGE 86 YEARS GFR 45.1 L=60.0 H=120 SODIUM 139 mmol/L L=136 H=145 POTASSIUM 5.0 mmol/L L=3.5 H=5.1 CHLORIDE 103 mmol/L L=98 H=107 CO2 28 mmol/L L=21 H=32 CALCIUM 8.8 mg/dL L=8.5 H=10.1 HGB A1C - Collect Date/Time: 10/03/2016 08:45 Test Name Code Test Result Test Units Test Ref Range HGB A1C 6.4 % L=4.5 H=6.2 eAG 137 mg/dL Active Medications Medication Code Dose Units Frequency Route Modification Start Date/Time Fosinopril 100675 40 MILLIGRAMS DAILY ORAL 07/31/2015 40MG Oral 11:25 Tablet Prescription Detail 40 MILLIGRAMS ORAL DAILY Hydrochlorothiazide 921273 25 MILLIGRAMS DAILY ORAL 07/31/2015 25MG Oral Tablet 11:25 Prescription Detail 25 MILLIGRAMS ORAL DAILY Lovastatin 20MG 754100 20 MILLIGRAMS DAILY ORAL 07/31/2015 Oral Tablet 11:25 Prescription Detail 20 MILLIGRAMS ORAL DAILY Mapap 325MG 607956 650 MILLIGRAMS PRN Q4H BY MOUTH 07/31/2015 Oral Tablet 11:25 Prescription Detail TAKE 650 MILLIGRAMS BY MOUTH PRN Q4H Plavix 75MG 599293 75 MILLIGRAMS DAILY ORAL 07/31/2015 Oral Tablet 11:25 Prescription Detail 75 MILLIGRAMS ORAL DAILY Flomax 0.4MG 048320 0.4 MILLIGRAMS AT BEDTIME ORAL 07/31/2015 Oral Capsule 11:24 Prescription Detail 0.4 MILLIGRAMS ORAL AT BEDTIME Medications Administered During Visit Unknown or Not Available. Encounters Unknown or Not Available. Social History Smoking Status Code Start Date End Date Never smoker [id number] Patient Decision Aids Unknown or Not Available. Discharge Instructions You were admitted to [facility] on 10/03/2016 08:31 You had the following tests done: BASIC METABOLIC HGB A1C You were discharged from [facility] on 10/03/2016 08:31 Should you have any questions prior to [...]
--- OUTSIDE RECORDS SUMMARY | 2017-09-25 22:04 | External Medical Summary | CCD ---
:1930 Author Name PAUL JOSHI Address [address], [place] [phone] Care Team Providers Name Role Phone FLORESITA DAVIDSON Attending Physician Unavailable Vital Signs Unknown or Not Available. Allergies Allergy Code Allergy Type Reaction Status SULFA (sulfonamide) 0 Drug allergy Active MORPHINE 7052 Drug allergy Active Procedures Unknown or Not Available. History of Immunizations Unknown or Not Available. Problems Unknown or Not Available. Results Unknown or Not Available. Active Medications Unknown or Not Available. Medications Administered During Visit Unknown or Not Available. Encounters Encounter Diagnosis Diagnosis Code Start Date PAIN IN LIMB 7295 03/10/2015 Social History Smoking Status Code Start Date End Date Never smoker [id number] Patient Decision Aids Unknown or Not Available. Discharge Instructions You were admitted to [facility] on with a principal diagnosis of PAIN IN LIMB. You were discharged from [facility] on 03/10/2015. Should you have any questions prior to discharge, please contact a member of your healthcare team. If you have left the hospital and have any questions, please contact your primary care physician. Chief Complaint and Reason For Visit Chief Complaint Date of Onset XR RT ELBOW RT FOREARM Function Status Unknown or Not Available. Plan of Care Unknown or Not Available. Referral/Transition of Care Unknown or Not Available.
[2017-09-25] MEDS ORDERED: METOCLOPRAMIDE 10mg/2ml INJECTION IVP PRN (22:48)
[2017-09-25] MEDS ORDERED: ACETAMINOPHEN 325 MG TABLET PO PRN (22:48)
[2017-09-25] MEDS ORDERED: SENNA + DOCUSATE TABLET PO PRN (22:48)
[2017-09-25] MEDS ORDERED: GLUCOSE ORAL GEL 40% 37.5gm PO PRN (22:56)
[2017-09-25] MEDS ORDERED: CEFTRIAXONE 1 G in NS 100 ML IV SCH (23:00)
--- NOTE | 2017-09-25 23:11 | History & Physical Report ---
History of Present Illness Date: 09/26/17 Chief complaint: SOb, hypoglycemia HPI: The pt is a 87 yo who started developing SOB, congestion, myalgia and subjective fevers, on 09/19/17 he went to the clinic in his home town and was given one IM dose of rocephin 1 gm, and given Levoquin. He didn't fill the prescription until 09/22. He took two doses and became dizzy and confused per . He then was brought to the [facility] ER where he was found to have a blood sugar of 46. He was given one amp of D50 and started on D5 after receiving 1 liter bolus NS. It was also noted that his LA was 4.3, K 3.0, and + for influenza B. He was then transfered to our facility for higher level of care and close monitoring. Review of Systems All systems PM: 10-point ROS was reviewed, no additional remarkable complaints except - Constitutional Constitutional: Present: chills, fatigue, malaise, weakness - EENMT Balance: Present: vertigo Mouth/Throat: Present: dry mouth - Cardiovascular Cardiovascular: Present: palpitations. Absent: chest pain, syncope - Respiratory Respiratory: Present: cough. Absent: dyspnea, hemoptysis - Musculoskeletal Musculoskeletal: Present: back pain - Neurological Neurological: Absent: confusion Past Medical History Patient Stated Medical History Cataracts Yes Hearing Loss Yes Cardiac Arrhythmia Yes Coronary Artery Disease Yes Hypertension Yes Diabetes Mellitus Type 2 Yes CABG 1997 A-fib chronic Fe def anemia Surgical History: CABG Family History Updates: HNT, CVA - Social History Smoking status: Former smoker Substance use type: does not use Alcohol intake: never Alcohol intake frequency: does not drink Housing: house Household members: spouse Medications Home Medications Medication Instructions Recorded Confirmed Type Amlodipine Besylate 5 mg PO DAILY #0 tab 06/09/14 09/25/17 History Fosinopril Sodium 40 mg PO DAILY #0 06/09/14 09/25/17 History Metformin HCl 850 mg PO BIDWM #0 tab 06/09/14 09/25/17 History Tamsulosin HCl [Flomax] 1 cap PO HS #0 cap 06/09/14 09/25/17 History hydroCHLOROthiazide 1 tab PO WB #0 tab 06/09/14 09/25/17 History [Hydrochlorothiazide] Lovastatin 20 mg PO HS #0 tab 06/27/14 09/25/17 History Multivitamin [Daily Multiple 1 cap PO DAILY #0 06/27/14 09/25/17 History Vitamin] Glimepiride [Amaryl] 0.5 tab PO WB #0 tab 07/04/15 09/25/17 History Amiodarone [Pacerone] 200 mg PO DAILY 09/26/17 09/26/17 History Allergies Allergy/AdvReac Type Severity Reaction Status Date / Time Sulfa (Sulfonamide Allergy Intermediate RASH Verified 07/11/14 10:17 Antibiotics) hydrocodone AdvReac Severe CONFUSION Verified 07/05/15 18:16 MORPHIN AdvReac Intermediate CONFUSION Uncoded 06/09/14 10:21 Exam Vital Signs: Temperature 98.8 F 09/25/17 22:04 Pulse Rate 81 09/25/17 22:04 Respiratory Rate 20 09/25/17 22:04 Blood Pressure 159/115 H 09/25/17 22:04 Pulse Oximetry 96 09/25/17 22:04 Height/Weight/BMI: Height 1.88 m Weight 93.4 kg Body Mass Index 26.4 - Constitutional Present: no acute distress, well nourished, well developed - Routine HEENT Exam Eye: Present: normal accommodation ENT: Present: mucous membranes moist - Routine Neck Exam Present: supple - Routine Respiratory Exam Present: CTA bilaterally - Routine Cardiovascular Exam Present: RRR, no murmur - Routine Abdominal Exam Present: soft, non distended, non tender - Routine Extremities Exam Present: no edema, non tender Results - Labs CBC & Chem 7: 09/26/17 05:34 09/26/17 05:34 Assessment and Plan (1) Influenzal bronchopneumonia Current visit: Yes Status: Acute (2) Hypoglycemia associated with diabetes Current visit: Yes Status: Acute (3) A-fib Current visit: Yes Status: Acute (4) CAD (coronary artery disease) of artery bypass graft Current visit: Yes Status: Acute (5) HTN (hypertension), benign Current visit: Yes Status: Acute (6) Dyslipidemia associated with type 2 diabetes mellitus Current visit: Yes Status: Acute Assessment and Plan: will monitor blood sugar Q3 hr, insulin SS with hypoglycemic protocols, start on rocephin/ azithro, and tamiflu, isolation, restart htn agents due to high BP on admission after receiving boluses in Er. replacing potassium, recheck K + Mg in am, on telemetry. Resuscitation Status: Full Code - Physician Narrative Physician: Eli Barton MD, Richi Jhaveri MD Narrative: Date: 09/26/17 Time: 1350 see supplemental note dictated 09/26 for my comments Hospital Course Summary Disclaimer: The visit summary below is not to be considered part of the above Progress Note.
[2017-09-25] MEDS: DEXTROSE 50% SYRINGE 50ml (1 AMP) IVP PRN (23:53)
[2017-09-26] MEDS: D10W 1,000 ML IV SCH ×4 (00:05→20:37)
[2017-09-26] MEDS: DEXTROSE 50% SYRINGE 50ml (1 AMP) IVP PRN ×3 (02:01→05:35)
[2017-09-26] MEDS: ASPIRIN *EC* 325 MG TABLET PO SCH (08:10)
[2017-09-26] MEDS: FOSINOPRIL 20 MG TABLET PO SCH (08:10)
[2017-09-26] MEDS: CLOPIDOGREL 75 MG TABLET PO SCH (08:10)
[2017-09-26] MEDS: AZITHROMYCIN 500 MG TABLET PO SCH (08:10)
[2017-09-26] MEDS: AMLODIPINE 5 MG TABLET PO SCH (08:11)
[2017-09-26] MEDS: CEFTRIAXONE 1 G in NS 50 ML IV SCH ×2 (08:14→22:03)
[2017-09-26] MEDS ORDERED: AMIODARONE 200 MG TABLET PO SCH (09:00)
--- NOTE | 2017-09-26 11:34 | XRay Report ---
INDICATION: dyspnea/fever PROCEDURE: CHEST 2-VIEWS UPRIGHT (PA & LAT) Encounter: Initial COMPARISON: September 25, 2017 and July 05, 2015 FINDINGS: Small areas of patchy airspace disease in the right lower lobe are stable from the recent comparison. Upper lung munoz are clear. No pleural effusion or pneumothorax. Cardiomediastinal contours are stable. Prior CABG. Pulmonary vascularity appears normal. Impression: Right lower lobe airspace disease could be due to atelectasis or pneumonia. .
[2017-09-26] MEDS ORDERED: D10W 250 ML IV SCH (12:15)
[2017-09-26 14:00] VITALS: BMI 25.9
--- NOTE | 2017-09-26 14:21 | Progress Note ---
Progress Note: Dr. Richards's admission note reviewed. Mr. Hooper interviewed and examined. Patient's provides much of the history. CC: Low blood sugar HPI: Mr. Hooper describes becoming shaky and weak yesterday afternoon with associated double vision and inability to focus his eyes. He felt confused. He was eating normally at breakfast and lunch during the day and denies N/V. His contacted EMS who reported low blood sugar but the patient and are unknown aware of what the blood sugar was at that time. He was transferred to the emergency room in [place]. Blood sugar was 46 on arrival. Patient cannot recall if he was treated en-route to the ER. He was given 3 amps of D50 and started on a D10 infusion in the emergency room without stabilization of blood sugar. In the ER he was found to have a lactic acid of 4.3 and tested positive for influenza B. Patient reports that he's recently had some mild dyspnea, congestion, and myalgias for about a week and was seen in the office on Friday this week (4 days prior to admission) for these symptoms and given a shot of Rocephin and started on Levaquin which he took on Friday and Friday but became dizzy and confused and then discontinued. He transfered to [facility] from [place] and blood sugars have remained intermittently low prompting continuation of D10 infusion. Patient continues to eat well. He denies significant sputum production, fever, dysuria, abdominal pain, or vomiting. He reports 3-5 loose stools daily for several days without rectal bleeding. Emergency room records indicate the patient's appetite has been poor although both patient and his deny this. Chest x-ray in [place] was unremarkable. PH/SH/FH: agree with that recorded above by Dr. Richards. Additionally transferred records indicate a history of orthostatic hypotension. Patient's primary care physician is Dr. Juárez and he is a full code. ROS: 10 point review positive for lightheadedness yesterday but not chronically , chronic tinnitus and hearing loss, intermittent left radicular pain, no focal weakness, no skin wounds, chronic arthritis. Remainder of review of systems was negative or as per history of present illness. EXAM: General-NAD, alert, talkative; 95.9, 136/56, 96% oxygen saturation on room air HEENT-PERRL, EOMI without nystagmus, conjunctiva clear, sclera anicteric, conjugate gaze, facial structures symmetric, oropharynx clear, neck supple and without adenopathy Lungs-respirations nonlabored, good airflow, breath sounds clear Cardiac-regular rhythm, S1-S2 Abd-obese, soft, nontender, diminished bowel sounds Ext-without edema Skin-without rash, inflamed joints, or wounds Neuro-cranial nerves 3-12 intact, motor tone/power grossly normal, sensation intact to light touch/cold 4 extremities Psych-calm, cooperative, pleasant DATA: White count 15.7 with 87% neutrophils, 7% lymphocytes, 5% monocytes, hemoglobin 9.9; creatinine 1.3, electrolytes unremarkable, blood sugar at 5:30 was 45 and has subsequently ranged from 42-112 A1c 5.5 Chest x-ray by my review unremarkable except elevation of right hemidiaphragm and some right basilar atelectasis Labs at [facility] in [place] included white count of 15.5, CRP 15, proBNP 808, positive influenza B; C. difficile negative per supervisor dental laboratory report A/P: Hypoglycemia-refractory Influenza B Leukocytosis Diabetes mellitus, type II CKD, stage III Hypertension CAD A. fib Normocytic anemia Prolonged hypoglycemia, typically on glimepiride and metformin-both are on hold. Persistent hypoglycemia worrisome for sepsis although there is no clear source. Continue D10 infusion, rate increased to 125 mL per hour due to hypoglycemia after breakfast this morning. Monitor blood sugar every 2 hours. A1c 5.5 indicating tight control overall, at risk for episodic hypoglycemia. Can probably discontinue Amaryl at discharge to minimize risk of hypoglycemia in the future. Antibiotics empirically initiated for pulmonary coverage due to respiratory symptoms although I suspect they are due to influenza. Blood cultures to be obtained ([place] lab could not confirm that blood cultures were drawn there). Sputum culture to be obtained in addition to UA. Check liver enzymes with next phlebotomy. Tamiflu initiated for influenza; home regimen continued for hyperlipidemia and high blood pressure. Amiodarone on hold currently while on azithromycin.
[2017-09-26] MEDS ORDERED: PredniSONE 20 MG TABLET PO SCH (20:20)
[2017-09-26] MEDS: TAMSULOSIN 0.4 MG CAPSULE PO SCH (22:00)
[2017-09-26] MEDS: LOVASTATIN 20 MG TABLET PO SCH (22:01)
[2017-09-27] MEDS: INSULIN ASPART 100unit/ml INJECTION SQ PRN ×5 (02:20→22:11)
[2017-09-27] MEDS: D10W 1,000 ML IV SCH (05:26)
[2017-09-27] MEDS ORDERED: AMIODARONE 200 MG TABLET PO SCH (09:00)
[2017-09-27] MEDS: AMLODIPINE 5 MG TABLET PO SCH (09:06)
[2017-09-27] MEDS: ASPIRIN *EC* 325 MG TABLET PO SCH (09:06)
[2017-09-27] MEDS: AZITHROMYCIN 500 MG TABLET PO SCH (09:06)
[2017-09-27] MEDS: CLOPIDOGREL 75 MG TABLET PO SCH (09:07)
[2017-09-27] MEDS: FOSINOPRIL 20 MG TABLET PO SCH (09:07)
[2017-09-27] MEDS: CEFTRIAXONE 1 G in NS 50 ML IV SCH ×2 (11:09→21:13)
--- NOTE | 2017-09-27 15:03 | Progress Note ---
- Date 09/27/17 Subjective: The patient was seen this afternoon in his room accompanied by his . He stated he was feeling better this morning, but this afternoon had vertigo and felt dizzy when he tried to get up and go for walk. He states he does not feel dizzy or have vertigo now. He denies any shortness of breath. He denies any pain. He is drinking fluids okay. Objective Vital signs: Temperature 96.9 F 09/27/17 07:48 Pulse Rate 73 09/27/17 08:00 Respiratory Rate 22 09/27/17 07:48 Blood Pressure 163/72 H 09/27/17 07:48 Pulse Oximetry 97 09/27/17 07:48 Height/Weight/BMI: Height 1.88 m Weight 92.5 kg Body Mass Index 25.9 Comments: 158/69 lying, 157/78 sitting, 143/68 standing, heart rate remained in the 70s- patient was asymptomatic GEN-alert, oriented, no acute distress HEENT-sclera anicteric, pupils equal round and reactive, oropharynx is moist NECK-supple CV-regular rate and rhythm CHEST-clear to auscultation bilaterally ABD-soft, nontender with positive bowel sounds -no Reveles EXT-no edema NEURO-cranial nerves II through XII are grossly intact other than possibly some very mild right droop at the corner of his mouth. No nystagmus. Motor strength is equal in upper and lower extremities. He was able to sit up in bed and then stand up for several minutes without any lightheadedness or vertigo. SKIN-warm and dry and without rashes Results - Labs CBC & Chem 7: 09/27/17 04:48 09/27/17 04:48 Microbiology Results: Microbiology 09/26/17 14:52 Peripheral/Iv Start Blood Culture - Preliminary No Growth After 1 Day 09/26/17 14:52 Peripheral/Iv Start Blood Culture - Preliminary No Growth After 1 Day 09/26/17 16:07 Sputum, Expectorated Gram Stain - Final 09/26/17 16:07 Sputum, Expectorated Sputum Culture - Preliminary Culture Initiated - Results Pending - Impressions Chest x-ray yesterday showed right lower lobe airspace disease which could be due to atelectasis or pneumonia Assessment and Plan (1) Influenzal bronchopneumonia Current visit: Yes Status: Acute (2) Hypoglycemia associated with diabetes Current visit: Yes Status: Acute (3) A-fib Current visit: Yes Status: Acute (4) CAD (coronary artery disease) of artery bypass graft Current visit: Yes Status: Acute (5) HTN (hypertension), benign Current visit: Yes Status: Acute (6) Dyslipidemia associated with type 2 diabetes mellitus Current visit: Yes Status: Acute Assessment and Plan: Impression Hypoglycemia-refractory despite treatment yesterday with D10 W and then last night prednisone 40 mg by mouth 1 was added. Now he does have hyperglycemia. D10W and prednisone were discontinued. Influenza B-Tamiflu started 09/26/2017 Possible right lower lobe pneumonia-azithromycin started Leukocytosis Diabetes mellitus, type II CKD, stage III Hypertension CAD A. fib Normocytic anemia Lactic acidosis without associated sepsis Plan We'll give sliding scale insulin. Diabetic diet. D10W and prednisone were discontinued. Monitor blood sugars fasting and 2 hours postprandial. Consider restarting metformin tomorrow if lactate is normal and renal function is normal. Would recommend staying off of Amaryl due to hypoglycemia and recent A1c of 5.5 Encourage by mouth fluids Increase activity as tolerated CBC and basic metabolic profile tomorrow Twice a day potassium discontinued Consider restarting hydrochlorothiazide tomorrow if blood pressure is elevated. Discussed several times today with the patient's nurse regarding labile diabetes management. The patient and his were given an update regarding condition and regarding plans. DVT Prophylaxis: SCD's Resuscitation Status: Full Code - Time spent with patient Time with patient PN: 35 minutes - Physician Narrative Physician: Gloria Jackson MD Narrative: Date: 09/27/17 Time: 1458 Hospital Course Summary Disclaimer: The visit summary below is not to be considered part of the above Progress Note.
[2017-09-27] MEDS: LOVASTATIN 20 MG TABLET PO SCH (21:14)
[2017-09-27] MEDS: TAMSULOSIN 0.4 MG CAPSULE PO SCH (21:14)
[2017-09-28] MEDS: CLOPIDOGREL 75 MG TABLET PO SCH (09:05)
[2017-09-28] MEDS: AMLODIPINE 5 MG TABLET PO SCH (09:05)
[2017-09-28] MEDS: FOSINOPRIL 20 MG TABLET PO SCH (09:05)
[2017-09-28] MEDS: AZITHROMYCIN 500 MG TABLET PO SCH (09:05)
[2017-09-28] MEDS: ASPIRIN *EC* 325 MG TABLET PO SCH (09:06)
[2017-09-28] MEDS: CEFTRIAXONE 1 G in NS 50 ML IV SCH ×3 (09:06→21:37)
[2017-09-28] MEDS ORDERED: INSULIN ASPART 100unit/ml INJECTION SQ ONE (14:23)
--- NOTE | 2017-09-28 17:24 | Progress Note ---
- Date 09/28/17 Subjective: Patient was seen this evening in his room accompanied by his . He states he is still coughing up some green phlegm. He denies shortness of breath. He states he's feeling stronger. He is eating and drinking okay. Blood sugar this morning was down to 129 before breakfast but after lunch was up to 325. He states he's eating more carbs here than he usually eats at home. He denies any pain. He states he was able to walk in the halls with his walker without difficulty. Objective Vital signs: Temperature 96.7 F L 09/28/17 15:42 Pulse Rate 58 L 09/28/17 15:42 Respiratory Rate 16 09/28/17 15:42 Blood Pressure 125/62 09/28/17 15:42 Pulse Oximetry 99 09/28/17 15:42 Height/Weight/BMI: Height 1.88 m Weight 93.6 kg Body Mass Index 25.9 Comments: GEN-alert, oriented, no acute distress CV-regular rate and rhythm CHEST-mild rhonchi in the bases ABD-soft, nontender with positive bowel sounds -no Reveles EXT-no edema NEURO-no focal deficits SKIN-warm and dry and without rashes Results - Labs CBC & Chem 7: 09/28/17 05:07 09/28/17 05:07 Microbiology Results: Microbiology 09/26/17 14:52 Peripheral/Iv Start Blood Culture - Preliminary No Growth After 2 Days 09/26/17 14:52 Peripheral/Iv Start Blood Culture - Preliminary No Growth After 2 Days 09/26/17 16:07 Sputum, Expectorated Gram Stain - Final 09/26/17 16:07 Sputum, Expectorated Sputum Culture - Preliminary Early growth Assessment and Plan (1) Influenzal bronchopneumonia Current visit: Yes Status: Acute (2) Hypoglycemia associated with diabetes Current visit: Yes Status: Acute (3) A-fib Current visit: Yes Status: Acute (4) CAD (coronary artery disease) of artery bypass graft Current visit: Yes Status: Acute (5) HTN (hypertension), benign Current visit: Yes Status: Acute (6) Dyslipidemia associated with type 2 diabetes mellitus Current visit: Yes Status: Acute Assessment and Plan: Impression [id number] resolved after D10W and prednisone 1 on 09/26 Influenza B-Tamiflu started 09/26/2017 Possible right lower lobe pneumonia-currently on day #3 of Rocephin and azithromycin Leukocytosis-improved Diabetes mellitus, type II CKD, stage III Hypertension CAD A. fib Normocytic anemia Lactic acidosis without associated sepsis-repeat lactate to 07/07/2017 is normal Plan Restart metformin 850 mg once twice daily with meals. He will get his first dose this evening. Continue Tamiflu for influenza and Rocephin and azithromycin for pneumonia. Await sputum culture. Would recommend staying off of Amaryl due to hypoglycemia and recent A1c of 5.5 Increase activity as tolerated Consider restarting hydrochlorothiazide tomorrow if blood pressure is elevated. Possible discharge tomorrow Discussed findings and plans with the patient, his and his nurse. DVT Prophylaxis: SCD's - Physician Narrative Physician: Gloria Jackson MD Narrative: Date: 09/28/17 Time: 7018 Hospital Course Summary Disclaimer: The visit summary below is not to be considered part of the above Progress Note. Hospital Course: 09/27/2017 Impression Hypoglycemia-refractory despite treatment yesterday with D10 W and then last night prednisone 40 mg by mouth 1 was added. Now he does have hyperglycemia. D10W and prednisone were discontinued. Influenza B-Tamiflu started 09/26/2017 Possible right lower lobe pneumonia-azithromycin started Leukocytosis Diabetes mellitus, type II CKD, stage III Hypertension CAD A. fib Normocytic anemia Lactic acidosis without associated sepsis Plan We'll give sliding scale insulin. Diabetic diet. D10W and prednisone were discontinued. Monitor blood sugars fasting and 2 hours postprandial. Consider restarting metformin tomorrow if lactate is normal and renal function is normal. Would recommend staying off of Amaryl due to hypoglycemia and recent A1c of 5.5 Encourage by mouth fluids Increase activity as tolerated CBC and basic metabolic profile tomorrow Twice a day potassium discontinued Consider restarting hydrochlorothiazide tomorrow if blood pressure is elevated. Discussed several times today with the patient's nurse regarding labile diabetes management. The patient and his were given an update regarding condition and regarding plans.
[2017-09-28] MEDS: METFORMIN 850 MG TABLET PO SCH (17:30)
[2017-09-28] MEDS: TAMSULOSIN 0.4 MG CAPSULE PO SCH (21:37)
[2017-09-28] MEDS: LOVASTATIN 20 MG TABLET PO SCH (21:37)
[2017-09-29 00:26] VITALS: PULSE 67
[2017-09-29 07:50] VITALS: BP 167/64; RESP 17; TEMP 96.8; O2SAT 96
[2017-09-29] MEDS: FOSINOPRIL 20 MG TABLET PO SCH (07:59)
[2017-09-29] MEDS: CEFTRIAXONE 1 G in NS 50 ML IV SCH (08:00)
[2017-09-29] MEDS: AMLODIPINE 5 MG TABLET PO SCH (08:00)
[2017-09-29] MEDS: METFORMIN 850 MG TABLET PO SCH (08:00)
[2017-09-29] MEDS: AZITHROMYCIN 500 MG TABLET PO SCH (08:00)
[2017-09-29] MEDS: CLOPIDOGREL 75 MG TABLET PO SCH (08:00)
[2017-09-29] MEDS: ASPIRIN *EC* 325 MG TABLET PO SCH (08:02)
--- NOTE | 2017-09-29 13:52 | Discharge Summary ---
Discharge Information Date of admission: 09/25/17 21:59 Anticipated date of discharge: 09/29/17 Attending Physician: Gloria Jackson MD Primary care physician: Bladimir Juárez, DO - Discharge Diagnosis (1) Influenzal bronchopneumonia Status: Acute (2) Hypoglycemia associated with diabetes Status: Acute (3) A-fib Status: Acute (4) CAD (coronary artery disease) of artery bypass graft Status: Acute (5) HTN (hypertension), benign Status: Acute (6) Dyslipidemia associated with type 2 diabetes mellitus Status: Acute Devwfkkkspct-rzfhmjkime-obpthttvq resolved after D10W and prednisone 1 on 09/26 Influenza B-Tamiflu started 09/26/2017 Possible right lower lobe pneumonia- Leukocytosis-improved Diabetes mellitus, type II CKD, stage III Hypertension CAD A. fib Normocytic anemia Lactic acidosis on admission without associated sepsis-repeat lactate to 2016 is normal - Laboratory Labs: 09/28/17 05:07 09/28/17 05:07 Laboratory Tests 09/26/17 09/26/17 09/27/17 05:34 05:34 08:44 WBC 15.7 H Hgb 9.9 L Neutrophils % (Manual) 87.0 H Lymphocytes % (Manual) 7.0 L Glucose 45 L* Plasma Lactate Stl C. diff Tox B Gene Negative 09/27/17 09/28/17 19:13 05:07 WBC Hgb Neutrophils % (Manual) Lymphocytes % (Manual) Glucose Plasma Lactate 2.1 1.3 Stl C. diff Tox B Gene - Microbiology Microbiology 09/26/17 16:07 Sputum, Expectorated Gram Stain - Final 09/26/17 16:07 Sputum, Expectorated Sputum Culture - Final [place] albicans Normal Respiratory Massiel 09/26/17 14:52 Peripheral/Iv Start Blood Culture - Preliminary No Growth After 2 Days 09/26/17 14:52 Peripheral/Iv Start Blood Culture - Preliminary No Growth After 2 Days - Radiology Radiology: Date of Exam: 09/26/17 Ordering Provider: Eli Barton MD Type of Exam(s): XR chest 2V Reason for Exam(s): dyspnea/fever INDICATION: dyspnea/fever PROCEDURE: CHEST 2-VIEWS UPRIGHT (PA & LAT) Encounter: Initial COMPARISON: September 25, 2017 and July 05, 2015 FINDINGS: Small areas of patchy airspace disease in the right lower lobe are stable from the recent comparison. Upper lung munoz are clear. No pleural effusion or pneumothorax. Cardiomediastinal contours are stable. Prior CABG. Pulmonary vascularity appears normal. Impression: Right lower lobe airspace disease could be due to atelectasis or pneumonia. . History of Present Illness HPI: The pt is a 87 yo who started developing SOB, congestion, myalgia and subjective fevers, on 09/19/17 he went to the clinic in his home town and was given one IM dose of rocephin 1 gm, and given Levoquin. He didn't fill the prescription until 09/22. He took two doses and became dizzy and confused per . He then was brought to the [facility] ER where he was found to have a blood sugar of 46. He was given one amp of D50 and started on D5 after receiving 1 liter bolus NS. It was also noted that his LA was 4.3, K 3.0, and + for influenza B. He was then transfered to our facility for higher level of care and close monitoring. Dr. Barton HPI HPI: Mr. Hooper describes becoming shaky and weak yesterday afternoon with associated double vision and inability to focus his eyes. He felt confused. He was eating normally at breakfast and lunch during the day and denies N/V. His contacted EMS who reported low blood sugar but the patient and are unknown aware of what the blood sugar was at that time. He was transferred to the emergency room in [place]. Blood sugar was 46 on arrival. Patient cannot recall if he was treated en-route to the ER. He was given 3 amps of D50 and started on a D10 infusion in the emergency room without stabilization of blood sugar. In the ER he was found to have a lactic acid of 4.3 and tested positive for influenza B. Patient reports that he's recently had some mild dyspnea, congestion, and myalgias for about a week and was seen in the office on Friday this week (4 days prior to admission) for these symptoms and given a shot of Rocephin and started on Levaquin which he took on Friday and Friday but became dizzy and confused and then discontinued. He transfered to [facility] [place] from [place] and blood sugars have remained intermittently low prompting continuation of D10 infusion. Patient continues to eat well. He denies significant sputum production, fever, dysuria, abdominal pain, or vomiting. He reports 3-5 loose stools daily for several days without rectal bleeding. Emergency room records indicate the patient's appetite has been poor although both patient and his deny this. Chest x-ray in [place] was unremarkable. Objective Vital signs: Temperature 96.8 F 09/29/17 07:45 Pulse Rate 67 09/29/17 07:45 Respiratory Rate 17 09/29/17 07:45 Blood Pressure 167/64 H 09/29/17 07:45 Pulse Oximetry 96 09/29/17 07:45 Height/Weight/BMI: Height 1.88 m Weight 92 kg Body Mass Index 25.9 Comments: On the day of discharge, the patient is feeling well. HEENT reveals sclerae to be anicteric and oropharynx is moist. Neck is supple. Chest is clear to auscultation. Cardiovascular reveals a regular rate and rhythm. Abdomen is soft and nontender. Extremities are free of edema. Hospital Course This is a general summary of the patient's hospital course. For more details refer to the complete medical record. Hospital course: The patient was admitted on the evening of 09/25/2017 with diagnosis of severe and symptomatic hypoglycemia and influenza B. The patient was treated with D10W IV and still had borderline low blood sugars. He was then given prednisone 40 mg orally the evening after admission, and finally blood sugars improved enough that D10W could be discontinued. The patient's oral hypoglycemics were held. He subsequently did develop hyperglycemia. His hemoglobin A1c was 5.5. Lactate was 4 in the emergency room in [place]. On repeat here it had normalized. The patient's metformin was later restarted. Because of his low hemoglobin A1c and recent difficulties with severe hypoglycemia, the decision was made not to restart glimepiride. The patient is currently eating and drinking well and appears stable for dismissal. Regarding his influenza B, Tamiflu was initiated on admission. He will require 3 more doses to finish out a five-day course Regarding pneumonia, he did receive a 4 day course of Rocephin and azithromycin and is doing quite well. This should be adequate treatment for his pneumonia and I do not think he needs oral antibiotics on discharge. Renal function was stable during the hospitalization Physical therapy and occupational therapy did see and evaluate the patient on the day of discharge and recommended that he use his walker at home. No further PT or OT was recommended as an outpatient. Patient will be dismissed to home in stable condition with plans for follow-up with his primary care physician. He and his are in agreement. Time spent with patient: discharge greater than 30 minutes Resuscitation Status: Full Code Discharge Plan - Discharge Disposition Disposition: Discharged Home, Self-Care *Condition: Stable Reason For Visit (Visit label in EMR): CAP,Influenza B,hypoglycemia - Discharge Medications *Discharge Medications: New Oseltamivir Cap [Tamiflu] 75 mg PO BID #3 cap Acetaminophen [Tylenol] 325 - 650 mg PO Q5H PRN tab PRN Reason: Discomfort Continue hydroCHLOROthiazide [Hydrochlorothiazide] 1 tab PO WB #0 tab Tamsulosin HCl [Flomax] 1 cap PO HS #0 cap Aspirin [Ecotrin] 325 mg PO DAILY #30 tab Clopidogrel Bisulfate [Plavix] 75 mg PO DAILY #30 tab Lovastatin 20 mg PO HS #0 tab Metformin HCl 850 mg PO BIDWM #0 tab Amlodipine Besylate 5 mg PO DAILY #0 tab Fosinopril Sodium 40 mg PO DAILY #0 Multivitamin [Daily Multiple Vitamin] 1 cap PO DAILY #0 Amiodarone [Pacerone] 200 mg PO DAILY Discontinued Glimepiride [Amaryl] 0.5 tab PO WB #0 tab - Discharge Packet/Instructions *Diet: diabetic diet *Activity: up with walker *Pain Management/Treatment: tylenol as needed *Wound Care: n/a Additional Instructions: Monitor blood sugars fasting and 2 hours after meals *Expected Signs/Symptoms: mild fatigue should improve *Notify Physician if: Shortness of breath, lightheadedness, nausea or vomiting, or any other concerning symptoms *During Business Hours Contact: *After Business Hours Contact: to page your doctor *Pending Lab/Results: No Pending Lab - Referrals/Follow Up *Referrals/Follow Up: Bladimir Juárez DO [Family Provider] - 1 Week - Patient Handouts - Dismissal Complete Discharge Instructions are:: Complete Physician Narrative - Narrative Attestation Narrative: Date: 09/29/17 Time: [id number]
== END 2017-09-29 14:57 | disposition home or self-care (01) | DRG 194 ==
LOC: MED 21:59 → SUATTDRO 21:59
PROVIDERS: ADMIT Internal Medicine; ATTEND Internal Medicine